=== PATIENT | female | born 1940 | race Caucasian/White ===

== ENCOUNTER → 2016-03-09 | Outpatient (CLI) | payer MEDICARE ==
--- NOTE | 2016-03-09 14:13 | US ---
EXAMINATION TYPE: US thyroid st tissue head/neck DATE OF EXAM: 03/09/2016 1:48 PM COMPARISON: 08/19/2015 CLINICAL HISTORY: E04.1 THYROID NODULE. GLAND SIZE: Right Lobe: 3.6 x 1.3 x 1.6 cm Overall Parenchyma: heterogenous Left Lobe: 3.4 x 1.4 x 2.8 cm Overall Parenchyma: heterogeneous Isthmus Thickness: 0.3 cm NODULES RIGHT: # of nodules measured on right: 3 1. 1.1 X 0.7 x 0.7 cm isoechoic mixed nodule at the lower pole with well-defined margins; present w ith microcalcifications. This nodule is wider than tall and shows intranodular vascularity. Prior size: 1.2 x 1.0 x 0.9 cm 2. 0.9 X 0.6 x 0.6 cm mixed nodule at the medial lower pole with well-defined margins; . This nodule is wider than tall and shows intranodular vascularity. Prior size: 0.8 x 0.7 x 0.6 cm 3. 0.7 X 0.4 x 0.4 cm mixed nodule at the upper pole with well-defined margins; . This nodule is w ider than tall and shows no intranodular vascularity. Prior size: 0.5 x 0.5 x 0.5 cm LEFT: # of nodules measured on left: 2 1. 0.4 X 0.2 x 0.3 cm cystic nodule at the mid lateral pole with well-defined margins; . This nodu le is wider than tall and shows no intranodular vascularity. Prior size: 0.4 x 0.2 x 0.3 cm 2. 0.4 X 0.3 x 0.3 cm mixed nodule at the lower/medial pole with well-defined margins; . This nodul e is wider than tall and shows no intranodular vascularity. Prior size: 0.3 x 0.3 x 0.3 cm ISTHMUS: # of nodules measured in the isthmus: 1 1. 0.6 X 0.4 x 0.6 cm mixed nodule at the lower pole with well-defined margins; . This nodule is w ider than tall and shows no intranodular vascularity. Prior size: 0.6 x 0.5 x 0.4 cm IMPRESSION: Multinodular thyroid changes. Given differences in technique from the previous exam findings appear t o be stable.
== END | disposition home or self-care (01) ==
LOC: RADUSWWP 12:58
PROVIDERS: ATTEND Otolaryngology
DX: E04.2 Nontoxic multinodular goiter (principal)
CPT/HCPCS: 76536

== ENCOUNTER → 2016-09-28 | Outpatient (CLI) | payer MEDICARE ==
--- NOTE | 2016-09-28 23:27 | US ---
EXAMINATION TYPE: US thyroid st tissue head/neck DATE OF EXAM: 09/28/2016 COMPARISON: 03/09/2016 CLINICAL HISTORY: 76-year-old female Thyroid nodule E04.1. F/U nodules TECHNIQUE: Multiple sonographic images of the thyroid gland are obtained. FINDINGS: GLAND SIZE: Right Lobe: 3.8 x 1.8 x 1.7 cm Overall Parenchyma: heterogenous Left Lobe: 4.0 x 1.4 x 1.6 cm Overall Parenchyma: heterogeneous Isthmus Thickness: 0.4 cm NODULES RIGHT: # of nodules measured on right: 3 1. 0.9 X 0.7 x 0.9 cm isoechoic solid nodule at the mid pole with poorly defined margins; Present w ith microcalcifications; This nodule is wider than tall and shows intranodular vascularity. Prior size: 1.1 x 0.7 x 0.7 cm 2. 0.8 X 0.6 x 0.8 cm hypoechoic solid nodule at the mid pole with well-defined margins; This nodule is wider than tall and shows intranodular vascularity. Prior size: 0.9 x 0.6 x 0.6 cm 3. 0.6 X 0.4 x 0.5 cm hypoechoic solid nodule at the upper pole with well-defined margins; This nodu le is wider than tall and shows intranodular vascularity. Prior size: 0.7 x 0.4 x 0.4 cm LEFT: # of nodules measured on left: 0 ISTHMUS: # of nodules measured in the left isthmus: 1 1. 0.6 X 0.3 x 0.6 cm hypoechoic solid with well-defined margins; This nodule is wider than tall an d shows intranodular vascularity. Prior size: 0.6 x 0.4 x 0.6 cm Bilateral neck scanned, no evidence of lymphadenopathy. IMPRESSION: Stable solid thyroid nodules, 3 in the right lobe (measuring up to 9 mm) and one within the left Isth mus (measuring up to 6 mm).
== END | disposition home or self-care (01) ==
LOC: RADUSWWP 16:09
PROVIDERS: ATTEND Otolaryngology
DX: E04.2 Nontoxic multinodular goiter (principal)
CPT/HCPCS: 76536

== ENCOUNTER → 2016-10-25 | Outpatient (CLI) | payer MEDICARE ==
--- NOTE | 2016-10-26 07:44 | BD ---
EXAMINATION TYPE: MG DEXA axial skeleton. DATE OF EXAM: 10/25/2016 COMPARISON: NONE CLINICAL HISTORY: Age-related osteoporosis per order. Height: 62.2 IN Weight: 168 LBS FRAX RISK QUESTIONS: Alcohol (3 or more units per day): NO Family History (Parent hip fracture): NO Glucocorticoids (More than 3mos): NO (Ex: prednisone, prednisolone, methylprednisolone, dexamethasone, and hydrocortisone). History of Fracture in Adulthood: NO Secondary Osteoporosis: 1. Type 1 Diabetes: NO 2. Hyperthyroidism: NO 3. Menopause before 45: NO 4. Malnutrition: NO 5. Chronic liver disease: NO Rheumatoid Arthritis: NO Current Tobacco Use: NO RISK FACTORS HISTORY OF: Active: YES Diet low in dairy products/other sources of calcium: YES Postmenopausal woman: AGE 48 MEDICATIONS: Additional Medications: CALCIUM, VIT D, HIGH BLOOD PRESSURE MED, ALLERGY MEDS, ZYRTEC, ASPIRIN, MAGNE SIUM, MOTRIN, Additional History: BREAST CA WITH CHEMO EXAM MEASUREMENTS: Bone mineral densitometry was performed using the [employer]. Bone mineral density as measured about the Lumbar spine is: ----- L1-L4(G/cm2): 0.990 T Score Values are as follows: ----- L2: -2.7 ----- L3: -1.3 ----- L4: -0.2 ----- L1-L4: -1.6 Bone mineral density BASELINE Bone mineral density about the R hip (g/cm2): 0.697 Bone mineral density about the L hip (g/cm2): 0.678 T Score values are as follows: -----R Neck: -2.5 -----L Neck: -2.6 -----R Total: -2.4 -----L Total: -1.8 Bone mineral density BASELINE IMPRESSION: Osteoporosis (T Score less than -2.5) as noted by T Score values at the femoral neck levels in both h ips and at 2 consecutive levels in the low back. There is increased fracture risk and therapy is usua lly indicated based on age. Re-Screen 1-2 years. NOTE: T-SCORE=SD OF THE YOUNG ADULT MEAN.
== END | disposition home or self-care (01) ==
LOC: RADBDWWP 15:50
PROVIDERS: ATTEND Internal Medicine Rheumatology
DX: M81.0 Age-related osteoporosis without current pathological fracture (principal)
CPT/HCPCS: 77080

== ENCOUNTER → 2017-09-12 | Outpatient (CLI) | payer MEDICARE ==
--- NOTE | 2017-09-12 15:06 | US ---
EXAMINATION TYPE: US thyroid st tissue head/neck DATE OF EXAM: 09/12/2017 COMPARISON: US 2017 CLINICAL HISTORY: E04.1 Thyroid Nodule. Follow up thyroid nodules GLAND SIZE: Right Lobe: 3.3 x 1.8 x 1.6 cm Overall Parenchyma: heterogenous Left Lobe: 3.9 x 1.4 x 1.4 cm Overall Parenchyma: heterogeneous Isthmus Thickness: 0.3 cm NODULES RIGHT: # of nodules measured on right: 3 1. 1.3 X 0.9 x 0.9 cm isoechoic solid nodule at the mid pole with poorly defined margins; present w ith microcalcifications. This nodule is wider than tall and shows intranodular vascularity. Prior size: 0.9 x 0.7 x 0.9 cm 2. 1.0 X 0.7 x 0.9 cm hypoechoic solid nodule at the mid pole with well-defined margins; present wit h microcalcifications. This nodule is wider than tall and shows intranodular vascularity. Prior size: 0.8 x 0.6 x 0.8 cm 3. 0.7 X 0.5 x 0.7 cm hypoechoic solid nodule at the upper pole with well-defined margins. This nodu le is wider than tall and shows intranodular vascularity. Prior size: 0.6 x 0.4 x 0.5 cm LEFT: # of nodules measured on left: 0 ISTHMUS: # of nodules measured in the isthmus: 1 1. 0.7 X 0.3 x 0.7 cm hypoechoic solid nodule with well-defined margins. This nodule is wider than tall and shows intranodular vascularity. Prior size: 0.6 x 0.3 x 0.6 cm Bilateral neck scanned, no evidence of lymphadenopathy. Heterogeneous somewhat small thyroid gland with stable nodules described above. No new nodules are ev ident. IMPRESSION: As above, overall stable findings.
== END | disposition home or self-care (01) ==
LOC: RADUSWWP 13:54
PROVIDERS: ATTEND Otolaryngology
DX: E04.1 Nontoxic single thyroid nodule (principal); Z88.8 Allergy status to other drugs, medicaments and biological substances
CPT/HCPCS: 76536

== ENCOUNTER 2018-01-18 10:57 | Emergency (ER) | payer MEDICARE ==
[2018-01-18 11:06] VITALS: TEMP 98.5
[2018-01-18] MEDS ORDERED: SODIUM CHLORIDE 0.9% 1,000 ML IV STA (11:30)
--- NOTE | 2018-01-18 11:39 | ED ---
General Adult HPI - General Chief complaint: Weakness Stated complaint: weakness Time Seen by Provider: 01/18/18 11:11 Source: patient, RN notes reviewed Mode of arrival: wheelchair Limitations: no limitations - History of Present Illness Initial comments: Patient is a pleasant 78-year-old female presenting to the emergency Department with complaints of fatigue and generalized weakness. Onset of symptoms was around 3 days ago. Symptoms have been persistent since that time. No isolated area of weakness. No confusion. No speech problem is. No headaches. No significant pain. Patient complains of feeling fatigued and just somewhat weak all over. - Related Data Home Medications Medication Instructions Recorded Confirmed Cetirizine HCl [Zyrtec] 10 mg PO DAILY 09/09/14 01/18/18 Montelukast [Singulair] 10 mg PO DAILY 09/09/14 01/18/18 Omeprazole [PriLOSEC] 20 mg PO AC-BRKFST 09/09/14 01/18/18 Aspirin 325 mg PO DAILY 09/11/14 01/18/18 Bisoprolol-Hctz 10-6.25 mg [Ziac 1 tab PO DAILY 09/03/15 01/18/18 10-6.25] Lovastatin [Mevacor] 10 mg PO HS 09/03/15 01/18/18 Ubidecarenone [Co Q-10] 200 mg PO DAILY 09/03/15 01/18/18 Alendronate Sodium [Fosamax] 5 mg PO DAILY 01/18/18 01/18/18 Aloe Lax 225 1 tab PO DAILY 01/18/18 01/18/18 Ascorbic Acid [Vitamin C] 500 mg PO DAILY 01/18/18 01/18/18 Biotin 5,000 mcg PO DAILY 01/18/18 01/18/18 Calcium Carb/Magnesium Ox,Carb 1 tab PO DAILY 01/18/18 01/18/18 [Seven-Mag 500-250 MG Chewable] Curamin 1 tab PO TID 01/18/18 01/18/18 Stella 500 mg PO DAILY 01/18/18 01/18/18 Lutein 20 mg PO DAILY 01/18/18 01/18/18 Potassium Iodide [SSKI Oral Liquid] 30 gm PO DAILY 01/18/18 01/18/18 Prevagen Es 1 tab PO DAILY 01/18/18 01/18/18 Pyridoxine HCl (Vitamin B6) 100 mg PO DAILY 01/18/18 01/18/18 [Vitamin B-6] Selenium 200 mcg PO DAILY 01/18/18 01/18/18 Sweet Wheat 1 tab PO DAILY 01/18/18 01/18/18 Vitamin E (Dl,Tocopheryl Acet) 400 unit PO DAILY 01/18/18 01/18/18 [Vitamin E] Zinc 50 mg PO DAILY 01/18/18 01/18/18 Allergies Allergy/AdvReac Type Severity Reaction Status Date / Time diazepam [From Valium] Allergy Rapid Verified 01/18/18 12:01 Heart Rate grass pollen-perennial rye, Allergy Itching Verified 01/18/18 12:01 standar Review of Systems ROS Statement: Those systems with pertinent positive or pertinent negative responses have been documented in the HPI. ROS Other: All systems not noted in ROS Statement are negative. Constitutional: Denies: fever, chills Eyes: Denies: eye pain ENT: Denies: ear pain Respiratory: Denies: cough, dyspnea Cardiovascular: Denies: chest pain Endocrine: Reports: fatigue Gastrointestinal: Denies: abdominal pain Genitourinary: Reports: urgency (There is slight increase in patient's chronic incontinence). 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, "bad joints", anemia History of Any Multi-Drug Resistant Organisms: None Reported Past Surgical History: Breast Surgery Additional Past Surgical History / Comment(s): RT MASTECTOMY, Eye surgery - bilateral corneal transplant, AND cataract removal Past Anesthesia/Blood Transfusion Reactions: No Reported Reaction Past Psychological History: No Psychological Hx Reported Smoking Status: Never smoker Past Alcohol Use History: None Reported Past Drug Use History: None Reported - Past Family History Father Family Medical History: Cancer Additional Family Medical History / Comment(s): corneal dystrophy, colon cancer Mother Family Medical History: Cancer Additional Family Medical History / Comment(s): multiple myeloma Brother(s) Family Medical History: Cancer Additional Family Medical History / Comment(s): colon cancer General Exam Limitations: no limitations General appearance: alert, in no apparent distress Head exam: Present: atraumatic Eye exam: Present: normal appearance, PERRL, EOMI. Absent: nystagmus ENT exam: Present: normal oropharynx Neck exam: Present: normal inspection Respiratory exam: Present: normal lung sounds bilaterally Cardiovascular Exam: Present: regular rate, normal rhythm, systolic murmur ( Patient states is chronic) GI/Abdominal exam: Present: soft. Absent: tenderness Extremities exam: Present: normal inspection. Absent: pedal edema, calf tenderness Neurological exam: Present: alert, oriented X3, CN II-XII intact. Absent: motor sensory deficit Expanded Neurological exam: Present: protecting the airway Patient oriented to: Present: person, place, time Speech: Present: fluid speech Cranial nerves: EOM's Intact: Normal, Facial Sensation: Normal Sensory exam: Upper Extremity Light Touch: Normal, Lower Extremity Light Touch: Normal Motor strength exam: RUE: 5, LUE: 5, RLE: 5, LLE: 5 Eye Response: (4) open spontaneously Motor Response: (6) obeys commands Verbal Response: (5) oriented Psychiatric exam: Present: normal affect, normal mood Skin exam: Present: normal color Course Vital Signs 01/18/18 01/18/18 01/18/18 11:03 11:23 11:30 Temperature 98.5 F Pulse Rate 78 73 Respiratory 20 Rate Blood Pressure 143/62 151/70 O2 Sat by Pulse 96 95 94 L Oximetry 01/18/18 01/18/18 01/18/18 12:00 12:30 13:00 Temperature Pulse Rate 68 70 75 Respiratory Rate Blood Pressure 141/74 141/62 O2 Sat by Pulse 100 96 Oximetry 01/18/18 13:30 Temperature Pulse Rate 75 Respiratory Rate Blood Pressure 139/68 O2 Sat by Pulse Oximetry EKG Findings - EKG Comments: EKG Findings:: No sinus rhythm 70. LA 154. QRS 88. QT 446. QTc 41. Normal axis. Normal QRS. No acute ST change. Previous EKGs reviewed dated 09/09/2014 including QTc interval. Medical Decision Making - Medical Decision Making Patient reevaluated and resting comfortably in bed. Patient without additional complaints. Patient was able to ambulate without difficulty in the emergency department. Patient and family updated on results and need for follow-up. This evidently updated on CT results and need for further evaluation. - Lab Data Result diagrams: 01/18/18 13:39 01/18/18 11:50 Lab Results 01/18/18 01/18/18 01/18/18 Range/Units 11:50 11:50 11:50 WBC (3.8-10.6) k/uL RBC (3.80-5.40) m/uL Hgb (11.4-16.0) gm/dL Hct (34.0-46.0) % MCV (80.0-100.0) fL MCH (25.0-35.0) pg MCHC (31.0-37.0) g/dL RDW (11.5-15.5) % Plt Count (150-450) k/uL Neutrophils % % Lymphocytes % % Monocytes % % Eosinophils % % Basophils % % Neutrophils # (1.3-7.7) k/uL Lymphocytes # (1.0-4.8) k/uL Monocytes # (0-1.0) k/uL Eosinophils # (0-0.7) k/uL Basophils # (0-0.2) k/uL PT 10.0 (9.0-12.0) sec INR 1.0 (<1.2) APTT 23.8 (22.0-30.0) sec Sodium 140 (137-145) mmol/L Potassium 5.0 (3.5-5.1) mmol/L Chloride 104 (98-107) mmol/L Carbon Dioxide 24 (22-30) mmol/L Anion Gap 12 mmol/L BUN 18 H (7-17) mg/dL Creatinine 1.00 (0.52-1.04) mg/dL Est GFR (CKD-EPI)AfAm 62 (>60 ml/min/1.73 sqM) Est GFR (CKD-EPI)NonAf 54 (>60 ml/min/1.73 sqM) Glucose 90 (74-99) mg/dL Calcium 9.9 (8.4-10.2) mg/dL Phosphorus 4.1 (2.5-4.5) mg/dL Magnesium 2.2 (1.6-2.3) mg/dL Total Bilirubin 0.8 (0.2-1.3) mg/dL AST 60 H (14-36) U/L ALT 24 (9-52) U/L Alkaline Phosphatase 68 (38-126) U/L Total Creatine Kinase 108 (30-135) U/L CK-MB (CK-2) 1.7 (0.0-2.4) ng/mL CK-MB (CK-2) Rel Index 1.6 Troponin I <0.012 (0.000-0.034) ng/mL Total Protein 8.3 H (6.3-8.2) g/dL Albumin 4.7 (3.5-5.0) g/dL TSH 1.150 (0.465-4.680) mIU/L Free T4 1.07 (0.78-2.19) ng/dL Free T3 pg/mL 3.8 (2.8-5.3) pg/ml Urine Color Urine Appearance (Clear) Urine pH (5.0-8.0) Ur Specific [place] (1.001-1.035) Urine Protein (Negative) Urine Glucose (UA) (Negative) Urine Ketones (Negative) Urine Blood (Negative) Urine Nitrite (Negative) Urine Bilirubin (Negative) Urine Urobilinogen (<2.0) mg/dL Ur Leukocyte Esterase (Negative) 01/18/18 01/18/18 Range/Units 11:50 13:39 WBC 9.4 (3.8-10.6) k/uL RBC 4.73 (3.80-5.40) m/uL Hgb 14.9 (11.4-16.0) gm/dL Hct 45.4 (34.0-46.0) % MCV 96.1 (80.0-100.0) fL MCH 31.6 (25.0-35.0) pg MCHC 32.9 (31.0-37.0) g/dL RDW 13.1 (11.5-15.5) % Plt Count 160 (150-450) k/uL Neutrophils % 64 % Lymphocytes % 23 % Monocytes % 8 % Eosinophils % 2 % Basophils % 0 % Neutrophils # 6.0 (1.3-7.7) k/uL Lymphocytes # 2.1 (1.0-4.8) k/uL Monocytes # 0.8 (0-1.0) k/uL Eosinophils # 0.2 (0-0.7) k/uL Basophils # 0.0 (0-0.2) k/uL PT (9.0-12.0) sec INR (<1.2) APTT (22.0-30.0) sec Sodium (137-145) mmol/L Potassium (3.5-5.1) mmol/L Chloride (98-107) mmol/L Carbon Dioxide (22-30) mmol/L Anion Gap mmol/L BUN (7-17) mg/dL Creatinine (0.52-1.04) mg/dL Est GFR (CKD-EPI)AfAm (>60 ml/min/1.73 sqM) Est GFR (CKD-EPI)NonAf (>60 ml/min/1.73 sqM) Glucose (74-99) mg/dL Calcium (8.4-10.2) mg/dL Phosphorus (2.5-4.5) mg/dL Magnesium (1.6-2.3) mg/dL Total Bilirubin (0.2-1.3) mg/dL AST (14-36) U/L ALT (9-52) U/L Alkaline Phosphatase (38-126) U/L Total Creatine Kinase (30-135) U/L CK-MB (CK-2) (0.0-2.4) ng/mL CK-MB (CK-2) Rel Index Troponin I (0.000-0.034) ng/mL Total Protein (6.3-8.2) g/dL Albumin (3.5-5.0) g/dL TSH (0.465-4.680) mIU/L Free T4 (0.78-2.19) ng/dL Free T3 pg/mL (2.8-5.3) pg/ml Urine Color Yellow Urine Appearance Clear (Clear) Urine pH 6.0 (5.0-8.0) Ur Specific [place] 1.007 (1.001-1.035) Urine Protein Negative (Negative) Urine Glucose (UA) Negative (Negative) Urine Ketones Negative (Negative) Urine Blood Negative (Negative) Urine Nitrite Negative (Negative) Urine Bilirubin Negative (Negative) Urine Urobilinogen <2.0 (<2.0) mg/dL Ur Leukocyte Esterase Negative (Negative) - Radiology Data Radiology results: report reviewed (Computed tomography scan of the brain shows diffuse white matter changes, may reflect chronic small vessel disease however demyelinating disease has not been ruled out), image reviewed (Chest x-ray shows no acute process) Disposition Clinical Impression: Fatigue Disposition: HOME SELF-CARE Condition: Stable Instructions: Fatigue (ED) Additional Instructions: Please follow-up with primary care physician in the next couple of days for recheck. Have primary care physician review CT results. Return for increased weakness, confusion, fevers, worsening or changing symptoms or other concerns. Is patient prescribed a controlled substance at d/c from ED?: No Referrals: Cinthia Wynn MD [Primary Care Provider] - 1-2 days Time of Disposition: 14:40
[2018-01-18 12:19] LABS: Appearance,Urine Clear (Clear); Bilirubin,Urine Negative (Negative); Blood,Urine Negative (Negative); Color,Urine Yellow; Glucose,Urine (UA) Negative (Negative); Ketones,Urine Negative (Negative); Leukocyte Esterase,Urine Negative (Negative); Nitrite,Urine Negative (Negative); Protein,Urine Negative (Negative); Specific Gravity,Urine 1.007 (1.001-1.035); Urobilinogen,Urine <2.0 mg/dL (<2.0)
[2018-01-18 12:20] LABS: Partial Thromboplastin Time 23.8 sec (22.0-30.0)
--- NOTE | 2018-01-18 12:20 | XR ---
EXAMINATION TYPE: XR chest 2V DATE OF EXAM: 01/18/2018 COMPARISON: NONE HISTORY: Shortness of breath TECHNIQUE: Frontal and lateral views of the chest are obtained. FINDINGS: Scattered senescent parenchymal changes noted. Hyperinflation compatible with COPD. No evidence for infiltrate. No evidence for atelectasis. Heart size is stable. Mediastinal structures are stable and grossly unremarkable. No evidence for hilar prominence. Degenerative changes dorsal spine. IMPRESSION: 1. No evidence for acute pulmonary disease.
[2018-01-18 12:25] LABS: Albumin 4.7 g/dL (3.5-5.0); Calcium 9.9 mg/dL (8.4-10.2); Magnesium 2.2 mg/dL (1.6-2.3); Phosphorus 4.1 mg/dL (2.5-4.5); Total Bilirubin 0.8 mg/dL (0.2-1.3); Total Protein 8.3 g/dL (6.3-8.2)
--- NOTE | 2018-01-18 12:32 | CT ---
EXAMINATION TYPE: CT brain wo con DATE OF EXAM: 01/18/2018 COMPARISON: None HISTORY: 78-year-old female Ringing/buzzing in head TECHNIQUE: Examination was done in axial plane without intravenous contrast. Coronal and sagittal r econstructions performed. CT DLP: 1048.4 mGycm Automated exposure control for dose reduction was used. FINDINGS: There is no evidence of acute intracranial hemorrhage, acute ischemic changes, mass, mass-effect, or extra-axial fluid collection. There is no effacement of cerebral sulci or basal subarachnoid cister ns. There is no hydrocephalus. There is no midline shift. Frey-white matter distinction is preserv ed. Paranasal sinuses and mastoid air cells well pneumatized. Middle ear cavities are clear. Rightward na hugo septal deviation. Moderate to severe patchy white matter hypodensities deep white matter and periventricular regions. IMPRESSION: 1. No acute intracranial abnormality seen. 2. Moderate to severe patchy white matter hypodensities may reflect changes of chronic small vessel i schemic disease. Demyelinating disease could also be considered in the differential. MRI if clinicall y indicated.
[2018-01-18 12:34] LABS: Creatine Kinase 108 U/L (30-135)
[2018-01-18 12:41] LABS: T4, Free (Free Thyroxine) 1.07 ng/dL (0.78-2.19)
[2018-01-18 12:47] LABS: Creatine Kinase MB 1.7 ng/mL (0.0-2.4); Troponin I <0.012 ng/mL (0.000-0.034)
[2018-01-18 14:19] LABS: Basophils % (A) 0 %; Eosinophils # (A) 0.2 k/uL (0-0.7); Eosinophils % (A) 2 %; HCT 45.4 % (34.0-46.0); HGB 14.9 gm/dL (11.4-16.0); Lymphocytes # (A) 2.1 k/uL (1.0-4.8); Lymphocytes % (A) 23 %; MCH 31.6 pg (25.0-35.0); MCHC 32.9 g/dL (31.0-37.0); MCV 96.1 fL (80.0-100.0); Mean Platelet Volume 8.5; Monocytes # (A) 0.8 k/uL (0-1.0); Monocytes % (A) 8 %; Neutrophils % (A) 64 %; Platelet Count 160 k/uL (150-450); RBC 4.73 m/uL (3.80-5.40); RDW 13.1 % (11.5-15.5); WBC 9.4 k/uL (3.8-10.6)
[2018-01-18 14:56] VITALS: BP 141/64; PULSE 76; RESP 18
== END 2018-01-18 14:57 | disposition home or self-care (01) ==
LOC: EC 10:57
DX: R53.83 Other fatigue (principal); E78.5 Hyperlipidemia, unspecified; I10 Essential (primary) hypertension; E07.9 Disorder of thyroid, unspecified; G62.9 Polyneuropathy, unspecified; Z85.828 Personal history of other malignant neoplasm of skin; Z85.3 Personal history of malignant neoplasm of breast; Z79.82 Long term (current) use of aspirin; Z79.899 Other long term (current) drug therapy; Z88.8 Allergy status to other drugs, medicaments and biological substances; Z91.048 Other nonmedicinal substance allergy status; Z90.11 Acquired absence of right breast and nipple
CPT/HCPCS: 36415; 70450; 71046; 80053; 81003; 82550; 82553; 83735; 84100; 84439; 84443; 84481; 84484; 85025; 85610; 85730; 93005; 96360; 99285

== ENCOUNTER → 2018-06-22 | Outpatient (CLI) | payer MEDICARE ==
--- NOTE | 2018-06-23 07:01 | US ---
EXAMINATION TYPE: US thyroid st tissue head/neck DATE OF EXAM: 06/22/2018 COMPARISON: 2018 CLINICAL HISTORY: E04.1 Thyroid nodule. GLAND SIZE: Right Lobe: 3.1 x 1.8 x 1.7 cm Overall Parenchyma: heterogenous Left Lobe: 3.5 x1.2 x1.3 cm Overall Parenchyma: heterogenous Isthmus Thickness: 0.3 cm NODULES RIGHT: # of nodules measured on right: 3 1. 1.0 X 0.7 x 0.7 cm solid nodule at the mid pole with poorly defined margins; present with microc alcifications. This nodule is wider than tall and shows intranodular vascularity. Prior size: 1.3 x 0.9 x 0.9 cm 2. 0.8 X 0.9 x 0.7 cm solid nodule at the mid pole with well-defined margins; . This nodule is wide r than tall and shows intranodular vascularity. Prior size: 1.0 x 0.7 x 0.9 cm 3. 0.6 X 0.5 x 0.6 cm mixed nodule at the upper pole with well-defined margins; . This nodule is ro und and shows intranodular vascularity. Prior size: 0.7 x 0.5 x 0.7 cm LEFT: # of nodules measured on left: 0 ISTHMUS: # of nodules measured in the isthmus: 1 1. 0.8 X 0.7 x 0.4 cm solid nodule at the pole with well-defined margins; . This nodule is wider t franco tall and shows intranodular vascularity. Prior size: 0.7 x 0.3 x 0.7 cm Bilateral neck scanned, no evidence of lymphadenopathy. IMPRESSION: Thyroid heterogeneity and nonspecific thyroid nodularity essentially stable since prior examination.
== END | disposition home or self-care (01) ==
LOC: RADUSWWP 15:21
PROVIDERS: ATTEND Otolaryngology
DX: E04.2 Nontoxic multinodular goiter (principal); Z88.8 Allergy status to other drugs, medicaments and biological substances
CPT/HCPCS: 76536

== ENCOUNTER 2018-09-05 09:24 | Day surgery (SDC) | payer MEDICARE ==
[2018-08-30 11:50] VITALS: BMI 26.5
[~2018-09-05 09:24] MED LIST: ASPIRIN 325 MG TAB PO STA; ATORVASTATIN 80 MG TAB PO STA; NITROGLYCERIN SL TABS 0.4 MG TAB SUBLINGUAL PRN; SODIUM CHLORIDE 0.9% 1,000 ML in EMPTY BAG 1 BAG IV ONE
[2018-09-05] MEDS ORDERED: fentaNYL (PF) 50 MCG/ML 2 ML AMP ONE (09:52)
[2018-09-05 10:00] VITALS: RESP 18; TEMP 97.6
[2018-09-05] MEDS ORDERED: SODIUM CHLORIDE 0.9% 1,000 ML IV ONE (10:07)
[2018-09-05] MEDS ORDERED: BENZOCAINE SPRAY 1 CAN MUCOUS MEM ONE (10:12)
[2018-09-05] MEDS ORDERED: fentaNYL (PF) 50 MCG/ML 2 ML AMP IV ONE (10:12)
[2018-09-05] MEDS ORDERED: MIDAZOLAM (PF) 2 MG/2 ML VIAL IV ONE (10:13)
[2018-09-05 10:26] VITALS: PULSE 78
[2018-09-05] MEDS ORDERED: LIDOCAINE 1% INJ 10MG/ML (20 ML MDV) SQ ONE (10:40)
[2018-09-05] MEDS ORDERED: VERAPAMIL SYRINGE (5 MG/10 ML) INTRAARTER ONE ×2 (10:42→10:48)
[2018-09-05] MEDS ORDERED: HEPARIN SODIUM 1,000 UN/ML (10ML VL) IV ONE (10:45)
[2018-09-05] MEDS ORDERED: IOPAMIDOL-370 125ML BTL INJ ONE (10:49)
--- NOTE | 2018-09-05 10:50 | ECHOT ---
TRANSESOPHAGEAL ECHOCARDIOGRAM DATE OF SERVICE: 09/05/2018 PERFORMING PHYSICIAN: Errol James MD, urban planner. PROCEDURE PERFORMED: Transesophageal echocardiogram. INDICATION: This is an in 78-year-old female patient who was experiencing recently symptoms of shortness of breath with exertion and underwent an echocardiogram which revealed high gradient across the aortic valve consistent with severe aortic stenosis. Because of that, she was scheduled today to undergo transesophageal echocardiogram for better clarification. COMPLICATION: None. LEVEL OF SEDATION: Moderate with sedation length of 10 minutes. PROCEDURE DESCRIPTION: After obtaining an informed consent, explaining the procedure, benefits, risks, complications and alternatives, the patient was brought to the transesophageal echocardiogram suite. A pulse oximetry and heart rate monitors were attached to the patient prior to the procedure. The patient's throat was sprayed using lidocaine locally. Following that, the patient was turned into left lateral position. A bite guard was placed and the patient was then sedated with the above doses of Versed and fentanyl in divided doses. Following that, the transesophageal echocardiogram probe was advanced through the bite guard into the mid esophagus where 2-D echocardiogram images as well as color Doppler images of various cardiac structures were obtained. We evaluated the interatrial septum using 2-D echocardiogram, color Doppler, and contrast study. The procedure was completed. There were no complications. FINDINGS: The left ventricular dimension and systolic function appeared to be within normal limits with EF around 60% to 65%. The right ventricle appeared to be of normal size and function. The left atrium and right atrium are dilated. The left atrial appendage did not show any evidence of thrombus. The interatrial septum appeared to be intact by color-flow Doppler. The aortic valve is possibly bicuspid valve with evidence of aortic sclerosis and severe aortic stenosis by gradient. We get a mean gradient of at least 40 mmHg and velocity of 4 m/sec. The mitral valve seems to be thickened and calcified with moderate mitral regurgitation. There was moderate tricuspid regurgitation and pulmonary artery systolic pressure was calculated to be about 17 mmHg. CONCLUSION: 1. Normal left ventricular dimension and systolic function. 2. Normal right ventricular dimension and systolic function. 3. Severe biatrial enlargement. 4. Aortic sclerosis with severe aortic stenosis and mild aortic insufficiency. 5. Thickened mitral valve leaflets with moderate mitral regurgitation. 6. Moderate tricuspid regurgitation. 7. Severe pulmonary hypertension. MMODL / IJN: [id number] /
[2018-09-05] MEDS ORDERED: RX INFO: IV CONTRAST WAS GIVEN 1 EACH MISC MISCELLANE PRN (10:57)
[2018-09-05] MEDS ORDERED: SODIUM CHLORIDE 0.9% 1,000 ML IV SCH (11:00)
--- NOTE | 2018-09-05 11:20 | CC ---
CARDIAC CATHETERIZATION REPORT DATE OF SERVICE: 09/05/2018 PERFORMING PHYSICIAN: Errol James MD, Staff Developer. PROCEDURE PERFORMED: Selective right and left coronary angiogram. INDICATION: This is an 78-year-old female patient with history of aortic stenosis, underwent earlier today transesophageal echocardiogram and that revealed severe and she is here today for coronary angiogram. APPROACH: Right radial artery. COMPLICATION: None. LEVEL OF SEDATION: Moderate with sedation length of 12 minutes. PROCEDURE DESCRIPTION: After obtaining an informed consent, the patient was brought to the cardiac skilled labor. The right radial artery was cannulated using micropuncture technique, the micropuncture wire passed easily, then I placed a 5-T[place] sheath. I did give the patient 2 mg of verapamil IA and 6000 units of heparin IV. Selective right and left coronary angiogram performed using JR4 and JL3.5 catheters. Left heart catheterization was not performed. SELECTIVE CORONARY ANGIOGRAM: 1. The right coronary artery is a large caliber vessel. It is a dominant vessel. The RCA in the proximal to midportion has disease, appeared to be in the range of 70%. Distally appeared to be angiographically normal and bifurcates into PDA and PLV branches, both appeared to be angiographically normal. 2. The left main distally just before the bifurcation has a lesion appeared to be in the range of 30%. It bifurcates into left circumflex and left anterior descending artery. 3. The left circumflex is a large caliber vessel, it is a nondominant vessel. The proximal circumflex has a lesion eccentric, appeared to be in the range of 60% to 70%. The mid circumflex has another lesion, tubular looks about 70%. The circumflex distally appeared to be normal. 4. The LAD, the proximal LAD appeared to have mild disease only. It gives rise into a medium-sized diagonal branch which seems to be normal. The mid LAD appeared to have mild disease only as well and the LAD in the mid to distal portion has a focal lesion in the range of 70%. CONCLUSION: 1. Severe triple-vessel coronary artery disease. 2. Arua-kj-mqtrowic disease involving the left main coronary artery distally as well. POSTPROCEDURE MANAGEMENT: 1. I will discuss with the patient the next step regarding treatment of the aortic valve. 2. If she is going to undergo aortic valve replacement, she will go with TAVR and bypass surgery with it. 3. If she is going to do TAVR, then at this point with schedule the patient to have a PCI of her coronaries before she goes for TAVR. KIERAN / CAROL: [id number] /
[2018-09-05 16:28] VITALS: BP 110/54
== END 2018-09-05 16:05 | disposition home or self-care (01) ==
LOC: CATHCVL 09:24
PROVIDERS: ATTEND Internal Medicine Interventional Cardiology
DX: I08.3 Combined rheumatic disorders of mitral, aortic and tricuspid valves (principal); I27.20 Pulmonary hypertension, unspecified; I25.10 Atherosclerotic heart disease of native coronary artery without angina pectoris; I10 Essential (primary) hypertension; E78.00 Pure hypercholesterolemia, unspecified; I65.23 Occlusion and stenosis of bilateral carotid arteries; E78.5 Hyperlipidemia, unspecified; Z85.3 Personal history of malignant neoplasm of breast; Z88.8 Allergy status to other drugs, medicaments and biological substances; Z79.82 Long term (current) use of aspirin; Z79.899 Other long term (current) drug therapy
CPT/HCPCS: 93312; 93320; 93325; 93454; C1769; C1894; J2001; J3010; J1644; Q9967; J2250

== ENCOUNTER 2018-10-11 19:09 | Inpatient (IN) | payer MEDICARE ==
[2018-10-11] MEDS ORDERED: LORazepam 1 MG TAB PO STA (21:02)
--- NOTE | 2018-10-11 21:17 | ED ---
General Adult HPI - General Source: patient, RN notes reviewed, old records reviewed Mode of arrival: wheelchair Limitations: no limitations <Debbie Gao - Last Filed: 10/11/18 22:49> <Lupe Connelly - Last Filed: 10/12/18 00:26> - General Chief complaint: Shortness of Breath Stated complaint: SOB Time Seen by Provider: 10/11/18 20:40 - History of Present Illness Initial comments: This Patient is an 78-year-old female presents emergency department today with chief complaint of difficulty breathing. She states that she seems like it's intermittent been going on for 4 days. She states that she is seeking a second opinion on whether or not she needs a heart valve replacement, and is scheduled for appt next week with Elaine. Patient states that she does seem to be anxious about this and wonders if that be related to her occult being with breathing. She denies any associated chest pain. She reports that she has no dizziness. Patient reports that she did have a cardiac cath 2 weeks ago. Upon reviewing the cardiac cath she did have coronary artery disease noted in 3 dominant vessels. And recommended that she may need a PCI prior to valve replacement. Denies any cough or fevers. Patient reports that she had no nausea or abdominal pain. (Debbie Gao) - Related Data Home Medications Medication Instructions Recorded Confirmed Cetirizine HCl [Zyrtec] 10 mg PO HS 09/09/14 10/11/18 Montelukast [Singulair] 10 mg PO HS 09/09/14 10/11/18 Omeprazole [PriLOSEC] 20 mg PO HS 09/09/14 10/11/18 Aspirin 325 mg PO HS 09/11/14 10/11/18 Bisoprolol-Hctz 10-6.25 mg [Ziac 1 tab PO HS 09/03/15 10/11/18 10-6.25 MG] Lovastatin [Mevacor] 10 mg PO HS 09/03/15 10/11/18 Ubidecarenone [Co Q-10] 100 mg PO DAILY 09/03/15 10/11/18 Alendronate Sodium [Fosamax] 5 mg PO HS 01/18/18 10/11/18 Aloe Lax 225 1 tab PO HS 01/18/18 10/11/18 Ascorbic Acid [Vitamin C] 500 mg PO QAM 01/18/18 10/11/18 Biotin 5,000 mcg PO QAM 01/18/18 10/11/18 Calcium Carb/Magnesium Ox,Carb 2 tab PO BID 01/18/18 10/11/18 [Seven-Mag 500-250 MG Chewable] Lutein 20 mg PO QAM 01/18/18 10/11/18 Potassium Iodide [SSKI Oral Liquid] 30 gm PO QAM 01/18/18 10/11/18 Prevagen Es 1 tab PO QAM 01/18/18 10/11/18 Pyridoxine HCl (Vitamin B6) 100 mg PO HS 01/18/18 10/11/18 [Vitamin B-6] Selenium 200 mcg PO HS 01/18/18 10/11/18 Vitamin E (Dl,Tocopheryl Acet) 400 unit PO DAILY 01/18/18 10/11/18 [Vitamin E] Zinc 50 mg PO QAM 01/18/18 10/11/18 Cbd Oil 3 drops SL DAILY PRN 08/30/18 10/11/18 Cholecalciferol (Vitamin D3) 2,000 unit PO QAM 08/30/18 10/11/18 [Vitamin D3] Cyanocobalamin (Vitamin B-12) 1,000 mcg PO DAILY 08/30/18 10/11/18 [Vitamin B-12] Ferrous Sulfate [Iron (65 MG 325 mg PO QAM 08/30/18 10/11/18 Elemental)] Ginkgo Biloba [place] Extract [Ginkgo 60 mg PO QAM 08/30/18 10/11/18 Biloba] Lecithin, Soy [Lecithin] 400 mg PO BID 08/30/18 10/11/18 Magnesium Oxide [Mag-Ox] 250 mg PO DAILY 08/30/18 10/11/18 Nutroferon 1 tab PO BID 08/30/18 10/11/18 Potassium Gluconate 99 mg PO QAM 08/30/18 10/11/18 Allergies Allergy/AdvReac Type Severity Reaction Status Date / Time diazepam [From Valium] Allergy Rapid Verified 10/11/18 21:30 Heart Rate grass pollen-perennial rye, Allergy Itching Verified 10/11/18 21:30 standar Review of Systems ROS Other: All systems not noted in ROS Statement are negative. <Debbie Gao - Last Filed: 10/11/18 22:49> ROS Other: All systems not noted in ROS Statement are negative. <Lupe Connelly Remberto - Last Filed: 10/12/18 00:26> ROS Statement: Those systems with pertinent positive or pertinent negative responses have been documented in the HPI. 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, "bad joints", anemia History of Any Multi-Drug Resistant Organisms: None Reported Past Surgical History: Breast Surgery Additional Past Surgical History / Comment(s): RT MASTECTOMY, Eye surgery - bilateral corneal transplant, AND cataract removal Past Anesthesia/Blood Transfusion Reactions: No Reported Reaction Past Psychological History: No Psychological Hx Reported Smoking Status: Never smoker Past Alcohol Use History: Occasional Past Drug Use History: None Reported - Past Family History Father Family Medical History: Cancer Additional Family Medical History / Comment(s): corneal dystrophy, colon cancer Mother Family Medical History: Cancer Additional Family Medical History / Comment(s): multiple myeloma Brother(s) Family Medical History: Cancer Additional Family Medical History / Comment(s): colon cancer <Debbie Gao - Last Filed: 10/11/18 22:49> General Exam Limitations: no limitations General appearance: alert, in no apparent distress Head exam: Present: atraumatic, normocephalic, normal inspection Eye exam: Present: normal appearance, PERRL, EOMI. Absent: scleral icterus, conjunctival injection, periorbital swelling ENT exam: Present: normal exam, mucous membranes moist Neck exam: Present: normal inspection. Absent: tenderness, meningismus, lymphadenopathy Respiratory exam: Present: normal lung sounds bilaterally. Absent: respiratory distress, wheezes, rales, rhonchi, stridor Cardiovascular Exam: Present: regular rate, normal rhythm, systolic murmur. Absent: normal heart sounds, diastolic murmur, rubs, gallop, clicks GI/Abdominal exam: Present: soft, normal bowel sounds. Absent: distended, tenderness, guarding, rebound, rigid Extremities exam: Present: normal inspection, full ROM, normal capillary refill. Absent: tenderness, pedal edema, joint swelling, calf tenderness Back exam: Present: normal inspection Neurological exam: Present: alert, oriented X3, CN II-XII intact Psychiatric exam: Present: normal affect, normal mood Skin exam: Present: warm, dry, intact, normal color. Absent: rash <Debbie Gao - Last Filed: 10/11/18 22:49> - General Exam Comments Initial Comments: Pleasant 78-year-old female. No distress. (SimaDebbie) Course Vital Signs 10/11/18 10/11/18 10/12/18 19:26 23:19 00:16 Temperature 99.1 F Pulse Rate 76 69 82 Respiratory 18 16 16 Rate Blood Pressure 126/79 153/77 151/69 O2 Sat by Pulse 96 100 97 Oximetry Medical Decision Making - Lab Data Result diagrams: 10/11/18 21:10 10/11/18 21:10 - Radiology Data Radiology results: report reviewed <Debbie Gao - Last Filed: 10/11/18 22:49> - Lab Data Result diagrams: 10/11/18 21:10 10/11/18 21:10 <Lupe Connelly - Last Filed: 10/12/18 00:26> - Medical Decision Making Asians an 78-year-old female who presents today with Solu complaint of intermittent shortness of breath. Denies any chest pain. Denies any pleuritic pain. Vital signs are stable. Upon arrival Patient was given fluids and lab work obtained. She was found to have a significant elevated troponin of 6.3. EKG was reviewed and also discusses Dr. Metzger. Patient was started on heparin. Her cardiac cath 2 weeks ago did show prominent three-vessel coronary artery disease. 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 James with her consumer lender. She is also reported to have aortic valve replacement due to aortic stenosis. (Debbie Gao) I Personally saw and evaluated the patient. Patient EKG was obtained at 2216, rate is 71 rhythm is sinus, there is a leftward axis, intervals MA 168, QRS 94, QTC is prolonged at 489, there are no acute ST elevations, mild ST depressions in lateral leads. No evidence of acute infarction. I discussed patient care with cardiology on-call Dr May, who agrees with plan for admission, heparinization and evaluation by cardiology. (Lupe Connelly) - Lab Data Lab Results 10/11/18 10/11/18 10/11/18 Range/Units 21:10 21:10 21:10 WBC 10.0 (3.8-10.6) k/uL RBC 4.58 (3.80-5.40) m/uL Hgb 14.5 (11.4-16.0) gm/dL Hct 43.7 (34.0-46.0) % MCV 95.4 (80.0-100.0) fL MCH 31.6 (25.0-35.0) pg MCHC 33.2 (31.0-37.0) g/dL RDW 13.4 (11.5-15.5) % Plt Count 175 (150-450) k/uL Neutrophils % 55 % Lymphocytes % 26 % Monocytes % 13 % Eosinophils % 2 % Basophils % 1 % Neutrophils # 5.5 (1.3-7.7) k/uL Lymphocytes # 2.6 (1.0-4.8) k/uL Monocytes # 1.3 H (0-1.0) k/uL Eosinophils # 0.2 (0-0.7) k/uL Basophils # 0.1 (0-0.2) k/uL PT (9.0-12.0) sec INR (<1.2) APTT (22.0-30.0) sec Sodium 139 (137-145) mmol/L Potassium 4.2 (3.5-5.1) mmol/L Chloride 105 (98-107) mmol/L Carbon Dioxide 26 (22-30) mmol/L Anion Gap 8 mmol/L BUN 24 H (7-17) mg/dL Creatinine 1.05 H (0.52-1.04) mg/dL Est GFR (CKD-EPI)AfAm 58 (>60 ml/min/1.73 sqM) Est GFR (CKD-EPI)NonAf 50 (>60 ml/min/1.73 sqM) Glucose 88 (74-99) mg/dL Calcium 9.3 (8.4-10.2) mg/dL Magnesium 2.1 (1.6-2.3) mg/dL Total Bilirubin 0.5 (0.2-1.3) mg/dL AST 88 H (14-36) U/L ALT 25 (9-52) U/L Alkaline Phosphatase 65 (38-126) U/L Troponin I (0.000-0.034) ng/mL NT-Pro-B Natriuret Pep 3390 pg/mL Total Protein 7.2 (6.3-8.2) g/dL Albumin 4.1 (3.5-5.0) g/dL 10/11/18 10/11/18 Range/Units 21:10 21:10 WBC (3.8-10.6) k/uL RBC (3.80-5.40) m/uL Hgb (11.4-16.0) gm/dL Hct (34.0-46.0) % MCV (80.0-100.0) fL MCH (25.0-35.0) pg MCHC (31.0-37.0) g/dL RDW (11.5-15.5) % Plt Count (150-450) k/uL Neutrophils % % Lymphocytes % % Monocytes % % Eosinophils % % Basophils % % Neutrophils # (1.3-7.7) k/uL Lymphocytes # (1.0-4.8) k/uL Monocytes # (0-1.0) k/uL Eosinophils # (0-0.7) k/uL Basophils # (0-0.2) k/uL PT 9.7 (9.0-12.0) sec INR 0.9 (<1.2) APTT 20.7 L (22.0-30.0) sec Sodium (137-145) mmol/L Potassium (3.5-5.1) mmol/L Chloride (98-107) mmol/L Carbon Dioxide (22-30) mmol/L Anion Gap mmol/L BUN (7-17) mg/dL Creatinine (0.52-1.04) mg/dL Est GFR (CKD-EPI)AfAm (>60 ml/min/1.73 sqM) Est GFR (CKD-EPI)NonAf (>60 ml/min/1.73 sqM) Glucose (74-99) mg/dL Calcium (8.4-10.2) mg/dL Magnesium (1.6-2.3) mg/dL Total Bilirubin (0.2-1.3) mg/dL AST (14-36) U/L ALT (9-52) U/L Alkaline Phosphatase (38-126) U/L Troponin I 6.310 H* (0.000-0.034) ng/mL NT-Pro-B Natriuret Pep pg/mL Total Protein (6.3-8.2) g/dL Albumin (3.5-5.0) g/dL - Radiology Data Chest x-ray shows mild atelectasis and scarring. Air-containing rectocardiac structure likely a hiatal hernia. (Debbie Gao) Disposition Is patient prescribed a controlled substance at d/c from ED?: No Time of Disposition: 22:52 <Debbie Gao - Last Filed: 10/11/18 22:49> <Lupe Connelly - Last Filed: 10/12/18 00:26> Clinical Impression: ST segment changes on electrocardiogram, NSTEMI (non-ST elevated myocardial infarction) Disposition: ADMITTED IP TO THIS HOSP Condition: Stable
[2018-10-11 21:22] LABS: Basophils # (A) 0.1 k/uL (0-0.2); Basophils % (A) 1 %; Eosinophils # (A) 0.2 k/uL (0-0.7); Eosinophils % (A) 2 %; HCT 43.7 % (34.0-46.0); HGB 14.5 gm/dL (11.4-16.0); Lymphocytes # (A) 2.6 k/uL (1.0-4.8); Lymphocytes % (A) 26 %; MCH 31.6 pg (25.0-35.0); MCHC 33.2 g/dL (31.0-37.0); MCV 95.4 fL (80.0-100.0); Monocytes # (A) 1.3 k/uL (0-1.0); Monocytes % (A) 13 %; Neutrophils # (A) 5.5 k/uL (1.3-7.7); Neutrophils % (A) 55 %; Platelet Count 175 k/uL (150-450); RBC 4.58 m/uL (3.80-5.40); RDW 13.4 % (11.5-15.5)
[2018-10-11 21:33] LABS: Albumin 4.1 g/dL (3.5-5.0); Calcium 9.3 mg/dL (8.4-10.2); Magnesium 2.1 mg/dL (1.6-2.3); Potassium 4.2 mmol/L (3.5-5.1); Total Bilirubin 0.5 mg/dL (0.2-1.3); Total Protein 7.2 g/dL (6.3-8.2)
[2018-10-11 21:39] LABS: INR 0.9 (<1.2); Prothrombin Time 9.7 sec (9.0-12.0)
[2018-10-11 21:50] LABS: Partial Thromboplastin Time 20.7 sec (22.0-30.0)
[2018-10-11] MEDS ORDERED: HEPARIN SODIUM,PORCINE 5,000 UNIT/ML 1 ML VIAL IV ONE (22:24)
[2018-10-11] MEDS ORDERED: HEPARIN SODIUM,PORCINE 5,000 UNIT/ML 1 ML VIAL IV PRN (22:24)
--- NOTE | 2018-10-11 22:33 | XR ---
EXAM: XR Chest, 2 Views CLINICAL HISTORY: ITS.REASON XR Reason: Chest Pain TECHNIQUE: Frontal and lateral views of the chest. COMPARISON: 01/18/18. FINDINGS: Lungs: Mild atelectasis/scarring. Pleural space: No significant pleural effusion or pneumothorax. Heart: Stable cardiomediastinal silhouette. Mediastinum: Air-containing retrocardiac structure, likely hiatal hernia. Bones/joints: Degenerative changes and scoliosis. IMPRESSION: 1. Mild atelectasis/scarring. 2. Air-containing retrocardiac structure, likely hiatal hernia.
[2018-10-11] MEDS ORDERED: ASPIRIN 81 MG PO STA (22:52)
[2018-10-11] MEDS ORDERED: NITROGLYCERIN SL TABS 0.4 MG TAB SUBLINGUAL PRN (22:52)
[2018-10-11] MEDS: HEPARIN SOD,PORK IN 0.45% NACL 25,000 UNIT in 0.45% NACL 1 250ML.BAG IV SCH (23:06)
[2018-10-12] MEDS: ALENDRONATE SODIUM 5 MG PO SCH (00:09)
[2018-10-12 02:06] VITALS: BMI 27.9
[2018-10-12 05:46] LABS: Basophils % (A) 1 %; Eosinophils # (A) 0.2 k/uL (0-0.7); Eosinophils % (A) 3 %; HCT 40.7 % (34.0-46.0); HGB 13.4 gm/dL (11.4-16.0); Lymphocytes # (A) 2.5 k/uL (1.0-4.8); Lymphocytes % (A) 37 %; MCH 31.4 pg (25.0-35.0); MCV 95.2 fL (80.0-100.0); Mean Platelet Volume 8.1; Monocytes # (A) 0.7 k/uL (0-1.0); Monocytes % (A) 10 %; Neutrophils # (A) 3.2 k/uL (1.3-7.7); Neutrophils % (A) 46 %; Platelet Count 140 k/uL (150-450); RBC 4.28 m/uL (3.80-5.40); RDW 13.3 % (11.5-15.5); WBC 6.9 k/uL (3.8-10.6)
[2018-10-12 06:41] LABS: Cholesterol 216 mg/dL (<200); HDL Cholesterol 46 mg/dL (40-60); LDL Cholesterol,Calculated 132 mg/dL (0-99); Triglycerides 188 mg/dL (<150)
[2018-10-12] MEDS ORDERED: NON-FORMULARY DRUG (Potassium Gluconate [Potassium Gluconate] 99 MG) PO SCH (09:00)
[2018-10-12] MEDS ORDERED: ASPIRIN 325 MG TAB PO SCH ×2 (09:00→21:00)
[2018-10-12] MEDS: PANTOPRAZOLE 40 MG TABLET PO SCH (09:00)
[2018-10-12] MEDS ORDERED: NON-FORMULARY DRUG (Ubidecarenone [Co Q-10] 100 MG) PO SCH (09:00)
[2018-10-12] MEDS ORDERED: ALPRAZolam 0.5 MG TAB PO PRN (09:27)
[2018-10-12] MEDS ORDERED: ALPRAZolam 0.25 MG TAB PO PRN (09:27)
[2018-10-12] MEDS ORDERED: NITROGLYCERIN SL TABS 0.4 MG TAB SUBLINGUAL PRN (09:27)
[2018-10-12] MEDS ORDERED: ASPIRIN 325 MG TAB PO STA (09:27)
[2018-10-12] MEDS ORDERED: ATORVASTATIN 80 MG TAB PO STA (09:27)
--- NOTE | 2018-10-12 09:36 | P.CRDCN ---
History of Present Illness Consult date: 10/12/18 Requesting physician: Hailey Martínez Reason for Consult (text): NSTEMI Chief complaint: shortness of breath History of present illness: This is a pleasant 78-year-old female patient who follows with Dr. James in the office. She has a known history of carotid disease, hypertension, hyperlipidemia, severe , and triple-vessel CAD. She recently underwent BREANA which showed normal EF with severe aortic stenosis, moderate MR, moderate TR and severe pulmonary hypertension. She also underwent cardiac catheterization which showed severe triple-vessel coronary artery disease with mild to moderate d isease involving the left main coronary artery distally. She was seen and evaluated by Dr. Mckeon but is seeking a second opinion by Dr. Mcmahan out of [place] she is scheduled to see on October 19. She previously been experiencing some dyspnea on exertion however yesterday developed some shortness of breath at rest that seems to be different than her usual pattern. EKG on admission shows sinus rhythm with diffuse ST-T wave changes. Chest x-ray on admission showed mild atelectasis/scarring, air containing retrocardiac structure, likely hiatal hernia. Laboratory values showed a potassium 4.2, BUN of 24 and creatinine is 1.05. Troponins were elevated at 6.31 and 4.15. NT proBNP is elevated at 3390. Vital signs have been stable. Home medications include lovastatin 10 mg by mouth daily at bedtime, Ziac 106 0.25 g by mouth daily at bedtime, aspirin 325 mg daily and multiple supplements and vitamins. Upon examination, patient is sitting up at the site of the bed. She is somewhat anxious. She denies complaints of chest discomfort, palpitations, dizziness, lightheadedness, edema, nausea, vomiting or diaphoresis. She complains of a short of breath feeling that causes her to yawn that she feels is related to anxiety. 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, "bad joints", anemia History of Any Multi-Drug Resistant Organisms: None Reported Past Surgical History: Breast Surgery Additional Past Surgical History / Comment(s): RT MASTECTOMY, Eye surgery - bilateral corneal transplant, AND cataract removal Past Anesthesia/Blood Transfusion Reactions: No Reported Reaction Past Psychological History: No Psychological Hx Reported Smoking Status: Never smoker Past Alcohol Use History: Occasional Past Drug Use History: None Reported - Past Family History Father Family Medical History: Cancer Additional Family Medical History / Comment(s): corneal dystrophy, colon cancer Mother Family Medical History: Cancer Additional Family Medical History / Comment(s): multiple myeloma Brother(s) Family Medical History: Cancer Additional Family Medical History / Comment(s): colon cancer Medications and Allergies Home Medications Medication Instructions Recorded Confirmed Type Cetirizine HCl [Zyrtec] 10 mg PO HS 09/09/14 10/11/18 History Montelukast [Singulair] 10 mg PO HS 09/09/14 10/11/18 History Omeprazole [PriLOSEC] 20 mg PO HS 09/09/14 10/11/18 History Aspirin 325 mg PO HS 09/11/14 10/11/18 History Bisoprolol-Hctz 10-6.25 mg [Ziac 1 tab PO HS 09/03/15 10/11/18 History 10-6.25 MG] Lovastatin [Mevacor] 10 mg PO HS 09/03/15 10/11/18 History Ubidecarenone [Co Q-10] 100 mg PO DAILY 09/03/15 10/11/18 History Alendronate Sodium [Fosamax] 5 mg PO HS 01/18/18 10/11/18 History Aloe Lax 225 1 tab PO HS 01/18/18 10/11/18 History Ascorbic Acid [Vitamin C] 500 mg PO QAM 01/18/18 10/11/18 History Biotin 5,000 mcg PO QAM 01/18/18 10/11/18 History Calcium Carb/Magnesium Ox,Carb 2 tab PO BID 01/18/18 10/11/18 History [Seven-Mag 500-250 MG Chewable] Lutein 20 mg PO QAM 01/18/18 10/11/18 History Potassium Iodide [SSKI Oral Liquid] 30 gm PO QAM 01/18/18 10/11/18 History Prevagen Es 1 tab PO QAM 01/18/18 10/11/18 History Pyridoxine HCl (Vitamin B6) 100 mg PO HS 01/18/18 10/11/18 History [Vitamin B-6] Selenium 200 mcg PO HS 01/18/18 10/11/18 History Vitamin E (Dl,Tocopheryl Acet) 400 unit PO DAILY 01/18/18 10/11/18 History [Vitamin E] Zinc 50 mg PO QAM 01/18/18 10/11/18 History Cbd Oil 3 drops SL DAILY PRN 08/30/18 10/11/18 History Cholecalciferol (Vitamin D3) 2,000 unit PO QAM 08/30/18 10/11/18 History [Vitamin D3] Cyanocobalamin (Vitamin B-12) 1,000 mcg PO DAILY 08/30/18 10/11/18 History [Vitamin B-12] Ferrous Sulfate [Iron (65 MG 325 mg PO QAM 08/30/18 10/11/18 History Elemental)] Ginkgo Biloba [place] Extract [Ginkgo 60 mg PO QAM 08/30/18 10/11/18 History Biloba] Lecithin, Soy [Lecithin] 400 mg PO BID 08/30/18 10/11/18 History Magnesium Oxide [Mag-Ox] 250 mg PO DAILY 08/30/18 10/11/18 History Nutroferon 1 tab PO BID 08/30/18 10/11/18 History Potassium Gluconate 99 mg PO QAM 08/30/18 10/11/18 History Allergies Allergy/AdvReac Type Severity Reaction Status Date / Time diazepam [From Valium] Allergy Rapid Verified 10/11/18 21:30 Heart Rate grass pollen-perennial rye, Allergy Itching Verified 10/11/18 21:30 standar Physical Exam Vitals: Vital Signs Temp Pulse Pulse Resp BP BP BP 10/12/18 07:43 97.2 F L 64 15 134/66 10/12/18 04:00 97.5 F L 76 16 132/62 10/12/18 02:00 97.8 F 79 15 136/67 10/12/18 01:35 85 16 163/83 10/12/18 00:22 97.8 F 79 17 136/67 10/12/18 00:16 82 16 151/69 10/11/18 23:19 69 16 153/77 10/11/18 19:26 99.1 F 76 18 126/79 Pulse Ox 10/12/18 07:43 95 10/12/18 04:00 95 10/12/18 02:00 97 10/12/18 01:35 97 10/12/18 00:22 97 10/12/18 00:16 97 10/11/18 23:19 100 10/11/18 19:26 96 Intake and Output 10/11/18 10/12/18 10/12/18 22:59 06:59 14:59 Intake Total 70.013 Balance 70.013 Intake: IV 10 Invasive Line 1 10 Intake, IV Titration 60.013 Amount Heparin Sod,Pork in 0.45% 60.013 NaCl 25,000 unit In 0.45 % NaCl 1 250ml.bag @ 12 UNITS/KG/HR 8.165 mls/hr IV .Q24H [facility] Rx#: [id number] Other: Voiding Method Toilet # Voids 1 Weight 68.039 kg 71.6 kg PHYSICAL EXAMINATION: HEENT: Head is atraumatic, normocephalic. Pupils equal, round. Neck is supple. There is no elevated jugular venous pressure. HEART EXAMINATION: Heart sounds regular, S1 and S2 with a grade 3/6 systolic ejection murmur at the base with radiation to the neck. CHEST EXAMINATION: Lungs are clear to auscultation and precussion. No chest wall tenderness is noted on palpation or with deep breathing. ABDOMEN: Soft, nontender. Bowel sounds are heard. No organomegaly noted. EXTREMITIES: 2+ peripheral pulses with no evidence of peripheral edema and no calf tenderness noted. NEUROLOGIC patient is awake, alert and oriented x3. . Results 10/12/18 05:32 10/11/18 21:10 Cardiac Enzymes 10/11/18 10/11/18 10/12/18 Range/Units 21:10 21:10 03:41 AST 88 H (14-36) U/L Troponin I 6.310 H* 4.150 H* (0.000-0.034) ng/mL Coagulation 10/11/18 10/12/18 Range/Units 21:10 05:32 PT 9.7 (9.0-12.0) sec APTT 20.7 L 54.5 H (22.0-30.0) sec Lipids 10/12/18 Range/Units 05:32 Triglycerides 188 H (<150) mg/dL Cholesterol 216 H (<200) mg/dL HDL Cholesterol 46 (40-60) mg/dL CBC 10/11/18 10/12/18 Range/Units 21:10 05:32 WBC 10.0 6.9 (3.8-10.6) k/uL RBC 4.58 4.28 (3.80-5.40) m/uL Hgb 14.5 13.4 (11.4-16.0) gm/dL Hct 43.7 40.7 (34.0-46.0) % Plt Count 175 140 L (150-450) k/uL Comprehensive Metabolic Panel 10/11/18 Range/Units 21:10 Sodium 139 (137-145) mmol/L Potassium 4.2 (3.5-5.1) mmol/L Chloride 105 (98-107) mmol/L Carbon Dioxide 26 (22-30) mmol/L BUN 24 H (7-17) mg/dL Creatinine 1.05 H (0.52-1.04) mg/dL Glucose 88 (74-99) mg/dL Calcium 9.3 (8.4-10.2) mg/dL AST 88 H (14-36) U/L ALT 25 (9-52) U/L Alkaline Phosphatase 65 (38-126) U/L Total Protein 7.2 (6.3-8.2) g/dL Albumin 4.1 (3.5-5.0) g/dL Current Medications Generic Name Dose Route Start Last Admin Trade Name Freq PRN Reason Stop Dose Admin Ascorbic Acid 500 mg 10/12/18 09:00 Vitamin C PO QAM [facility] Aspirin 325 mg 10/12/18 21:00 Aspirin PO HS [facility] Atorvastatin Calcium 40 mg 10/12/18 21:00 Lipitor PO HS [facility] Bisoprolol Fumarate 1 each 10/12/18 21:00 Ziac 10-6.25 PO HS [facility] Cholecalciferol 2,000 unit 10/12/18 09:00 Vitamin D3 (25 Mcg = 1000 Iu) PO QAM [facility] Cyanocobalamin 1,000 mcg 10/12/18 09:00 Vitamin B-12 PO DAILY [facility] Ferrous Sulfate 325 mg 10/12/18 09:00 Feosol PO QAM [facility] Heparin Sodium (Porcine) 0 unit 10/11/18 22:24 Heparin IV PER PROTOCOL PRN Low PTT Protocol Heparin Sodium/Sodium Chloride 250 mls @ 8.165 mls/hr 10/11/18 22:30 10/12/18 06:27 25,000 unit/ Sodium Chloride IV 12 units/kg/hr .Q24H [facility] 8.165 mls/hr Titration Protocol 12 UNITS/KG/HR Loratadine 10 mg 10/12/18 21:00 Claritin PO HS [facility] Montelukast Sodium 10 mg 10/12/18 21:00 Singulair PO HS [facility] Nitroglycerin 0.4 mg 10/11/18 22:52 Nitrostat SUBLINGUAL Q5M PRN Chest Pain Alendronate Sodium [ 5 mg 10/12/18 21:00 10/12/18 00:09 Fosamax] 5 Mg PO Not Given HS [facility] Pantoprazole Sodium 40 mg 10/12/18 21:00 Protonix PO HS [facility] Intake and Output 10/11/18 10/12/18 10/12/18 22:59 06:59 14:59 Intake Total 70.013 Balance 70.013 Intake: IV 10 Invasive Line 1 10 Intake, IV Titration 60.013 Amount Heparin Sod,Pork in 0.45% 60.013 NaCl 25,000 unit In 0.45 % NaCl 1 250ml.bag @ 12 UNITS/KG/HR 8.165 mls/hr IV .Q24H [facility] Rx#: [id number] Other: Voiding Method Toilet # Voids 1 Weight 68.039 kg 71.6 kg 10/12/18 05:32 10/11/18 21:10 EKG Interpretations (text) Sinus rhythm with diffuse ST-T wave changes Assessment and Plan Assessment: #1 non-ST elevation [place] #2 known severe triple vessel disease #3 severe aortic stenosis #4 hypertension #5 moderate mitral regurgitation #6 severe pulmonary hypertension #7 hyperlipidemia Plan: From Cardiology's perspective, we will obtain repeat echo to assess LV systolic function and wall motion. We will increase lipitor to 40 mg. After detailed discussion with the patient and discussion with Dr. James, we will schedule the patient for PCI today. She will then follow at [place] for probable TAVR. We will continue to follow the patient and provide further recommendations lalo brown. [employer]S AD[employer]ER CROP note has been reviewed, I agree with a documented findings and plan of care. Patient was seen and examined.
[2018-10-12] MEDS: SODIUM CHLORIDE 0.9% 1,000 ML in EMPTY BAG 1 BAG IV ONE ×2 (10:07→13:15)
[2018-10-12 10:27] LABS: Glucose,Whole Blood 93 mg/dL (75-99)
[2018-10-12 10:36] LABS: Albumin 3.7 g/dL (3.5-5.0); Total Bilirubin 0.6 mg/dL (0.2-1.3); Total Protein 6.5 g/dL (6.3-8.2)
--- NOTE | 2018-10-12 11:00 | ECHOF ---
Referral Reason:NSTEMI MEASUREMENTS -------- HEIGHT: 160.0 cm WEIGHT: 71.2 kg BP: 134/66 IVSd: 1.4 cm (0.6 - 1.1) LVIDd: 3.8 cm (3.9 - 5.3) LVPWd: 1.4 cm (0.6 - 1.1) IVSs: 1.6 cm LVIDs: 2.7 cm LVPWs: 1.7 cm LAESV Index (A-L): 34.35 ml/m Ao Diam: 2.2 cm (2.0 - 3.7) AV Cusp: 0.9 cm (1.5 - 2.6) LA Diam: 3.8 cm (2.7 - 3.8) MV EXCURSION: 17.007 mm (> 18.000) MV EF SLOPE: 50 mm/s (70 - 150) EPSS: 1.0 cm MV E Malik: 0.97 m/s MV DecT: 311 ms MV A Malik: 0.76 m/s MV E/A Ratio: 1.29 AV maxP.80 mmHg AV meanP.77 mmHg AR PHT: 323 ms RAP: 5.00 mmHg RVSP: 45.06 mmHg FINDINGS -------- Sinus rhythm. This was a technically good study. The left ventricular size is normal. There is moderate concentric left ventricular hypertrophy. O verall left ventricular systolic function is normal with, an EF between 55 - 60 %. The right ventricle is normal in size. LA is moderately dilated 34-39 ml/m2 The right atrial size is normal. Interatrial and interventricular septum intact. Aortic valve is trileaflet and is moderately thickened. Trace to mild aortic regurgitation. There is moderate aortic stenosis present. Peak/mean gradient across the Aortic Valve is 40.80mmHg / 27. 77mmHg. The mitral valve is normal. The mitral valve leaflets are mildly thickened. Moderate mitral regur gitation is present. The tricuspid valve appears structurally normal. Mild tricuspid regurgitation present. There is m ild pulmonary hypertension. The right ventricular systolic pressure, as measured by Doppler, is 45. 06mmHg. There is no pulmonic regurgitation present. The aortic root size is normal. Normal inferior vena cava with normal inspiratory collapse consistent with estimated right atrial pre ssure of 5 mmHg. There is no pericardial effusion. CONCLUSIONS -------- 1. Sinus rhythm. 2. This was a technically good study. 3. The left ventricular size is normal. 4. There is moderate concentric left ventricular hypertrophy. 5. Overall left ventricular systolic function is normal with, an EF between 55 - 60 %. 6. The right ventricle is normal in size. 7. LA is moderately dilated 34-39 ml/m2 8. The right atrial size is normal. 9. Interatrial and interventricular septum intact. 10. Aortic valve is trileaflet and is moderately thickened. 11. Trace to mild aortic regurgitation. 12. There is moderate aortic stenosis present. 13. Peak/mean gradient across the Aortic Valve is 40.80mmHg / 27.77mmHg. 14. The mitral valve is normal. 15. The mitral valve leaflets are mildly thickened. 16. Moderate mitral regurgitation is present. 17. The tricuspid valve appears structurally normal. 18. Mild tricuspid regurgitation present. 19. There is mild pulmonary hypertension. 20. The right ventricular systolic pressure, as measured by Doppler, is 45.06mmHg. 21. There is no pulmonic regurgitation present. 22. The aortic root size is normal. 23. Normal inferior vena cava with normal inspiratory collapse consistent with estimated right atrial pressure of 5 mmHg. 24. There is no pericardial effusion. PRINCIPAL BIOSTATISTICIAN: Flor Lucas RDCS
--- NOTE | 2018-10-12 11:02 | P.HPIM ---
History of Present Illness H&P Date: 10/12/18 This is an 78-year-old female patient of Dr. Wynn. Patient presented with complaints of shortness of breath intermittently occurring for the past 4 days. Patient follows with Dr. Thurston in office and recently underwent cardiac cath proximately 2 weeks ago is following a cardiac cath that patient had severe triple-vessel coronary artery disease with mild to moderate disease involving the left main coronary artery distally along with a BREANA that showed severe aortic stenosis, moderate MR and moderate TR and severe pulmonary hypertension. At that time patient was evaluated by our cardiothoracic team. Patient did seek second opinion in which she has an appointment on October 19 from [place]. Patient reports that the shortness of breath increased over the past 3 days warranting her to come to the ER for further evaluation. Additional medical history includes breast cancer, hyperlipidemia, hypertension, hypothyroidism and neuropathy. Patient denies ever having nicotine dependence. Troponins elevated at 6.310, 4.150 and 3.360. Patient started on heparin drip cardiology service is consulted. Chest x-ray completed showing mild atelectasis and scarring air- containing retrocardiac structure likely hiatal hernia. EKG completed showing sinus rhythm with marked sinus arrhythmia nonspecific ST and T-wave abnormality prolonged QT. At this time patient is resting comfortably in bed. Patient denies chest pain or shortness of breath. Patient denies nausea, patient denies any urinary burning or frequency. 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, "bad joints", anemia History of Any Multi-Drug Resistant Organisms: None Reported Past Surgical History: Breast Surgery Additional Past Surgical History / Comment(s): RT MASTECTOMY, Eye surgery - bilateral corneal transplant, AND cataract removal Past Anesthesia/Blood Transfusion Reactions: No Reported Reaction Past Psychological History: No Psychological Hx Reported Smoking Status: Never smoker Past Alcohol Use History: Occasional Past Drug Use History: None Reported - Past Family History Father Family Medical History: Cancer Additional Family Medical History / Comment(s): corneal dystrophy, colon cancer Mother Family Medical History: Cancer Additional Family Medical History / Comment(s): multiple myeloma Brother(s) Family Medical History: Cancer Additional Family Medical History / Comment(s): colon cancer Medications and Allergies Home Medications Medication Instructions Recorded Confirmed Type Cetirizine HCl [Zyrtec] 10 mg PO HS 09/09/14 10/11/18 History Montelukast [Singulair] 10 mg PO HS 09/09/14 10/11/18 History Omeprazole [PriLOSEC] 20 mg PO HS 09/09/14 10/11/18 History Aspirin 325 mg PO HS 09/11/14 10/11/18 History Bisoprolol-Hctz 10-6.25 mg [Ziac 1 tab PO HS 09/03/15 10/11/18 History 10-6.25 MG] Lovastatin [Mevacor] 10 mg PO HS 09/03/15 10/11/18 History Ubidecarenone [Co Q-10] 100 mg PO DAILY 09/03/15 10/11/18 History Alendronate Sodium [Fosamax] 5 mg PO HS 01/18/18 10/11/18 History Aloe Lax 225 1 tab PO HS 01/18/18 10/11/18 History Ascorbic Acid [Vitamin C] 500 mg PO QAM 01/18/18 10/11/18 History Biotin 5,000 mcg PO QAM 01/18/18 10/11/18 History Calcium Carb/Magnesium Ox,Carb 2 tab PO BID 01/18/18 10/11/18 History [Seven-Mag 500-250 MG Chewable] Lutein 20 mg PO QAM 01/18/18 10/11/18 History Potassium Iodide [SSKI Oral Liquid] 30 gm PO QAM 01/18/18 10/11/18 History Prevagen Es 1 tab PO QAM 01/18/18 10/11/18 History Pyridoxine HCl (Vitamin B6) 100 mg PO HS 01/18/18 10/11/18 History [Vitamin B-6] Selenium 200 mcg PO HS 01/18/18 10/11/18 History Vitamin E (Dl,Tocopheryl Acet) 400 unit PO DAILY 01/18/18 10/11/18 History [Vitamin E] Zinc 50 mg PO QAM 01/18/18 10/11/18 History Cbd Oil 3 drops SL DAILY PRN 08/30/18 10/11/18 History Cholecalciferol (Vitamin D3) 2,000 unit PO QAM 08/30/18 10/11/18 History [Vitamin D3] Cyanocobalamin (Vitamin B-12) 1,000 mcg PO DAILY 08/30/18 10/11/18 History [Vitamin B-12] Ferrous Sulfate [Iron (65 MG 325 mg PO QAM 08/30/18 10/11/18 History Elemental)] Ginkgo Biloba [place] Extract [Ginkgo 60 mg PO QAM 08/30/18 10/11/18 History Biloba] Lecithin, Soy [Lecithin] 400 mg PO BID 08/30/18 10/11/18 History Magnesium Oxide [Mag-Ox] 250 mg PO DAILY 08/30/18 10/11/18 History Nutroferon 1 tab PO BID 08/30/18 10/11/18 History Potassium Gluconate 99 mg PO QAM 08/30/18 10/11/18 History Allergies Allergy/AdvReac Type Severity Reaction Status Date / Time diazepam [From Valium] Allergy Rapid Verified 10/11/18 21:30 Heart Rate grass pollen-perennial rye, Allergy Itching Verified 10/11/18 21:30 standar Physical Exam Vitals: Vital Signs Temp Pulse Pulse Resp BP BP BP 10/12/18 09:00 64 15 10/12/18 07:43 97.2 F L 64 15 134/66 10/12/18 04:00 97.5 F L 76 16 132/62 10/12/18 02:00 97.8 F 79 15 136/67 10/12/18 01:35 85 16 163/83 10/12/18 00:22 97.8 F 79 17 136/67 10/12/18 00:16 82 16 151/69 10/11/18 23:19 69 16 153/77 10/11/18 19:26 99.1 F 76 18 126/79 Pulse Ox 10/12/18 09:00 10/12/18 07:43 95 10/12/18 04:00 95 10/12/18 02:00 97 10/12/18 01:35 97 10/12/18 00:22 97 10/12/18 00:16 97 10/11/18 23:19 100 10/11/18 19:26 96 Intake and Output 10/11/18 10/12/18 10/12/18 22:59 06:59 14:59 Intake Total 70.013 Balance 70.013 Intake: IV 10 Invasive Line 1 10 Intake, IV Titration 60.013 Amount Heparin Sod,Pork in 0.45% 60.013 NaCl 25,000 unit In 0.45 % NaCl 1 250ml.bag @ 12 UNITS/KG/HR 8.165 mls/hr IV .Q24H [facility] Rx#: [id number] Other: Voiding Method Toilet Toilet # Voids 1 1 Weight 68.039 kg 71.6 kg Head normocephalic Neck supple Lungs clear to auscultation bilaterally no wheezing or crackles Heart regular rate and rhythm S1-S2, no rub or gallop Abdomen is soft nontender nondistended positive bowel sounds no hepatosplenomegaly Extremities no edema Neuro alert and orientated to 3 Results CBC & Chem 7: 10/12/18 05:32 10/12/18 09:43 Labs: Abnormal Lab Results - Last 24 Hours (Table) 10/11/18 10/11/18 10/11/18 Range/Units 21:10 21:10 21:10 Plt Count (150-450) k/uL Monocytes # 1.3 H (0-1.0) k/uL APTT 20.7 L (22.0-30.0) sec Chloride (98-107) mmol/L BUN 24 H (7-17) mg/dL Creatinine 1.05 H (0.52-1.04) mg/dL AST 88 H (14-36) U/L Troponin I (0.000-0.034) ng/mL Triglycerides (<150) mg/dL Cholesterol (<200) mg/dL LDL Cholesterol, Calc (0-99) mg/dL 10/11/18 10/12/18 10/12/18 Range/Units 21:10 03:41 05:32 Plt Count (150-450) k/uL Monocytes # (0-1.0) k/uL APTT 54.5 H (22.0-30.0) sec Chloride (98-107) mmol/L BUN (7-17) mg/dL Creatinine (0.52-1.04) mg/dL AST (14-36) U/L Troponin I 6.310 H* 4.150 H* (0.000-0.034) ng/mL Triglycerides (<150) mg/dL Cholesterol (<200) mg/dL LDL Cholesterol, Calc (0-99) mg/dL 10/12/18 10/12/18 10/12/18 Range/Units 05:32 05:32 09:43 Plt Count 140 L (150-450) k/uL Monocytes # (0-1.0) k/uL APTT (22.0-30.0) sec Chloride (98-107) mmol/L BUN (7-17) mg/dL Creatinine (0.52-1.04) mg/dL AST (14-36) U/L Troponin I 3.630 H* (0.000-0.034) ng/mL Triglycerides 188 H (<150) mg/dL Cholesterol 216 H (<200) mg/dL LDL Cholesterol, Calc 132 H (0-99) mg/dL 10/12/18 Range/Units 09:43 Plt Count (150-450) k/uL Monocytes # (0-1.0) k/uL APTT (22.0-30.0) sec Chloride 108 H (98-107) mmol/L BUN 22 H (7-17) mg/dL Creatinine (0.52-1.04) mg/dL AST 67 H (14-36) U/L Troponin I (0.000-0.034) ng/mL Triglycerides (<150) mg/dL Cholesterol (<200) mg/dL LDL Cholesterol, Calc (0-99) mg/dL Thrombosis Risk Factor Assmnt - Choose All That Apply Any of the Below Risk Factors Present?: Yes Each Factor Represents 1 point: Obesity (BMI >25) Other Risk Factors: Yes Each Risk Factor Represents 3 Points: Age 75 years or older Thrombosis Risk Factor Assessment Total Risk Factor Score: 4 Thrombosis Risk Factor Assessment Level: Moderate Risk Assessment and Plan Assessment: 1. Shortness of breath related to non-ST elevated NC. Troponins elevated at 6.310, 4.150 and 3.630. Patient obtained on heparin drip plan for PCI with Dr. Thurston today 2. Known severe triple-vessel disease. Patient underwent cardiac cath 2 weeks ago cardiac thoracic surgery consulted patient was obtaining second opinion at [place] 3. Severe aortic stenosis and moderate mitral regurg and severe pulmonary hypertension. per cardiology plan is for patient to undergo PCI today in follow at [place] for probable TAVR 4. History of essential hypertension 5. Hyperlipidemia. Continue Lipitor 6. History of breast cancer 7. History of anxiety. Maintained on Xanax Time with Patient: Greater than 30 (Greater than 60% of the total time spent in counseling and coordination of care. I performed an examination of the patient and discussed their management with the Nurse Practitioner. I have reviewed the Nurse Practitioner's notes and agree with the documented findings and plan of care)
[2018-10-12] MEDS ORDERED: MIDAZOLAM (PF) 2 MG/2 ML VIAL IVP ONE (11:44)
[2018-10-12] MEDS ORDERED: LIDOCAINE 1% INJ 10MG/ML (20 ML MDV) SQ ONE (11:44)
[2018-10-12] MEDS ORDERED: BIVALIRUDIN 250 MG in SODIUM CHLORIDE 0.9% 50 ML IV ONE (11:45)
[2018-10-12] MEDS ORDERED: BIVALIRUDIN BOLUS 250 MG/50 ML IV ONE (11:47)
[2018-10-12] MEDS ORDERED: IV FLUID CONTINUATION 1,000 ML IV ONE (11:52)
[2018-10-12] MEDS ORDERED: IOPAMIDOL-370 100ML BTL INJ ONE ×2 (12:27→12:55)
[2018-10-12] MEDS ORDERED: NITROGLYCERIN 1000MCG/10ML SYRINGE INTRACORON ONE (12:51)
[2018-10-12] MEDS ORDERED: CBD OIL SL PRN (13:02)
[2018-10-12] MEDS ORDERED: MAG HYDROX/AL HYDROX/SIMETH 30 ML CUP PO PRN (13:04)
[2018-10-12] MEDS ORDERED: RX INFO: IV CONTRAST WAS GIVEN 1 EACH MISC MISCELLANE PRN (13:04)
[2018-10-12] MEDS ORDERED: ATROPINE SULFATE 0.1 MG/ML 10ML SYRINGE IV PRN (13:04)
[2018-10-12] MEDS ORDERED: CLOPIDOGREL 75 MG TAB PO ONE (13:07)
[2018-10-12] MEDS: CHOLECALCIFEROL 1,000 UNIT TAB PO SCH (16:47)
[2018-10-12] MEDS: CYANOCOBALAMIN 500 MCG TAB PO SCH (16:48)
[2018-10-12] MEDS: ASCORBIC ACID 500 MG TAB PO SCH (16:48)
[2018-10-12] MEDS: FERROUS SULFATE 325 MG TAB PO SCH (16:48)
[2018-10-12] MEDS: SODIUM CHLORIDE 0.9% 1,000 ML IV SCH (18:07)
[2018-10-12] MEDS: BISOPROLOL-HCTZ 10-6.25 MG 1 EACH TAB PO SCH (20:10)
[2018-10-12] MEDS: MONTELUKAST 10 MG TAB PO SCH (20:11)
[2018-10-12] MEDS: ATORVASTATIN 40 MG TAB PO SCH (20:11)
[2018-10-12] MEDS: LORATADINE 10 MG TAB PO SCH (20:11)
--- NOTE | 2018-10-12 20:44 | CC ---
CARDIAC CATHETERIZATION REPORT DATE OF SERVICE: 10/12/2018 PERFORMING PHYSICIAN: Errol James MD, finish opener. PROCEDURES PERFORMED: 1. Selective right and left coronary angiogram. 2. Successful stenting of the mid left circumflex coronary artery using a 2.0 x 15 mm Flash drug-eluting stent which was inflated under 20 atmospheres for 20 seconds with an excellent angiographic result and reduction of stenosis from 90% to 0%. 3. Successful balloon angioplasty of the proximal left circumflex coronary artery with a good angiographic result and reduction of stenosis from 80% to 30%. INDICATION: This is a very pleasant 78-year-old female patient with history of coronary artery disease as well as known severe aortic stenosis who was in the process of having transcutaneous aortic valve replacement and presented to the hospital with shortness of breath and was ruled in for acute [id number] myocardial infarction. Her troponin went up to 6. The EKG showed ST changes in the lateral leads. Because of that, heart catheterization was advised. APPROACH: Right common femoral artery. COMPLICATIONS: None. LEVEL OF SEDATION: Moderate, with sedation length of 74 minutes. PROCEDURE DESCRIPTION: After obtaining informed consent, the patient was brought to the cardiac labor relations worker. The right common femoral artery was cannulated using micropuncture technique. The micropuncture wire passed easily. Then I placed a 6-Upper Sorbian sheath 11 cm in the right groin. Subsequently I did selective right and left coronary angiogram. Selective right coronary angiogram was performed using JR4 catheter. Selective left coronary angiogram was performed JL3.5 catheters. After that I did intervene on the left circumflex; please see separate paragraph for that. SELECTIVE CORONARY ANGIOGRAM: 1. The right coronary artery is a large-caliber vessel and it is a dominant vessel. The proximal right coronary artery has mild disease only. The mid RCA has a long tubular lesion up to about 70%. The RCA distally appeared to be angiographically normal and bifurcates into PDA and PLV branches. Both appeared to be angiographically normal. 2. The left main is calcified with distal lesion that appeared to be in the range of 40% to 50%. It bifurcates into left circumflex and left anterior descending artery. 3. The left circumflex is a large-caliber vessel and is a nondominant vessel. The takeoff of the left circumflex is very tortuous. It does have an eccentric lesion that appeared to be in the range of 70%. The mid circumflex has a tubular lesion that appeared to be in the range of 80% to 90% and definitely looks worse compared to previous heart catheterization 6 weeks ago. The circumflex in the mid portion gives rise to an OM branch which seems to be normal, and then after that it becomes a medium-caliber vessel and seems to be angiographically normal. 4. The proximal LAD appeared to have mild disease only. The mid LAD appeared to be angiographically normal and gives rise to a diagonal branch which seems to be normal. The LAD in the mid to distal portion has a tight lesion that appeared to be in the range of 70% to 80%. The LAD does reach the apex. PERCUTANEOUS CORONARY INTERVENTION OF THE LEFT CIRCUMFLEX: Anticoagulation was initiated using Angiomax. Initially I attempted engaging the left main using an XB3, but that was too big to engage the left main, and because of that I decided to go with a Andrade 3.5 guiding catheter. The left main was engaged and the guide was coaxial to the left main. After that, I did wire the left circumflex using a Whisper wire and the wire was positioned in the distal part of the left circumflex. I attempted wiring the left circumflex using a run-through wire, but I was unable, and the wire was positioned in the distal LAD for anchoring purposes. I was able to get a adria wire to the left circumflex using another Whisper wire. Using a 2.5 x 12 mm balloon, I did balloon angioplasty of the mid left circumflex where the balloon was positioned under fluoroscopic guidance and inflated under 12 atmospheres for 20 seconds. The balloon was pulled back to the proximal left circumflex where I did balloon angioplasty again of the proximal lesion using the same balloon, which was inflated under 14 atmospheres for 20 seconds. After that, the balloon was pulled out. I decided to go with the Buckley drug-eluting stent because I knew delivering the stent to the lesion would be very hard with the takeoff and tortuous proximal left circumflex from the left main and also with the calcified arteries. I attempted advancing a 2.0 x 15 mm Flash over the short Whisper wire to the left circumflex, but the stent would not make the turn from the left main to the left circumflex. I attempted that. I attempted the same step using the longer Whisper wire and I was unable to advance the stent to the left circumflex from the left main for the same reasons. At that point, I decided to go ahead and exchange the long Whisper wire for an . I did advance a 1.5 x 8 mm balloon to the distal left circumflex over the long Whisper wire. I pulled the Whisper wire out and I inserted an . After that I took the balloon out. I attempted advancing the 2.0 x 15 mm Buckley over the short Whisper wire, but the stent would not make the turn. At that point I decided to try advancing the stent over the and with that I was able to get the stent to the mid left circumflex, where the stent was positioned under fluoroscopic guidance and deployed under 20 atmospheres for 20 seconds with the following angiogram showing good angiographic results. After that, the lesion in the proximal left circumflex seemed to be stable and seemed to be angiographically better. Because of that, I decided to leave it alone, with the amount of contrast used also being close to the patient's maximum threshold of contrast. I pulled both wires out and I took final pictures, which showed good angiographic results. At that point the procedure was completed without any complication. CONCLUSION: 1. Acute eju-HV-jombuybgi myocardial infarction. 2. Critical disease involving the mid left circumflex. 3. Severe disease involving the mid to distal LAD. 4. Severe disease involving the mid RCA. 5. Successful stenting of the mid left circumflex as described above with successful balloon angioplasty of the proximal left circumflex as well. POST-PROCEDURE MANAGEMENT: 1. Dual anti-platelet therapy. 2. Risk factor modifications. 3. Follow up with the patient. MMODL / IJN: [id number] /
--- NOTE | 2018-10-12 20:59 | LTR ---
October 12, 2018 To: Dr. Cheyanne Wynn Re: Ernestina Sheffield (36) Dear Dr. Wynn, Ms. Ernestina Sheffield was admitted to [facility] with shortness of breath and she was ruled in for acute coronary syndrome. She underwent a heart catheterization which revealed critical disease involving the left circumflex, which was stented with good angiographic results. Thank you for allowing us to participate in her care and please do not hesitate to call if you have any question or concerns. Sincerely, Errol James MD MMFRANK / REMAN: [id number] /
[2018-10-12] MEDS ORDERED: [UNRECOGNIZED DRUG - OTHER] PO SCH (21:00)
[2018-10-12] MEDS ORDERED: ATORVASTATIN 10 MG TAB PO SCH (21:00)
[2018-10-12] MEDS ORDERED: PANTOPRAZOLE 40 MG TABLET PO SCH (21:00)
[2018-10-12] MEDS ORDERED: CALCIUM CARB PO SCH (21:00)
[2018-10-12] MEDS ORDERED: [UNRECOGNIZED DRUG - OTHER] PO SCH (21:00)
[2018-10-12] MEDS ORDERED: NON-FORMULARY DRUG (Selenium [Selenium] 200 MCG) PO SCH (21:00)
[2018-10-12] MEDS: HEPARIN SOD,PORK IN 0.45% NACL 25,000 UNIT in 0.45% NACL 1 250ML.BAG IV SCH (21:43)
[2018-10-13] MEDS: SODIUM CHLORIDE 0.9% 1,000 ML IV SCH (04:59)
[2018-10-13] MEDS: PANTOPRAZOLE 40 MG TABLET PO SCH (06:23)
[2018-10-13 07:33] LABS: Basophils # (A) 0.1 k/uL (0-0.2); Basophils % (A) 1 %; Eosinophils # (A) 0.1 k/uL (0-0.7); Eosinophils % (A) 1 %; HCT 40.2 % (34.0-46.0); HGB 13.2 gm/dL (11.4-16.0); Lymphocytes # (A) 1.9 k/uL (1.0-4.8); Lymphocytes % (A) 20 %; MCH 31.3 pg (25.0-35.0); MCHC 32.8 g/dL (31.0-37.0); MCV 95.5 fL (80.0-100.0); Mean Platelet Volume 8.2; Monocytes # (A) 1.3 k/uL (0-1.0); Monocytes % (A) 13 %; Neutrophils # (A) 6.1 k/uL (1.3-7.7); Neutrophils % (A) 63 %; Platelet Count 164 k/uL (150-450); RBC 4.21 m/uL (3.80-5.40); RDW 14.1 % (11.5-15.5); WBC 9.6 k/uL (3.8-10.6)
[2018-10-13] MEDS: ASCORBIC ACID 500 MG TAB PO SCH (07:39)
[2018-10-13] MEDS: CHOLECALCIFEROL 1,000 UNIT TAB PO SCH (07:40)
[2018-10-13] MEDS: CYANOCOBALAMIN 500 MCG TAB PO SCH (07:42)
[2018-10-13] MEDS: FERROUS SULFATE 325 MG TAB PO SCH (07:43)
[2018-10-13] MEDS: MAGNESIUM OXIDE 400 MG TAB PO SCH (07:43)
[2018-10-13] MEDS: FAMOTIDINE 20 MG TAB PO SCH (07:43)
[2018-10-13 07:49] LABS: Albumin 3.5 g/dL (3.5-5.0); Potassium 4.1 mmol/L (3.5-5.1); Total Bilirubin 0.7 mg/dL (0.2-1.3); Total Protein 6.2 g/dL (6.3-8.2)
[2018-10-13] MEDS ORDERED: GINKGO BILOBA LEAF EXTRACT 60 MG PO SCH (09:00)
[2018-10-13] MEDS ORDERED: NON-FORMULARY DRUG (Biotin [Biotin] 5,000 MCG) PO SCH (09:00)
--- NOTE | 2018-10-13 12:38 | P.PN ---
Subjective Progress Note Date: 10/13/18 This is an 78-year-old female patient of Dr. Wynn. Patient presented with complaints of shortness of breath intermittently occurring for the past 4 days. Patient follows with Dr. Thurston in office and recently underwent cardiac cath proximately 2 weeks ago is following a cardiac cath that patient had severe triple-vessel coronary artery disease with mild to moderate disease involving the left main coronary artery distally along with a BREANA that showed severe aortic stenosis, moderate MR and moderate TR and severe pulmonary hypertension. At that time patient was evaluated by our cardiothoracic team. Patient did seek second opinion in which she has an appointment on October 19 from [place]. Morgan miller reports that the shortness of breath increased over the past 3 days warranting her to come to the ER for further evaluation. Additional medical history includes breast cancer, hyperlipidemia, hypertension, hypothyroidism and neuropathy. Patient denies ever having nicotine dependence. Troponins elevated at 6.310, 4.150 and 3.360. Patient started on heparin drip cardiology service is consulted. Chest x-ray completed showing mild atelectasis and scarring air- containing retrocardiac structure likely hiatal hernia. EKG completed showing sinus rhythm with marked sinus arrhythmia nonspecific ST and T-wave abnormality prolonged QT. At this time patient is resting comfortably in bed. Patient denies chest pain or shortness of breath. Patient denies nausea, patient denies any urinary burning or frequency. On 10/13/2018 patient is alert and oriented 3. Patient wants the laboratory phlebotomist y and received a stent to the left circumflex along with angioplasty. Per nursing staff cardiology to keep patient one more day for monitoring. Patient denies chest pain or shortness of breath. Patient denies nausea vomiting or diarrhea. Patient denies any urinary burning or frequency. Objective - Vital Signs Vital signs: Vital Signs Temp 97.8 F 10/13/18 12:00 Pulse 78 10/13/18 12:00 Resp 14 10/13/18 12:00 BP 113/66 10/13/18 12:00 Pulse Ox 95 10/13/18 09:00 Intake & Output 10/12/18 10/13/18 10/13/18 18:59 06:59 18:59 Intake Total 435 360 240 Balance 435 360 240 Weight 71.6 kg Intake: IV 185 Intake, IV Titration 250 Amount Sodium Chloride 0.9% 1, 250 000 ml @ 75 mls/hr IV . [id number] [facility] Rx#:[id number] Oral 360 240 Other: Voiding Method Toilet Toilet Toilet # Voids 1 # Bowel Movements 1 - Exam Head normocephalic Neck supple Lungs clear to auscultation bilaterally no wheezing or crackles Heart regular rate and rhythm S1-S2, no rub or gallop Abdomen is soft nontender nondistended positive bowel sounds no hepatosplenomegaly Extremities no edema Neuro alert and orientated to 3 - Labs CBC & Chem 7: 10/13/18 06:35 10/13/18 06:35 Labs: Abnormal Lab Results - Last 24 Hours (Table) 10/13/18 10/13/18 Range/Units 06:35 06:35 Monocytes # 1.3 H (0-1.0) k/uL AST 60 H (14-36) U/L Total Protein 6.2 L (6.3-8.2) g/dL Assessment and Plan Assessment: 1. Shortness of breath related to non-ST elevated SD. Troponins elevated at 6.310, 4.150 and 3.630. Status post cardiac stent to the left circumflex per Dr. Thurston. Continue to monitor for another 24 hours per cardiology. Patient maintained on Plavix and aspirin 2. Known severe triple-vessel disease. Patient underwent cardiac cath 2 weeks ago cardiac thoracic surgery consulted patient was obtaining second opinion at [facility] 3. Severe aortic stenosis and moderate mitral regurg and severe pulmonary hypertension. per cardiology plan is for patient to undergo PCI today in follow at [facility] for probable TAVR 4. History of essential hypertension 5. Hyperlipidemia. Continue Lipitor 6. History of breast cancer 7. History of anxiety. Maintained on Xanax anticipate Discharge in the next 24-48 hours I performed an examination of the patient and discussed their management with the Nurse Practitioner. I have reviewed the Nurse Practitioner's notes and agre e with the documented findings and plan of care
--- NOTE | 2018-10-13 12:53 | P.PN ---
Subjective Progress Note Date: 10/13/18 Principal diagnosis: NSTEMI This is a pleasant 78-year-old female patient who follows with Dr. James in the office. She has a known history of carotid disease, hypertension, hyperl ipidemia, severe , and triple-vessel CAD. She recently underwent BREANA which showed normal EF with severe aortic stenosis, moderate MR, moderate TR and severe pulmonary hypertension. She also underwent cardiac catheterization which showed severe triple-vessel coronary artery disease with mild to moderate disease involving the left main coronary artery distally. She was seen and evaluated by Dr. Mckeon but is seeking a second opinion by Dr. Mcmahan out of [place] she is scheduled to see on October 19. She previously been experiencing some dyspnea on exertion however yesterday developed some shortness of breath at rest that seems to be different than her usual pattern. EKG on admission shows sinus rhythm with lateral ST-T wave changes. Chest x-ray on admission showed mild atelectasis/scarring, air containing retrocardiac structure, likely hiatal hernia. Laboratory values showed a potassium 4.2, BUN of 24 and creatinine is 1.05. Troponins were elevated at 6.31 and 4.15. NT proBNP is elevated at 3390. Vital signs have been stable. Home medications include lovastatin 10 mg by mouth daily at bedtime, Ziac 106 0.25 g by mouth daily at bedtime, aspirin 325 mg daily and multiple supplements and vitamins. 10/13/2018 Patient underwent angioplasty and stent placement to left circumflex which was the most critical lesion. Upon examination today, patient is resting comfortably in bed. She's been up ambulating and showered today without any issues. She feels her breathing is better and denies any chest discomfort. Labs and Vital Signs Are Stable. Objective - Vital Signs Vital signs: Vital Signs Temp 97.8 F 10/13/18 12:00 Pulse 78 10/13/18 12:00 Resp 14 10/13/18 12:00 BP 113/66 10/13/18 12:00 Pulse Ox 95 10/13/18 09:00 Intake & Output 10/12/18 10/13/18 10/13/18 18:59 06:59 18:59 Intake Total 435 360 240 Balance 435 360 240 Weight 71.6 kg Intake: IV 185 Intake, IV Titration 250 Amount Sodium Chloride 0.9% 1, 250 000 ml @ 75 mls/hr IV . [id number] CORI Rx#:[id number] Oral 360 240 Other: Voiding Method Toilet Toilet Toilet # Voids 1 # Bowel Movements 1 - Exam PHYSICAL EXAMINATION: HEENT: Head is atraumatic, normocephalic. Pupils equal, round. Neck is supple. There is no elevated jugular venous pressure. HEART EXAMINATION: Heart sounds regular, S1 and S2 with a grade 3/6 systolic ejection murmur at the base with radiation to the neck. CHEST EXAMINATION: Lungs are clear to auscultation and precussion. No chest wall tenderness is noted on palpation or with deep breathing. ABDOMEN: Soft, nontender. Bowel sounds are heard. No organomegaly noted. EXTREMITIES: 2+ peripheral pulses with no evidence of peripheral edema and no calf tenderness noted. Right femoral puncture site soft with ecchymosis, no hematoma. NEUROLOGIC patient is awake, alert and oriented x3. - Labs CBC & Chem 7: 10/13/18 06:35 10/13/18 06:35 Labs: Abnormal Lab Results - Last 24 Hours (Table) 10/13/18 10/13/18 Range/Units 06:35 06:35 Monocytes # 1.3 H (0-1.0) k/uL AST 60 H (14-36) U/L Total Protein 6.2 L (6.3-8.2) g/dL Assessment and Plan Assessment: #1 non-ST elevation VT, status post PCI left circumflex #2 known severe triple vessel disease #3 severe aortic stenosis #4 hypertension #5 moderate mitral regurgitation #6 severe pulmonary hypertension #7 hyperlipidemia Plan: From Cardiology's perspective, we will continue current medications. Patient will likely be stable for discharge tomorrow. Plan for follow-up with Dr. James. The patient will also keep her appointment that is scheduled for 10/19/[address] Mcmahan. Continue dual antiplatelet therapy with aspirin 81 mg by mouth daily and Plavix 75 mg by mouth daily. Continue beta stefan and Lipitor 40 mg by mouth daily at bedtime. We will continue to follow the patient right further recommendations accordingly. CERTIFIED CREDIT COUNSELOR note has been reviewed, I agree with a documented findings and plan of care. Patient was seen and examined.
[2018-10-13 16:40] VITALS: RESP 16
[2018-10-13] MEDS: CLOPIDOGREL 75 MG TAB PO SCH (16:59)
[2018-10-13] MEDS: BISOPROLOL-HCTZ 10-6.25 MG 1 EACH TAB PO SCH (20:10)
[2018-10-13] MEDS: MONTELUKAST 10 MG TAB PO SCH (20:10)
[2018-10-13] MEDS: ATORVASTATIN 40 MG TAB PO SCH (20:10)
[2018-10-13] MEDS: LORATADINE 10 MG TAB PO SCH (20:10)
[2018-10-13] MEDS ORDERED: ASPIRIN 81 MG PO SCH (21:00)
[2018-10-13] MEDS: ALENDRONATE SODIUM 5 MG PO SCH (21:28)
[2018-10-14 05:34] LABS: Basophils # (A) 0.1 k/uL (0-0.2); Basophils % (A) 1 %; Eosinophils # (A) 0.1 k/uL (0-0.7); Eosinophils % (A) 1 %; HCT 40.2 % (34.0-46.0); HGB 13.4 gm/dL (11.4-16.0); Lymphocytes # (A) 2.4 k/uL (1.0-4.8); Lymphocytes % (A) 24 %; MCH 31.6 pg (25.0-35.0); MCHC 33.4 g/dL (31.0-37.0); MCV 94.7 fL (80.0-100.0); Mean Platelet Volume 8.2; Monocytes # (A) 1.4 k/uL (0-1.0); Monocytes % (A) 14 %; Neutrophils # (A) 5.5 k/uL (1.3-7.7); Neutrophils % (A) 56 %; Platelet Count 170 k/uL (150-450); RBC 4.25 m/uL (3.80-5.40); RDW 14.4 % (11.5-15.5); WBC 9.8 k/uL (3.8-10.6)
[2018-10-14 05:43] LABS: Albumin 3.6 g/dL (3.5-5.0); Calcium 8.9 mg/dL (8.4-10.2); Potassium 4.1 mmol/L (3.5-5.1); Total Bilirubin 0.6 mg/dL (0.2-1.3); Total Protein 6.4 g/dL (6.3-8.2)
[2018-10-14] MEDS: FAMOTIDINE 20 MG TAB PO SCH (07:49)
[2018-10-14] MEDS: FERROUS SULFATE 325 MG TAB PO SCH (07:49)
[2018-10-14] MEDS: CYANOCOBALAMIN 500 MCG TAB PO SCH (07:49)
[2018-10-14] MEDS: ASCORBIC ACID 500 MG TAB PO SCH (07:49)
[2018-10-14] MEDS: CLOPIDOGREL 75 MG TAB PO SCH (07:49)
[2018-10-14] MEDS: CHOLECALCIFEROL 1,000 UNIT TAB PO SCH (07:49)
[2018-10-14] MEDS: MAGNESIUM OXIDE 400 MG TAB PO SCH (07:49)
--- NOTE | 2018-10-14 12:15 | PN ---
PROGRESS NOTE Ernestina is an 78-year-old lady who is admitted to hospital with non ST-segment elevation TX and underwent cardiac catheterization and angioplasty of left circumflex coronary artery. She has severe aortic stenosis and also has multivessel coronary artery disease. She is to undergo aortic valve replacement either as a TAVR or surgical aortic valve replacement at [facility] and this is going to be done as an outpatient. I am seeing her for the first time. This morning she is doing well and is free of symptoms. She is eager and anxious to go home. She denies chest pain, difficulty in breathing, leg edema or focal neurological deficits. PHYSICAL EXAM: She is comfortable at rest. Vital signs are stable. Chest exam reveals good air entry bilaterally. Heart exam reveals first and second heart sounds, a grade 4 x 6 ejection systolic murmur. Abdomen is soft, nontender. Exam of THE extremities did not reveal any edema. Peripheral pulses are felt. LABS: Showed that hemoglobin is 13.4. Potassium is 4.1, creatinine is 0.9. A recent echocardiogram on her shows moderate aortic stenosis. ASSESSMENT: 1. Non ST-segment elevation myocardial infarction, status post catheterization and angioplasty of circumflex coronary artery. 2. Moderate aortic stenosis. 3. Multivessel coronary artery disease. PLAN: Patient is doing well. She will continue the aspirin, Lipitor, Plavix that she is currently on. She is stable for discharge. Follow up with Dr. James in the outpatient setting and she will keep her followup appointment at [facility]. MMJCL / REMAN: [id number] /
[2018-10-14 12:58] VITALS: BP 117/56; PULSE 73; TEMP 98.2
--- NOTE | 2018-10-14 13:42 | P.DS ---
Providers Date of admission: 10/11/18 23:35 Expected date of discharge: 10/14/18 Attending physician: Hailey Martínez Consults: 10/11/18 22:55 Consult Physician Urgent Consulting Provider: Errol James Consult Reason/Comments: NSTEMI Do you want consulting provider notified?: Yes 10/12/18 13:04 Consult Physician Routine Consulting Provider: [facility] Consult Reason/Comments: Post Interventional patient Do you want consulting provider notified?: Already Contacted Primary care physician: Cinthia Wynn Hospital Course: Diagnosis on discharge: #1 non-ST elevation ME, status post PCI left circumflex #2 known severe triple vessel disease #3 severe aortic stenosis #4 hypertension #5 moderate mitral regurgitation #6 severe pulmonary hypertension #7 hyperlipidemia Hospital course: This is a pleasant 78-year-old female patient who follows with Dr. James in the office. She has a known history of carotid disease, hypertension, hyperlipidemia, severe , and triple-vessel CAD. She recently underwent BREANA which showed normal EF with severe aortic stenosis, moderate MR, moderate TR and severe pulmonary hypertension. She also underwent cardiac catheterization which showed severe triple-vessel coronary artery disease with mild to moderate disease involving the left main coronary artery distally. She was seen and evaluated by Dr. Mckeon but is seeking a second opinion by Dr. Mcmahan out of [place] she is scheduled to see on October 19. She previously been experiencing some dyspnea on exertion however yesterday developed some shortness of breath at rest that seems to be different than her usual pattern. EKG on admission shows sinus rhythm with lateral ST-T wave changes. Chest x-ray on admission showed mild atelectasis/scarring, air containing retrocardiac structure, likely hiatal hernia. Laboratory values showed a potassium 4.2, BUN of 24 and creatinine is 1.05. Troponins were elevated at 6.31 and 4.15. NT proBNP is elevated at 3390. Vital signs have been stable. Home medications include lovastatin 10 mg by mouth daily at bedtime, Ziac 106 0.25 g by mouth daily at bedtime, aspirin 325 mg daily and multiple supplements and vitamins. 10/13/2018 Patient underwent angioplasty and stent placement to left circumflex which was the most critical lesion. Upon examination today, patient is resting comfortably in bed. She's been up ambulating and showered today without any issues. She feels her breathing is better and denies any chest discomfort. Labs and Vital Signs Are Stable. On 10/14/2018 Patient was seen and examined on the telemetry floor she is alert and oriented 3 he no apparent distress she denies any new episodes of chest pain since admission she has been ambulating without any difficulty she was cleared by cardiology for discharge she will be discharged home today she would follow up with her primary care physician Dr. Minda diaz within one week she will also follow-up with Dr. MCMAHAN at [facility] for evaluation and management of her valve disease. Please send a copy of her medical record to Dr. Mcmahan and to Dr. Wynn Patient Condition at Discharge: Stable Plan - Discharge Summary Discharge Rx Participant: No New Discharge Prescriptions: New Aspirin 81 mg PO HS chew Atorvastatin [Lipitor] 40 mg PO HS #90 tab Clopidogrel [Plavix] 75 mg PO DAILY #90 tab Nitroglycerin Sl Tabs [Nitrostat] 0.4 mg SUBLINGUAL Q5M PRN tab PRN Reason: Chest Pain Continue Cetirizine HCl [Zyrtec] 10 mg PO HS Omeprazole [PriLOSEC] 20 mg PO HS Montelukast [Singulair] 10 mg PO HS Bisoprolol-Hctz 10-6.25 mg [Ziac 10-6.25 MG] 1 tab PO HS Ubidecarenone [Co Q-10] 100 mg PO DAILY Aloe Lax 225 1 tab PO HS Selenium 200 mcg PO HS Pyridoxine HCl (Vitamin B6) [Vitamin B-6] 100 mg PO HS Potassium Iodide [SSKI Oral Liquid] 30 gm PO QAM Calcium Carb/Magnesium Ox,Carb [Seven-Mag 500-250 MG Chewable] 2 tab PO BID Biotin 5,000 mcg PO QAM Prevagen Es 1 tab PO QAM Zinc 50 mg PO QAM Vitamin E (Dl,Tocopheryl Acet) [Vitamin E] 400 unit PO DAILY Lutein 20 mg PO QAM Ascorbic Acid [Vitamin C] 500 mg PO QAM Alendronate Sodium [Fosamax] 5 mg PO HS Ginkgo Biloba [place] Extract [Ginkgo Biloba] 60 mg PO QAM Cholecalciferol (Vitamin D3) [Vitamin D3] 2,000 unit PO QAM Potassium Gluconate 99 mg PO QAM Lecithin, Soy [Lecithin] 400 mg PO BID Ferrous Sulfate [Iron (65 MG Elemental)] 325 mg PO QAM Nutroferon 1 tab PO BID Magnesium Oxide [Mag-Ox] 250 mg PO DAILY Cyanocobalamin (Vitamin B-12) [Vitamin B-12] 1,000 mcg PO DAILY Cbd Oil 3 drops SL DAILY PRN PRN Reason: Pain Discontinued Aspirin 325 mg PO HS Lovastatin [Mevacor] 10 mg PO HS Discharge Medication List Cetirizine HCl [Zyrtec] 10 mg PO HS 09/09/14 [History] Montelukast [Singulair] 10 mg PO HS 09/09/14 [History] Omeprazole [PriLOSEC] 20 mg PO HS 09/09/14 [History] Bisoprolol-Hctz 10-6.25 mg [Ziac 10-6.25 MG] 1 tab PO HS 09/03/15 [History] Ubidecarenone [Co Q-10] 100 mg PO DAILY 09/03/15 [History] Alendronate Sodium [Fosamax] 5 mg PO HS 01/18/18 [History] Aloe Lax 225 1 tab PO HS 01/18/18 [History] Ascorbic Acid [Vitamin C] 500 mg PO QAM 01/18/18 [History] Biotin 5,000 mcg PO QAM 01/18/18 [History] Calcium Carb/Magnesium Ox,Carb [Seven-Mag 500-250 MG Chewable] 2 tab PO BID 01/18/18 [History] Lutein 20 mg PO QAM 01/18/18 [History] Potassium Iodide [SSKI Oral Liquid] 30 gm PO QAM 01/18/18 [History] Prevagen Es 1 tab PO QAM 01/18/18 [History] Pyridoxine HCl (Vitamin B6) [Vitamin B-6] 100 mg PO HS 01/18/18 [History] Selenium 200 mcg PO HS 01/18/18 [History] Vitamin E (Dl,Tocopheryl Acet) [Vitamin E] 400 unit PO DAILY 01/18/18 [History] Zinc 50 mg PO QAM 01/18/18 [History] Cbd Oil 3 drops SL DAILY PRN 08/30/18 [History] Cholecalciferol (Vitamin D3) [Vitamin D3] 2,000 unit PO QAM 08/30/18 [History] Cyanocobalamin (Vitamin B-12) [Vitamin B-12] 1,000 mcg PO DAILY 08/30/18 [History] Ferrous Sulfate [Iron (65 MG Elemental)] 325 mg PO QAM 08/30/18 [History] Ginkgo Biloba [place] Extract [Ginkgo Biloba] 60 mg PO QAM 08/30/18 [History] Lecithin, Soy [Lecithin] 400 mg PO BID 08/30/18 [History] Magnesium Oxide [Mag-Ox] 250 mg PO DAILY 08/30/18 [History] Nutroferon 1 tab PO BID 08/30/18 [History] Potassium Gluconate 99 mg PO QAM 08/30/18 [History] Aspirin 81 mg PO HS chew 10/13/18 [Rx] Atorvastatin [Lipitor] 40 mg PO HS #90 tab 10/13/18 [Rx] Clopidogrel [Plavix] 75 mg PO DAILY #90 tab 10/13/18 [Rx] Nitroglycerin Sl Tabs [Nitrostat] 0.4 mg SUBLINGUAL Q5M PRN tab 10/14/18 [Rx] Follow up Appointment(s)/Referral(s): Cinthia Wynn MD [Primary Care Provider] - 10/19/18 1:00 pm Errol James MD [STAFF PHYSICIAN] - 10/20/18 1:30 pm Patient Instructions/Handouts: *Surgery [facility] - After Heart Catheterization - Director Epidemiology Instructions, Heart Healthy Diet (DC)
== END 2018-10-14 16:17 | disposition home or self-care (01) | DRG 247 ==
LOC: EC 19:09 → 3SCARD 23:35
PROVIDERS: ADMIT Internal Medicine; ATTEND Internal Medicine
PROC: 4A023N7 Measurement of Cardiac Sampling and Pressure, Left Heart, Percutaneous Approach (ICD-10-PCS; principal; 2018-10-12 11:09)
PROC: 027034Z Dilation of Coronary Artery, One Artery with Drug-eluting Intraluminal Device, Percutaneous Approach (ICD-10-PCS; principal; 2018-10-12 11:09)
PROC: B2111ZZ Fluoroscopy of Multiple Coronary Arteries using Low Osmolar Contrast (ICD-10-PCS; principal; 2018-10-12 11:09)
DX: I21.4 Non-ST elevation (NSTEMI) myocardial infarction (principal); J98.11 Atelectasis; E03.9 Hypothyroidism, unspecified; E78.5 Hyperlipidemia, unspecified; F41.9 Anxiety disorder, unspecified; I08.0 Rheumatic disorders of both mitral and aortic valves; I10 Essential (primary) hypertension; I25.10 Atherosclerotic heart disease of native coronary artery without angina pectoris; I27.20 Pulmonary hypertension, unspecified; K44.9 Diaphragmatic hernia without obstruction or gangrene; Z79.82 Long term (current) use of aspirin; Z79.83 Long term (current) use of bisphosphonates; Z79.899 Other long term (current) drug therapy; Z80.0 Family history of malignant neoplasm of digestive organs; Z80.7 Family history of other malignant neoplasms of lymphoid, hematopoietic and related tissues; Z85.3 Personal history of malignant neoplasm of breast; Z90.11 Acquired absence of right breast and nipple; Z95.2 Presence of prosthetic heart valve; Z95.5 Presence of coronary angioplasty implant and graft; Z88.8 Allergy status to other drugs, medicaments and biological substances; Z91.048 Other nonmedicinal substance allergy status
CPT/HCPCS: 36415; 71046; 80053; 80061; 83735; 83880; 84484; 85025; 85610; 85730; 93005; 93306; 93454; 94760; 96365; 96366; 96376; 99285

== ENCOUNTER 2018-11-11 06:11 | Emergency (ER) | payer MEDICARE ==
[2018-11-11 06:22] VITALS: BP 146/75; PULSE 79; RESP 20; TEMP 98.9
[2018-11-11 07:13] LABS: Basophils # (A) 0.1 k/uL (0-0.2); Basophils % (A) 1 %; Eosinophils # (A) 0.2 k/uL (0-0.7); Eosinophils % (A) 1 %; HCT 39.2 % (34.0-46.0); HGB 13.3 gm/dL (11.4-16.0); Lymphocytes # (A) 1.7 k/uL (1.0-4.8); Lymphocytes % (A) 13 %; MCH 31.4 pg (25.0-35.0); MCHC 33.9 g/dL (31.0-37.0); MCV 92.8 fL (80.0-100.0); Mean Platelet Volume 8.1; Monocytes # (A) 1.2 k/uL (0-1.0); Monocytes % (A) 9 %; Neutrophils # (A) 9.5 k/uL (1.3-7.7); Neutrophils % (A) 74 %; Platelet Count 175 k/uL (150-450); RBC 4.22 m/uL (3.80-5.40); RDW 13.4 % (11.5-15.5); WBC 12.9 k/uL (3.8-10.6)
[2018-11-11 07:26] LABS: Albumin 3.9 g/dL (3.5-5.0); Calcium 9.2 mg/dL (8.4-10.2); Potassium 3.7 mmol/L (3.5-5.1); Total Bilirubin 0.7 mg/dL (0.2-1.3); Total Protein 6.7 g/dL (6.3-8.2)
[2018-11-11 07:29] LABS: INR 0.9 (<1.2)
[2018-11-11 07:30] LABS: Partial Thromboplastin Time 25.2 sec (22.0-30.0); Prothrombin Time 10.1 sec (9.0-12.0)
--- NOTE | 2018-11-11 08:22 | US ---
EXAMINATION TYPE: US pelvic complete DATE OF EXAM: 11/11/2018 COMPARISON: NONE CLINICAL HISTORY: vaginal bleeding post menopausal, prep H in vag. Vaginal bleeding and discomfort x 1 day, patient states she accidently placed a rectal suppository in her vagina 0, history of breast CA TECHNIQUE: . Transabdominal sonographic images of the pelvis were acquired. No transvaginal exam per ordering PA, patient not sexually active. Date of LMP: 30 years ago EXAM MEASUREMENTS: Uterus: 7.1 x 3.8 x 4.2 cm Endometrial Stripe: 0.3 cm Right Ovary: not seen Left Ovary: not seen 1. Uterus: limited visualization, appears mildly heterogeneous, 1.0 x 0.7 x 0.9cm hyperechoic lesion seen left fundus 2. Endometrium: limited visualization, appears wnl 3. Right Ovary: not seen 4. Left Ovary: not seen 5. Bilateral Adnexa: wnl 6. Posterior cul-de-sac: wnl IMPRESSION: 1. LIMITED EXAMINATION WITH FAILURE TO VISUALIZE EITHER OVARY. 2. PROBABLE FIBROID UTERUS.
[2018-11-11 08:42] LABS: Appearance,Urine Cloudy (Clear); Bacteria,Urine Rare /hpf; Bilirubin,Urine Negative (Negative); Blood,Urine Large (Negative); Color,Urine Dark Red; Glucose,Urine (UA) Negative (Negative); Ketones,Urine Negative (Negative); Leukocyte Esterase,Urine Large (Negative); Mucus,Urine Rare /hpf; Nitrite,Urine Negative (Negative); PH, Urine 5.5 (5.0-8.0); Protein,Urine 2+ (Negative); RBC,Urine >182 /hpf (0-5); Specific Gravity,Urine 1.015 (1.001-1.035); Urobilinogen,Urine <2.0 mg/dL (<2.0); WBC,Urine >182 /hpf (0-5)
--- NOTE | 2018-11-11 08:59 | ED ---
Female Urogenital HPI - General Chief complaint: Urogenital Stated complaint: vaginal bleeding Time Seen by Provider: 11/11/18 06:32 Source: patient Mode of arrival: ambulatory Limitations: no limitations - History of Present Illness Initial comments: 78-year-old female presents emergency department for evaluation of vaginal irritation. Patient states that she attempted to put Preparation H into her rectum due to hemorrhoids on 927 at 0230. Patient states she accidentally put it in the vagina. Patient states that since she has had vaginal irritation and noted bleeding approximately 6-8 hours later. Patient states that she is 100% positive the blood in not coming from rectum. She states she touched her vaginal opening and noted blood, she states when urine gets onto the external vagina it gr, denies dysuria, urgency frequency or noted hematuria. Patient states she was unsure if she needed to flush her vagina out. Patient states the bleeding stopped being bright red and is now light pink, but still experiencing irritation. Patient denies sexual activity, denies previous vaginal births or history of cancer. She denies lightheadedness dizziness pallor cold intolerance. Remaining review systems negative. Upon arrival patient appears w ell signs of acute distress. - Related Data Home Medications Medication Instructions Recorded Confirmed Cetirizine HCl [Zyrtec] 10 mg PO HS 09/09/14 11/11/18 Montelukast [Singulair] 10 mg PO HS 09/09/14 11/11/18 Omeprazole [PriLOSEC] 20 mg PO QAM 09/09/14 11/11/18 Bisoprolol-Hctz 10-6.25 mg [Ziac 1 tab PO HS 09/03/15 11/11/18 10-6.25 MG] Ubidecarenone [Co Q-10] 100 mg PO DAILY 09/03/15 11/11/18 Alendronate Sodium [Fosamax] 5 mg PO QAM 01/18/18 11/11/18 Aloe Lax 225 1 tab PO HS 01/18/18 11/11/18 Ascorbic Acid [Vitamin C] 500 mg PO QAM 01/18/18 11/11/18 Biotin 5,000 mcg PO QAM 01/18/18 11/11/18 Calcium Carb/Magnesium Ox,Carb 2 tab PO BID 01/18/18 11/11/18 [Seven-Mag 500-250 MG Chewable] Lutein 20 mg PO QAM 01/18/18 11/11/18 Potassium Iodide [SSKI Oral Liquid] 30 gm PO QAM 01/18/18 11/11/18 Prevagen Es 1 tab PO HS 01/18/18 11/11/18 Pyridoxine HCl (Vitamin B6) 100 mg PO HS 01/18/18 11/11/18 [Vitamin B-6] Selenium 200 mcg PO HS 01/18/18 11/11/18 Vitamin E (Dl,Tocopheryl Acet) 400 unit PO DAILY 01/18/18 11/11/18 [Vitamin E] Zinc 50 mg PO QAM 01/18/18 11/11/18 Cbd Oil 3 drops SL DAILY PRN 08/30/18 11/11/18 Cholecalciferol (Vitamin D3) 2,000 unit PO QAM 08/30/18 11/11/18 [Vitamin D3] Cyanocobalamin (Vitamin B-12) 1,000 mcg PO DAILY 08/30/18 11/11/18 [Vitamin B-12] Ferrous Sulfate [Iron (65 MG 325 mg PO QAM 08/30/18 11/11/18 Elemental)] Ginkgo Biloba [place] Extract [Ginkgo 60 mg PO QAM 08/30/18 11/11/18 Biloba] Lecithin, Soy [Lecithin] 400 mg PO BID 08/30/18 11/11/18 Magnesium Oxide [Mag-Ox] 250 mg PO DAILY 08/30/18 11/11/18 Nutroferon 1 tab PO BID 08/30/18 11/11/18 Potassium Gluconate 99 mg PO QAM 08/30/18 11/11/18 Previous Rx's Medication Instructions Recorded Aspirin 81 mg PO HS chew 10/13/18 Atorvastatin [Lipitor] 40 mg PO HS #90 tab 10/13/18 Clopidogrel [Plavix] 75 mg PO DAILY #90 tab 10/13/18 Cephalexin [Keflex] 500 mg PO Q8HR 7 Days #21 cap 11/11/18 Allergies Allergy/AdvReac Type Severity Reaction Status Date / Time diazepam [From Valium] Allergy Rapid Verified 11/11/18 08:18 Heart Rate grass pollen-perennial rye, Allergy Itching Verified 11/11/18 08:18 standar Review of Systems ROS Statement: Those systems with pertinent positive or pertinent negative responses have been documented in the HPI. ROS Other: All systems not noted in ROS Statement are negative. 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, "bad joints", anemia History of Any Multi-Drug Resistant Organisms: None Reported Past Surgical History: Breast Surgery Additional Past Surgical History / Comment(s): RT MASTECTOMY, Eye surgery - bilateral corneal transplant, AND cataract removal Past Anesthesia/Blood Transfusion Reactions: No Reported Reaction Past Psychological History: No Psychological Hx Reported Smoking Status: Never smoker Past Alcohol Use History: Occasional Past Drug Use History: None Reported - Past Family History Father Family Medical History: Cancer Additional Family Medical History / Comment(s): corneal dystrophy, colon cancer Mother Family Medical History: Cancer Additional Family Medical History / Comment(s): multiple myeloma Brother(s) Family Medical History: Cancer Additional Family Medical History / Comment(s): colon cancer General Exam - General Exam Comments Initial Comments: General: The patient is awake and alert, in no distress, and does not appear acutely ill. Eye: +3 mm pupils are equal, round and reactive to light, extra-ocular movements are intact. No nystagmus. There is normal conjunctiva bilaterally. No signs of icterus. Cardiovascular: There is a regular rate and rhythm. No murmur, rub or gallop is appreciated. Respiratory: Lungs are clear to auscultation, respirations are non-labored, breath sounds are equal. No wheezes, stridor, rales, or rhonchi. Gastrointestinal: Soft, non-distended, non-tender abdomen without masses or organomegaly noted. There is no rebound or guarding present. Bimanual performed no bright red blood, external vaginal irritation at the introitus noted. No rectal bleeding/ Musculoskeletal: Normal ROM, no tenderness. Strength 5/5. Sensation intact. Pulses equal bilaterally 2+. Neurological: A&O x 3. CN II-XII intact grossly, There are no obvious motor or sensory deficits. Coordination appears grossly intact. Speech is normal. Skin: Skin is warm and dry and no rashes or lesions are noted. Psychiatric: Cooperative, appropriate mood & affect, normal judgment. Limitations: no limitations Course Vital Signs 11/11/18 06:18 Temperature 98.9 F Pulse Rate 79 Respiratory 20 Rate Blood Pressure 146/75 O2 Sat by Pulse 97 Oximetry Medical Decision Making - Medical Decision Making Medial feel presenting for foreign substance in vagina. Vaginal bleeding. Ultrasound revealed fibroid uterus. Patient is no active vaginal bleeding states this subsided. Patient states she is coughing is not rectal bleeding and continues to insist it was not from her hemorrhoid. Normal bimanual. Patient abdominal exam benign. Labs and BP stable. Patient appears well. Discussed the case mentally provider Dr. Thorne at this time feel patient is stable for Discharge with outpatient [employer] follow-up and return parameters for any persistent or increasing bleeding. - Lab Data Result diagrams: 11/11/18 06:53 11/11/18 06:53 Lab Results 11/11/18 11/11/18 11/11/18 Range/Units 06:53 06:53 06:53 WBC 12.9 H (3.8-10.6) k/uL RBC 4.22 (3.80-5.40) m/uL Hgb 13.3 (11.4-16.0) gm/dL Hct 39.2 (34.0-46.0) % MCV 92.8 (80.0-100.0) fL MCH 31.4 (25.0-35.0) pg MCHC 33.9 (31.0-37.0) g/dL RDW 13.4 (11.5-15.5) % Plt Count 175 (150-450) k/uL Neutrophils % 74 % Lymphocytes % 13 % Monocytes % 9 % Eosinophils % 1 % Basophils % 1 % Neutrophils # 9.5 H (1.3-7.7) k/uL Lymphocytes # 1.7 (1.0-4.8) k/uL Monocytes # 1.2 H (0-1.0) k/uL Eosinophils # 0.2 (0-0.7) k/uL Basophils # 0.1 (0-0.2) k/uL PT 10.1 (9.0-12.0) sec INR 0.9 (<1.2) APTT 25.2 (22.0-30.0) sec Sodium 142 (137-145) mmol/L Potassium 3.7 (3.5-5.1) mmol/L Chloride 108 H (98-107) mmol/L Carbon Dioxide 22 (22-30) mmol/L Anion Gap 12 mmol/L BUN 20 H (7-17) mg/dL Creatinine 0.96 (0.52-1.04) mg/dL Est GFR (CKD-EPI)AfAm 65 (>60 ml/min/1.73 sqM) Est GFR (CKD-EPI)NonAf 56 (>60 ml/min/1.73 sqM) Glucose 104 H (74-99) mg/dL Calcium 9.2 (8.4-10.2) mg/dL Total Bilirubin 0.7 (0.2-1.3) mg/dL AST 31 (14-36) U/L ALT 30 (9-52) U/L Alkaline Phosphatase 65 (38-126) U/L Total Protein 6.7 (6.3-8.2) g/dL Albumin 3.9 (3.5-5.0) g/dL Urine Color Urine Appearance (Clear) Urine pH (5.0-8.0) Ur Specific [place] (1.001-1.035) Urine Protein (Negative) Urine Glucose (UA) (Negative) Urine Ketones (Negative) Urine Blood (Negative) Urine Nitrite (Negative) Urine Bilirubin (Negative) Urine Urobilinogen (<2.0) mg/dL Ur Leukocyte Esterase (Negative) Urine RBC (0-5) /hpf Urine WBC (0-5) /hpf Urine Bacteria (None) /hpf Urine Mucus (None) /hpf 11/11/18 Range/Units 08:20 WBC (3.8-10.6) k/uL RBC (3.80-5.40) m/uL Hgb (11.4-16.0) gm/dL Hct (34.0-46.0) % MCV (80.0-100.0) fL MCH (25.0-35.0) pg MCHC (31.0-37.0) g/dL RDW (11.5-15.5) % Plt Count (150-450) k/uL Neutrophils % % Lymphocytes % % Monocytes % % Eosinophils % % Basophils % % Neutrophils # (1.3-7.7) k/uL Lymphocytes # (1.0-4.8) k/uL Monocytes # (0-1.0) k/uL Eosinophils # (0-0.7) k/uL Basophils # (0-0.2) k/uL PT (9.0-12.0) sec INR (<1.2) APTT (22.0-30.0) sec Sodium (137-145) mmol/L Potassium (3.5-5.1) mmol/L Chloride (98-107) mmol/L Carbon Dioxide (22-30) mmol/L Anion Gap mmol/L BUN (7-17) mg/dL Creatinine (0.52-1.04) mg/dL Est GFR (CKD-EPI)AfAm (>60 ml/min/1.73 sqM) Est GFR (CKD-EPI)NonAf (>60 ml/min/1.73 sqM) Glucose (74-99) mg/dL Calcium (8.4-10.2) mg/dL Total Bilirubin (0.2-1.3) mg/dL AST (14-36) U/L ALT (9-52) U/L Alkaline Phosphatase (38-126) U/L Total Protein (6.3-8.2) g/dL Albumin (3.5-5.0) g/dL Urine Color Dark Red Urine Appearance Cloudy H (Clear) Urine pH 5.5 (5.0-8.0) Ur Specific [place] 1.015 (1.001-1.035) Urine Protein 2+ H (Negative) Urine Glucose (UA) Negative (Negative) Urine Ketones Negative (Negative) Urine Blood Large H (Negative) Urine Nitrite Negative (Negative) Urine Bilirubin Negative (Negative) Urine Urobilinogen <2.0 (<2.0) mg/dL Ur Leukocyte Esterase Large H (Negative) Urine RBC >182 H (0-5) /hpf Urine WBC >182 H (0-5) /hpf Urine Bacteria Rare H (None) /hpf Urine Mucus Rare H (None) /hpf Disposition Clinical Impression: Vaginal irritation, Vaginal bleeding, Fibroid uterus, Hx of hemorrhoids Disposition: HOME SELF-CARE Condition: Good Instructions (If sedation given, give patient instructions): Urinary Tract Infection in Women (ED) Additional Instructions: Please use medication as discussed. Please follow-up with family doctor in the next 2 days, please have outpatient OBGYN follow-up and evaluatino. If bleeding persists, worsening must return to the emergency room. Please return to emergency room if the symptoms increase or worsen or for any other concerns. Prescriptions: Cephalexin [Keflex] 500 mg PO Q8HR 7 Days #21 cap Is patient prescribed a controlled substance at d/c from ED?: No Referrals: Cinthia Wynn MD [Primary Care Provider] - 1-2 days Time of Disposition: 09:06
== END 2018-11-11 09:24 | disposition home or self-care (01) ==
LOC: EC 06:11
DX: D25.9 Leiomyoma of uterus, unspecified (principal); N93.9 Abnormal uterine and vaginal bleeding, unspecified; N89.8 Other specified noninflammatory disorders of vagina; R05 Cough; I10 Essential (primary) hypertension; E07.9 Disorder of thyroid, unspecified; D64.9 Anemia, unspecified; Z87.19 Personal history of other diseases of the digestive system; Z92.21 Personal history of antineoplastic chemotherapy; Z85.828 Personal history of other malignant neoplasm of skin; Z85.3 Personal history of malignant neoplasm of breast; Z79.899 Other long term (current) drug therapy; Z88.8 Allergy status to other drugs, medicaments and biological substances; Z91.048 Other nonmedicinal substance allergy status
CPT/HCPCS: 36415; 76856; 80053; 81001; 85025; 85610; 85730; 99284

== ENCOUNTER 2018-11-11 15:52 | Inpatient (IN) | payer MEDICARE ==
[2018-11-11] MEDS ORDERED: ACETAMINOPHEN TAB 325 MG TAB PO STA (16:10)
[2018-11-11] MEDS ORDERED: SODIUM CHLORIDE 0.9% 500 ML 500 ML IV SCH (16:15)
[2018-11-11] MEDS ORDERED: METOCLOPRAMIDE 5 MG/ML 2 ML VIAL IVP STA (16:16)
[2018-11-11 16:32] LABS: HCT 40.6 % (34.0-46.0); HGB 13.6 gm/dL (11.4-16.0); MCH 31.5 pg (25.0-35.0); MCHC 33.6 g/dL (31.0-37.0); MCV 93.8 fL (80.0-100.0); Platelet Count 146 k/uL (150-450); RBC 4.33 m/uL (3.80-5.40); RDW 13.6 % (11.5-15.5); WBC 10.2 k/uL (3.8-10.6)
[2018-11-11 16:47] LABS: Band Neutrophils % 3 %; Lymphocytes # (M) 0.82 k/uL (1.0-4.8); Neutrophils % (M) 88 %; Nucleated Red Blood Cells 0 /100 WBC (0-0); Potassium 3.9 mmol/L (3.5-5.1); Total Cells Counted 100; Total Protein 6.9 g/dL (6.3-8.2)
[2018-11-11 16:49] LABS: INR 0.9 (<1.2); Partial Thromboplastin Time 21.3 sec (22.0-30.0); Prothrombin Time 10.1 sec (9.0-12.0)
--- NOTE | 2018-11-11 17:30 | XR ---
EXAMINATION TYPE: XR chest 2V DATE OF EXAM: 11/11/2018 COMPARISON: 10/11/2018 INDICATION: Fever and vaginal bleeding TECHNIQUE: Frontal and lateral views of the chest are obtained. FINDINGS: The heart size is normal. The pulmonary vasculature is normal. The lungs are clear. Large hiatal hernia is posterior to the heart. IMPRESSION: 1. No acute pulmonary process. 2. Large hiatal hernia
[2018-11-11] MEDS ORDERED: IBUPROFEN 600 MG TAB PO STA (17:55)
--- NOTE | 2018-11-11 18:02 | CT ---
EXAMINATION TYPE: CT abdomen pelvis wo con DATE OF EXAM: 11/11/2018 COMPARISON: None INDICATION: Pt c/o vaginal bleeding w/fever DLP: 571.3 mGycm, Automated exposure control for dose reduction was used. CONTRAST: 0 mL of Isovue 300. Study performed without Oral Contrast TECHNIQUE: Axial images were obtained from above the diaphragm to the pubic rami in the axial plane a t 5 mm thick sections. Reconstructed images are reviewed on the computer in the coronal plane. FINDINGS: Limited CT sections are obtained the lung bases. The lung bases are clear. Hiatal hernia is present . Coronary artery calcification is present. CT ABDOMEN: Liver: Normal Spleen: Normal Pancreas: Normal Adrenal glands: The adrenal glands are normal. Gallbladder: Normal Kidneys: Faint ill-defined hyperdensity is posterior mid cortex right kidney measuring 0.7 cm. Small angiomyolipoma may be present. Couple of punctate calcifications may be within the cortex of the ante rior left mid kidney. Series 201 image 30. No hydronephrosis is present. No cysts are present. Aorta: Vascular calcification is within the aorta. Inferior vena cava: Normal. CT PELVIS: Loops of bowel within the abdomen and pelvis are normal. There are loops of bowel which are incom pletely distended or lack oral contrast limiting their evaluation. Appendix: Normal as visualized. Urinary bladder: Normal. No urinary bladder calcifications are identified. Calcifications appear to b e within the adjacent uterus. Genitourinary structures: There is a 3.4 cm right ovarian cyst present. Uterus appears normal.. Left adnexa appears unremarkable. Osseous structures: No suspicious lytic or sclerotic lesions. IMPRESSIONS: 1. 3.4 cm right ovarian cyst. Follow-up is recommended. 2. Nonobstructing renal stones may be within the left mid kidney. 3. Small hyperdensity within the right kidney may be an angiomyolipoma. Follow-up monitoring is recom mended. 4. Large hiatal hernia.
--- NOTE | 2018-11-11 18:26 | ED ---
General Adult HPI - General Chief complaint: Vaginal Bleeding Stated complaint: Vaginal bleeding Time Seen by Provider: 11/11/18 16:10 Source: EMS, RN notes reviewed Mode of arrival: EMS Limitations: no limitations - History of Present Illness Initial comments: 78-year-old female with a past medical history of breast cancer, hyperlipidemia, hypertension, anemia presents to the emergency department for a chief complaint of nausea and vaginal bleeding. Patient states she urinated yesterday and today and when she urinates she has burning and blood in the toilet. States she thought this was vaginal in nature but is only when she is urinating. Denies any rectal bleeding. Patient states that she was seen in the emergency department earlier and sent home with Keflex but symptoms worsened and she started to feel more nauseous and continued to have the bleeding when urinating so return to the emergency department. Patient denies any back or abdominal pain.Patient has no other complaints at this time including shortness of breath, chest pain, abdominal pain, nausea or vomiting, headache, or visual changes. - Related Data Home Medications Medication Instructions Recorded Confirmed Montelukast [Singulair] 10 mg PO HS 09/09/14 11/11/18 Omeprazole [PriLOSEC] 20 mg PO QAM 09/09/14 11/11/18 Ubidecarenone [Co Q-10] 100 mg PO DAILY 09/03/15 11/11/18 Alendronate Sodium [Fosamax] 5 mg PO QAM 01/18/18 11/11/18 Aloe Lax 225 1 tab PO HS 01/18/18 11/11/18 Ascorbic Acid [Vitamin C] 500 mg PO QAM 01/18/18 11/11/18 Biotin 5,000 mcg PO QAM 01/18/18 11/11/18 Calcium Carb/Magnesium Ox,Carb 2 tab PO BID 01/18/18 11/11/18 [Seven-Mag 500-250 MG Chewable] Lutein 20 mg PO QAM 01/18/18 11/11/18 Potassium Iodide [SSKI Oral Liquid] 30 gm PO QAM 01/18/18 11/11/18 Prevagen Es 1 tab PO HS 01/18/18 11/11/18 Pyridoxine HCl (Vitamin B6) 100 mg PO HS 01/18/18 11/11/18 [Vitamin B-6] Selenium 200 mcg PO HS 01/18/18 11/11/18 Vitamin E (Dl,Tocopheryl Acet) 400 unit PO DAILY 01/18/18 11/11/18 [Vitamin E] Zinc 50 mg PO QAM 01/18/18 11/11/18 Cbd Oil 3 drops SL DAILY PRN 08/30/18 11/11/18 Cholecalciferol (Vitamin D3) 2,000 unit PO QAM 08/30/18 11/11/18 [Vitamin D3] Cyanocobalamin (Vitamin B-12) 1,000 mcg PO DAILY 08/30/18 11/11/18 [Vitamin B-12] Ferrous Sulfate [Iron (65 MG 325 mg PO QAM 08/30/18 11/11/18 Elemental)] Ginkgo Biloba [place] Extract [Ginkgo 60 mg PO QAM 08/30/18 11/11/18 Biloba] Lecithin, Soy [Lecithin] 400 mg PO BID 08/30/18 11/11/18 Magnesium Oxide [Mag-Ox] 250 mg PO DAILY 08/30/18 11/11/18 Nutroferon 1 tab PO BID 08/30/18 11/11/18 Potassium Gluconate 99 mg PO QAM 08/30/18 11/11/18 Bisoprolol-Hctz 5-6.25 mg [Ziac 1 tab PO DAILY 11/11/18 11/11/18 5-6.25 MG] prednisoLONE ACETATE 1% OPHTH 1 drops LEFT EYE QID 11/11/18 11/11/18 [Pred Forte 1%] Previous Rx's Medication Instructions Recorded Aspirin 81 mg PO HS chew 10/13/18 Atorvastatin [Lipitor] 40 mg PO HS #90 tab 10/13/18 Clopidogrel [Plavix] 75 mg PO DAILY #90 tab 10/13/18 Cephalexin [Keflex] 500 mg PO Q8HR 7 Days #21 cap 11/11/18 Allergies Allergy/AdvReac Type Severity Reaction Status Date / Time diazepam [From Valium] Allergy Rapid Verified 11/11/18 19:00 Heart Rate grass pollen-perennial rye, Allergy Itching Verified 11/11/18 19:00 standar Review of Systems ROS Statement: Those systems with pertinent positive or pertinent negative responses have been documented in the HPI. ROS Other: All systems not noted in ROS Statement are negative. 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, "bad joints", anemia History of Any Multi-Drug Resistant Organisms: None Reported Past Surgical History: Breast Surgery Additional Past Surgical History / Comment(s): RT MASTECTOMY, Eye surgery - bilateral corneal transplant, AND cataract removal Past Anesthesia/Blood Transfusion Reactions: No Reported Reaction Past Psychological History: No Psychological Hx Reported Smoking Status: Never smoker Past Alcohol Use History: Occasional Past Drug Use History: None Reported - Past Family History Father Family Medical History: Cancer Additional Family Medical History / Comment(s): corneal dystrophy, colon cancer Mother Family Medical History: Cancer Additional Family Medical History / Comment(s): multiple myeloma Brother(s) Family Medical History: Cancer Additional Family Medical History / Comment(s): colon cancer General Exam Limitations: no limitations General appearance: alert, in no apparent distress Head exam: Present: atraumatic, normocephalic, normal inspection Eye exam: Present: normal appearance, PERRL, EOMI. Absent: scleral icterus, conjunctival injection, periorbital swelling ENT exam: Present: normal exam, mucous membranes moist Neck exam: Present: normal inspection, full ROM. Absent: tenderness, meni ngismus, lymphadenopathy Respiratory exam: Present: normal lung sounds bilaterally. Absent: respiratory distress, wheezes, rales, rhonchi, stridor Cardiovascular Exam: Present: regular rate, normal rhythm, normal heart sounds. Absent: systolic murmur, diastolic murmur, rubs, gallop, clicks GI/Abdominal exam: Present: soft, normal bowel sounds. Absent: distended, tenderness, guarding, rebound, rigid External exam: Present: normal external exam. Absent: erythema, swelling, lesions, lacerations, ecchymosis, other Neurological exam: Present: alert Psychiatric exam: Present: normal affect, normal mood Course Vital Signs 11/11/18 11/11/18 11/11/18 15:54 17:53 19:03 Temperature 103.2 F H 102.4 F H 101.1 F H Pulse Rate 68 110 H Respiratory 18 18 Rate Blood Pressure 127/84 135/63 O2 Sat by Pulse 92 L 94 L Oximetry Medical Decision Making - Medical Decision Making 78-year-old female on Plavix presents to the emergency department for chief complaint of dysuria and mature area. Patient initially thought this was v aginal bleeding but states it is only when she is urinating she notices it in the toilet. He was seen here in the emergency department earlier and noted to have a urinary tract infection, sent home on Keflex. Vitals were stable at that time. However upon return to the emergency department patient has a fever of 103.2. She was given Tylenol. CBC CMP were obtained which were unremarkable. Urine from a few hours ago shows greater than 182 white blood cells and red blood cells. Culture was added and is pending. Did obtain CT to rule out septic stone which did have some incidental findings however no obstructive uropathy. Patient was started on Rocephin. Jeff spoke with Tanya who will admit. - Lab Data Result diagrams: 11/11/18 16:11 11/11/18 16:11 Lab Results 11/11/18 11/11/18 11/11/18 Range/Units 16:11 16:11 16:11 WBC 10.2 (3.8-10.6) k/uL RBC 4.33 (3.80-5.40) m/uL Hgb 13.6 (11.4-16.0) gm/dL Hct 40.6 (34.0-46.0) % MCV 93.8 (80.0-100.0) fL MCH 31.5 (25.0-35.0) pg MCHC 33.6 (31.0-37.0) g/dL RDW 13.6 (11.5-15.5) % Plt Count 146 L (150-450) k/uL Neutrophils % (Manual) 88 % Band Neutrophils % 3 % Lymphocytes % (Manual) 8 % Monocytes % (Manual) 1 % Neutrophils # (Manual) 9.20 H (1.3-7.7) k/uL Lymphocytes # (Manual) 0.82 L (1.0-4.8) k/uL Monocytes # (Manual) 0.10 (0-1.0) k/uL Nucleated RBCs 0 (0-0) /100 WBC Manual Slide Review Performed RBC Morphology Normal PT (9.0-12.0) sec INR (<1.2) APTT (22.0-30.0) sec Sodium 139 (137-145) mmol/L Potassium 3.9 (3.5-5.1) mmol/L Chloride 105 (98-107) mmol/L Carbon Dioxide 23 (22-30) mmol/L Anion Gap 11 mmol/L BUN 19 H (7-17) mg/dL Creatinine 1.05 H (0.52-1.04) mg/dL Est GFR (CKD-EPI)AfAm 58 (>60 ml/min/1.73 sqM) Est GFR (CKD-EPI)NonAf 50 (>60 ml/min/1.73 sqM) Glucose 109 H (74-99) mg/dL Plasma Lactic Acid William 1.9 (0.7-2.0) mmol/L Calcium 9.0 (8.4-10.2) mg/dL Total Bilirubin 1.0 (0.2-1.3) mg/dL AST 30 (14-36) U/L ALT 31 (9-52) U/L Alkaline Phosphatase 80 (38-126) U/L Total Protein 6.9 (6.3-8.2) g/dL Albumin 4.0 (3.5-5.0) g/dL 11/11/18 Range/Units 16:11 WBC (3.8-10.6) k/uL RBC (3.80-5.40) m/uL Hgb (11.4-16.0) gm/dL Hct (34.0-46.0) % MCV (80.0-100.0) fL MCH (25.0-35.0) pg MCHC (31.0-37.0) g/dL RDW (11.5-15.5) % Plt Count (150-450) k/uL Neutrophils % (Manual) % Band Neutrophils % % Lymphocytes % (Manual) % Monocytes % (Manual) % Neutrophils # (Manual) (1.3-7.7) k/uL Lymphocytes # (Manual) (1.0-4.8) k/uL Monocytes # (Manual) (0-1.0) k/uL Nucleated RBCs (0-0) /100 WBC Manual Slide Review RBC Morphology PT 10.1 (9.0-12.0) sec INR 0.9 (<1.2) APTT 21.3 L (22.0-30.0) sec Sodium (137-145) mmol/L Potassium (3.5-5.1) mmol/L Chloride (98-107) mmol/L Carbon Dioxide (22-30) mmol/L Anion Gap mmol/L BUN (7-17) mg/dL Creatinine (0.52-1.04) mg/dL Est GFR (CKD-EPI)AfAm (>60 ml/min/1.73 sqM) Est GFR (CKD-EPI)NonAf (>60 ml/min/1.73 sqM) Glucose (74-99) mg/dL Plasma Lactic Acid William (0.7-2.0) mmol/L Calcium (8.4-10.2) mg/dL Total Bilirubin (0.2-1.3) mg/dL AST (14-36) U/L ALT (9-52) U/L Alkaline Phosphatase (38-126) U/L Total Protein (6.3-8.2) g/dL Albumin (3.5-5.0) g/dL Disposition Clinical Impression: Urinary tract infection, Hematuria, Fever Disposition[facility] Condition: Good Is patient prescribed a controlled substance at d/c from ED?: No Referrals: Cinthia Wynn MD [Primary Care Provider] - 1-2 days Time of Disposition: 19:07
[2018-11-11] MEDS ORDERED: MORPHINE SULFATE 4 MG/ML SYRINGE IVP STA (19:06)
[2018-11-11] MEDS ORDERED: MORPHINE SULFATE 2 MG/ML SYRINGE IV PRN (19:48)
[2018-11-11] MEDS ORDERED: NALOXONE 0.4 MG/ML 1 ML VIAL IV PRN (19:48)
[2018-11-11] MEDS: SODIUM CHLORIDE 0.9% 1,000 ML IV SCH (22:32)
[2018-11-12] MEDS: ACETAMINOPHEN TAB 325 MG TAB PO PRN ×2 (06:00→15:15)
[2018-11-12] MEDS: prednisoLONE ACETATE 1% OPHTH DROPS 5 ML BTL LEFT EYE SCH ×4 (08:03→20:19)
[2018-11-12] MEDS: CLOPIDOGREL 75 MG TAB PO SCH (08:03)
[2018-11-12] MEDS: PANTOPRAZOLE 40 MG TABLET PO SCH (08:03)
[2018-11-12] MEDS: BISOPROLOL-HCTZ 5-6.25 MG 1 EACH TAB PO SCH ×3 (08:04→16:11)
[2018-11-12 08:06] LABS: Albumin 3.2 g/dL (3.5-5.0); Calcium 8.3 mg/dL (8.4-10.2); Potassium 3.3 mmol/L (3.5-5.1); Total Bilirubin 0.7 mg/dL (0.2-1.3); Total Protein 5.8 g/dL (6.3-8.2)
[2018-11-12 08:08] LABS: Basophils % (A) 0 %; Eosinophils # (A) 0.1 k/uL (0-0.7); Eosinophils % (A) 1 %; HCT 35.8 % (34.0-46.0); HGB 12.1 gm/dL (11.4-16.0); Lymphocytes # (A) 1.3 k/uL (1.0-4.8); Lymphocytes % (A) 11 %; MCH 31.6 pg (25.0-35.0); MCHC 33.8 g/dL (31.0-37.0); MCV 93.4 fL (80.0-100.0); Monocytes # (A) 0.8 k/uL (0-1.0); Monocytes % (A) 7 %; Neutrophils # (A) 10.3 k/uL (1.3-7.7); Neutrophils % (A) 81 %; Platelet Count 142 k/uL (150-450); RBC 3.84 m/uL (3.80-5.40); RDW 13.5 % (11.5-15.5); WBC 12.7 k/uL (3.8-10.6)
[2018-11-12] MEDS: SODIUM CHLORIDE 0.9% 1,000 ML IV SCH ×2 (08:12→20:20)
[2018-11-12] MEDS ORDERED: ALENDRONATE SODIUM 5 MG PO SCH (09:00)
--- NOTE | 2018-11-12 16:46 | P.HPIM ---
History of Present Illness H&P Date: 11/12/18 Ernestina Sheffield, is an 78-year-old female patient of Dr. asif, who presented to [facility] emergency room with a chief complaint of hematuria and fever, she had evidence of urinary tract infection, she was given a course of oral Keflex and was discharged home, however patient was not feeling well she returned to emergency room she was reevaluated and was admitted to medical floor, she was started on IV fluid for mild dehydration and on IV antibiotic for urinary tract infection. Patient has a known history of coronary artery disease, she recently had angioplasty and stent placement by Dr. Thurston, she also has a known history of valvular heart disease she was recently referred to [facility] to assess for possible valve surgery. Patient was seen and examined on the medical floor she is alert and oriented 3 in no apparent distress she is complaining of anxiety otherwise no significant complaint at this time there is no fever or chills no headache or dizziness no c hest pain no shortness of breath no cough no nausea or vomiting no abdominal pain no diarrhea no burning was urination no frequency or urgency hematuria appears to have improved. 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 Patient has small house doesn't need anything to ambulate. Handrails on bathtub. Smoking Status: Never smoker Past Alcohol Use History: Occasional Additional Past Alcohol Use History / Comment(s): Wine or rum and coke. Past Drug Use History: None Reported Additional Drug Use History / Comment(s): CBD oil occasionally. - Past Family History Father Family Medical History: Cancer Additional Family Medical History / Comment(s): corneal dystrophy, colon cancer Mother Family Medical History: Cancer Additional Family Medical History / Comment(s): multiple myeloma Brother(s) Family Medical History: Cancer Additional Family Medical History / Comment(s): colon cancer, since past. Aneruysm. Medications and Allergies Home Medications Medication Instructions Recorded Confirmed Type Montelukast [Singulair] 10 mg PO HS 09/09/14 11/11/18 History Omeprazole [PriLOSEC] 20 mg PO QAM 09/09/14 11/11/18 History Ubidecarenone [Co Q-10] 100 mg PO DAILY 09/03/15 11/11/18 History Alendronate Sodium [Fosamax] 5 mg PO QAM 01/18/18 11/11/18 History Aloe Lax 225 1 tab PO HS 01/18/18 11/11/18 History Ascorbic Acid [Vitamin C] 500 mg PO QAM 01/18/18 11/11/18 History Biotin 5,000 mcg PO QAM 01/18/18 11/11/18 History Calcium Carb/Magnesium Ox,Carb 2 tab PO BID 01/18/18 11/11/18 History [Seven-Mag 500-250 MG Chewable] Lutein 20 mg PO QAM 01/18/18 11/11/18 History Potassium Iodide [SSKI Oral Liquid] 30 gm PO QAM 01/18/18 11/11/18 History Prevagen Es 1 tab PO HS 01/18/18 11/11/18 History Pyridoxine HCl (Vitamin B6) 100 mg PO HS 01/18/18 11/11/18 History [Vitamin B-6] Selenium 200 mcg PO 01/18/18 11/11/18 History Vitamin E (Dl,Tocopheryl Acet) 400 unit PO DAILY 01/18/18 11/11/18 History [Vitamin E] Zinc 50 mg PO QAM 01/18/18 11/11/18 History Cbd Oil 3 drops SL DAILY PRN 08/30/18 11/11/18 History Cholecalciferol (Vitamin D3) 2,000 unit PO QAM 08/30/18 11/11/18 History [Vitamin D3] Cyanocobalamin (Vitamin B-12) 1,000 mcg PO DAILY 08/30/18 11/11/18 History [Vitamin B-12] Ferrous Sulfate [Iron (65 MG 325 mg PO QAM 08/30/18 11/11/18 History Elemental)] Ginkgo Biloba [place] Extract [Ginkgo 60 mg PO QAM 08/30/18 11/11/18 History Biloba] Lecithin, Soy [Lecithin] 400 mg PO BID 08/30/18 11/11/18 History Magnesium Oxide [Mag-Ox] 250 mg PO DAILY 08/30/18 11/11/18 History Nutroferon 1 tab PO BID 08/30/18 11/11/18 History Potassium Gluconate 99 mg PO QAM 08/30/18 11/11/18 History Aspirin 81 mg PO HS chew 10/13/18 11/11/18 Rx Atorvastatin [Lipitor] 40 mg PO HS #90 tab 10/13/18 11/11/18 Rx Clopidogrel [Plavix] 75 mg PO DAILY #90 tab 10/13/18 11/11/18 Rx Bisoprolol-Hctz 5-6.25 mg [Ziac 1 tab PO DAILY 11/11/18 11/11/18 History 5-6.25 MG] Cephalexin [Keflex] 500 mg PO Q8HR 7 Days #21 cap 11/11/18 11/11/18 Rx prednisoLONE ACETATE 1% OPHTH 1 drops LEFT EYE QID 11/11/18 11/11/18 History [Pred Forte 1%] Allergies Allergy/AdvReac Type Severity Reaction Status Date / Time diazepam [From Valium] Allergy Rapid Verified 11/11/18 19:00 Heart Rate grass pollen-perennial rye, Allergy Itching Verified 11/11/18 19:00 standar Physical Exam Vitals: Vital Signs Temp Pulse Pulse Resp BP BP BP 11/12/18 11:48 97.7 F 78 18 128/71 11/12/18 08:00 71 11/12/18 05:10 102/58 85/50 11/12/18 05:00 97.8 F 71 16 11/11/18 23:00 98.4 F 98 16 11/11/18 19:03 101.1 F H 110 H 18 135/63 11/11/18 17:53 102.4 F H BP Pulse Ox 11/12/18 11:48 99 11/12/18 08:00 101/48 11/12/18 05:10 11/12/18 05:00 86/50 95 11/11/18 23:00 105/57 95 11/11/18 19:03 94 L 11/11/18 17:53 Intake and Output 11/12/18 11/12/18 11/12/18 06:59 14:59 22:59 Intake Total 1200 Balance 1200 Intake: Intake, IV Titration 600 Amount Sodium Chloride 0.9% 1, 600 000 ml @ 75 mls/hr IV . [id number] CORI Rx#:[id number] Oral 600 Other: Voiding Method Toilet Toilet # Voids 4 In general patient is alert and oriented 3 in no apparent distress seems anxious HEENT head normocephalic and atraumatic Neck is supple no JVD no goiter no lymphadenopathy Chest exam reveals a few scattered crackles no wheezing Cardiac exam reveals regular heart sounds S1 and S2 no gallops no murmurs Abdomen is soft nontender no organomegaly with normal bowel sounds Extremity exam reveals no edema no cyanosis or clubbing Neurological examination reveals no gross focal deficit Results CBC & Chem 7: 11/12/18 07:16 11/12/18 07:16 Labs: Abnormal Lab Results - Last 24 Hours (Table) 11/11/18 11/11/18 11/11/18 Range/Units 16:11 16:11 16:11 WBC (3.8-10.6) k/uL Plt Count (150-450) k/uL Neutrophils # (1.3-7.7) k/uL Neutrophils # (Manual) 9.20 H (1.3-7.7) k/uL Lymphocytes # (Manual) 0.82 L (1.0-4.8) k/uL APTT 21.3 L (22.0-30.0) sec Potassium (3.5-5.1) mmol/L Chloride (98-107) mmol/L BUN 19 H (7-17) mg/dL Creatinine 1.05 H (0.52-1.04) mg/dL Glucose 109 H (74-99) mg/dL Calcium (8.4-10.2) mg/dL Total Protein (6.3-8.2) g/dL Albumin (3.5-5.0) g/dL 11/12/18 11/12/18 Range/Units 07:16 07:16 WBC 12.7 H (3.8-10.6) k/uL Plt Count 142 L (150-450) k/uL Neutrophils # 10.3 H (1.3-7.7) k/uL Neutrophils # (Manual) (1.3-7.7) k/uL Lymphocytes # (Manual) (1.0-4.8) k/uL APTT (22.0-30.0) sec Potassium 3.3 L (3.5-5.1) mmol/L Chloride 108 H (98-107) mmol/L BUN 25 H (7-17) mg/dL Creatinine 1.36 H (0.52-1.04) mg/dL Glucose 102 H (74-99) mg/dL Calcium 8.3 L (8.4-10.2) mg/dL Total Protein 5.8 L (6.3-8.2) g/dL Albumin 3.2 L (3.5-5.0) g/dL Microbiology - Last 24 Hours (Table) 11/11/18 08:20 Urine Culture - Preliminary Urine,Voided Thrombosis Risk Factor Assmnt - Choose All That Apply Each Factor Represents 1 point: Obesity (BMI >25) Each Risk Factor Represents 3 Points: Age 75 years or older Thrombosis Risk Factor Assessment Total Risk Factor Score: 4 Thrombosis Risk Factor Assessment Level: Moderate Risk Assessment and Plan Plan: #1 urinary tract infection #2 sepsis as evidenced by leukocytosis and tachycardia #3 dehydration with elevated BUN and creatinine #4 underlying history of coronary artery disease with recent stent placement #5 hematuria likely related to urinary tract infection #6 evidence of left renal calculus nonobstructing #7 anxiety disorder patient has an ALLERGY to diazepam however she is stating that she took Xanax in the past without any reaction #8 valvular heart disease awaiting surgery. Echo from last month reveals evidence of moderate aortic stenosis, mild aortic regurgitation, moderate mitral regurgitation with a preserved left ventricular systolic function and a normal ejection fraction of 55-60% At this time patient is stable Continue with IV fluid continue with IV Rocephin 2 g every 24 hours awaiting culture results Add Xanax for anxiety Patient is requesting cardiology consult due to recent stent placement Continue Plavix and aspirin Add protonix for GI prophylaxis
[2018-11-12] MEDS: ALPRAZolam 0.25 MG TAB PO PRN ×2 (16:50→23:58)
[2018-11-12] MEDS: MONTELUKAST 10 MG TAB PO SCH (20:00)
[2018-11-12] MEDS: ASPIRIN 81 MG PO SCH (20:00)
[2018-11-12] MEDS: ATORVASTATIN 40 MG TAB PO SCH (20:00)
[2018-11-12] MEDS ORDERED: Potassium Replacement Protocol 1 EACH MISC MISCELLANE PRN (23:51)
[2018-11-13] MEDS: POTASSIUM CHLORIDE ER 20 MEQ TAB.ER PO SCH ×2 (01:20→03:26)
[2018-11-13] MEDS: ALENDRONATE SODIUM 5 MG PO SCH (05:54)
[2018-11-13] MEDS: prednisoLONE ACETATE 1% OPHTH DROPS 5 ML BTL LEFT EYE SCH ×4 (07:18→21:10)
[2018-11-13] MEDS: PANTOPRAZOLE 40 MG TABLET PO SCH (07:18)
[2018-11-13] MEDS: CLOPIDOGREL 75 MG TAB PO SCH (07:18)
[2018-11-13] MEDS: BISOPROLOL-HCTZ 5-6.25 MG 1 EACH TAB PO SCH (07:20)
[2018-11-13 07:52] LABS: Albumin 3.1 g/dL (3.5-5.0); Basophils % (A) 0 %; Calcium 8.4 mg/dL (8.4-10.2); Eosinophils % (A) 0 %; HCT 34.6 % (34.0-46.0); HGB 11.6 gm/dL (11.4-16.0); Lymphocytes % (A) 9 %; MCH 31.3 pg (25.0-35.0); MCHC 33.5 g/dL (31.0-37.0); MCV 93.5 fL (80.0-100.0); Mean Platelet Volume 8.2; Monocytes # (A) 0.9 k/uL (0-1.0); Monocytes % (A) 7 %; Neutrophils # (A) 9.4 k/uL (1.3-7.7); Neutrophils % (A) 81 %; Platelet Count 139 k/uL (150-450); RBC 3.69 m/uL (3.80-5.40); RDW 13.6 % (11.5-15.5); Total Bilirubin 0.9 mg/dL (0.2-1.3); Total Protein 5.8 g/dL (6.3-8.2); WBC 11.6 k/uL (3.8-10.6)
[2018-11-13] MEDS ORDERED: ENOXAPARIN 30 MG/0.3 ML SYRINGE SQ SCH (09:00)
--- NOTE | 2018-11-13 10:17 | P.PN ---
Subjective Progress Note Date: 11/13/18 Ernestina Sheffield, is an 78-year-old female patient of Dr. asif, who presented to [facility] emergency room with a chief complaint of hematuria and fever, she had evidence of urinary tract infection, she was given a course of oral Keflex and was discharged home, however patient was not feeling well she returned to emergency room she was reevaluated and was admitted to medical floor, she was started on IV fluid for mild dehydration and on IV antibiotic for urinary tract infection. Patient has a known history of coronary artery disease, she recently had angioplasty and stent placement by Dr. Thurston, she also has a known history of valvular heart disease she was recently referred to [facility] to assess for possible valve surgery. Patient was seen and examined on the medical floor she is alert and oriented 3 in no apparent distress she is complaining of anxiety otherwise no significant complaint at this time there is no fever or chills no headache or dizziness no chest pain no shortness of breath no cough no nausea or vomiting no abdominal pain no diarrhea no burning was urination no frequency or urgency hematuria appears to have improved. On 11/13/2018 patient's alert and oriented 3. Patient reports some improvement but still having some increased weakness. PT OT has been consulted. Urine culture currently growing gram-negative bacilli. Patient maintained on Rocephin. Cardiology services have been consulted due to recent stent placement. At this time patient denies chest pain or shortness of breath. Patient denies nausea vomiting or diarrhea. Patient denies any urinary burning or frequency Objective - Vital Signs Vital signs: Vital Signs Temp 99.7 F H 11/13/18 07:29 Pulse 96 11/13/18 07:29 Resp 16 11/13/18 07:29 BP 126/67 11/13/18 07:29 Pulse Ox 90 L 11/13/18 07:29 Intake & Output 11/12/18 11/13/18 11/13/18 18:59 06:59 18:59 Intake Total 475 Output Total 400 Balance 75 Intake: Intake, IV Titration 225 Amount Sodium Chloride 0.9% 1, 225 000 ml @ 75 mls/hr IV . [id number] [facility] Rx#:[id number] Oral 250 Output: Urine 400 Other: Voiding Method Toilet Toilet Toilet Bedside Commode # Voids 4 2 # Bowel Movements 1 - Exam In general patient is alert and oriented 3 in no apparent distress seems anxious HEENT head normocephalic and atraumatic Neck is supple no JVD no goiter no lymphadenopathy Chest exam reveals a few scattered crackles no wheezing Cardiac exam reveals regular heart sounds S1 and S2 no gallops no murmurs Abdomen is soft nontender no organomegaly with normal bowel sounds Extremity exam reveals no edema no cyanosis or clubbing Neurological examination reveals no gross focal deficit - Labs CBC & Chem 7: 11/13/18 07:12 11/13/18 07:12 Labs: Abnormal Lab Results - Last 24 Hours (Table) 11/13/18 11/13/18 Range/Units 07:12 07:12 WBC 11.6 H (3.8-10.6) k/uL RBC 3.69 L (3.80-5.40) m/uL Plt Count 139 L (150-450) k/uL Neutrophils # 9.4 H (1.3-7.7) k/uL Total Protein 5.8 L (6.3-8.2) g/dL Albumin 3.1 L (3.5-5.0) g/dL Microbiology - Last 24 Hours (Table) 11/11/18 08:20 Urine Culture - Preliminary Urine,Voided Gram Neg Bacilli 11/11/18 16:41 Blood Culture - Preliminary Blood No Growth after 24 hours Assessment and Plan Assessment: #1 urinary tract infection #2 sepsis as evidenced by leukocytosis and tachycardia #3 dehydration with elevated BUN and creatinine. Resolved #4 underlying history of coronary artery disease with recent stent placement #5 hematuria likely related to urinary tract infection #6 evidence of left renal calculus nonobstructing #7 anxiety disorder patient has an ALLERGY to diazepam however she is stating that she took Xanax in the past without any reaction #8 valvular heart disease awaiting surgery. Echo from last month reveals evidence of moderate aortic stenosis, mild aortic regurgitation, moderate mitral regurgitation with a preserved left ventricular systolic function and a normal ejection fraction of 55-60% Urine culture growing gram-negative bacilli Patient seen on Rocephin Cardiology services consulted PT OT consult I performed an examination of the patient and discussed their management with the Nurse Practitioner. I have reviewed the Nurse Practitioner's notes and agree with the documented findings and plan of care
--- NOTE | 2018-11-13 10:17 | P.CRDCN ---
History of Present Illness History of present illness: This is a pleasant 78-year-old female past medical history significant for coronary artery disease, aortic stenosis, myocardial infarction, dyslipidemia, hypertension and history of breast cancer. She follows in the office with Dr. James. We have been asked to see her in consultation. She initially presented to the hospital on Tuesday with symptoms of burning with urination. She was diagnosed with urinary tract infection and sent home. However when she returned home she became extremely weak and shaky. She came back to the hospital and was admitted. She is seen and examined resting comfortably lying flat in bed in no acute distress. She denies symptoms of chest discomfort, shortness of breath, dizziness or palpitations. She states overall she feels quite fatigued and weak. She recently had a non-ST elevated myocardial infarction and subsequent stent placement to the circumflex artery. She has chronic disease of the RCA, 40-50% lesion in the left main and mid to distal lesion in the LAD of 70-80%. She is currently in the process of following with the cardiothoracic surgeon at [facility] for possible TAVR procedure. EKG reveals sinus tachycardia with nonspecific ST abnormalities heart rate of 118. Chest x-ray is negative for acute cardiopulmonary process with evidence of a large hiatal hernia. CT of the abdomen and pelvis reveals nonobstructing renal stones in the left mid kidney, large hiatal hernia and a right ovarian cyst. Laboratory data reviewed, WBC 11.6, hemoglobin 11.6, platelets 39, sodium 137, potassium 4.0, creatinine 0.93. Current cardiac medications include aspirin 81 mg daily, atorvastatin 40 mg daily, bisoprolol/HCTZ 5/6.25 milligrams daily, Plavix 75 mg daily. At the time of my exam: CONSTITUTIONAL: Denies fever. Denies chills. EYES: Denies blurred vision. Denies vision changes. Denies eye pain. EARS, NOSE, MOUTH & THROAT: Denies headache. Denies sore throat. Denies ear pain. CARDIOVASCULAR: Denies chest pain. Denies shortness of breath. Denies orthopnea. Denies PND. Denies palpitations. RESPIRATORY: Denies cough. GASTROINTESTINAL: Denies abdominal pain. Denies diarrhea. Denies constipation. Denies nausea. Denies vomiting. MUSCULOSKELETAL: Denies myalgias. INTEGUMENTARY: Denies pruitis. Denies rash. NEUROLOGIC: Denies numbness. Denies tingling. Denies weakness. PSYCHIATRIC: Denies anxiety. Denies depression. ENDOCRINE: Complains of weakness/fatigue. Denies weight change. Denies polydipsia. Denies polyurina. GENITOURINARY: Complains of burning and hematuria or no urgency with micturation. HEMATOLOGIC: Denies history of anemia. Denies bleeding. Blood pressure 126/67 heart rate 96 afebrile maintaining oxygen saturation on room air GENERAL: This is a 78-year-old female in no apparent distress at the time of my examination. HEENT: Head is atraumatic, normocephalic. Pupils are equal, round. Sclerae anicteric. Conjunctivae are clear. Mucous membranes of the mouth are moist. Neck is supple. There is no jugular venous distention. No carotid bruit is heard. LUNGS: Clear to auscultation no wheezes, rales or rhonchi. No chest wall tenderness is noted on palpation or with deep breathing. HEART: Regular rate and rhythm with systolic ejection murmur, no rubs or gallops. S1 and S2 heard. ABDOMEN: Soft, nontender. Bowel sounds are heard. No organomegaly noted. EXTREMITIES: No evidence of peripheral edema and no calf tenderness noted. VASCULAR: Radial and dorsalis pedis pulses palpated, no evidence of clubbing. NEUROLOGIC: Patient is awake, alert and oriented x3. ASSESSMENT Urinary tract infection Leukocytosis Febrile illness Sinus tachycardia, related to underlying infection and fever Acute kidney injury, resolved Thrombocytopenia History of coronary artery disease status post recent stent placement September 2018 in the setting of a non-ST elevated myocardial infarction Aortic stenosis, moderate currently being worked up for TAVR at [facility] Hypertension Dyslipidemia PLAN Stable from a cardiac perspective. Continue aspirin, Plavix, atorvastatin and Ziac as previously ordered. Ongoing medical management per primary care team. We will continue to follow as needed, please feel free to call with further questions or concerns. Thank you kindly for this consultation. Nurse Practitioner note has been reviewed, I agree with a documented findings and plan of care. Patient was seen and examined. 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 Patient has small house doesn't need anything to ambulate. Handrails on bathtub. Smoking Status: Never smoker Past Alcohol Use History: Occasional Additional Past Alcohol Use History / Comment(s): Wine or rum and coke. Past Drug Use History: None Reported Additional Drug Use History / Comment(s): CBD oil occasionally. - Past Family History Father Family Medical History: Cancer Additional Family Medical History / Comment(s): corneal dystrophy, colon cancer Mother Family Medical History: Cancer Additional Family Medical History / Comment(s): multiple myeloma Brother(s) Family Medical History: Cancer Additional Family Medical History / Comment(s): colon cancer, since past. Aneruysm. Medications and Allergies Home Medications Medication Instructions Recorded Confirmed Type Montelukast [Singulair] 10 mg PO HS 09/09/14 11/11/18 History Omeprazole [PriLOSEC] 20 mg PO QAM 09/09/14 11/11/18 History Ubidecarenone [Co Q-10] 100 mg PO DAILY 09/03/15 11/11/18 History Alendronate Sodium [Fosamax] 5 mg PO QAM 01/18/18 11/11/18 History Aloe Lax 225 1 tab PO HS 01/18/18 11/11/18 History Ascorbic Acid [Vitamin C] 500 mg PO QAM 01/18/18 11/11/18 History Biotin 5,000 mcg PO QAM 01/18/18 11/11/18 History Calcium Carb/Magnesium Ox,Carb 2 tab PO BID 01/18/18 11/11/18 History [Seven-Mag 500-250 MG Chewable] Lutein 20 mg PO QAM 01/18/18 11/11/18 History Potassium Iodide [SSKI Oral Liquid] 30 gm PO QAM 01/18/18 11/11/18 History Prevagen Es 1 tab PO HS 01/18/18 11/11/18 History Pyridoxine HCl (Vitamin B6) 100 mg PO HS 01/18/18 11/11/18 History [Vitamin B-6] Selenium 200 mcg PO HS 01/18/18 11/11/18 History Vitamin E (Dl,Tocopheryl Acet) 400 unit PO DAILY 01/18/18 11/11/18 History [Vitamin E] Zinc 50 mg PO QAM 01/18/18 11/11/18 History Cbd Oil 3 drops SL DAILY PRN 08/30/18 11/11/18 History Cholecalciferol (Vitamin D3) 2,000 unit PO QAM 08/30/18 11/11/18 History [Vitamin D3] Cyanocobalamin (Vitamin B-12) 1,000 mcg PO DAILY 08/30/18 11/11/18 History [Vitamin B-12] Ferrous Sulfate [Iron (65 MG 325 mg PO QAM 08/30/18 11/11/18 History Elemental)] Ginkgo Biloba Niarada Extract [Ginkgo 60 mg PO QAM 08/30/18 11/11/18 History Biloba] Lecithin, Soy [Lecithin] 400 mg PO BID 08/30/18 11/11/18 History Magnesium Oxide [Mag-Ox] 250 mg PO DAILY 08/30/18 11/11/18 History Nutroferon 1 tab PO BID 08/30/18 11/11/18 History Potassium Gluconate 99 mg PO QAM 08/30/18 11/11/18 History Aspirin 81 mg PO HS chew 10/13/18 11/11/18 Rx Atorvastatin [Lipitor] 40 mg PO HS #90 tab 10/13/18 11/11/18 Rx Clopidogrel [Plavix] 75 mg PO DAILY #90 tab 10/13/18 11/11/18 Rx Bisoprolol-Hctz 5-6.25 mg [Ziac 1 tab PO DAILY 11/11/18 11/11/18 History 5-6.25 MG] Cephalexin [Keflex] 500 mg PO Q8HR 7 Days #21 cap 11/11/18 11/11/18 Rx prednisoLONE ACETATE 1% OPHTH 1 drops LEFT EYE QID 11/11/18 11/11/18 History [Pred Forte 1%] Allergies Allergy/AdvReac Type Severity Reaction Status Date / Time diazepam [From Valium] Allergy Rapid Verified 11/11/18 19:00 Heart Rate grass pollen-perennial rye, Allergy Itching Verified 11/11/18 19:00 standar Physical Exam Vitals: Vital Signs Temp Pulse Pulse Resp BP BP BP 11/13/18 07:29 99.7 F H 96 16 126/67 11/13/18 00:00 16 11/12/18 21:00 100 F H 91 16 108/66 11/12/18 14:45 118 H 157/87 11/12/18 11:48 97.7 F 78 18 128/71 Pulse Ox 11/13/18 07:29 90 L 11/13/18 00:00 11/12/18 21:00 92 L 11/12/18 14:45 91 L 11/12/18 11:48 99 Intake and Output 11/12/18 11/13/18 11/13/18 22:59 06:59 14:59 Intake Total 225 250 Output Total 400 Balance -175 250 Intake: Intake, IV Titration 225 Amount Sodium Chloride 0.9% 1, 225 000 ml @ 75 mls/hr IV . [id number] [facility] Rx#:[id number] Oral 250 Output: Urine 400 Other: Voiding Method Toilet Toilet Toilet Bedside Commode # Voids 2 2 # Bowel Movements 1 1 Results 11/13/18 07:12 11/13/18 07:12 Cardiac Enzymes 11/13/18 Range/Units 07:12 AST 32 (14-36) U/L CBC 11/13/18 Range/Units 07:12 WBC 11.6 H (3.8-10.6) k/uL RBC 3.69 L (3.80-5.40) m/uL Hgb 11.6 (11.4-16.0) gm/dL Hct 34.6 (34.0-46.0) % Plt Count 139 L (150-450) k/uL Comprehensive Metabolic Panel 11/13/18 Range/Units 07:12 Sodium 137 (137-145) mmol/L Potassium 4.0 (3.5-5.1) mmol/L Chloride 107 (98-107) mmol/L Carbon Dioxide 22 (22-30) mmol/L BUN 17 (7-17) mg/dL Creatinine 0.93 (0.52-1.04) mg/dL Glucose 92 (74-99) mg/dL Calcium 8.4 (8.4-10.2) mg/dL AST 32 (14-36) U/L ALT 27 (9-52) U/L Alkaline Phosphatase 49 (38-126) U/L Total Protein 5.8 L (6.3-8.2) g/dL Albumin 3.1 L (3.5-5.0) g/dL Current Medications Generic Name Dose Route Start Last Admin Trade Name Freq PRN Reason Stop Dose Admin Acetaminophen 650 mg 11/11/18 19:48 11/12/18 15:15 Tylenol Tab PO 650 mg Q6HR PRN Administration Mild Pain or Fever > 100.5 Alprazolam 0.25 mg 11/12/18 16:29 11/12/18 23:58 Xanax PO 0.25 mg QID PRN Administration Anxiety Aspirin 81 mg 11/12/18 21:00 11/12/18 20:00 Aspirin PO 81 mg HS CORI Administration Atorvastatin Calcium 40 mg 11/12/18 21:00 11/12/18 20:00 Lipitor PO 40 mg HS CORI Administration Bisoprolol Fumarate 1 each 11/12/18 16:00 11/13/18 07:20 Ziac 5-6.25 PO 1 each DAILY CORI Administration Clopidogrel Bisulfate 75 mg 11/12/18 09:00 11/13/18 07:18 Plavix PO 75 mg DAILY CORI Administration Enoxaparin Sodium 30 mg 11/13/18 09:00 11/13/18 07:18 Lovenox SQ 30 mg DAILY CORI Administration Sodium Chloride 1,000 mls @ 75 mls/hr 11/11/18 20:00 11/12/18 20:20 Saline 0.9% IV 75 mls/hr .[id number] CORI Administration Ceftriaxone Sodium 2 gm/ 50 mls @ 100 mls/hr 11/12/18 09:00 11/13/18 07:18 Sodium Chloride IVPB 100 mls/hr DAILY CORI Administration Miscellaneous Information 1 each 11/12/18 23:51 Potassium Per Protocol MISCELLANE DAILY PRN Per Protocol Protocol Montelukast Sodium 10 mg 11/12/18 21:00 11/12/18 20:00 Singulair PO 10 mg HS CORI Administration Morphine Sulfate 2 mg 11/11/18 19:48 Morphine Sulfate (Inj) IV Q4HR PRN Severe Pain Naloxone HCl 0.2 mg 11/11/18 19:48 Narcan IV Q2M PRN Opioid Reversal Alendronate Sodium [ 5 mg 11/13/18 06:30 11/13/18 05:54 Fosamax] 5 Mg PO 5 mg QAM@0630 CORI Administration Ondansetron HCl 4 mg 11/11/18 19:50 Zofran IVP Q8H PRN Nausea Pantoprazole Sodium 40 mg 11/12/18 07:30 11/13/18 07:18 Protonix PO 40 mg QAM@0730 CORI Administration Prednisolone Acetate 1 drops 11/12/18 09:00 11/13/18 07:18 Pred Forte 1% LEFT EYE 1 drops QID CORI Administration Intake and Output 11/12/18 11/13/18 11/13/18 22:59 06:59 14:59 Intake Total 225 250 Output Total 400 Balance -175 250 Intake: Intake, IV Titration 225 Amount Sodium Chloride 0.9% 1, 225 000 ml @ 75 mls/hr IV . [id number] [facility] Rx#:[id number] Oral 250 Output: Urine 400 Other: Voiding Method Toilet Toilet Toilet Bedside Commode # Voids 2 2 # Bowel Movements 1 1 11/13/18 07:12 11/13/18 07:12
[2018-11-13 11:29] VITALS: BMI 28.3
[2018-11-13] MEDS: SODIUM CHLORIDE 0.9% 1,000 ML IV SCH (11:38)
[2018-11-13] MEDS: ONDANSETRON 4 MG/2 ML VIAL IVP PRN ×2 (13:06→21:00)
[2018-11-13] MEDS: ACETAMINOPHEN TAB 325 MG TAB PO PRN ×2 (14:24→21:03)
[2018-11-13] MEDS: ATORVASTATIN 40 MG TAB PO SCH (21:07)
[2018-11-13] MEDS: MONTELUKAST 10 MG TAB PO SCH (21:07)
[2018-11-13] MEDS: ASPIRIN 81 MG PO SCH (21:07)
[2018-11-14] MEDS: SODIUM CHLORIDE 0.9% 1,000 ML IV SCH ×2 (02:05→16:08)
[2018-11-14 07:33] LABS: Albumin 2.9 g/dL (3.5-5.0); Calcium 8.3 mg/dL (8.4-10.2); Potassium 3.9 mmol/L (3.5-5.1); Total Protein 5.7 g/dL (6.3-8.2)
[2018-11-14] MEDS: PANTOPRAZOLE 40 MG TABLET PO SCH (07:39)
[2018-11-14] MEDS: CLOPIDOGREL 75 MG TAB PO SCH (07:39)
[2018-11-14] MEDS: ALENDRONATE SODIUM 5 MG PO SCH (07:39)
[2018-11-14] MEDS: prednisoLONE ACETATE 1% OPHTH DROPS 5 ML BTL LEFT EYE SCH ×4 (07:40→20:26)
[2018-11-14] MEDS: BISOPROLOL-HCTZ 5-6.25 MG 1 EACH TAB PO SCH (07:40)
[2018-11-14] MEDS: ENOXAPARIN 40 MG/0.4 ML SYRINGE SQ SCH (07:40)
[2018-11-14 07:46] LABS: Basophils # (A) 0.1 k/uL (0-0.2); Basophils % (A) 1 %; Eosinophils # (A) 0.1 k/uL (0-0.7); Eosinophils % (A) 1 %; HCT 34.9 % (34.0-46.0); HGB 11.5 gm/dL (11.4-16.0); Lymphocytes # (A) 1.4 k/uL (1.0-4.8); Lymphocytes % (A) 14 %; MCH 30.9 pg (25.0-35.0); MCV 93.7 fL (80.0-100.0); Mean Platelet Volume 8.3; Monocytes # (A) 0.9 k/uL (0-1.0); Monocytes % (A) 9 %; Neutrophils # (A) 7.7 k/uL (1.3-7.7); Neutrophils % (A) 74 %; Platelet Count 128 k/uL (150-450); RBC 3.73 m/uL (3.80-5.40); RDW 13.3 % (11.5-15.5); WBC 10.4 k/uL (3.8-10.6)
--- NOTE | 2018-11-14 10:24 | P.PN ---
Subjective Progress Note Date: 11/14/18 Ernestina Sheffield, is an 78-year-old female patient of Dr. asif, who presented to [facility] emergency room with a chief complaint of hematuria and fever, she had evidence of urinary tract infection, she was given a course of oral Keflex and was discharged home, however patient was not feeling well she returned to emergency room she was reevaluated and was admitted to medical floor, she was started on IV fluid for mild dehydration and on IV antibiotic for urinary tract infection. Patient has a known history of coronary artery disease, she recently had angioplasty and stent placement by Dr. Thurston, she also has a known history of valvular heart disease she was recently referred to [facility] to assess for possible valve surgery. Patient was seen and examined on the medical floor she is alert and oriented 3 in no apparent distress she is complaining of anxiety otherwise no significant complaint at this time there is no fever or chills no headache or dizziness no chest pain no shortness of breath no cough no nausea or vomiting no abdominal pain no diarrhea no burning was urination no frequency or urgency hematuria appears to have improved. On 11/13/2018 patient's alert and oriented 3. Patient reports some improvement but still having some increased weakness. PT OT has been consulted. Urine culture currently growing gram-negative bacilli. Patient maintained on Rocephin. Cardiology services have been consulted due to recent stent placement. At this time patient denies chest pain or shortness of breath. Patient denies nausea vomiting or diarrhea. Patient denies any urinary burning or frequency On 11/14/2017 patient alert and oriented 3. Patient reports feeling much better than previously. Patient spiked fever in the evening on 11/13, patient remains afebrile today. WBC within normal limits, vital signs remained stable. PT OT consulted. Urine culture positive for E. coli patient maintained on Rocephin. Patient denies nausea vomiting or diarrhea, patient denies any urinary burning or frequency. Patient denies shortness of breath or chest pain. Objective - Vital Signs Vital signs: Vital Signs Temp 97.6 F 11/14/18 05:00 Pulse 79 11/14/18 05:00 Resp 20 11/14/18 05:00 BP 107/69 11/14/18 05:00 Pulse Ox 98 11/14/18 05:00 Intake & Output 09/11/14/18 11/14/18 18:59 06:59 18:59 Intake Total 300 Balance 300 Weight 72.575 kg Intake: Oral 300 Other: Voiding Method Toilet Toilet Toilet Bedside Commode Bedside Commode Bedside Commode # Voids 4 2 # Bowel Movements 0 - Exam In general patient is alert and oriented 3 in no apparent distress seems anxious HEENT head normocephalic and atraumatic Neck is supple no JVD no goiter no lymphadenopathy Lungs clear in all wells, no wheezing Cardiac exam reveals regular heart sounds S1 and S2 no gallops no murmurs Abdomen is soft nontender no organomegaly with normal bowel sounds Extremity exam reveals no edema no cyanosis or clubbing Neurological examination reveals no gross focal deficit - Labs CBC & Chem 7: 11/14/18 06:33 11/14/18 06:33 Labs: Abnormal Lab Results - Last 24 Hours (Table) 11/14/18 11/14/18 Range/Units 06:33 06:33 RBC 3.73 L (3.80-5.40) m/uL Plt Count 128 L (150-450) k/uL Glucose 113 H (74-99) mg/dL Calcium 8.3 L (8.4-10.2) mg/dL Total Protein 5.7 L (6.3-8.2) g/dL Albumin 2.9 L (3.5-5.0) g/dL Microbiology - Last 24 Hours (Table) 11/11/18 16:41 Blood Culture - Preliminary Blood No Growth after 48 hours 11/11/18 08:20 Urine Culture - Final Urine,Voided Escherichia coli Assessment and Plan Assessment: #1 urinary tract infection. Will continue to monitor monitor for fevers, and tr end WBC. #2 sepsis as evidenced by leukocytosis and tachycardia #3 dehydration with elevated BUN and creatinine. Resolved #4 underlying history of coronary artery disease with recent stent placement #5 hematuria likely related to urinary tract infection #6 evidence of left renal calculus nonobstructing #7 anxiety disorder patient has an ALLERGY to diazepam however she is stating that she took Xanax in the past without any reaction #8 valvular heart disease awaiting surgery. Echo from last month reveals evidence of moderate aortic stenosis, mild aortic regurgitation, moderate mitral regurgitation with a preserved left ventricular systolic function and a normal ejection fraction of 55-60% Urine culture growing E. coli Patient on Rocephin Cardiology services consulted, patient stable per cardiology. Recommendation to continue aspirin, Lipitor, and Plavix as previously ordered. PT OT consult Lovenox for DVT prophylaxis. Protonix for GI prophylaxis. I performed an examination of the patient and discussed their management with the Nurse Practitioner. I have reviewed the Nurse Practitioner's notes and agree with the documented findings and plan of care
[2018-11-14] MEDS: ONDANSETRON 4 MG/2 ML VIAL IVP PRN (11:10)
[2018-11-14] MEDS: ATORVASTATIN 40 MG TAB PO SCH (20:26)
[2018-11-14] MEDS: MONTELUKAST 10 MG TAB PO SCH (20:26)
[2018-11-14] MEDS: ASPIRIN 81 MG PO SCH (20:26)
[2018-11-15] MEDS: ACETAMINOPHEN TAB 325 MG TAB PO PRN (03:39)
[2018-11-15] MEDS: ALENDRONATE SODIUM 5 MG PO SCH (05:37)
[2018-11-15] MEDS: SODIUM CHLORIDE 0.9% 1,000 ML IV SCH (05:37)
[2018-11-15] MEDS: PANTOPRAZOLE 40 MG TABLET PO SCH (05:45)
[2018-11-15] MEDS: ENOXAPARIN 40 MG/0.4 ML SYRINGE SQ SCH (07:15)
[2018-11-15] MEDS: BISOPROLOL-HCTZ 5-6.25 MG 1 EACH TAB PO SCH (07:15)
[2018-11-15] MEDS: CLOPIDOGREL 75 MG TAB PO SCH (07:15)
[2018-11-15] MEDS: prednisoLONE ACETATE 1% OPHTH DROPS 5 ML BTL LEFT EYE SCH ×2 (07:18→13:55)
[2018-11-15 07:36] VITALS: BP 123/64; PULSE 76; RESP 16; TEMP 98
[2018-11-15 08:33] LABS: Basophils % (A) 0 %; Eosinophils # (A) 0.3 k/uL (0-0.7); Eosinophils % (A) 3 %; HCT 33.3 % (34.0-46.0); HGB 11.4 gm/dL (11.4-16.0); Lymphocytes # (A) 1.5 k/uL (1.0-4.8); Lymphocytes % (A) 20 %; MCH 31.4 pg (25.0-35.0); MCHC 34.1 g/dL (31.0-37.0); MCV 92.3 fL (80.0-100.0); Mean Platelet Volume 7.3; Monocytes # (A) 0.8 k/uL (0-1.0); Monocytes % (A) 11 %; Neutrophils # (A) 4.6 k/uL (1.3-7.7); Neutrophils % (A) 62 %; Platelet Count 170 k/uL (150-450); RBC 3.61 m/uL (3.80-5.40); RDW 13.1 % (11.5-15.5); WBC 7.4 k/uL (3.8-10.6)
[2018-11-15 08:40] LABS: Calcium 8.5 mg/dL (8.4-10.2); Potassium 3.7 mmol/L (3.5-5.1); Total Bilirubin 0.7 mg/dL (0.2-1.3); Total Protein 5.9 g/dL (6.3-8.2)
--- NOTE | 2018-11-15 11:41 | P.DS ---
Providers Date of admission: 11/13/18 08:58 Expected date of discharge: 11/15/18 Attending physician: Hailey Martínez Consults: 11/12/18 16:47 Consult Physician Routine Consulting Provider: Errol James Consult Reason/Comments: CAD Do you want consulting provider notified?: Yes Primary care physician: Cinthia Wynn [facility] Course: Discharge diagnosis #1 urinary tract infection. Will continue to monitor monitor for fevers, and trend WBC. Patient has been afebrile for 48 hours. White blood cell has normalized #2 sepsis as evidenced by leukocytosis and tachycardia. resolved #3 dehydration with elevated BUN and creatinine. Resolved #4 underlying history of coronary artery disease with recent stent placement #5 hematuria likely related to urinary tract infection #6 evidence of left renal calculus nonobstructing #7 anxiety disorder patient has an ALLERGY to diazepam however she is stating that she took Xanax in the past without any reaction #8 valvular heart disease awaiting surgery. Echo from last month reveals evidence of moderate aortic stenosis, mild aortic regurgitation, moderate mitral regurgitation with a preserved left ventricular systolic function and a normal ejection fraction of 55-60%. She to follow-up with [facility] in [place] urine culture growing E. coli. Patient will be DC'd on Ceftin for 1 more week white blood cell has normalized patient be DC'd to [facility] course Ernestina Sheffield, is an 78-year-old female patient of Dr. wynn, who presented to [facility] emergency room with a chief complaint of hematuria and fever, she had evidence of urinary tract infection, she was given a course of oral Keflex and was discharged home, however patient was not feeling well she returned to emergency room she was reevaluated and was admitted to medical floor, she was started on IV fluid for mild dehydration and on IV antibiotic for urinary tract infection. Patient has a known history of coronary artery disease, she recently had angioplasty and stent placement by Dr. Thurston, she also has a known history of valvular heart disease she was recently referred to [facility] to assess for possible valve surgery. Patient was seen and examined on the medical floor she is alert and oriented 3 in no apparent distress she is complaining of anxiety otherwise no significant complaint at this time there is no fever or chills no headache or dizziness no chest pain no shortness of breath no cough no nausea or vomiting no abdominal pain no diarrhea no burning was urination no frequency or urgency hematuria appears to have improved. On 11/13/2018 patient's alert and oriented 3. Patient reports some improvement but still having some increased weakness. PT OT has been consulted. Urine culture currently growing gram-negative bacilli. Patient maintained on Rocephin. Cardiology services have been consulted due to recent stent placement. At this time patient denies chest pain or shortness of breath. Patient denies nausea vomiting or diarrhea. Patient denies any urinary burning or frequency On 11/14/2017 patient alert and oriented 3. Patient reports feeling much better than previously. Patient spiked fever in the evening on 11/13, patient remains afebrile today. WBC within normal limits, vital signs remained stable. PT OT consulted. Urine culture positive for E. coli patient maintained on Rocephin. Patient denies nausea vomiting or diarrhea, patient denies any urinary burning or frequency. Patient denies shortness of breath or chest pain On 11/15/2018 patient's alert and oriented 3 patient is feeling much improved. Patient is planned to be DC'd to rehab today due to increased weakness. Patient will be DC'd on Ceftin for one week urine culture positive for E. coli. Patient also follow-up with [facility] in [place]. At this time patient denies chest pain or shortness of breath. Patient denies nausea vomiting diarrhea. Patient denies any urinary burning or frequency I performed an examination of the patient and discussed their management with the Nurse Practitioner. I have reviewed the Nurse Practitioner's notes and agree with the documented findings and plan of care Patient Condition at Discharge: Stable Plan - Discharge Summary Discharge Rx Participant: No New Discharge Prescriptions: New Cefuroxime Axetil [Ceftin] 500 mg PO BID 7 Days #14 tab Continue Omeprazole [PriLOSEC] 20 mg PO QAM Montelukast [Singulair] 10 mg PO HS Ubidecarenone [Co Q-10] 100 mg PO DAILY Aloe Lax 225 1 tab PO HS Selenium 200 mcg PO HS Pyridoxine HCl (Vitamin B6) [Vitamin B-6] 100 mg PO HS Potassium Iodide [SSKI Oral Liquid] 30 gm PO QAM Calcium Carb/Magnesium Ox,Carb [Seven-Mag 500-250 MG Chewable] 2 tab PO BID Biotin 5,000 mcg PO QAM Prevagen Es 1 tab PO HS Zinc 50 mg PO QAM Vitamin E (Dl,Tocopheryl Acet) [Vitamin E] 400 unit PO DAILY Lutein 20 mg PO QAM Ascorbic Acid [Vitamin C] 500 mg PO QAM Alendronate Sodium [Fosamax] 5 mg PO QAM Ginkgo Biloba [place] Extract [Ginkgo Biloba] 60 mg PO QAM Cholecalciferol (Vitamin D3) [Vitamin D3] 2,000 unit PO QAM Potassium Gluconate 99 mg PO QAM Lecithin, Soy [Lecithin] 400 mg PO BID Ferrous Sulfate [Iron (65 MG Elemental)] 325 mg PO QAM Nutroferon 1 tab PO BID Magnesium Oxide [Mag-Ox] 250 mg PO DAILY Cyanocobalamin (Vitamin B-12) [Vitamin B-12] 1,000 mcg PO DAILY Cbd Oil 3 drops SL DAILY PRN PRN Reason: Pain Aspirin 81 mg PO HS chew Atorvastatin [Lipitor] 40 mg PO HS #90 tab Clopidogrel [Plavix] 75 mg PO DAILY #90 tab Bisoprolol-Hctz 5-6.25 mg [Ziac 5-6.25 MG] 1 tab PO DAILY prednisoLONE ACETATE 1% OPHTH [Pred Forte 1%] 1 drops LEFT EYE QID Discontinued Cephalexin [Keflex] 500 mg PO Q8HR 7 Days #21 cap Discharge Medication List Montelukast [Singulair] 10 mg PO HS 09/09/14 [History] Omeprazole [PriLOSEC] 20 mg PO QAM 09/09/14 [History] Ubidecarenone [Co Q-10] 100 mg PO DAILY 09/03/15 [History] Alendronate Sodium [Fosamax] 5 mg PO QAM 01/18/18 [History] Aloe Lax 225 1 tab PO HS 01/18/18 [History] Ascorbic Acid [Vitamin C] 500 mg PO QAM 01/18/18 [History] Biotin 5,000 mcg PO QAM 01/18/18 [History] Calcium Carb/Magnesium Ox,Carb [Seven-Mag 500-250 MG Chewable] 2 tab PO BID 01/18/18 [History] Lutein 20 mg PO QAM 01/18/18 [History] Potassium Iodide [SSKI Oral Liquid] 30 gm PO QAM 01/18/18 [History] Prevagen Es 1 tab PO HS 01/18/18 [History] Pyridoxine HCl (Vitamin B6) [Vitamin B-6] 100 mg PO HS 01/18/18 [History] Selenium 200 mcg PO HS 01/18/18 [History] Vitamin E (Dl,Tocopheryl Acet) [Vitamin E] 400 unit PO DAILY 01/18/18 [History] Zinc 50 mg PO QAM 01/18/18 [History] Cbd Oil 3 drops SL DAILY PRN 08/30/18 [History] Cholecalciferol (Vitamin D3) [Vitamin D3] 2,000 unit PO QAM 08/30/18 [History] Cyanocobalamin (Vitamin B-12) [Vitamin B-12] 1,000 mcg PO DAILY 08/30/18 [History] Ferrous Sulfate [Iron (65 MG Elemental)] 325 mg PO QAM 08/30/18 [History] Ginkgo Biloba [place] Extract [Ginkgo Biloba] 60 mg PO QAM 08/30/18 [History] Lecithin, Soy [Lecithin] 400 mg PO BID 08/30/18 [History] Magnesium Oxide [Mag-Ox] 250 mg PO DAILY 08/30/18 [History] Nutroferon 1 tab PO BID 08/30/18 [History] Potassium Gluconate 99 mg PO QAM 08/30/18 [History] Aspirin 81 mg PO HS chew 10/13/18 [Rx] Atorvastatin [Lipitor] 40 mg PO HS #90 tab 10/13/18 [Rx] Clopidogrel [Plavix] 75 mg PO DAILY #90 tab 10/13/18 [Rx] Bisoprolol-Hctz 5-6.25 mg [Ziac 5-6.25 MG] 1 tab PO DAILY 11/11/18 [History] prednisoLONE ACETATE 1% OPHTH [Pred Forte 1%] 1 drops LEFT EYE QID 11/11/18 [History] Cefuroxime Axetil [Ceftin] 500 mg PO BID 7 Days #14 tab 11/15/18 [Rx] Follow up Appointment(s)/Referral(s): Cinthia Wynn MD [Primary Care Provider] - 1-2 days Errol James MD [STAFF PHYSICIAN] - 2 Weeks Activity/Diet/Wound Care/Special Instructions: Activity as tolerated Diet heart healthy CBC and CMP within 7 days of arrival to rehab Discharge Disposition: TRANSFER TO SNF/ECF
== END 2018-11-15 13:53 | DRG 872 ==
LOC: EC 15:52 → 3NMEDONC 18:35 → 4MS4W 11-12 15:07 → OBSVTOIN 11-13 08:58
PROVIDERS: ADMIT Internal Medicine; ATTEND Internal Medicine
DX: A41.51 Sepsis due to Escherichia coli [E. coli] (principal); N39.0 Urinary tract infection, site not specified; N17.9 Acute kidney failure, unspecified; D69.6 Thrombocytopenia, unspecified; E78.5 Hyperlipidemia, unspecified; E86.0 Dehydration; F41.9 Anxiety disorder, unspecified; I08.0 Rheumatic disorders of both mitral and aortic valves; I10 Essential (primary) hypertension; I25.10 Atherosclerotic heart disease of native coronary artery without angina pectoris; I25.2 Old myocardial infarction; K44.9 Diaphragmatic hernia without obstruction or gangrene; M06.9 Rheumatoid arthritis, unspecified; N20.0 Calculus of kidney; N83.201 Unspecified ovarian cyst, right side; N93.9 Abnormal uterine and vaginal bleeding, unspecified; Z79.02 Long term (current) use of antithrombotics/antiplatelets; Z79.82 Long term (current) use of aspirin; Z79.83 Long term (current) use of bisphosphonates; Z79.899 Other long term (current) drug therapy; Z80.0 Family history of malignant neoplasm of digestive organs; Z80.7 Family history of other malignant neoplasms of lymphoid, hematopoietic and related tissues; Z85.3 Personal history of malignant neoplasm of breast; Z90.11 Acquired absence of right breast and nipple; Z95.5 Presence of coronary angioplasty implant and graft; Z94.7 Corneal transplant status; Z98.42 Cataract extraction status, left eye; Z98.41 Cataract extraction status, right eye; Z96.652 Presence of left artificial knee joint; G62.9 Polyneuropathy, unspecified; T45.1X5S Adverse effect of antineoplastic and immunosuppressive drugs, sequela; Z88.8 Allergy status to other drugs, medicaments and biological substances; R31.9 Hematuria, unspecified
CPT/HCPCS: 36415; 71046; 74176; 80053; 83605; 85025; 85610; 85730; 87040; 87077; 87086; 87186; 93005; 96361; 96365; 96375; 99285

== ENCOUNTER 2018-12-16 10:18 | Observation (INO) | payer MEDICARE ==
[2018-12-16] MEDS ORDERED: HEPARIN SODIUM,PORCINE 5,000 UNIT/ML 1 ML VIAL IV ONE (11:11)
[2018-12-16] MEDS ORDERED: HEPARIN SOD,PORK IN 0.45% NACL 25,000 UNIT in 0.45% NACL 1 250ML.BAG IV SCH (11:15)
--- NOTE | 2018-12-16 11:16 | ED ---
General Adult HPI - General Chief complaint: Recheck/Abnormal Lab/Rx Stated complaint: Hypertensive Time Seen by Provider: 12/16/18 10:30 Source: patient, RN notes reviewed Mode of arrival: ambulatory Limitations: no limitations - History of Present Illness Initial comments: This is an 78-year-old female presents emergency department stating that she ca me in today because she took her blood pressures this morning and was elevated. Patient also states she feels very anxious. Patient states she has history of anxiety and she gets this way if something is not going right. Patient states because of the blood pressure she thinks she is a little more anxious and normal. Patient denies any history of atrial fibrillation. Patient states she is post be getting a new valve in the near future. Patient denies any chest pain or difficulty breathing today patient denies any fever chills or cough. Patient denies any lightheadedness dizziness or near syncopal episode. Patient denies any abdominal pain patient denies nausea vomiting diarrhea. Patient denies any leg swelling or calf tenderness. - Related Data Home Medications Medication Instructions Recorded Confirmed Montelukast [Singulair] 10 mg PO HS 09/09/14 12/16/18 Omeprazole [PriLOSEC] 20 mg PO QAM 09/09/14 12/16/18 Ubidecarenone [Co Q-10] 100 mg PO QAM 09/03/15 12/16/18 Alendronate Sodium [Fosamax] 5 mg PO QAM 01/18/18 12/16/18 Aloe Lax 225 1 tab PO HS 01/18/18 12/16/18 Biotin 5,000 mcg PO QAM 01/18/18 12/16/18 Lutein 20 mg PO QAM 01/18/18 12/16/18 Potassium Iodide [SSKI Oral Liquid] 30 gm PO QAM 01/18/18 12/16/18 Prevagen Es 1 tab PO QAM 01/18/18 12/16/18 Pyridoxine HCl (Vitamin B6) 100 mg PO HS 01/18/18 12/16/18 [Vitamin B-6] Selenium 200 mcg PO HS 01/18/18 12/16/18 Vitamin E (Dl,Tocopheryl Acet) 400 unit PO DAILY 01/18/18 12/16/18 [Vitamin E] Zinc 50 mg PO BID 01/18/18 12/16/18 Cholecalciferol (Vitamin D3) 2,000 unit PO QAM 08/30/18 12/16/18 [Vitamin D3] Cyanocobalamin (Vitamin B-12) 1,000 mcg PO BID 08/30/18 12/16/18 [Vitamin B-12] Ginkgo Biloba [place] Extract [Ginkgo 60 mg PO QAM 08/30/18 12/16/18 Biloba] Lecithin, Soy [Lecithin] 400 mg PO BID 08/30/18 12/16/18 Nutroferon 1 tab PO BID 08/30/18 12/16/18 Cetirizine HCl [Zyrtec] 10 mg PO HS 12/16/18 12/16/18 Clopidogrel [Plavix] 75 mg PO HS 12/16/18 12/16/18 Multivitamins, Thera [Multivitamin 1 tab PO QAM 12/16/18 12/16/18 (formulary)] Vitamin B Complex 1 cap PO BID 12/16/18 12/16/18 Vitamin C 300mg 300 mg PO QAM 12/16/18 12/16/18 Previous Rx's Medication Instructions Recorded Aspirin 81 mg PO HS chew 10/13/18 Atorvastatin [Lipitor] 40 mg PO HS #90 tab 10/13/18 Allergies Allergy/AdvReac Type Severity Reaction Status Date / Time grass pollen-perennial rye, Allergy Itching Verified 12/16/18 11:09 standar diazepam [From Valium] AdvReac Rapid Verified 12/16/18 11:09 Heart Rate Review of Systems ROS Statement: Those systems with pertinent positive or pertinent negative responses have been documented in the HPI. ROS Other: All systems not noted in ROS Statement are negative. 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, "bad joints", anemia, History of Any Multi-Drug Resistant Organisms: None Reported Past Surgical History: Breast Surgery, Heart Catheterization With Stent, Orthopedic Surgery Additional Past Surgical History / Comment(s): RT MASTECTOMY, Eye surgery - bilateral corneal transplant x5, AND cataract removal, left knee replaced, heart cath with stent- 4 weeks, Past Anesthesia/Blood Transfusion Reactions: No Reported Reaction Date of Last Stent Placement:: 10/12/18 Past Psychological History: Anxiety Smoking Status: Never smoker Past Alcohol Use History: Occasional Past Drug Use History: None Reported - Past Family History Father Family Medical History: Cancer Additional Family Medical History / Comment(s): corneal dystrophy, colon cancer Mother Family Medical History: Cancer Additional Family Medical History / Comment(s): multiple myeloma Brother(s) Family Medical History: Cancer Additional Family Medical History / Comment(s): colon cancer, since past. Aneruysm. General Exam - General Exam Comments Initial Comments: GENERAL: Patient is well-developed and well-nourished. Patient is nontoxic and well- hydrated and is in mild distress. ENT: Neck is soft and supple. No significant lymphadenopathy is noted. Oropharynx is clear. Moist mucous membranes. Neck has full range of motion without eliciting any pain. EYES: The sclera were anicteric and conjunctiva were pink and moist. Extraocular movements were intact and pupils were equal round and reactive to light. Eyelids were unremarkable. PULMONARY: Unlabored respirations. Good breath sounds bilaterally. No audible rales rhonchi or wheezing was noted. CARDIOVASCULAR: Patient is tachycardic at about 150 beats a minute and has a very irregular beat. ABDOMEN: Soft and nontender with normal bowel sounds. No palpable organomegaly was noted. There is no palpable pulsatile mass. SKIN: Skin is clear with no lesions or rashes and otherwise unremarkable. NEUROLOGIC: Patient is alert and oriented x3. Cranial nerves II through XII are grossly intact. Motor and sensory are also intact. Normal speech, volume and content. Symmetrical smile. MUSCULOSKELETAL: Normal extremities with adequate strength and full range of motion. LYMPHATICS: No significant lymphadenopathy is noted PSYCHIATRIC: Normal psychiatric evaluation. Limitations: no limitations Course Vital Signs 12/16/18 12/16/18 12/16/18 10:27 10:55 10:57 Temperature 98.0 F Pulse Rate 117 H 129 H Pulse Rate [ 136 H Right Pulse Oximetery] Respiratory 18 16 Rate Blood Pressure 150/77 144/96 O2 Sat by Pulse 98 95 Oximetry 12/16/18 11:37 Temperature Pulse Rate 99 Pulse Rate [ Right Pulse Oximetery] Respiratory 16 Rate Blood Pressure 125/87 O2 Sat by Pulse 99 Oximetry Medical Decision Making - Medical Decision Making EKG shows atrial for ablation with rapid ventricular response at 132 bpm QRS is 78 QT interval 332 QTC is 491. Patient's EKG shows no ST segment elevation there is some slight ST segment depression in leads V4 V5 and V6 as well as inferior leads. Chest x-ray shows no acute abnormality. I started the patient on metoprolol by mouth as well as gave the patient 2.5 IV. I started the patient on heparin because she needed to be anticoagulated. Spoke with Dr. Martínez he agreed to admit the patient admitted the patient wrote admitting orders. I consult to cardiology. I started Cardizem at 2.5 mg per hour - Lab Data Result diagrams: 12/16/18 10:50 12/16/18 10:50 Lab Results 12/16/18 12/16/18 12/16/18 Range/Units 10:50 10:50 10:50 WBC 8.9 (3.8-10.6) k/uL RBC 4.81 (3.80-5.40) m/uL Hgb 15.4 D (11.4-16.0) gm/dL Hct 46.1 H (34.0-46.0) % MCV 95.9 (80.0-100.0) fL MCH 32.1 (25.0-35.0) pg MCHC 33.4 (31.0-37.0) g/dL RDW 13.7 (11.5-15.5) % Plt Count 197 (150-450) k/uL Neutrophils % 65 % Lymphocytes % 20 % Monocytes % 10 % Eosinophils % 2 % Basophils % 1 % Neutrophils # 5.8 (1.3-7.7) k/uL Lymphocytes # 1.8 (1.0-4.8) k/uL Monocytes # 0.9 (0-1.0) k/uL Eosinophils # 0.1 (0-0.7) k/uL Basophils # 0.1 (0-0.2) k/uL PT (9.0-12.0) sec INR (<1.2) APTT (22.0-30.0) sec Sodium 141 (137-145) mmol/L Potassium 4.7 (3.5-5.1) mmol/L Chloride 107 (98-107) mmol/L Carbon Dioxide 22 (22-30) mmol/L Anion Gap 12 mmol/L BUN 17 (7-17) mg/dL Creatinine 0.85 (0.52-1.04) mg/dL Est GFR (CKD-EPI)AfAm 75 (>60 ml/min/1.73 sqM) Est GFR (CKD-EPI)NonAf 65 (>60 ml/min/1.73 sqM) Glucose 92 (74-99) mg/dL Calcium 9.5 (8.4-10.2) mg/dL Magnesium 2.0 (1.6-2.3) mg/dL Total Bilirubin 0.9 (0.2-1.3) mg/dL AST 59 H (14-36) U/L ALT 34 (9-52) U/L Alkaline Phosphatase 72 (38-126) U/L Troponin I <0.012 (0.000-0.034) ng/mL Total Protein 8.3 H (6.3-8.2) g/dL Albumin 4.6 (3.5-5.0) g/dL TSH 2.000 (0.465-4.680) mIU/L Free T4 0.94 (0.78-2.19) ng/dL 12/16/18 Range/Units 11:50 WBC (3.8-10.6) k/uL RBC (3.80-5.40) m/uL Hgb (11.4-16.0) gm/dL Hct (34.0-46.0) % MCV (80.0-100.0) fL MCH (25.0-35.0) pg MCHC (31.0-37.0) g/dL RDW (11.5-15.5) % Plt Count (150-450) k/uL Neutrophils % % Lymphocytes % % Monocytes % % Eosinophils % % Basophils % % Neutrophils # (1.3-7.7) k/uL Lymphocytes # (1.0-4.8) k/uL Monocytes # (0-1.0) k/uL Eosinophils # (0-0.7) k/uL Basophils # (0-0.2) k/uL PT 31.0 H (9.0-12.0) sec INR 3.2 H (<1.2) APTT >200.0 H* (22.0-30.0) sec Sodium (137-145) mmol/L Potassium (3.5-5.1) mmol/L Chloride (98-107) mmol/L Carbon Dioxide (22-30) mmol/L Anion Gap mmol/L BUN (7-17) mg/dL Creatinine (0.52-1.04) mg/dL Est GFR (CKD-EPI)AfAm (>60 ml/min/1.73 sqM) Est GFR (CKD-EPI)NonAf (>60 ml/min/1.73 sqM) Glucose (74-99) mg/dL Calcium (8.4-10.2) mg/dL Magnesium (1.6-2.3) mg/dL Total Bilirubin (0.2-1.3) mg/dL AST (14-36) U/L ALT (9-52) U/L Alkaline Phosphatase (38-126) U/L Troponin I (0.000-0.034) ng/mL Total Protein (6.3-8.2) g/dL Albumin (3.5-5.0) g/dL TSH (0.465-4.680) mIU/L Free T4 (0.78-2.19) ng/dL Critical Care Time Critical Care Time: Yes Total Critical Care Time: 35 Disposition Clinical Impression: Atrial fibrillation with rapid ventricular response Disposition: ADMITTED IP TO THIS HOSP Referrals: Cinthia Wynn MD [Primary Care Provider] - 1-2 days Time of Disposition: 12:57
[2018-12-16 11:19] LABS: Basophils # (A) 0.1 k/uL (0-0.2); Basophils % (A) 1 %; Eosinophils # (A) 0.1 k/uL (0-0.7); Eosinophils % (A) 2 %; HCT 46.1 % (34.0-46.0); Lymphocytes # (A) 1.8 k/uL (1.0-4.8); Lymphocytes % (A) 20 %; MCH 32.1 pg (25.0-35.0); MCHC 33.4 g/dL (31.0-37.0); MCV 95.9 fL (80.0-100.0); Mean Platelet Volume 6.8; Monocytes # (A) 0.9 k/uL (0-1.0); Monocytes % (A) 10 %; Neutrophils # (A) 5.8 k/uL (1.3-7.7); Neutrophils % (A) 65 %; Platelet Count 197 k/uL (150-450); RBC 4.81 m/uL (3.80-5.40); RDW 13.7 % (11.5-15.5); WBC 8.9 k/uL (3.8-10.6)
[2018-12-16 11:24] LABS: HGB 15.4 gm/dL (11.4-16.0)
[2018-12-16 11:29] LABS: Albumin 4.6 g/dL (3.5-5.0); Calcium 9.5 mg/dL (8.4-10.2); Total Bilirubin 0.9 mg/dL (0.2-1.3); Total Protein 8.3 g/dL (6.3-8.2)
[2018-12-16 11:30] LABS: Potassium 4.7 mmol/L (3.5-5.1)
[2018-12-16] MEDS: METOPROLOL TARTRATE 5 MG/5 ML VIAL IVP SCH ×2 (11:32→11:37)
[2018-12-16] MEDS ORDERED: METOPROLOL SUCCINATE (ER) 25 MG TAB.ER.24H PO STA (11:40)
[2018-12-16 11:46] LABS: T4, Free (Free Thyroxine) 0.94 ng/dL (0.78-2.19)
[2018-12-16 12:13] LABS: INR 3.2 (<1.2)
[2018-12-16 12:30] LABS: Partial Thromboplastin Time >200.0 sec (22.0-30.0)
--- NOTE | 2018-12-16 12:31 | XR ---
EXAMINATION TYPE: XR chest 2V DATE OF EXAM: 12/16/2018 HISTORY: dysrhythmia. REFERENCE: Previous study dated 11/11/2018. FINDINGS: Lung volumes are prominent. The heart is mildly enlarged. There is a hiatal hernia present behind the heart. Lungs and cells are clear. Pleural spaces are clear. IMPRESSION: 1. COPD. 2. MILD CARDIOMEGALY. 3. HIATAL HERNIA.
[2018-12-16] MEDS ORDERED: NITROGLYCERIN SL TABS 0.4 MG TAB SUBLINGUAL PRN (12:58)
[2018-12-16] MEDS ORDERED: DILTIAZEM 125 MG in SODIUM CHLORIDE 0.9% 100 ML IV SCH (13:15)
[2018-12-16 14:25] VITALS: BMI 27.6
--- NOTE | 2018-12-16 14:52 | P.HPIM ---
History of Present Illness H&P Date: 12/16/18 Ernestina Sheffield is an 78-year-old female who presents to [facility] emergency room with a chief complaint of palpitation and feeling her heart racing, symptoms started early this morning, otherwise patient denies any other complaints, there was no chest pain and no shortness of breath, she was evaluated in emergency room and had evidence of atrial fibrillation was rapid ventricular response, she was started on IV heparin and IV Cardizem and was admitted to telemetry floor cardiology consultation was requested. 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 Patient has small house doesn't need anything to ambulate. Handrails on bathtub. Smoking Status: Never smoker Past Alcohol Use History: Occasional Additional Past Alcohol Use History / Comment(s): Wine or rum and coke. Past Drug Use History: None Reported Additional Drug Use History / Comment(s): CBD oil occasionally. - Past Family History Father Family Medical History: Cancer Additional Family Medical History / Comment(s): corneal dystrophy, colon cancer Mother Family Medical History: Cancer Additional Family Medical History / Comment(s): multiple myeloma Brother(s) Family Medical History: Cancer Additional Family Medical History / Comment(s): colon cancer, since past. Aneruysm. Medications and Allergies Home Medications Medication Instructions Recorded Confirmed Type Montelukast [Singulair] 10 mg PO HS 09/09/14 12/16/18 History Omeprazole [PriLOSEC] 20 mg PO QAM 09/09/14 12/16/18 History Ubidecarenone [Co Q-10] 100 mg PO QAM 09/03/15 12/16/18 History Alendronate Sodium [Fosamax] 5 mg PO QAM 01/18/18 12/16/18 History Aloe Lax 225 1 tab PO HS 01/18/18 12/16/18 History Biotin 5,000 mcg PO QAM 01/18/18 12/16/18 History Lutein 20 mg PO QAM 01/18/18 12/16/18 History Potassium Iodide [SSKI Oral Liquid] 30 gm PO QAM 01/18/18 12/16/18 History Prevagen Es 1 tab PO QAM 01/18/18 12/16/18 History Pyridoxine HCl (Vitamin B6) 100 mg PO HS 01/18/18 12/16/18 History [Vitamin B-6] Selenium 200 mcg PO HS 01/18/18 12/16/18 History Vitamin E (Dl,Tocopheryl Acet) 400 unit PO DAILY 01/18/18 12/16/18 History [Vitamin E] Zinc 50 mg PO BID 01/18/18 12/16/18 History Cholecalciferol (Vitamin D3) 2,000 unit PO QAM 08/30/18 12/16/18 History [Vitamin D3] Cyanocobalamin (Vitamin B-12) 1,000 mcg PO BID 08/30/18 12/16/18 History [Vitamin B-12] Ginkgo Biloba [place] Extract [Ginkgo 60 mg PO QAM 08/30/18 12/16/18 History Biloba] Lecithin, Soy [Lecithin] 400 mg PO BID 08/30/18 12/16/18 History Nutroferon 1 tab PO BID 08/30/18 12/16/18 History Aspirin 81 mg PO HS chew 10/13/18 12/16/18 Rx Atorvastatin [Lipitor] 40 mg PO HS #90 tab 10/13/18 12/16/18 Rx Cetirizine HCl [Zyrtec] 10 mg PO HS 12/16/18 12/16/18 History Clopidogrel [Plavix] 75 mg PO HS 12/16/18 12/16/18 History Multivitamins, Thera [Multivitamin 1 tab PO QAM 12/16/18 12/16/18 History (formulary)] Vitamin B Complex 1 cap PO BID 12/16/18 12/16/18 History Vitamin C 300mg 300 mg PO QAM 12/16/18 12/16/18 History Allergies Allergy/AdvReac Type Severity Reaction Status Date / Time grass pollen-perennial rye, Allergy Itching Verified 12/16/18 11:09 standar diazepam [From Valium] AdvReac Rapid Verified 12/16/18 11:09 Heart Rate Physical Exam Vitals: Vital Signs Temp Pulse Pulse Resp BP Pulse Ox 12/16/18 13:31 101 H 16 140/76 99 12/16/18 11:37 99 16 125/87 99 12/16/18 10:57 136 H 12/16/18 10:55 129 H 16 144/96 95 12/16/18 10:27 98.0 F 117 H 18 150/77 98 Intake and Output 12/15/18 12/16/18 12/16/18 22:59 06:59 14:59 Intake Total 10.124 Balance 10.124 Intake: Intake, IV Titration 10.124 Amount Heparin Sod,Pork in 0.45% 10.124 NaCl 25,000 unit In 0.45 % NaCl 1 250ml.bag @ 12 UNITS/KG/HR 8.437 mls/hr IV .Q24H CORI Rx#: [id number] Other: Weight 70.307 kg In general patient is alert and oriented 3 in no apparent distress HEENT head normocephalic and atraumatic Neck is supple no JVD no goiter no lymphadenopathy Chest exam reveals a few scattered crackles no wheezing Cardiac exam reveals irregular heart sounds no gallops no murmurs Abdomen is soft nontender no organomegaly was normal bowel sounds Extremity exam reveals no edema no cyanosis or clubbing Results CBC & Chem 7: 12/16/18 10:50 12/16/18 10:50 Labs: Abnormal Lab Results - Last 24 Hours (Table) 12/16/18 12/16/18 12/16/18 Range/Units 10:50 10:50 11:50 Hct 46.1 H (34.0-46.0) % PT 31.0 H (9.0-12.0) sec INR 3.2 H (<1.2) APTT >200.0 H* (22.0-30.0) sec AST 59 H (14-36) U/L Total Protein 8.3 H (6.3-8.2) g/dL Thrombosis Risk Factor Assmnt - Choose All That Apply Any of the Below Risk Factors Present?: Yes Assessment and Plan Plan: #1 atrial fibrillation with rapid ventricular response this time heart rate is better controlled continue with IV Cardizem drip, awaiting cardiology input #2 underlying history of hypertension well-controlled on current medications #3 underlying history of rheumatoid arthritis stable at this time #4 known history of coronary artery disease with previous history of angioplasty and stent placement to the mid left circumflex coronary artery on 10/11/2018 #5 previous history of breast cancer patient had a right mastectomy #6 osteoarthritis status post left total knee arthroplasty. At this time medication reviewed and reordered Continue with current management awaiting further input from cardiology
[2018-12-16] MEDS ORDERED: POTASSIUM IODIDE PO SCH (15:00)
[2018-12-16] MEDS: METOPROLOL TARTRATE 50 MG TAB PO SCH ×2 (16:41→21:15)
[2018-12-16] MEDS ORDERED: ATORVASTATIN 40 MG TAB PO SCH (21:00)
[2018-12-16] MEDS ORDERED: LORATADINE 10 MG TAB PO SCH (21:00)
[2018-12-16] MEDS ORDERED: [UNRECOGNIZED DRUG - OTHER] PO SCH (21:00)
[2018-12-16] MEDS ORDERED: CLOPIDOGREL 75 MG TAB PO SCH (21:00)
[2018-12-16] MEDS ORDERED: MONTELUKAST 10 MG TAB PO SCH (21:00)
[2018-12-16] MEDS ORDERED: SELENIUM 200 MCG PO SCH (21:00)
[2018-12-16] MEDS ORDERED: LECITHIN SOY 400 MG PO SCH (21:00)
[2018-12-16] MEDS ORDERED: NON FORMULARY DRUG (Vitamin B Complex [Vitamin B Complex] 1 CAP) PO SCH (21:00)
[2018-12-16] MEDS ORDERED: PYRIDOXINE 50 MG TAB PO SCH (21:00)
[2018-12-16] MEDS: prednisoLONE ACETATE 1% OPHTH DROPS 5 ML BTL BOTH EYES SCH (21:10)
[2018-12-16] MEDS: APIXABAN 5 MG TAB PO SCH (21:12)
[2018-12-16] MEDS: CYANOCOBALAMIN 500 MCG TAB PO SCH (21:14)
[2018-12-16] MEDS: ZINC SULFATE 220 MG CAP PO SCH (21:16)
[2018-12-17 07:05] LABS: Cholesterol 130 mg/dL (<200); HDL Cholesterol 49 mg/dL (40-60); LDL Cholesterol,Calculated 64 mg/dL (0-99); Triglycerides 86 mg/dL (<150)
[2018-12-17] MEDS ORDERED: PANTOPRAZOLE 40 MG TABLET PO SCH (07:30)
[2018-12-17 08:36] VITALS: TEMP 97.4
[2018-12-17] MEDS: APIXABAN 5 MG TAB PO SCH (08:37)
[2018-12-17] MEDS: CYANOCOBALAMIN 500 MCG TAB PO SCH (08:38)
[2018-12-17] MEDS: prednisoLONE ACETATE 1% OPHTH DROPS 5 ML BTL BOTH EYES SCH (08:38)
[2018-12-17] MEDS: ZINC SULFATE 220 MG CAP PO SCH (08:38)
[2018-12-17] MEDS: METOPROLOL TARTRATE 50 MG TAB PO SCH (08:38)
[2018-12-17 08:58] LABS: Prothrombin Time 10.5 sec (9.0-12.0)
[2018-12-17] MEDS ORDERED: ASPIRIN 325 MG TAB PO SCH (09:00)
[2018-12-17] MEDS ORDERED: GINKGO BILOBA LEAF EXTRACT 60 MG PO SCH (09:00)
[2018-12-17] MEDS ORDERED: CHOLECALCIFEROL 1,000 UNIT TAB PO SCH (09:00)
[2018-12-17] MEDS ORDERED: ALENDRONATE SODIUM 5 MG PO SCH (09:00)
[2018-12-17] MEDS ORDERED: NON FORMULARY DRUG (Lutein [Lutein] 20 MG) PO SCH (09:00)
[2018-12-17] MEDS ORDERED: NON FORMULARY DRUG (Biotin [Biotin] 5,000 MCG) PO SCH (09:00)
[2018-12-17] MEDS ORDERED: MULTIVITAMINS, THERA 1 EACH TAB PO SCH (09:00)
[2018-12-17] MEDS ORDERED: NON FORMULARY DRUG (Ubidecarenone [Co Q-10] 100 MG) PO SCH (09:00)
[2018-12-17] MEDS ORDERED: PREVAGEN ES PO SCH (09:00)
[2018-12-17] MEDS ORDERED: ASCORBIC ACID 500 MG TAB PO SCH (09:00)
[2018-12-17] MEDS ORDERED: VITAMIN E (DL,TOCOPHERYL ACET) 400 UNIT CAP PO SCH (09:00)
--- NOTE | 2018-12-17 11:46 | P.DS ---
Providers Date of admission: 12/16/18 13:07 Expected date of discharge: 12/17/18 Attending physician: Hailey Martínez Consults: 12/16/18 12:59 Consult Physician Urgent Consulting Provider: [facility] Consult Reason/Comments: A. fib with rapid ventricular response Do you want consulting provider notified?: Yes Primary care physician: Cinthia Wynn [facility] Course: Discharge diagnosis #1 atrial fibrillation with rapid ventricular response this time heart rate is better controlled continue with IV Cardizem drip. Heart rate has converted. Per nursing staff patient has been cleared for discharge. Patient started on eliquis for anticoagulation and Lopressor for rate control #2 underlying history of hypertension well-controlled on current medications #3 underlying history of rheumatoid arthritis stable at this time #4 known history of coronary artery disease with previous history of angioplasty and stent placement to the mid left circumflex coronary artery on 10/11/2018. Patient also be maintained on aspirin and Plavix due to recent stent placement #5 previous history of breast cancer patient had a right mastectomy #6 osteoarthritis status post left total knee arthroplasty. Hospital course Ernestina Sheffield is an 78-year-old female who presents to [facility] emergency room with a chief complaint of palpitation and feeling her heart racing, symptoms started early this morning, otherwise patient denies any other complaints, there was no chest pain and no shortness of breath, she was evaluated in emergency room and had evidence of atrial fibrillation was rapid ventricular response, she was started on IV heparin and IV Cardizem and was admitted to telemetry floor cardiology consultation was requested. On 12/17/2018 patient's alert and oriented 3. Patient is eager to go home. Heart rate has converted to sinus rhythm. Patient started on eliquis and Lopressor per cardiology. Patient's Re: Currently normal sinus rhythm in the 80s. Patient denies chest pain or shortness of breath. Patient denies nausea vomiting or diarrhea. Patient denies any urinary burning or frequency. Eliquis and Lopressor prescribed per cardiology. Patient also to be maintained on Plavix and aspirin due to recent stent placement. I performed an examination of the patient and discussed their management with the Nurse Practitioner. I have reviewed the Nurse Practitioner's notes and agree with the documented findings and plan of care Patient Condition at Discharge: Stable Plan - Discharge Summary Discharge Rx Participant: No New Discharge Prescriptions: New Apixaban [Eliquis] 5 mg PO BID #60 tab Metoprolol Tartrate [Lopressor] 50 mg PO BID #60 tab Continue Omeprazole [PriLOSEC] 20 mg PO QAM Montelukast [Singulair] 10 mg PO HS Ubidecarenone [Co Q-10] 100 mg PO QAM Aloe Lax 225 1 tab PO HS Selenium 200 mcg PO HS Pyridoxine HCl (Vitamin B6) [Vitamin B-6] 100 mg PO HS Potassium Iodide [SSKI Oral Liquid] 30 gm PO QAM Biotin 5,000 mcg PO QAM Prevagen Es 1 tab PO QAM Zinc 50 mg PO BID Vitamin E (Dl,Tocopheryl Acet) [Vitamin E] 400 unit PO DAILY Lutein 20 mg PO QAM Alendronate Sodium [Fosamax] 5 mg PO QAM Ginkgo Biloba [place] Extract [Ginkgo Biloba] 60 mg PO QAM Cholecalciferol (Vitamin D3) [Vitamin D3] 2,000 unit PO QAM Lecithin, Soy [Lecithin] 400 mg PO BID Nutroferon 1 tab PO BID Cyanocobalamin (Vitamin B-12) [Vitamin B-12] 1,000 mcg PO BID Atorvastatin [Lipitor] 40 mg PO HS #90 tab Clopidogrel [Plavix] 75 mg PO HS Cetirizine HCl [Zyrtec] 10 mg PO HS Multivitamins, Thera [Multivitamin (formulary)] 1 tab PO QAM Vitamin C 300mg 300 mg PO QAM Vitamin B Complex 1 cap PO BID prednisoLONE ACETATE 1% OPHTH [Pred Forte 1%] 1 drop BOTH EYES QID Discontinued Aspirin 81 mg PO HS chew Discharge Medication List Montelukast [Singulair] 10 mg PO HS 09/09/14 [History] Omeprazole [PriLOSEC] 20 mg PO QAM 09/09/14 [History] Ubidecarenone [Co Q-10] 100 mg PO QAM 09/03/15 [History] Alendronate Sodium [Fosamax] 5 mg PO QAM 01/18/18 [History] Aloe Lax 225 1 tab PO HS 01/18/18 [History] Biotin 5,000 mcg PO QAM 01/18/18 [History] Lutein 20 mg PO QAM 01/18/18 [History] Potassium Iodide [SSKI Oral Liquid] 30 gm PO QAM 01/18/18 [History] Prevagen Es 1 tab PO QAM 01/18/18 [History] Pyridoxine HCl (Vitamin B6) [Vitamin B-6] 100 mg PO HS 01/18/18 [History] Selenium 200 mcg PO HS 01/18/18 [History] Vitamin E (Dl,Tocopheryl Acet) [Vitamin E] 400 unit PO DAILY 01/18/18 [History] Zinc 50 mg PO BID 01/18/18 [History] Cholecalciferol (Vitamin D3) [Vitamin D3] 2,000 unit PO QAM 08/30/18 [History] Cyanocobalamin (Vitamin B-12) [Vitamin B-12] 1,000 mcg PO BID 08/30/18 [History] Ginkgo Biloba [place] Extract [Ginkgo Biloba] 60 mg PO QAM 08/30/18 [History] Lecithin, Soy [Lecithin] 400 mg PO BID 08/30/18 [History] Nutroferon 1 tab PO BID 08/30/18 [History] Atorvastatin [Lipitor] 40 mg PO HS #90 tab 10/13/18 [Rx] Cetirizine HCl [Zyrtec] 10 mg PO HS 12/16/18 [History] Clopidogrel [Plavix] 75 mg PO HS 12/16/18 [History] Multivitamins, Thera [Multivitamin (formulary)] 1 tab PO QAM 12/16/18 [History] Vitamin B Complex 1 cap PO BID 12/16/18 [History] Vitamin C 300mg 300 mg PO QAM 12/16/18 [History] prednisoLONE ACETATE 1% OPHTH [Pred Forte 1%] 1 drop BOTH EYES QID 12/16/18 [History] Apixaban [Eliquis] 5 mg PO BID #60 tab 12/17/18 [Rx] Metoprolol Tartrate [Lopressor] 50 mg PO BID #60 tab 12/17/18 [Rx] Follow up Appointment(s)/Referral(s): Cinthia Wynn MD [Primary Care Provider] - 1-2 days (Office currently closed, please call during normal business hours to make follow up appointment) Errol James MD [STAFF PHYSICIAN] - 2 Weeks (Office currently closed, please call during normal business hours to make follow up appointment) Clay May MD [STAFF PHYSICIAN] - 1 Week Patient Instructions/Handouts: A-fib (Atrial Fibrillation) (DC), Safe Use of Anticoagulants (DC) Activity/Diet/Wound Care/Special Instructions: Activity as tolerated Diet heart healthy Discharge Disposition: HOME SELF-CARE
[2018-12-17 11:51] VITALS: BP 136/65; PULSE 69; RESP 18
--- NOTE | 2018-12-17 11:53 | P.CRDCN ---
History of Present Illness Consult date: 12/17/18 Consult reason: atrial fibrillation History of present illness: This is an 78-year-old female with Dr. James with past medical history significant for coronary artery disease, aortic stenosis, myocardial infarction, dyslipidemia, hypertension and history of breast cancer. Patient had recent hospitalization in September 2018 which time she was diagnosed with a non-ST elevated myocardial infarction and underwent stenting of the left circumflex and angioplasty to the proximal left circumflex by Dr. James. Patient has been evaluated at [facility] for severe aortic stenosis with plan for surgical intervention in the very near future and she is waiting for a call regarding update. Patient states that her blood pressure normally runs 123/63 and heart rate in the 80s. Yesterday her blood pressure was elevated up to 167/92 with a heart rate of 139. She could feel a fluttering in her chest. She denies any lightheadedness or dizziness, chest pain or shortness of breath. She is complaining of problems with sinus ALLERGY drainage. Patient came into [facility] emergency center was found to be in A. fib with RVR initial EKG was rate of 132. Patient was given oral and IV metoprolol and started on heparin drip and Cardizem drip. She has converted to normal sinus rhythm. EKG reveals atrial fibrillation at a heart rate of 132. Chest x-ray is negative for acute cardiopulmonary process with evidence of mild cardiomegaly and a large hiatal hernia. Laboratory data reviewed: CBC, CMP within normal limits, INR 3.2. Patient denies use of Coumadin. TSH 2.00. Triglycerides 86, cholesterol 130, LDL 64, HDL 49. Home cardiac medications include aspirin 81 mg daily, atorvastatin 40 mg daily, Plavix 75 mg daily. At the time of my exam: CONSTITUTIONAL: Denies fever. Denies chills. EYES: Denies blurred vision. Denies vision changes. Denies eye pain. EARS, NOSE, MOUTH & THROAT: Denies headache. Denies sore throat. Denies ear pain. CARDIOVASCULAR: Denies chest pain. Denies shortness of breath. Denies orthopnea. Denies PND. Denies palpitations. RESPIRATORY: Denies cough. GASTROINTESTINAL: Denies abdominal pain. Denies diarrhea. Denies constipation. Denies nausea. Denies vomiting. MUSCULOSKELETAL: Denies myalgias. INTEGUMENTARY: Denies pruitis. Denies rash. NEUROLOGIC: Denies numbness. Denies tingling. Denies weakness. PSYCHIATRIC: Denies anxiety. Denies depression. ENDOCRINE: Complains of weakness/fatigue. Denies weight change. Denies polydipsia. Denies polyurina. GENITOURINARY: Complains of burning and hematuria or no urgency with micturation. HEMATOLOGIC: Denies history of anemia. Denies bleeding. Blood pressure 123/63, heart rate 89, afebrile maintaining oxygen saturation on room air GENERAL: This is a 78-year-old female in no apparent distress at the time of my examination. HEENT: Head is atraumatic, normocephalic. Pupils are equal, round. Sclerae anicteric. Conjunctivae are clear. Mucous membranes of the mouth are moist. Neck is supple. There is no jugular venous distention. No carotid bruit is heard. LUNGS: Clear to auscultation no wheezes, rales or rhonchi. No chest wall tenderness is noted on palpation or with deep breathing. HEART: Regular rate and rhythm with systolic ejection murmur, no rubs or gallops. S1 and S2 heard. ABDOMEN: Soft, nontender. Bowel sounds are heard. No organomegaly noted. EXTREMITIES: No evidence of peripheral edema and no calf tenderness noted. VASCULAR: Radial and dorsalis pedis pulses palpated, no evidence of clubbing. NEUROLOGIC: Patient is awake, alert and oriented x3. ASSESSMENT New onset atrial fibrillation with RVR, paroxysmal atrial fibrillation currently in normal sinus rhythm History of coronary artery disease status post recent stent placement September 2018 in the setting of a non-ST elevated myocardial infarction Aortic stenosis, worked up for TAVR at [facility] Hypertension Dyslipidemia PLAN Recheck PT/INR: 1.0 Patient is been started on eliquis 5 mg twice daily and metoprolol 50 kg twice daily, may be continued at discharge Stop Aspirin Continue Plavix Discussed with patient in detail that she is currently not symptomatic with aortic stenosis and would recommend follow-up with Dr. James prior to undergoing valve surgery. The patient has no symptoms of exertional chest pain, shortness of breath, syncope or near syncope. Patient is cleared from cardiology for discharge home. Thank you kindly for this consultation. Nurse Practitioner note has been reviewed, I agree with a documented findings and plan of care. Patient was seen and examined. 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 Patient has small house doesn't need anything to ambulate. Handrails on bathtub. Smoking Status: Never smoker Past Alcohol Use History: Occasional Additional Past Alcohol Use History / Comment(s): Wine or rum and coke. Past Drug Use History: None Reported Additional Drug Use History / Comment(s): CBD oil occasionally. - Past Family History Father Family Medical History: Cancer Additional Family Medical History / Comment(s): corneal dystrophy, colon cancer Mother Family Medical History: Cancer Additional Family Medical History / Comment(s): multiple myeloma Brother(s) Family Medical History: Cancer Additional Family Medical History / Comment(s): colon cancer, since past. Aneruysm. Medications and Allergies Home Medications Medication Instructions Recorded Confirmed Type Montelukast [Singulair] 10 mg PO 09/09/14 12/16/18 History Omeprazole [PriLOSEC] 20 mg PO QAM 09/09/14 12/16/18 History Ubidecarenone [Co Q-10] 100 mg PO QAM 09/03/15 12/16/18 History Alendronate Sodium [Fosamax] 5 mg PO QAM 01/18/18 12/16/18 History Aloe Lax 225 1 tab PO 01/18/18 12/16/18 History Biotin 5,000 mcg PO QAM 01/18/18 12/16/18 History Lutein 20 mg PO QAM 01/18/18 12/16/18 History Potassium Iodide [SSKI Oral Liquid] 30 gm PO QAM 01/18/18 12/16/18 History Prevagen Es 1 tab PO QAM 01/18/18 12/16/18 History Pyridoxine HCl (Vitamin B6) 100 mg PO HS 01/18/18 12/16/18 History [Vitamin B-6] Selenium 200 mcg PO HS 01/18/18 12/16/18 History Vitamin E (Dl,Tocopheryl Acet) 400 unit PO DAILY 01/18/18 12/16/18 History [Vitamin E] Zinc 50 mg PO BID 01/18/18 12/16/18 History Cholecalciferol (Vitamin D3) 2,000 unit PO QAM 08/30/18 12/16/18 History [Vitamin D3] Cyanocobalamin (Vitamin B-12) 1,000 mcg PO BID 08/30/18 12/16/18 History [Vitamin B-12] Ginkgo Biloba [place] Extract [Ginkgo 60 mg PO QAM 08/30/18 12/16/18 History Biloba] Lecithin, Soy [Lecithin] 400 mg PO BID 08/30/18 12/16/18 History Nutroferon 1 tab PO BID 08/30/18 12/16/18 History Atorvastatin [Lipitor] 40 mg PO HS #90 tab 10/13/18 12/16/18 Rx Cetirizine HCl [Zyrtec] 10 mg PO HS 12/16/18 12/16/18 History Clopidogrel [Plavix] 75 mg PO HS 12/16/18 12/16/18 History Multivitamins, Thera [Multivitamin 1 tab PO QAM 12/16/18 12/16/18 History (formulary)] Vitamin B Complex 1 cap PO BID 12/16/18 12/16/18 History Vitamin C 300mg 300 mg PO QAM 12/16/18 12/16/18 History prednisoLONE ACETATE 1% OPHTH 1 drop BOTH EYES QID 12/16/18 12/16/18 History [Pred Forte 1%] Apixaban [Eliquis] 5 mg PO BID #60 tab 12/17/18 Rx Metoprolol Tartrate [Lopressor] 50 mg PO BID #60 tab 12/17/18 Rx Allergies Allergy/AdvReac Type Severity Reaction Status Date / Time grass pollen-perennial rye, Allergy Itching Verified 12/16/18 11:09 standar diazepam [From Valium] AdvReac Rapid Verified 12/16/18 11:09 Heart Rate Physical Exam Vitals: Vital Signs Temp Pulse Pulse Resp BP BP Pulse Ox 12/17/18 04:00 97.8 F 82 16 148/74 97 12/17/18 00:00 98.5 F 100 17 138/68 95 12/16/18 20:10 97.8 F 77 18 122/69 95 12/16/18 17:03 96 12/16/18 16:00 98.2 F 116 H 18 129/68 96 12/16/18 13:31 101 H 16 140/76 99 12/16/18 11:37 99 16 125/87 99 12/16/18 10:57 136 H 12/16/18 10:55 129 H 16 144/96 95 12/16/18 10:27 98.0 F 117 H 18 150/77 98 Intake and Output 12/16/18 12/17/18 12/17/18 23:59 06:59 14:59 Intake Total Balance Intake: IV 0.9 Oral Other: Voiding Method # Voids Weight Results 12/16/18 10:50 12/16/18 10:50 Cardiac Enzymes 12/16/18 12/16/18 12/16/18 Range/Units 10:50 10:50 17:37 AST 59 H (14-36) U/L Troponin I <0.012 0.019 (0.000-0.034) ng/mL 12/16/18 Range/Units 22:18 AST (14-36) U/L Troponin I 0.017 (0.000-0.034) ng/mL Coagulation 12/16/18 12/16/18 Range/Units 11:50 20:06 PT 31.0 H (9.0-12.0) sec APTT >200.0 H* 33.7 H (22.0-30.0) sec Lipids 12/17/18 Range/Units 05:26 Triglycerides 86 (<150) mg/dL Cholesterol 130 (<200) mg/dL HDL Cholesterol 49 (40-60) mg/dL CBC 12/16/18 Range/Units 10:50 WBC 8.9 (3.8-10.6) k/uL RBC 4.81 (3.80-5.40) m/uL Hgb 15.4 D (11.4-16.0) gm/dL Hct 46.1 H (34.0-46.0) % Plt Count 197 (150-450) k/uL Comprehensive Metabolic Panel 12/16/18 Range/Units 10:50 Sodium 141 (137-145) mmol/L Potassium 4.7 (3.5-5.1) mmol/L Chloride 107 (98-107) mmol/L Carbon Dioxide 22 (22-30) mmol/L BUN 17 (7-17) mg/dL Creatinine 0.85 (0.52-1.04) mg/dL Glucose 92 (74-99) mg/dL Calcium 9.5 (8.4-10.2) mg/dL AST 59 H (14-36) U/L ALT 34 (9-52) U/L Alkaline Phosphatase 72 (38-126) U/L Total Protein 8.3 H (6.3-8.2) g/dL Albumin 4.6 (3.5-5.0) g/dL Current Medications Generic Name Dose Route Start Last Admin Trade Name Suleimanq PRN Reason Stop Dose Admin Apixaban 5 mg 12/16/18 21:00 12/16/18 21:12 Eliquis PO 5 mg BID CORI Administration Ascorbic Acid 500 mg 12/17/18 09:00 Vitamin C PO QAM [facility] Atorvastatin Calcium 40 mg 12/16/18 21:00 12/16/18 21:12 Lipitor PO 40 mg HS CORI Administration Cholecalciferol 2,000 unit 12/17/18 09:00 Vitamin D3 (25 Mcg = 1000 Iu) PO QAM [facility] Clopidogrel Bisulfate 75 mg 12/16/18 21:00 12/16/18 21:14 Plavix PO 75 mg HS CORI Administration Cyanocobalamin 1,000 mcg 12/16/18 21:00 12/16/18 21:14 Vitamin B-12 PO 1,000 mcg BID CORI Administration Loratadine 10 mg 12/16/18 21:00 12/16/18 21:15 Claritin PO 10 mg HS CORI Administration Metoprolol Tartrate 50 mg 12/16/18 15:45 12/16/18 21:15 Lopressor PO 50 mg BID CORI Administration Montelukast Sodium 10 mg 12/16/18 21:00 12/16/18 21:14 Singulair PO 10 mg HS CORI Administration Multivitamins 1 each 12/17/18 09:00 Theragran PO QAM [facility] Nitroglycerin 0.4 mg 12/16/18 12:58 Nitrostat SUBLINGUAL Q5M PRN Chest Pain Non-Formulary Medication 5 mg 12/17/18 09:00 Alendronate Sodium [Fosamax] PO QAM [facility] Pantoprazole Sodium 40 mg 12/17/18 07:30 12/17/18 07:14 Protonix PO 40 mg [id number] [facility] Administration Prednisolone Acetate 1 drops 12/16/18 22:00 12/16/18 21:10 Pred Forte 1% BOTH EYES 1 drops QID [facility] Administration Pyridoxine HCl 100 mg 12/16/18 21:00 12/16/18 21:16 Vitamin B-6 PO 100 mg HS [facility] Administration Vitamin E 400 unit 12/17/18 09:00 Vitamin E PO DAILY [facility] Zinc Sulfate 220 mg 12/16/18 21:00 12/16/18 21:16 Orazinc PO Not Given BID [facility] Intake and Output 12/16/18 12/17/18 12/17/18 23:59 06:59 14:59 Intake Total Balance Intake: IV 0.9 Oral Other: Voiding Method # Voids Weight 12/16/18 10:50 12/16/18 10:50
== END 2018-12-17 16:11 | disposition home or self-care (01) ==
LOC: EC 10:18 → 3SCARD 13:07
PROVIDERS: ADMIT Internal Medicine; ATTEND Internal Medicine
DX: I48.0 Paroxysmal atrial fibrillation (principal); I11.9 Hypertensive heart disease without heart failure; I35.0 Nonrheumatic aortic (valve) stenosis; I25.10 Atherosclerotic heart disease of native coronary artery without angina pectoris; F41.9 Anxiety disorder, unspecified; M06.9 Rheumatoid arthritis, unspecified; E78.5 Hyperlipidemia, unspecified; G62.0 Drug-induced polyneuropathy; T45.1X5A Adverse effect of antineoplastic and immunosuppressive drugs, initial encounter; D64.9 Anemia, unspecified; J44.9 Chronic obstructive pulmonary disease, unspecified; K44.9 Diaphragmatic hernia without obstruction or gangrene; M19.90 Unspecified osteoarthritis, unspecified site; K21.9 Gastro-esophageal reflux disease without esophagitis; Z79.83 Long term (current) use of bisphosphonates; Z79.02 Long term (current) use of antithrombotics/antiplatelets; Z79.899 Other long term (current) drug therapy; Z88.8 Allergy status to other drugs, medicaments and biological substances; Z91.048 Other nonmedicinal substance allergy status; Z85.828 Personal history of other malignant neoplasm of skin; Z85.3 Personal history of malignant neoplasm of breast; I25.2 Old myocardial infarction; Z95.5 Presence of coronary angioplasty implant and graft; Z90.11 Acquired absence of right breast and nipple; Z94.7 Corneal transplant status; Z98.42 Cataract extraction status, left eye; Z98.41 Cataract extraction status, right eye; Z96.652 Presence of left artificial knee joint; Z80.7 Family history of other malignant neoplasms of lymphoid, hematopoietic and related tissues; Z80.0 Family history of malignant neoplasm of digestive organs; Z83.518 Family history of other specified eye disorder
CPT/HCPCS: 93005 ×2; 96376; 96365; 96366; 96375; 99284; 36415; 94760; 84439; 80061; 80053; 83735; 84443; 84484; 85025; 85610 ×2; 85730; 71046; G0378 ×2; J1644 ×2

== ENCOUNTER 2019-07-28 07:18 | Emergency (ER) | payer MEDICARE ==
[2019-07-28 07:33] VITALS: TEMP 98.4
[2019-07-28 07:52] VITALS: BP 120/90; PULSE 77; RESP 18
--- NOTE | 2019-07-28 08:00 | ED ---
General Adult HPI - General Chief complaint: Recheck/Abnormal Lab/Rx Stated complaint: hypertension Time Seen by Provider: 07/28/19 07:26 Source: patient, EMS, RN notes reviewed, old records reviewed Mode of arrival: EMS Limitations: no limitations - History of Present Illness Initial comments: 79-year-old female presenting for evaluation of rectal pain. Patient has had pain for the past 2 weeks. She has tried topical ointments without significant relief. She has contacted her primary care physician and has a colonoscopy scheduled. She is quite anxious because she has a family history of colon cancer. She states she had a colonoscopy 10 years ago and this was normal. She denies weight loss. She denies constitutional symptoms. She denies abdominal pain. She denies rectal bleeding. No vomiting. No fever. Patient states she has a bowel movement daily and it is loose because she takes a stool softener. No constipation. Additionally this pain is caused anxiety which she believes is increasing her blood pressure. She did not take her blood pressure medication yet this morning. - Related Data Home Medications Medication Instructions Recorded Confirmed Montelukast [Singulair] 10 mg PO HS 09/09/14 12/16/18 Omeprazole [PriLOSEC] 20 mg PO QAM 09/09/14 12/16/18 Ubidecarenone [Co Q-10] 100 mg PO QAM 09/03/15 12/16/18 Alendronate Sodium [Fosamax] 5 mg PO QAM 01/18/18 12/16/18 Aloe Lax 225 1 tab PO HS 01/18/18 12/16/18 Biotin 5,000 mcg PO QAM 01/18/18 12/16/18 Lutein 20 mg PO QAM 01/18/18 12/16/18 Potassium Iodide [SSKI Oral Liquid] 30 gm PO QAM 01/18/18 12/16/18 Prevagen Es 1 tab PO QAM 01/18/18 12/16/18 Pyridoxine HCl (Vitamin B6) 100 mg PO HS 01/18/18 12/16/18 [Vitamin B-6] Selenium 200 mcg PO HS 01/18/18 12/16/18 Vitamin E (Dl,Tocopheryl Acet) 400 unit PO DAILY 01/18/18 12/16/18 [Vitamin E] Zinc 50 mg PO BID 01/18/18 12/16/18 Cholecalciferol (Vitamin D3) 2,000 unit PO QAM 08/30/18 12/16/18 [Vitamin D3] Cyanocobalamin (Vitamin B-12) 1,000 mcg PO BID 08/30/18 12/16/18 [Vitamin B-12] Ginkgo Biloba [place] Extract [Ginkgo 60 mg PO QAM 08/30/18 12/16/18 Biloba] Lecithin, Soy [Lecithin] 400 mg PO BID 08/30/18 12/16/18 Nutroferon 1 tab PO BID 08/30/18 12/16/18 Cetirizine HCl [Zyrtec] 10 mg PO HS 12/16/18 12/16/18 Clopidogrel [Plavix] 75 mg PO HS 12/16/18 12/16/18 Multivitamins, Thera [Multivitamin 1 tab PO QAM 12/16/18 12/16/18 (formulary)] Vitamin B Complex 1 cap PO BID 12/16/18 12/16/18 Vitamin C 300mg 300 mg PO QAM 12/16/18 12/16/18 prednisoLONE ACETATE 1% OPHTH 1 drop BOTH EYES QID 12/16/18 12/16/18 [Pred Forte 1%] Previous Rx's Medication Instructions Recorded Atorvastatin [Lipitor] 40 mg PO HS #90 tab 10/13/18 Apixaban [Eliquis] 5 mg PO BID #60 tab 12/17/18 Metoprolol Tartrate [Lopressor] 50 mg PO BID #60 tab 12/17/18 Lidocaine [Lidocaine 5% Rectal 1 applic RECTAL TID PRN #15 gm 07/28/19 Cream] Allergies Allergy/AdvReac Type Severity Reaction Status Date / Time grass pollen-perennial rye, Allergy Itching Verified 12/16/18 11:09 standar diazepam [From Valium] AdvReac Rapid Verified 12/16/18 11:09 Heart Rate Review of Systems ROS Statement: Those systems with pertinent positive or pertinent negative responses have been documented in the HPI. ROS Other: All systems not noted in ROS Statement are negative. 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, "bad joints", anemia, History of Any Multi-Drug Resistant Organisms: None Reported Past Surgical History: Breast Surgery, Heart Catheterization With Stent, Orthopedic Surgery Additional Past Surgical History / Comment(s): RT MASTECTOMY, Eye surgery - bilateral corneal transplant x5, AND cataract removal, left knee replaced, heart cath with stent- 4 weeks, Past Anesthesia/Blood Transfusion Reactions: No Reported Reaction Date of Last Stent Placement:: 10/13/18 Past Psychological History: Anxiety Smoking Status: Never smoker Past Alcohol Use History: Occasional Past Drug Use History: None Reported - Past Family History Father Family Medical History: Cancer Additional Family Medical History / Comment(s): corneal dystrophy, colon cancer Mother Family Medical History: Cancer Additional Family Medical History / Comment(s): multiple myeloma Brother(s) Family Medical History: Cancer Additional Family Medical History / Comment(s): colon cancer, since past. Aneruysm. General Exam Limitations: no limitations General appearance: alert, in no apparent distress Head exam: Present: atraumatic, normocephalic Eye exam: Present: normal appearance, PERRL ENT exam: Present: normal exam Neck exam: Present: normal inspection. Absent: tenderness Respiratory exam: Present: normal lung sounds bilaterally. Absent: respiratory distress Cardiovascular Exam: Present: regular rate, normal rhythm GI/Abdominal exam: Present: soft. Absent: distended, tenderness, guarding Rectal exam: Present: normal inspection, normal rectal tone. Absent: black stool, bloody stool, fecal impaction, hemorrhoids, mass Extremities exam: Present: normal inspection, normal capillary refill. Absent: pedal edema Neurological exam: Present: alert, oriented X3, CN II-XII intact. Absent: motor sensory deficit Psychiatric exam: Present: normal affect, normal mood Skin exam: Present: warm, dry, intact. Absent: cyanosis, diaphoretic Course Vital Signs 07/28/19 07/28/19 07:19 07:51 Temperature 98.4 F Pulse Rate 71 77 Respiratory 16 18 Rate Blood Pressure 167/88 120/90 O2 Sat by Pulse 98 98 Oximetry Medical Decision Making - Medical Decision Making Rectal exam is negative for bleeding, I do not see any large seizure, normal rectal tone, no fecal impaction, no internal or external hemorrhoids, no thrombosed hemorrhoids. Patient has a scheduled colonoscopy and she has a primary care physician that she can follow-up with. Her blood pressure is initially high, however this normalized without treatment. She will be prescribed lidocaine rectal cream and is encouraged to maintain her appointment for colonoscopy and follow-up with her primary care physician. Disposition Clinical Impression: Anal pain Disposition: HOME SELF-CARE Condition: Fair Instructions (If sedation given, give patient instructions): Anal Fissure (ED) Prescriptions: Lidocaine [Lidocaine 5% Rectal Cream] 1 applic RECTAL TID PRN #15 gm PRN Reason: Pain Is patient prescribed a controlled substance at d/c from ED?: No Referrals: Cinthia Wynn MD [Primary Care Provider] - 1-2 days Time of Disposition: 07:55
== END 2019-07-28 08:05 | disposition home or self-care (01) ==
LOC: EC 07:18
DX: K62.89 Other specified diseases of anus and rectum (principal); I10 Essential (primary) hypertension; E78.5 Hyperlipidemia, unspecified; F41.9 Anxiety disorder, unspecified; I48.91 Unspecified atrial fibrillation; K21.9 Gastro-esophageal reflux disease without esophagitis; M19.90 Unspecified osteoarthritis, unspecified site; G62.9 Polyneuropathy, unspecified; D64.9 Anemia, unspecified; Z79.02 Long term (current) use of antithrombotics/antiplatelets; Z79.899 Other long term (current) drug therapy; Z88.8 Allergy status to other drugs, medicaments and biological substances; Z91.048 Other nonmedicinal substance allergy status; Z85.3 Personal history of malignant neoplasm of breast; Z85.828 Personal history of other malignant neoplasm of skin; Z90.11 Acquired absence of right breast and nipple; Z96.652 Presence of left artificial knee joint; Z95.5 Presence of coronary angioplasty implant and graft; Z80.0 Family history of malignant neoplasm of digestive organs
CPT/HCPCS: 99283

== ENCOUNTER 2019-08-05 01:46 | Emergency (ER) | payer MEDICARE ==
[2019-08-05 02:08] VITALS: RESP 18; TEMP 97.8
--- NOTE | 2019-08-05 03:29 | XR ---
EXAMINATION TYPE: XR chest 1V portable DATE OF EXAM: 08/05/2019 COMPARISON: 12/16/2018 HISTORY: Dysrhythmia TECHNIQUE: Single view. Heart is enlarged. There is no heart failure. Costophrenic angles are clear. There are chest leads. IMPRESSION: Mild cardiomegaly. Hiatal hernia noted. No acute lung disease. No significant change comp ared to old exam. No heart failure.
[2019-08-05 04:12] LABS: Basophils # (A) 0.1 k/uL (0-0.2); Basophils % (A) 1 %; Eosinophils # (A) 0.1 k/uL (0-0.7); Eosinophils % (A) 1 %; HCT 46.8 % (34.0-46.0); HGB 15.2 gm/dL (11.4-16.0); Lymphocytes % (A) 20 %; MCH 30.5 pg (25.0-35.0); MCHC 32.4 g/dL (31.0-37.0); MCV 94.2 fL (80.0-100.0); Mean Platelet Volume 8.2; Monocytes # (A) 0.9 k/uL (0-1.0); Monocytes % (A) 9 %; Neutrophils # (A) 6.7 k/uL (1.3-7.7); Neutrophils % (A) 67 %; Platelet Count 165 k/uL (150-450); RBC 4.97 m/uL (3.80-5.40); RDW 13.9 % (11.5-15.5); WBC 10.1 k/uL (3.8-10.6)
[2019-08-05 04:21] LABS: Albumin 4.6 g/dL (3.5-5.0); Calcium 9.5 mg/dL (8.4-10.2); Potassium 4.1 mmol/L (3.5-5.1); Total Bilirubin 0.5 mg/dL (0.2-1.3); Total Protein 8.1 g/dL (6.3-8.2)
[2019-08-05] MEDS ORDERED: METOPROLOL TARTRATE 50 MG TAB PO STA (05:05)
[2019-08-05 06:52] LABS: Color,Urine Light Yellow
[2019-08-05 06:53] LABS: Appearance,Urine Clear (Clear); Bilirubin,Urine Negative (Negative); Blood,Urine Negative (Negative); Glucose,Urine (UA) Negative (Negative); Ketones,Urine Negative (Negative); Leukocyte Esterase,Urine Negative (Negative); Nitrite,Urine Negative (Negative); Protein,Urine Negative (Negative); Specific Gravity,Urine 1.005 (1.001-1.035); Urobilinogen,Urine <2.0 mg/dL (<2.0)
[2019-08-05 07:02] VITALS: BP 194/78; PULSE 68
--- NOTE | 2019-08-05 07:03 | ED ---
Dizziness HPI - General Chief Complaint: Dizziness Stated Complaint: dizziness Time Seen by Provider: 08/05/19 02:59 Source: patient Mode of arrival: ambulatory Limitations: no limitations - History of Present Illness Initial Comments: This patient is an 79-year-old woman who presents to be evaluated for an episode of dizziness that she had. Patient states she had been at a graduation [employer] and participated in a catered meal. She states that when she got home she went to lie down and when she did she felt dizzy and off balance. She states that th is lasted perhaps a couple of minutes. She states that she also felt warm flushed feeling. The symptoms did resolve. She did not experience chest pain, palpitations, nausea or vomiting. She states she has had a about 3 episodes of this over the past 1-2 months. MD Complaint: dizziness -: minutes(s) Timing: sudden onset, now resolved Description: off-balance History of Same: Yes History of Trauma: No Severity: moderate Improves With: remaining still Worsens With: position Associated Symptoms: denies other symptoms - Related Data Home Medications Medication Instructions Recorded Confirmed Montelukast [Singulair] 10 mg PO HS 09/09/14 12/16/18 Omeprazole [PriLOSEC] 20 mg PO QAM 09/09/14 12/16/18 Ubidecarenone [Co Q-10] 100 mg PO QAM 09/03/15 12/16/18 Alendronate Sodium [Fosamax] 5 mg PO QAM 01/18/18 12/16/18 Aloe Lax 225 1 tab PO HS 01/18/18 12/16/18 Biotin 5,000 mcg PO QAM 01/18/18 12/16/18 Lutein 20 mg PO QAM 01/18/18 12/16/18 Potassium Iodide [SSKI Oral Liquid] 30 gm PO QAM 01/18/18 12/16/18 Prevagen Es 1 tab PO QAM 01/18/18 12/16/18 Pyridoxine HCl (Vitamin B6) 100 mg PO HS 01/18/18 12/16/18 [Vitamin B-6] Selenium 200 mcg PO HS 01/18/18 12/16/18 Vitamin E (Dl,Tocopheryl Acet) 400 unit PO DAILY 01/18/18 12/16/18 [Vitamin E] Zinc 50 mg PO BID 01/18/18 12/16/18 Cholecalciferol (Vitamin D3) 2,000 unit PO QAM 08/30/18 12/16/18 [Vitamin D3] Cyanocobalamin (Vitamin B-12) 1,000 mcg PO BID 08/30/18 12/16/18 [Vitamin B-12] Ginkgo Biloba [place] Extract [Ginkgo 60 mg PO QAM 08/30/18 12/16/18 Biloba] Lecithin, Soy [Lecithin] 400 mg PO BID 08/30/18 12/16/18 Nutroferon 1 tab PO BID 08/30/18 12/16/18 Cetirizine HCl [Zyrtec] 10 mg PO HS 12/16/18 12/16/18 Clopidogrel [Plavix] 75 mg PO HS 12/16/18 12/16/18 Multivitamins, Thera [Multivitamin 1 tab PO QAM 12/16/18 12/16/18 (formulary)] Vitamin B Complex 1 cap PO BID 12/16/18 12/16/18 Vitamin C 300mg 300 mg PO QAM 12/16/18 12/16/18 prednisoLONE ACETATE 1% OPHTH 1 drop BOTH EYES QID 12/16/18 12/16/18 [Pred Forte 1%] Previous Rx's Medication Instructions Recorded Atorvastatin [Lipitor] 40 mg PO HS #90 tab 10/13/18 Apixaban [Eliquis] 5 mg PO BID #60 tab 12/17/18 Metoprolol Tartrate [Lopressor] 50 mg PO BID #60 tab 12/17/18 Lidocaine [Lidocaine 5% Rectal 1 applic RECTAL TID PRN #15 gm 07/28/19 Cream] Allergies Allergy/AdvReac Type Severity Reaction Status Date / Time grass pollen-perennial rye, Allergy Itching Verified 08/05/19 02:08 standar diazepam [From Valium] AdvReac Rapid Verified 08/05/19 02:08 Heart Rate Review of Systems ROS Statement: Those systems with pertinent positive or pertinent negative responses have been documented in the HPI. ROS Other: All systems not noted in ROS Statement are negative. 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, "bad joints", anemia, History of Any Multi-Drug Resistant Organisms: None Reported Past Surgical History: Breast Surgery, Heart Catheterization With Stent, Orthopedic Surgery Additional Past Surgical History / Comment(s): RT MASTECTOMY, Eye surgery - bilateral corneal transplant x5, AND cataract removal, left knee replaced, heart cath with stent- 4 weeks, Past Anesthesia/Blood Transfusion Reactions: No Reported Reaction Date of Last Stent Placement:: 10/13/18 Past Psychological History: Anxiety Smoking Status: Never smoker Past Alcohol Use History: Occasional Past Drug Use History: None Reported - Past Family History Father Family Medical History: Cancer Additional Family Medical History / Comment(s): corneal dystrophy, colon cancer Mother Family Medical History: Cancer Additional Family Medical History / Comment(s): multiple myeloma Brother(s) Family Medical History: Cancer Additional Family Medical History / Comment(s): colon cancer, since past. Aneruysm. General Exam Limitations: no limitations General appearance: alert, in no apparent distress Head exam: Present: atraumatic, normocephalic Eye exam: Present: normal appearance. Absent: scleral icterus, conjunctival injection ENT exam: Present: normal oropharynx Respiratory exam: Present: normal lung sounds bilaterally. Absent: respiratory distress, wheezes, rales, rhonchi, stridor Cardiovascular Exam: Present: regular rate, normal rhythm, normal heart sounds. Absent: systolic murmur, diastolic murmur, rubs, gallop GI/Abdominal exam: Present: soft. Absent: distended, tenderness, guarding, re bound, rigid, mass Extremities exam: Present: normal inspection, normal capillary refill. Absent: pedal edema, calf tenderness Back exam: Present: normal inspection. Absent: CVA tenderness (R), CVA tenderness (L) Neurological exam: Present: alert, oriented X3, CN II-XII intact. Absent: motor sensory deficit Skin exam: Present: warm, dry, intact, normal color. Absent: rash Course Vital Signs 08/05/19 08/05/19 08/05/19 02:06 02:30 03:00 Temperature 97.8 F Pulse Rate 81 80 80 Respiratory 18 23 16 Rate Blood Pressure 185/95 193/90 199/110 O2 Sat by Pulse 96 95 96 Oximetry 08/05/19 08/05/19 08/05/19 03:30 04:00 05:00 Temperature Pulse Rate 71 71 72 Respiratory 18 18 18 Rate Blood Pressure 193/83 182/81 181/82 O2 Sat by Pulse 95 96 97 Oximetry 08/05/19 08/05/19 06:00 06:30 Temperature Pulse Rate 68 Respiratory 18 Rate Blood Pressure 193/84 194/78 O2 Sat by Pulse 99 Oximetry EKG Findings - EKG Results: EKG: interpreted by NOAH, sinus rhythm (Rate 69 bpm) - Blocks, [place], Hypertrophy, ST Abn: AV and intraventricular conduction: left bundle branch block (fixed/intermittent, complete/incomplete) Medical Decision Making - Medical Decision Making I discussed the findings with the patient and did offer to admit her to have monitoring analyst, serial troponins and cardiology consultation. The patient does state however that she is feeling much better and that she would like to go home. She is adamant that her symptoms were brought on by eating a catered meal which she states she suspects had much more salt than she is used to at home. The patient will return should her symptoms recur or any new symptoms develop. She is otherwise going to follow with her physician this week. - Lab Data Result diagrams: 08/05/19 03:54 08/05/19 03:54 Lab Results 08/05/19 08/05/19 08/05/19 Range/Units 03:37 03:54 03:54 WBC 10.1 (3.8-10.6) k/uL RBC 4.97 (3.80-5.40) m/uL Hgb 15.2 (11.4-16.0) gm/dL Hct 46.8 H (34.0-46.0) % MCV 94.2 (80.0-100.0) fL MCH 30.5 (25.0-35.0) pg MCHC 32.4 (31.0-37.0) g/dL RDW 13.9 (11.5-15.5) % Plt Count 165 (150-450) k/uL Neutrophils % 67 % Lymphocytes % 20 % Monocytes % 9 % Eosinophils % 1 % Basophils % 1 % Neutrophils # 6.7 (1.3-7.7) k/uL Lymphocytes # 2.0 (1.0-4.8) k/uL Monocytes # 0.9 (0-1.0) k/uL Eosinophils # 0.1 (0-0.7) k/uL Basophils # 0.1 (0-0.2) k/uL Sodium 141 (137-145) mmol/L Potassium 4.1 (3.5-5.1) mmol/L Chloride 107 (98-107) mmol/L Carbon Dioxide 24 (22-30) mmol/L Anion Gap 10 mmol/L BUN 28 H (7-17) mg/dL Creatinine 1.08 H (0.52-1.04) mg/dL Est GFR (CKD-EPI)AfAm 56 (>60 ml/min/1.73 sqM) Est GFR (CKD-EPI)NonAf 48 (>60 ml/min/1.73 sqM) Glucose 101 H (74-99) mg/dL Plasma Lactic Acid [place] (0.7-2.0) mmol/L Calcium 9.5 (8.4-10.2) mg/dL Total Bilirubin 0.5 (0.2-1.3) mg/dL AST 96 H (14-36) U/L ALT 88 H (4-34) U/L Alkaline Phosphatase 98 (38-126) U/L Troponin I (0.000-0.034) ng/mL Total Protein 8.1 (6.3-8.2) g/dL Albumin 4.6 (3.5-5.0) g/dL Urine Color Light Yellow Urine Appearance Clear (Clear) Urine pH 5.0 (5.0-8.0) Ur Specific [place] 1.005 (1.001-1.035) Urine Protein Negative (Negative) Urine Glucose (UA) Negative (Negative) Urine Ketones Negative (Negative) Urine Blood Negative (Negative) Urine Nitrite Negative (Negative) Urine Bilirubin Negative (Negative) Urine Urobilinogen <2.0 (<2.0) mg/dL Ur Leukocyte Esterase Negative (Negative) 08/05/19 08/05/19 Range/Units 03:54 03:54 WBC (3.8-10.6) k/uL RBC (3.80-5.40) m/uL Hgb (11.4-16.0) gm/dL Hct (34.0-46.0) % MCV (80.0-100.0) fL MCH (25.0-35.0) pg MCHC (31.0-37.0) g/dL RDW (11.5-15.5) % Plt Count (150-450) k/uL Neutrophils % % Lymphocytes % % Monocytes % % Eosinophils % % Basophils % % Neutrophils # (1.3-7.7) k/uL Lymphocytes # (1.0-4.8) k/uL Monocytes # (0-1.0) k/uL Eosinophils # (0-0.7) k/uL Basophils # (0-0.2) k/uL Sodium (137-145) mmol/L Potassium (3.5-5.1) mmol/L Chloride (98-107) mmol/L Carbon Dioxide (22-30) mmol/L Anion Gap mmol/L BUN (7-17) mg/dL Creatinine (0.52-1.04) mg/dL Est GFR (CKD-EPI)AfAm (>60 ml/min/1.73 sqM) Est GFR (CKD-EPI)NonAf (>60 ml/min/1.73 sqM) Glucose (74-99) mg/dL Plasma Lactic Acid [place] 1.2 (0.7-2.0) mmol/L Calcium (8.4-10.2) mg/dL Total Bilirubin (0.2-1.3) mg/dL AST (14-36) U/L ALT (4-34) U/L Alkaline Phosphatase (38-126) U/L Troponin I <0.012 (0.000-0.034) ng/mL Total Protein (6.3-8.2) g/dL Albumin (3.5-5.0) g/dL Urine Color Urine Appearance (Clear) Urine pH (5.0-8.0) Ur Specific [place] (1.001-1.035) Urine Protein (Negative) Urine Glucose (UA) (Negative) Urine Ketones (Negative) Urine Blood (Negative) Urine Nitrite (Negative) Urine Bilirubin (Negative) Urine Urobilinogen (<2.0) mg/dL Ur Leukocyte Esterase (Negative) Disposition Clinical Impression: Hypertension, Dizziness Disposition: HOME SELF-CARE Condition: Good Instructions (If sedation given, give patient instructions): Dizziness (ED) Is patient prescribed a controlled substance at d/c from ED?: No Referrals: Cinthia Wynn MD [Primary Care Provider] - 1-2 days
== END 2019-08-05 07:20 | disposition home or self-care (01) ==
LOC: EC 01:46
DX: I10 Essential (primary) hypertension (principal); R42 Dizziness and giddiness; F41.9 Anxiety disorder, unspecified; I48.91 Unspecified atrial fibrillation; K21.9 Gastro-esophageal reflux disease without esophagitis; E78.5 Hyperlipidemia, unspecified; G62.9 Polyneuropathy, unspecified; Z79.02 Long term (current) use of antithrombotics/antiplatelets; Z79.52 Long term (current) use of systemic steroids; Z79.899 Other long term (current) drug therapy; Z88.8 Allergy status to other drugs, medicaments and biological substances; Z95.5 Presence of coronary angioplasty implant and graft; Z85.3 Personal history of malignant neoplasm of breast; Z85.828 Personal history of other malignant neoplasm of skin; Z90.11 Acquired absence of right breast and nipple; Z96.652 Presence of left artificial knee joint; Z53.20 Procedure and treatment not carried out because of patient's decision for unspecified reasons; Z91.048 Other nonmedicinal substance allergy status; Z92.21 Personal history of antineoplastic chemotherapy
CPT/HCPCS: 36415; 71045; 80053; 81003; 83605; 84484; 85025; 93005; 99284

== ENCOUNTER 2019-08-05 12:24 | Emergency (ER) | payer MEDICARE ==
[2019-08-05 12:43] VITALS: TEMP 98
--- NOTE | 2019-08-05 13:45 | ED ---
Recheck HPI - General Chief Complaint: Recheck/Abnormal Lab/Rx Stated Complaint: High blood pressure Time Seen by Provider: 08/05/19 12:43 Source: patient, RN notes reviewed, old records reviewed Mode of arrival: ambulatory Limitations: no limitations - History of Present Illness Initial Comments: This 80-year-old female history of hypertension was seen here earlier this morning and released after she felt better and didn't want be admitted. Returns back here due to elevated blood pressure. She states she is very anxious states her blood pressure always 209/98. Blood pressure runs in the 120s over 70s she presented originally because she felt woozy and dizzy spells when she lies down. She does not have any complaints such as this at this time. No reports of any interval changes no fevers chills nausea vomiting sweats no focal weakness. No palpitations no other modifying factors - Related Data Home Medications Medication Instructions Recorded Confirmed Montelukast [Singulair] 10 mg PO HS 09/09/14 12/16/18 Omeprazole [PriLOSEC] 20 mg PO QAM 09/09/14 12/16/18 Ubidecarenone [Co Q-10] 100 mg PO QAM 09/03/15 12/16/18 Alendronate Sodium [Fosamax] 5 mg PO QAM 01/18/18 12/16/18 Aloe Lax 225 1 tab PO HS 01/18/18 12/16/18 Biotin 5,000 mcg PO QAM 01/18/18 12/16/18 Lutein 20 mg PO QAM 01/18/18 12/16/18 Potassium Iodide [SSKI Oral Liquid] 30 gm PO QAM 01/18/18 12/16/18 Prevagen Es 1 tab PO QAM 01/18/18 12/16/18 Pyridoxine HCl (Vitamin B6) 100 mg PO HS 01/18/18 12/16/18 [Vitamin B-6] Selenium 200 mcg PO HS 01/18/18 12/16/18 Vitamin E (Dl,Tocopheryl Acet) 400 unit PO DAILY 01/18/18 12/16/18 [Vitamin E] Zinc 50 mg PO BID 01/18/18 12/16/18 Cholecalciferol (Vitamin D3) 2,000 unit PO QAM 08/30/18 12/16/18 [Vitamin D3] Cyanocobalamin (Vitamin B-12) 1,000 mcg PO BID 08/30/18 12/16/18 [Vitamin B-12] Ginkgo Biloba [place] Extract [Ginkgo 60 mg PO QAM 08/30/18 12/16/18 Biloba] Lecithin, Soy [Lecithin] 400 mg PO BID 08/30/18 12/16/18 Nutroferon 1 tab PO BID 08/30/18 12/16/18 Cetirizine HCl [Zyrtec] 10 mg PO HS 12/16/18 12/16/18 Clopidogrel [Plavix] 75 mg PO HS 12/16/18 12/16/18 Multivitamins, Thera [Multivitamin 1 tab PO QAM 12/16/18 12/16/18 (formulary)] Vitamin B Complex 1 cap PO BID 12/16/18 12/16/18 Vitamin C 300mg 300 mg PO QAM 12/16/18 12/16/18 prednisoLONE ACETATE 1% OPHTH 1 drop BOTH EYES QID 12/16/18 12/16/18 [Pred Forte 1%] Previous Rx's Medication Instructions Recorded Atorvastatin [Lipitor] 40 mg PO HS #90 tab 10/13/18 Apixaban [Eliquis] 5 mg PO BID #60 tab 12/17/18 Metoprolol Tartrate [Lopressor] 50 mg PO BID #60 tab 12/17/18 Lidocaine [Lidocaine 5% Rectal 1 applic RECTAL TID PRN #15 gm 07/28/19 Cream] Allergies Allergy/AdvReac Type Severity Reaction Status Date / Time grass pollen-perennial rye, Allergy Itching Verified 08/05/19 12:43 standar diazepam [From Valium] AdvReac Rapid Verified 08/05/19 12:43 Heart Rate Review of Systems ROS Statement: Those systems with pertinent positive or pertinent negative responses have been documented in the HPI. ROS Other: All systems not noted in ROS Statement are negative. 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, "bad joints", anemia, History of Any Multi-Drug Resistant Organisms: None Reported Past Surgical History: Breast Surgery, Heart Catheterization With Stent, Orthopedic Surgery Additional Past Surgical History / Comment(s): RT MASTECTOMY, Eye surgery - bilateral corneal transplant x5, AND cataract removal, left knee replaced, heart cath with stent- 4 weeks, Past Anesthesia/Blood Transfusion Reactions: No Reported Reaction Date of Last Stent Placement:: 10/13/18 Past Psychological History: Anxiety Smoking Status: Never smoker Past Alcohol Use History: Occasional Past Drug Use History: None Reported - Past Family History Father Family Medical History: Cancer Additional Family Medical History / Comment(s): corneal dystrophy, colon cancer Mother Family Medical History: Cancer Additional Family Medical History / Comment(s): multiple myeloma Brother(s) Family Medical History: Cancer Additional Family Medical History / Comment(s): colon cancer, since past. Aneruysm. General Exam - General Exam Comments Initial Comments: This is a well-developed well-nourished awake alert oriented 3 female Limitations: no limitations General appearance: alert, anxious Head exam: Present: atraumatic, normocephalic, normal inspection Eye exam: Present: normal appearance, PERRL, EOMI. Absent: scleral icterus, conjunctival injection, periorbital swelling ENT exam: Present: normal exam, mucous membranes moist Neck exam: Present: normal inspection. Absent: tenderness, meningismus, lymph adenopathy Respiratory exam: Present: normal lung sounds bilaterally. Absent: respiratory distress, wheezes, rales, rhonchi, stridor Cardiovascular Exam: Present: regular rate, normal rhythm, normal heart sounds. Absent: systolic murmur, diastolic murmur, rubs, gallop, clicks GI/Abdominal exam: Present: soft, normal bowel sounds. Absent: distended, tenderness, guarding, rebound, rigid Extremities exam: Present: normal inspection, full ROM, normal capillary refill. Absent: tenderness, pedal edema, joint swelling, calf tenderness Back exam: Present: normal inspection Neurological exam: Present: alert, oriented X3, CN II-XII intact Psychiatric exam: Present: normal affect, normal mood Skin exam: Present: warm, dry, intact, normal color. Absent: rash Course Vital Signs 08/05/19 08/05/19 12:39 13:10 Temperature 98.0 F Pulse Rate 75 Respiratory 20 Rate Blood Pressure 186/83 183/81 O2 Sat by Pulse 97 Oximetry Medical Decision Making - Medical Decision Making Reevaluation patient finds that she is resting comfortably her blood pressure is improved we did a long discussion regarding the findings including the fact that she does appear clinically be somewhat dehydrated. She does admit that she ate a high salt diet yesterday additionally she did drink some wine mixed with other sparkling water. She will follow-up with her doctor tomorrow I did recommend in creasing her oral fluid intake. She is in agreement with this. - Lab Data Result diagrams: 08/05/19 13:40 Lab Results 08/05/19 08/05/19 Range/Units 13:40 13:40 Sodium 140 (137-145) mmol/L Potassium 3.9 (3.5-5.1) mmol/L Chloride 105 (98-107) mmol/L Carbon Dioxide 25 (22-30) mmol/L Anion Gap 10 mmol/L BUN 21 H (7-17) mg/dL Creatinine 0.95 (0.52-1.04) mg/dL Est GFR (CKD-EPI)AfAm 65 (>60 ml/min/1.73 sqM) Est GFR (CKD-EPI)NonAf 57 (>60 ml/min/1.73 sqM) Glucose 86 (74-99) mg/dL Calcium 9.6 (8.4-10.2) mg/dL Magnesium 2.1 (1.6-2.3) mg/dL Total Bilirubin 0.7 (0.2-1.3) mg/dL AST 58 H (14-36) U/L ALT 73 H (4-34) U/L Alkaline Phosphatase 97 (38-126) U/L Troponin I 0.012 (0.000-0.034) ng/mL Total Protein 7.7 (6.3-8.2) g/dL Albumin 4.5 (3.5-5.0) g/dL - EKG Data -: EKG Interpreted by Me (EKG shows sinus rhythm a 67) EKG Comments: EKG sinus rhythm a 67 left bundle-branch block pattern MO interval 170 QRS 146 QT since QTC 494/521 this is compared to the EKG done earlier this morning which shows no change Disposition Clinical Impression: Hypertension, Dehydration, Anxiety Disposition: HOME SELF-CARE Condition: Good Instructions (If sedation given, give patient instructions): Hypertension (ED), Dehydration (ED), Anxiety (ED) Is patient prescribed a controlled substance at d/c from ED?: No Referrals: Laming,Cinthia, MD [Primary Care Provider] - 1-2 days
[2019-08-05 14:58] LABS: Albumin 4.5 g/dL (3.5-5.0); Calcium 9.6 mg/dL (8.4-10.2); Magnesium 2.1 mg/dL (1.6-2.3); Potassium 3.9 mmol/L (3.5-5.1); Total Bilirubin 0.7 mg/dL (0.2-1.3); Total Protein 7.7 g/dL (6.3-8.2)
[2019-08-05 15:35] VITALS: RESP 16
[2019-08-05 15:38] VITALS: BP 140/88; PULSE 66
== END 2019-08-05 15:42 | disposition home or self-care (01) ==
LOC: EC 12:24
DX: I10 Essential (primary) hypertension (principal); E86.0 Dehydration; F41.9 Anxiety disorder, unspecified; I48.91 Unspecified atrial fibrillation; K21.9 Gastro-esophageal reflux disease without esophagitis; E78.5 Hyperlipidemia, unspecified; M19.90 Unspecified osteoarthritis, unspecified site; Z85.3 Personal history of malignant neoplasm of breast; Z85.828 Personal history of other malignant neoplasm of skin; Z79.899 Other long term (current) drug therapy; Z88.8 Allergy status to other drugs, medicaments and biological substances; Z91.048 Other nonmedicinal substance allergy status; Z80.0 Family history of malignant neoplasm of digestive organs; Z80.8 Family history of malignant neoplasm of other organs or systems; Z95.5 Presence of coronary angioplasty implant and graft; Z90.11 Acquired absence of right breast and nipple; Z98.42 Cataract extraction status, left eye; Z98.41 Cataract extraction status, right eye; Z96.652 Presence of left artificial knee joint
CPT/HCPCS: 36415; 80053; 83735; 84484; 93005; 99284

== ENCOUNTER 2019-08-11 03:35 | Emergency (ER) | payer MEDICARE ==
[2019-08-11 03:41] VITALS: TEMP 98.6
[2019-08-11] MEDS ORDERED: ONDANSETRON 4 MG/2 ML VIAL IVP STA (03:47)
[2019-08-11] MEDS ORDERED: SODIUM CHLORIDE 0.9% 1,000 ML IV STA ×2 (03:47)
--- NOTE | 2019-08-11 03:48 | ED ---
Weakness HPI - General Chief complaint: Nausea/Vomiting/Diarrhea Stated complaint: Nausea Time Seen by Provider: 08/11/19 03:38 Source: patient, EMS, RN notes reviewed, old records reviewed Mode of arrival: EMS Limitations: no limitations - History of Present Illness Initial comments: This is an 79-year-old female who presents today for nausea no vomiting some diarrhea lately and severe anxiety. Patient felt flushed not sweaty lightheaded. Patient did call primary care: [facility] established/fell. Patient states she has felt worsepatient has continued history of A. fib high blood pressure high cholesterol. He medications. Denies pain no chest pain shortness of breath or abdominal pain MD Complaint: generalized weakness (Anxiety with nausea) -: hour(s) Location: generalized Severity: mild Quality: constant (Although improving) Consistency: now resolved Improves with: none, evening Context: history of similar Associated Symptoms: denies other symptoms - Related Data Home Medications Medication Instructions Recorded Confirmed Montelukast [Singulair] 10 mg PO HS 09/09/14 12/16/18 Omeprazole [PriLOSEC] 20 mg PO QAM 09/09/14 12/16/18 Ubidecarenone [Co Q-10] 100 mg PO QAM 09/03/15 12/16/18 Alendronate Sodium [Fosamax] 5 mg PO QAM 01/18/18 12/16/18 Aloe Lax 225 1 tab PO HS 01/18/18 12/16/18 Biotin 5,000 mcg PO QAM 01/18/18 12/16/18 Lutein 20 mg PO QAM 01/18/18 12/16/18 Potassium Iodide [SSKI Oral Liquid] 30 gm PO QAM 01/18/18 12/16/18 Prevagen Es 1 tab PO QAM 01/18/18 12/16/18 Pyridoxine HCl (Vitamin B6) 100 mg PO HS 01/18/18 12/16/18 [Vitamin B-6] Selenium 200 mcg PO HS 01/18/18 12/16/18 Vitamin E (Dl,Tocopheryl Acet) 400 unit PO DAILY 01/18/18 12/16/18 [Vitamin E] Zinc 50 mg PO BID 01/18/18 12/16/18 Cholecalciferol (Vitamin D3) 2,000 unit PO QAM 08/30/18 12/16/18 [Vitamin D3] Cyanocobalamin (Vitamin B-12) 1,000 mcg PO BID 08/30/18 12/16/18 [Vitamin B-12] Ginkgo Biloba [place] Extract [Ginkgo 60 mg PO QAM 08/30/18 12/16/18 Biloba] Lecithin, Soy [Lecithin] 400 mg PO BID 08/30/18 12/16/18 Nutroferon 1 tab PO BID 08/30/18 12/16/18 Cetirizine HCl [Zyrtec] 10 mg PO HS 12/16/18 12/16/18 Clopidogrel [Plavix] 75 mg PO HS 12/16/18 12/16/18 Multivitamins, Thera [Multivitamin 1 tab PO QAM 12/16/18 12/16/18 (formulary)] Vitamin B Complex 1 cap PO BID 12/16/18 12/16/18 Vitamin C 300mg 300 mg PO QAM 12/16/18 12/16/18 prednisoLONE ACETATE 1% OPHTH 1 drop BOTH EYES QID 12/16/18 12/16/18 [Pred Forte 1%] Previous Rx's Medication Instructions Recorded Atorvastatin [Lipitor] 40 mg PO HS #90 tab 10/13/18 Apixaban [Eliquis] 5 mg PO BID #60 tab 12/17/18 Metoprolol Tartrate [Lopressor] 50 mg PO BID #60 tab 12/17/18 Lidocaine [Lidocaine 5% Rectal 1 applic RECTAL TID PRN #15 gm 07/28/19 Cream] Allergies Allergy/AdvReac Type Severity Reaction Status Date / Time grass pollen-perennial rye, Allergy Itching Verified 08/11/19 03:44 standar diazepam [From Valium] AdvReac Rapid Verified 08/11/19 03:44 Heart Rate Review of Systems ROS Statement: Those systems with pertinent positive or pertinent negative responses have been documented in the HPI. ROS Other: All systems not noted in ROS Statement are negative. 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, "bad joints", anemia, History of Any Multi-Drug Resistant Organisms: None Reported Past Surgical History: Breast Surgery, Heart Catheterization With Stent, Orthopedic Surgery Additional Past Surgical History / Comment(s): RT MASTECTOMY, Eye surgery - bilateral corneal transplant x5, AND cataract removal, left knee replaced, heart cath with stent- 4 weeks, Past Anesthesia/Blood Transfusion Reactions: No Reported Reaction Date of Last Stent Placement:: 10/13/18 Past Psychological History: Anxiety Smoking Status: Never smoker Past Alcohol Use History: None Reported Past Drug Use History: None Reported - Past Family History Father Family Medical History: Cancer Additional Family Medical History / Comment(s): corneal dystrophy, colon cancer Mother Family Medical History: Cancer Additional Family Medical History / Comment(s): multiple myeloma Brother(s) Family Medical History: Cancer Additional Family Medical History / Comment(s): colon cancer, since past. Aneruysm. General Exam General appearance: alert, in no apparent distress Head exam: Present: atraumatic, normocephalic, normal inspection Eye exam: Present: normal appearance, PERRL, EOMI. Absent: scleral icterus, conjunctival injection, periorbital swelling ENT exam: Present: normal exam, mucous membranes moist Neck exam: Present: normal inspection. Absent: tenderness, meningismus, lymphadenopathy Respiratory exam: Present: normal lung sounds bilaterally. Absent: respiratory distress, wheezes, rales, rhonchi, stridor Cardiovascular Exam: Present: regular rate, normal rhythm, normal heart sounds. Absent: systolic murmur, diastolic murmur, rubs, gallop, clicks GI/Abdominal exam: Present: soft, normal bowel sounds. Absent: distended, tenderness, guarding, rebound, rigid Extremities exam: Present: normal inspection, full ROM, normal capillary refill. Absent: tenderness, pedal edema, joint swelling, calf tenderness Back exam: Present: normal inspection Neurological exam: Present: alert, oriented X3, CN II-XII intact Psychiatric exam: Present: normal affect, normal mood Skin exam: Present: warm, dry, intact, normal color. Absent: rash Course Vital Signs 08/11/19 08/11/19 03:36 05:59 Temperature 98.6 F Pulse Rate 71 67 Respiratory 16 17 Rate Blood Pressure 116/95 131/63 O2 Sat by Pulse 97 97 Oximetry - Reevaluation(s) Reevaluation #1: Medical records reviewed Patient informed results and questions answered Medical Decision Making - Medical Decision Making 79 female DF for evaluation nausea vomiting some anxiety type symptoms. Patient symptoms are resolved here in the ER just feels good for discharge home - Lab Data Result diagrams: 08/11/19 04:26 08/11/19 04:26 Lab Results 08/11/19 08/11/19 08/11/19 Range/Units 04:26 04:26 04:26 WBC 9.9 (3.8-10.6) k/uL RBC 4.15 (3.80-5.40) m/uL Hgb 13.3 (11.4-16.0) gm/dL Hct 38.6 (34.0-46.0) % MCV 93.0 (80.0-100.0) fL MCH 32.2 (25.0-35.0) pg MCHC 34.6 (31.0-37.0) g/dL RDW 13.5 (11.5-15.5) % Plt Count 164 (150-450) k/uL Neutrophils % 70 % Lymphocytes % 17 % Monocytes % 9 % Eosinophils % 1 % Basophils % 0 % Neutrophils # 7.0 (1.3-7.7) k/uL Lymphocytes # 1.7 (1.0-4.8) k/uL Monocytes # 0.9 (0-1.0) k/uL Eosinophils # 0.1 (0-0.7) k/uL Basophils # 0.0 (0-0.2) k/uL PT 10.4 (9.0-12.0) sec INR 1.0 (<1.2) APTT 25.3 (22.0-30.0) sec Sodium 130 L (137-145) mmol/L Potassium 3.8 (3.5-5.1) mmol/L Chloride 100 (98-107) mmol/L Carbon Dioxide 22 (22-30) mmol/L Anion Gap 8 mmol/L BUN 28 H (7-17) mg/dL Creatinine 0.87 (0.52-1.04) mg/dL Est GFR (CKD-EPI)AfAm 72 (>60 ml/min/1.73 sqM) Est GFR (CKD-EPI)NonAf 63 (>60 ml/min/1.73 sqM) Glucose 107 H (74-99) mg/dL Plasma Lactic Acid William (0.7-2.0) mmol/L Calcium 8.8 (8.4-10.2) mg/dL Phosphorus 3.4 (2.5-4.5) mg/dL Magnesium 1.9 (1.6-2.3) mg/dL Total Bilirubin 0.6 (0.2-1.3) mg/dL AST 33 (14-36) U/L ALT 24 (4-34) U/L Alkaline Phosphatase 66 (38-126) U/L Creatine Kinase 201 H (30-135) U/L Troponin I (0.000-0.034) ng/mL NT-Pro-B Natriuret Pep pg/mL Total Protein 6.8 (6.3-8.2) g/dL Albumin 3.9 (3.5-5.0) g/dL Urine Color Urine Appearance (Clear) Urine pH (5.0-8.0) Ur Specific Devine (1.001-1.035) Urine Protein (Negative) Urine Glucose (UA) (Negative) Urine Ketones (Negative) Urine Blood (Negative) Urine Nitrite (Negative) Urine Bilirubin (Negative) Urine Urobilinogen (<2.0) mg/dL Ur Leukocyte Esterase (Negative) 08/11/19 08/11/19 08/11/19 Range/Units 04:26 04:26 04:26 WBC (3.8-10.6) k/uL RBC (3.80-5.40) m/uL Hgb (11.4-16.0) gm/dL Hct (34.0-46.0) % MCV (80.0-100.0) fL MCH (25.0-35.0) pg MCHC (31.0-37.0) g/dL RDW (11.5-15.5) % Plt Count (150-450) k/uL Neutrophils % % Lymphocytes % % Monocytes % % Eosinophils % % Basophils % % Neutrophils # (1.3-7.7) k/uL Lymphocytes # (1.0-4.8) k/uL Monocytes # (0-1.0) k/uL Eosinophils # (0-0.7) k/uL Basophils # (0-0.2) k/uL PT (9.0-12.0) sec INR (<1.2) APTT (22.0-30.0) sec Sodium (137-145) mmol/L Potassium (3.5-5.1) mmol/L Chloride (98-107) mmol/L Carbon Dioxide (22-30) mmol/L Anion Gap mmol/L BUN (7-17) mg/dL Creatinine (0.52-1.04) mg/dL Est GFR (CKD-EPI)AfAm (>60 ml/min/1.73 sqM) Est GFR (CKD-EPI)NonAf (>60 ml/min/1.73 sqM) Glucose (74-99) mg/dL Plasma Lactic Acid William 1.2 (0.7-2.0) mmol/L Calcium (8.4-10.2) mg/dL Phosphorus (2.5-4.5) mg/dL Magnesium (1.6-2.3) mg/dL Total Bilirubin (0.2-1.3) mg/dL AST (14-36) U/L ALT (4-34) U/L Alkaline Phosphatase (38-126) U/L Creatine Kinase (30-135) U/L Troponin I <0.012 (0.000-0.034) ng/mL NT-Pro-B Natriuret Pep 1060 pg/mL Total Protein (6.3-8.2) g/dL Albumin (3.5-5.0) g/dL Urine Color Urine Appearance (Clear) Urine pH (5.0-8.0) Ur Specific Devine (1.001-1.035) Urine Protein (Negative) Urine Glucose (UA) (Negative) Urine Ketones (Negative) Urine Blood (Negative) Urine Nitrite (Negative) Urine Bilirubin (Negative) Urine Urobilinogen (<2.0) mg/dL Ur Leukocyte Esterase (Negative) 08/11/19 Range/Units 04:33 WBC (3.8-10.6) k/uL RBC (3.80-5.40) m/uL Hgb (11.4-16.0) gm/dL Hct (34.0-46.0) % MCV (80.0-100.0) fL MCH (25.0-35.0) pg MCHC (31.0-37.0) g/dL RDW (11.5-15.5) % Plt Count (150-450) k/uL Neutrophils % % Lymphocytes % % Monocytes % % Eosinophils % % Basophils % % Neutrophils # (1.3-7.7) k/uL Lymphocytes # (1.0-4.8) k/uL Monocytes # (0-1.0) k/uL Eosinophils # (0-0.7) k/uL Basophils # (0-0.2) k/uL PT (9.0-12.0) sec INR (<1.2) APTT (22.0-30.0) sec Sodium (137-145) mmol/L Potassium (3.5-5.1) mmol/L Chloride (98-107) mmol/L Carbon Dioxide (22-30) mmol/L Anion Gap mmol/L BUN (7-17) mg/dL Creatinine (0.52-1.04) mg/dL Est GFR (CKD-EPI)AfAm (>60 ml/min/1.73 sqM) Est GFR (CKD-EPI)NonAf (>60 ml/min/1.73 sqM) Glucose (74-99) mg/dL Plasma Lactic Acid William (0.7-2.0) mmol/L Calcium (8.4-10.2) mg/dL Phosphorus (2.5-4.5) mg/dL Magnesium (1.6-2.3) mg/dL Total Bilirubin (0.2-1.3) mg/dL AST (14-36) U/L ALT (4-34) U/L Alkaline Phosphatase (38-126) U/L Creatine Kinase (30-135) U/L Troponin I (0.000-0.034) ng/mL NT-Pro-B Natriuret Pep pg/mL Total Protein (6.3-8.2) g/dL Albumin (3.5-5.0) g/dL Urine Color Light Yellow Urine Appearance Clear (Clear) Urine pH 5.0 (5.0-8.0) Ur Specific Devine 1.008 (1.001-1.035) Urine Protein Negative (Negative) Urine Glucose (UA) Negative (Negative) Urine Ketones Negative (Negative) Urine Blood Negative (Negative) Urine Nitrite Negative (Negative) Urine Bilirubin Negative (Negative) Urine Urobilinogen <2.0 (<2.0) mg/dL Ur Leukocyte Esterase Negative (Negative) - Radiology Data Radiology results: report reviewed (Chest x-rays negative for acute disease), image reviewed Disposition Clinical Impression: Anxiety, Dehydration, Nausea Disposition: HOME SELF-CARE Condition: Good Instructions (If sedation given, give patient instructions): Acute Nausea and Vomiting (ED), Anxiety (ED) Is patient prescribed a controlled substance at d/c from ED?: No Referrals: Cinthia Wynn MD [Primary Care Provider] - 1-2 days
[2019-08-11 04:35] LABS: Basophils % (A) 0 %; Eosinophils # (A) 0.1 k/uL (0-0.7); Eosinophils % (A) 1 %; HCT 38.6 % (34.0-46.0); HGB 13.3 gm/dL (11.4-16.0); Lymphocytes # (A) 1.7 k/uL (1.0-4.8); Lymphocytes % (A) 17 %; MCH 32.2 pg (25.0-35.0); MCHC 34.6 g/dL (31.0-37.0); Mean Platelet Volume 8.3; Monocytes # (A) 0.9 k/uL (0-1.0); Monocytes % (A) 9 %; Neutrophils % (A) 70 %; Platelet Count 164 k/uL (150-450); RBC 4.15 m/uL (3.80-5.40); RDW 13.5 % (11.5-15.5); WBC 9.9 k/uL (3.8-10.6)
[2019-08-11 04:42] LABS: Appearance,Urine Clear (Clear); Bilirubin,Urine Negative (Negative); Blood,Urine Negative (Negative); Color,Urine Light Yellow; Glucose,Urine (UA) Negative (Negative); Ketones,Urine Negative (Negative); Leukocyte Esterase,Urine Negative (Negative); Nitrite,Urine Negative (Negative); Protein,Urine Negative (Negative); Specific Gravity,Urine 1.008 (1.001-1.035); Urobilinogen,Urine <2.0 mg/dL (<2.0)
[2019-08-11 04:46] LABS: Albumin 3.9 g/dL (3.5-5.0); Calcium 8.8 mg/dL (8.4-10.2); Magnesium 1.9 mg/dL (1.6-2.3); Partial Thromboplastin Time 25.3 sec (22.0-30.0); Phosphorus 3.4 mg/dL (2.5-4.5); Potassium 3.8 mmol/L (3.5-5.1); Prothrombin Time 10.4 sec (9.0-12.0); Total Bilirubin 0.6 mg/dL (0.2-1.3); Total Protein 6.8 g/dL (6.3-8.2)
--- NOTE | 2019-08-11 04:48 | XR ---
EXAMINATION TYPE: XR chest 2V DATE OF EXAM: 08/11/2019 COMPARISON: 08/05/2019 HISTORY: Dizziness weakness TECHNIQUE: FINDINGS: There is no heart failure nor confluent pneumonic infiltrate. There is large hiatal hernia. There is stent at the aortic valve. Bony thorax is intact. IMPRESSION: No active cardiopulmonary disease. Hiatal hernia. No change.
[2019-08-11 07:06] VITALS: BP 131/63; PULSE 67; RESP 17
== END 2019-08-11 06:00 | disposition home or self-care (01) ==
LOC: EC 03:35
DX: E86.0 Dehydration (principal); F41.9 Anxiety disorder, unspecified; K21.9 Gastro-esophageal reflux disease without esophagitis; E78.5 Hyperlipidemia, unspecified; I10 Essential (primary) hypertension; M19.90 Unspecified osteoarthritis, unspecified site; Z79.02 Long term (current) use of antithrombotics/antiplatelets; Z79.899 Other long term (current) drug therapy; Z88.8 Allergy status to other drugs, medicaments and biological substances; Z91.048 Other nonmedicinal substance allergy status; Z80.0 Family history of malignant neoplasm of digestive organs; Z85.3 Personal history of malignant neoplasm of breast; Z85.820 Personal history of malignant melanoma of skin; Z98.41 Cataract extraction status, right eye; Z85.828 Personal history of other malignant neoplasm of skin; Z90.11 Acquired absence of right breast and nipple; Z96.652 Presence of left artificial knee joint; Z95.5 Presence of coronary angioplasty implant and graft; Z98.42 Cataract extraction status, left eye
CPT/HCPCS: 99284; 96374; 96361; 36415; 83880; 80053; 82550; 83605; 83735; 84100; 84484; 85025; 85610; 85730; 81003; 71046; J2405

== ENCOUNTER 2019-10-11 19:41 | Inpatient (IN) | payer MEDICARE ==
[2019-10-11] MEDS ORDERED: NITROGLYCERIN-D5W PMX 50 MG in DEXTROSE/WATER 1 250ML.BAG IV ONE (20:00)
[2019-10-11] MEDS ORDERED: FUROSEMIDE 10 MG/ML 4 ML VIAL IV STA (20:00)
--- NOTE | 2019-10-11 20:05 | ED ---
General Adult HPI - General Chief complaint: Altered Mental Status Stated complaint: Weakness Time Seen by Provider: 10/11/19 19:48 Source: patient Mode of arrival: EMS Limitations: no limitations - History of Present Illness Initial comments: Dictation was produced using [employer] dictation software. please excuse any grammatical, word or spelling errors. This patient was cared for during a federal and state declared state of emergency secondary to Covid 19 Chief Complaint: 79 Year old female multiple comorbidities presents with dyspnea and altered mental status. History of Present Illness: A 79-year-old female she has multiple comorbidities. She has past history A. fib cancer, dyslipidemia hypertension. Patient presents today with acute onset dyspnea and altered mental status. Patient is a poor historian at this time. According to EMS she was also have a colonoscopy tomorrow. Unclear who called EMS. Patient states she can't breathe. She states she does have a mild cough. She denies any pain complaints. EMS reports the patient isn't hypoxic. She was given supplemental oxygen. The ROS documented in this emergency department record has been reviewed and confirmed by me. Those systems with pertinent positive or negative responses have been documented in the HPI. All other systems are other negative and/or noncontributory. PHYSICAL EXAM: General Impression: Alert and oriented x3/4, tachypneic, noisy breathing, HEENT: Normocephalic atraumatic, extra-ocular movements intact, pupils equal and reactive to light bilaterally, mucous membranes moist. Cardiovascular: Heart regular rate and rhythm Chest: 2-3 word sentences, diffuse bilateral rhonchi Abdomen: abdomen soft, non-tender, non-distended, no organomegaly Musculoskeletal: Pulses present and equal in all extremities, 2+ pitting edema bilateral lower extremities Motor: no focal deficits noted Neurological: CN II-XII grossly intact, no focal motor or sensory deficits noted, confused Skin: Intact with no visualized rashes Psych: Not tested ED course: 79 yo Female presents with severe dyspnea. There is also history the patient is confused. As upon arrival shows respiratory rate of 28, 80% oxygen saturation on 2 L nasal cannula, blood pressure 200/111. Clinical presentation concerning for acute decompensated heart failure. Point of care bedside ultrasound shows diffuse B lines to bilateral lung wells. BiPAP was ordered. Patient ordered for nitroglycerin and Lasix.CBC shows leukocytosis of 19.7. Blood gas shows pH of 7.34, oxygen saturation 314 with 100% FiO2. PCO2 43. Bicarb of 23. Metabolic panel shows sodium 124, potassium 3.4. There is mild anion gap acidosis. Glucose 146. Magnesium 1.5. Troponin 0.054. Brain tim ruretic peptide 923. Chest x-ray shows severe pulmonary edema. Computed tomography scan of the brain shows no acute processes. Patient reevaluated after several minutes of BiPAP, Lasix and nitroglycerin. She does appear significantly improved. Patient is alert and oriented 4. Her mentation appe ars to be significantly improved. Blood pressures improved. Case was discussed with was willing to accept patients care. Patient will be admitted to telemetry with cardiology consultation. EKG interpretation: Ventricular rate 100, normal sinus rhythm, LA interval 186, QRS 156, QTC 506. No LA prolongation, no QTC prolongation, no ST or T-wave changes noted. EKG compared to 08/05/2019 showing no changes. Overall, this EKG is unremarkable - Related Data Home Medications Medication Instructions Recorded Confirmed Montelukast [Singulair] 10 mg PO HS 09/09/14 12/16/18 Omeprazole [PriLOSEC] 20 mg PO QAM 09/09/14 12/16/18 Ubidecarenone [Co Q-10] 100 mg PO QAM 09/03/15 12/16/18 Alendronate Sodium [Fosamax] 5 mg PO QAM 01/18/18 12/16/18 Aloe Lax 225 1 tab PO HS 01/18/18 12/16/18 Biotin 5,000 mcg PO QAM 01/18/18 12/16/18 Lutein 20 mg PO QAM 01/18/18 12/16/18 Potassium Iodide [SSKI Oral Liquid] 30 gm PO QAM 01/18/18 12/16/18 Prevagen Es 1 tab PO QAM 01/18/18 12/16/18 Pyridoxine HCl (Vitamin B6) 100 mg PO HS 01/18/18 12/16/18 [Vitamin B-6] Selenium 200 mcg PO HS 01/18/18 12/16/18 Vitamin E (Dl,Tocopheryl Acet) 400 unit PO DAILY 01/18/18 12/16/18 [Vitamin E] Zinc 50 mg PO BID 01/18/18 12/16/18 Cholecalciferol (Vitamin D3) 2,000 unit PO QAM 08/30/18 12/16/18 [Vitamin D3] Cyanocobalamin (Vitamin B-12) 1,000 mcg PO BID 08/30/18 12/16/18 [Vitamin B-12] Ginkgo Biloba [place] Extract [Ginkgo 60 mg PO QAM 08/30/18 12/16/18 Biloba] Lecithin, Soy [Lecithin] 400 mg PO BID 08/30/18 12/16/18 Nutroferon 1 tab PO BID 08/30/18 12/16/18 Cetirizine HCl [Zyrtec] 10 mg PO HS 12/16/18 12/16/18 Clopidogrel [Plavix] 75 mg PO HS 12/16/18 12/16/18 Multivitamins, Thera [Multivitamin 1 tab PO QAM 12/16/18 12/16/18 (formulary)] Vitamin B Complex 1 cap PO BID 12/16/18 12/16/18 Vitamin C 300mg 300 mg PO QAM 12/16/18 12/16/18 prednisoLONE ACETATE 1% OPHTH 1 drop BOTH EYES QID 12/16/18 12/16/18 [Pred Forte 1%] Previous Rx's Medication Instructions Recorded Atorvastatin [Lipitor] 40 mg PO HS #90 tab 10/13/18 Apixaban [Eliquis] 5 mg PO BID #60 tab 12/17/18 Metoprolol Tartrate [Lopressor] 50 mg PO BID #60 tab 12/17/18 Lidocaine [Lidocaine 5% Rectal 1 applic RECTAL TID PRN #15 gm 07/28/19 Cream] Allergies Allergy/AdvReac Type Severity Reaction Status Date / Time grass pollen-perennial rye, Allergy Itching Verified 08/30/19 08:38 standar diazepam [From Valium] AdvReac Rapid Verified 08/30/19 08:38 Heart Rate Review of Systems ROS Statement: Those systems with pertinent positive or pertinent negative responses have been documented in the HPI. ROS Other: All systems not noted in ROS Statement are negative. 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, "bad joints", anemia, History of Any Multi-Drug Resistant Organisms: None Reported Past Surgical History: Breast Surgery, Heart Catheterization With Stent, Orthopedic Surgery Additional Past Surgical History / Comment(s): RT MASTECTOMY, Eye surgery - bilateral corneal transplant x5, AND cataract removal, left knee replaced, heart cath with stent- 4 weeks, Past Anesthesia/Blood Transfusion Reactions: No Reported Reaction Date of Last Stent Placement:: 10/13/18 Past Psychological History: Anxiety Smoking Status: Never smoker Past Alcohol Use History: None Reported Past Drug Use History: None Reported - Past Family History Father Family Medical History: Cancer Additional Family Medical History / Comment(s): corneal dystrophy, colon cancer Mother Family Medical History: Cancer Additional Family Medical History / Comment(s): multiple myeloma Brother(s) Family Medical History: Cancer Additional Family Medical History / Comment(s): colon cancer, since past. Aneru ysm. General Exam Limitations: no limitations Course Vital Signs 10/11/19 10/11/19 10/11/19 19:50 20:05 20:22 Temperature 98.4 F Pulse Rate 100 96 92 Respiratory 28 H 30 H 24 Rate Blood Pressure 200/111 198/116 146/86 O2 Sat by Pulse 80 L 96 97 Oximetry 10/11/19 21:18 Temperature Pulse Rate 93 Respiratory 25 H Rate Blood Pressure 142/79 O2 Sat by Pulse 97 Oximetry Medical Decision Making - Lab Data Result diagrams: 10/11/19 19:58 10/11/19 20:38 Lab Results 10/11/19 10/11/19 10/11/19 Range/Units 19:58 19:58 19:58 WBC 19.7 H (3.8-10.6) k/uL RBC 4.79 (3.80-5.40) m/uL Hgb 15.1 (11.4-16.0) gm/dL Hct 45.2 (34.0-46.0) % MCV 94.4 (80.0-100.0) fL MCH 31.6 (25.0-35.0) pg MCHC 33.5 (31.0-37.0) g/dL RDW 13.2 (11.5-15.5) % Plt Count 208 (150-450) k/uL Neutrophils % 80 % Lymphocytes % 10 % Monocytes % 8 % Eosinophils % 1 % Basophils % 0 % Neutrophils # 15.8 H (1.3-7.7) k/uL Lymphocytes # 2.0 (1.0-4.8) k/uL Monocytes # 1.6 H (0-1.0) k/uL Eosinophils # 0.1 (0-0.7) k/uL Basophils # 0.0 (0-0.2) k/uL Sample Site ABG pH (7.35-7.45) ABG pCO2 (35-45) mmHg ABG pO2 (83-108) mmHg ABG HCO3 (21-25) mmol/L ABG Total CO2 (19-24) mmol/L ABG O2 Saturation (94-97) % ABG Base Excess mmol/L Paulo Test FiO2 % Sodium (137-145) mmol/L Potassium (3.5-5.1) mmol/L Chloride (98-107) mmol/L Carbon Dioxide (22-30) mmol/L Anion Gap mmol/L BUN (7-17) mg/dL Creatinine (0.52-1.04) mg/dL Est GFR (CKD-EPI)AfAm (>60 ml/min/1.73 sqM) Est GFR (CKD-EPI)NonAf (>60 ml/min/1.73 sqM) Glucose (74-99) mg/dL POC Glucose (mg/dL) (75-99) mg/dL POC Glu Limo Driver ID Plasma Lactic Acid William 2.0 (0.7-2.0) mmol/L Calcium (8.4-10.2) mg/dL Magnesium (1.6-2.3) mg/dL Total Bilirubin (0.2-1.3) mg/dL AST (14-36) U/L ALT (4-34) U/L Alkaline Phosphatase (38-126) U/L Troponin I 0.054 H* (0.000-0.034) ng/mL NT-Pro-B Natriuret Pep pg/mL Total Protein (6.3-8.2) g/dL Albumin (3.5-5.0) g/dL 10/11/19 10/11/19 10/11/19 Range/Units 19:58 20:14 20:38 WBC (3.8-10.6) k/uL RBC (3.80-5.40) m/uL Hgb (11.4-16.0) gm/dL Hct (34.0-46.0) % MCV (80.0-100.0) fL MCH (25.0-35.0) pg MCHC (31.0-37.0) g/dL RDW (11.5-15.5) % Plt Count (150-450) k/uL Neutrophils % % Lymphocytes % % Monocytes % % Eosinophils % % Basophils % % Neutrophils # (1.3-7.7) k/uL Lymphocytes # (1.0-4.8) k/uL Monocytes # (0-1.0) k/uL Eosinophils # (0-0.7) k/uL Basophils # (0-0.2) k/uL Sample Site ABG pH (7.35-7.45) ABG pCO2 (35-45) mmHg ABG pO2 (83-108) mmHg ABG HCO3 (21-25) mmol/L ABG Total CO2 (19-24) mmol/L ABG O2 Saturation (94-97) % ABG Base Excess mmol/L Paulo Test FiO2 % Sodium 124 L (137-145) mmol/L Potassium 3.4 L (3.5-5.1) mmol/L Chloride 91 L (98-107) mmol/L Carbon Dioxide 20 L (22-30) mmol/L Anion Gap 13 mmol/L BUN 16 (7-17) mg/dL Creatinine 0.94 (0.52-1.04) mg/dL Est GFR (CKD-EPI)AfAm 66 (>60 ml/min/1.73 sqM) Est GFR (CKD-EPI)NonAf 57 (>60 ml/min/1.73 sqM) Glucose 146 H (74-99) mg/dL POC Glucose (mg/dL) 142 H (75-99) mg/dL POC Glu Limo Driver ID Berta Burleson Plasma Lactic Acid William (0.7-2.0) mmol/L Calcium 8.1 L (8.4-10.2) mg/dL Magnesium 1.5 L (1.6-2.3) mg/dL Total Bilirubin 0.7 (0.2-1.3) mg/dL AST 33 (14-36) U/L ALT 20 (4-34) U/L Alkaline Phosphatase 74 (38-126) U/L Troponin I (0.000-0.034) ng/mL NT-Pro-B Natriuret Pep 923 pg/mL Total Protein 6.8 (6.3-8.2) g/dL Albumin 4.0 (3.5-5.0) g/dL 10/11/19 Range/Units 20:43 WBC (3.8-10.6) k/uL RBC (3.80-5.40) m/uL Hgb (11.4-16.0) gm/dL Hct (34.0-46.0) % MCV (80.0-100.0) fL MCH (25.0-35.0) pg MCHC (31.0-37.0) g/dL RDW (11.5-15.5) % Plt Count (150-450) k/uL Neutrophils % % Lymphocytes % % Monocytes % % Eosinophils % % Basophils % % Neutrophils # (1.3-7.7) k/uL Lymphocytes # (1.0-4.8) k/uL Monocytes # (0-1.0) k/uL Eosinophils # (0-0.7) k/uL Basophils # (0-0.2) k/uL Sample Site r brach ABG pH 7.34 L (7.35-7.45) ABG pCO2 43 (35-45) mmHg ABG pO2 314 H (83-108) mmHg ABG HCO3 23 (21-25) mmol/L ABG Total CO2 24 (19-24) mmol/L ABG O2 Saturation 99.4 H (94-97) % ABG Base Excess -3.1 mmol/L Paulo Test na FiO2 100 % Sodium (137-145) mmol/L Potassium (3.5-5.1) mmol/L Chloride (98-107) mmol/L Carbon Dioxide (22-30) mmol/L Anion Gap mmol/L BUN (7-17) mg/dL Creatinine (0.52-1.04) mg/dL Est GFR (CKD-EPI)AfAm (>60 ml/min/1.73 sqM) Est GFR (CKD-EPI)NonAf (>60 ml/min/1.73 sqM) Glucose (74-99) mg/dL POC Glucose (mg/dL) (75-99) mg/dL POC Glu Limo Driver ID Plasma Lactic Acid William (0.7-2.0) mmol/L Calcium (8.4-10.2) mg/dL Magnesium (1.6-2.3) mg/dL Total Bilirubin (0.2-1.3) mg/dL AST (14-36) U/L ALT (4-34) U/L Alkaline Phosphatase (38-126) U/L Troponin I (0.000-0.034) ng/mL NT-Pro-B Natriuret Pep pg/mL Total Protein (6.3-8.2) g/dL Albumin (3.5-5.0) g/dL Disposition Clinical Impression: Heart failure, Hypertensive emergency Disposition: ADMITTED IP TO THIS HOSP Condition: Fair Referrals: Cinthia Wynn MD [Primary Care Provider] - 1-2 days Decision Time: 21:28
[2019-10-11] MEDS: NITROGLYCERIN SL TABS 0.4 MG TAB SUBLINGUAL PRN ×2 (20:06→20:07)
[2019-10-11 20:16] LABS: Basophils % (A) 0 %; Eosinophils # (A) 0.1 k/uL (0-0.7); Eosinophils % (A) 1 %; HCT 45.2 % (34.0-46.0); HGB 15.1 gm/dL (11.4-16.0); Lymphocytes % (A) 10 %; MCH 31.6 pg (25.0-35.0); MCHC 33.5 g/dL (31.0-37.0); MCV 94.4 fL (80.0-100.0); Mean Platelet Volume 10.6; Monocytes # (A) 1.6 k/uL (0-1.0); Monocytes % (A) 8 %; Neutrophils # (A) 15.8 k/uL (1.3-7.7); Neutrophils % (A) 80 %; Platelet Count 208 k/uL (150-450); RBC 4.79 m/uL (3.80-5.40); RDW 13.2 % (11.5-15.5); WBC 19.7 k/uL (3.8-10.6)
[2019-10-11] MEDS ORDERED: METOCLOPRAMIDE 5 MG/ML 2 ML VIAL IVP STA (20:16)
[2019-10-11 20:17] LABS: Glucose,Whole Blood 142 mg/dL (75-99)
[2019-10-11 20:46] LABS: ABG Base Excess -3.1 mmol/L; ABG HCO3 23 mmol/L (21-25); ABG Oxygen Saturation 99.4 % (94-97); ABG PCO2 43 mmHg (35-45); ABG PH 7.34 (7.35-7.45); ABG PO2 314 mmHg (83-108); ABG TCO2 24 mmol/L (19-24)
[2019-10-11 20:59] LABS: Calcium 8.1 mg/dL (8.4-10.2); Magnesium 1.5 mg/dL (1.6-2.3); Potassium 3.4 mmol/L (3.5-5.1); Total Bilirubin 0.7 mg/dL (0.2-1.3); Total Protein 6.8 g/dL (6.3-8.2)
--- NOTE | 2019-10-11 21:03 | XR ---
EXAMINATION: XR chest 1V portable DATE AND TIME: 10/11/2019 8:19 PM CLINICAL INDICATION: PHH; dyspnea TECHNIQUE: AP upright portable COMPARISON: 08/11/2019 FINDINGS: There is a new and striking lung parenchymal pattern throughout the upper and mid and lower lungs symmetrically - a fine reticular pattern of increased relation with obliterates the pulmonary vasculature bilaterally throughout the lungs. There is no sherie lung consolidation or major atelectasis. No pneumothorax or other abnormal gas collection. The cardiac silhouette appears mildly enlarged. Aortic valve prosthesis noted. The remainder of the m ediastinal silhouette is unremarkable. The skeletal structures and soft tissues are negative for acute findings. IMPRESSION: SEVERE INTERSTITIAL PHASE PULMONARY EDEMA PATTERN, PRESUMABLY CARDIOGENIC ETIOLOGY.
[2019-10-11] MEDS ORDERED: NITROGLYCERIN OINT 1 INCH/GM PACKET TOPICAL STA (21:23)
[2019-10-11 21:24] LABS: Appearance,Urine Clear (Clear); Bilirubin,Urine Negative (Negative); Blood,Urine Negative (Negative); Color,Urine Light Yellow; Glucose,Urine (UA) Negative (Negative); Ketones,Urine Negative (Negative); Leukocyte Esterase,Urine Negative (Negative); Nitrite,Urine Negative (Negative); Protein,Urine Negative (Negative); Specific Gravity,Urine 1.007 (1.001-1.035); Urobilinogen,Urine <2.0 mg/dL (<2.0)
--- NOTE | 2019-10-11 21:26 | CT ---
EXAMINATION: CT brain wo con DATE AND TIME: 10/11/2019 9:04 PM CLINICAL INDICATION: PHH; altered mental status TECHNIQUE: Standard departmental protocol.; DLP: 1099.4 mGy-cm. COMPARISON: 01/18/2018 FINDINGS: The calvarium is intact. There is no intracranial hemorrhage. There is no intracranial mass or mass effect. No definite new intra-axial or extra-axial attenuation defect. The previously seen multifocal deep wh ite matter hypodensities on the 2017 study is redemonstrated and similar in appearance. The paranasal sinuses, middle ear cavities, and mastoid sinus air cells are clear. The orbits are unr emarkable. IMPRESSION: No definite acute process.
[2019-10-11] MEDS: FUROSEMIDE 10 MG/ML 4 ML VIAL IV SCH (21:30)
[2019-10-11 21:33] LABS: Partial Thromboplastin Time 24.1 sec (22.0-30.0); Prothrombin Time 10.5 sec (9.0-12.0)
[2019-10-12] MEDS ORDERED: HYDROcodone/APAP 5-325MG 1 EACH TAB PO PRN (00:01)
[2019-10-12] MEDS: hydrALAZINE HCL 25 MG TAB PO SCH ×3 (00:19→19:54)
--- NOTE | 2019-10-12 01:02 | US ---
EXAMINATION TYPE: US venous doppler duplex LE DATE OF EXAM: 10/12/2019 12:44 AM COMPARISON: NONE CLINICAL HISTORY: leg pain . SOB, leg pain SIDE PERFORMED: Bilateral TECHNIQUE: The lower extremity deep venous system is examined utilizing real time linear array sonog nacho with graded compression, doppler sonography and color-flow sonography. VESSELS IMAGED: External Iliac Vein (EIV) Common Femoral Vein Deep Femoral Vein Greater Saphenous Vein * Femoral Vein Popliteal Vein Small Saphenous Vein * Proximal Calf Veins (* superficial vessels) Right Leg: Appears Negative for DVT Left Leg: Appears Negative for DVT IMPRESSION: No evidence of deep vein thrombosis in both legs.
[2019-10-12] MEDS: ALPRAZolam 0.25 MG TAB PO PRN ×4 (01:04→22:55)
[2019-10-12] MEDS ORDERED: ONDANSETRON 4 MG/2 ML VIAL IVP PRN (02:43)
[2019-10-12] MEDS: FUROSEMIDE 10 MG/ML 4 ML VIAL IV SCH (08:12)
[2019-10-12 08:31] LABS: Calcium 8.4 mg/dL (8.4-10.2); Magnesium 1.5 mg/dL (1.6-2.3); Potassium 3.5 mmol/L (3.5-5.1)
[2019-10-12] MEDS ORDERED: NON FORMULARY DRUG (Vitamin B Complex [Vitamin B Complex] 1 CAP) PO SCH (09:00)
[2019-10-12] MEDS ORDERED: NON FORMULARY DRUG (Ubidecarenone [Co Q-10] 100 MG) PO SCH (09:00)
[2019-10-12] MEDS ORDERED: NON FORMULARY DRUG (Biotin [Biotin] 5,000 MCG) PO SCH (09:00)
--- NOTE | 2019-10-12 11:00 | ECHOF ---
Referral Reason:lv function, chf, elevated trop MEASUREMENTS -------- HEIGHT: 160.0 cm WEIGHT: 69.4 kg BP: IVSd: 1.5 cm (0.6 - 1.1) LVIDd: 3.1 cm (3.9 - 5.3) LVPWd: 1.5 cm (0.6 - 1.1) IVSs: 1.5 cm LVIDs: 2.6 cm LVPWs: 1.7 cm LAESV Index (A-L): 23.21 ml/m MV EXCURSION: 15.965 mm (> 18.000) MV EF SLOPE: 24 mm/s (70 - 150) EPSS: 1.2 cm MV E Malik: 0.72 m/s MV DecT: 357 ms MV A Malik: 1.14 m/s MV E/A Ratio: 0.62 AV maxP.98 mmHg AV meanP.18 mmHg RAP: 5.00 mmHg RVSP: 13.37 mmHg FINDINGS -------- Sinus rhythm. This was a technically difficult study with suboptimal views. The left ventricular size is normal. There is moderate concentric left ventricular hypertrophy. O verall left ventricular systolic function is low-normal with, an EF between 50 - 55 %. The diastoli c filling pattern is normal for the age of the patient 19.99. Normal LAP Grade 1 Diastolic Dysfunct ion. The right ventricle is normal in size. Normal LA size by volume 22+/-6 ml/m2. The right atrial size is normal. Lumason used The aortic valve was not well visualized. Peak/mean gradient across the Aortic Valve is 15.98mmHg / 11.18mmHg. Normally functioning bioprosthetic valve. TAVR procedure done Moderate mitral annular calcification present. Mild mitral regurgitation is present. The tricuspid valve appears structurally normal. Mild tricuspid regurgitation present. Right vent ricular systolic pressure is normal at < 35 mmHg. The pulmonic valve was not well visualized. Trace/mild (physiologic) pulmonic regurgitation. The aortic root size is normal. IVC Not well visulized. Echo free space may represent effusion or a pericardial fat pad. CONCLUSIONS -------- 1. The left ventricular size is normal. 2. There is moderate concentric left ventricular hypertrophy. 3. Overall left ventricular systolic function is low-normal with, an EF between 50 - 55 %. 4. Normal LAP Grade 1 Diastolic Dysfunction. 5. Normal LA size by volume 22+/-6 ml/m2. 6. Peak/mean gradient across the Aortic Valve is 15.98mmHg / 11.18mmHg. 7. Normally functioning bioprosthetic valve. 8. TAVR procedure done 9. Moderate mitral annular calcification present. 10. Mild mitral regurgitation is present. 11. Mild tricuspid regurgitation present. 12. Trace/mild (physiologic) pulmonic regurgitation. STORAGE RECEIPT POSTER: Flor Lucas RDCS
[2019-10-12] MEDS: ASCORBIC ACID 500 MG TAB PO SCH (11:15)
[2019-10-12] MEDS: MAGNESIUM SULFATE-D5W PMX 1 GM in DEXTROSE/WATER 1 100ML.BAG IVPB SCH ×3 (11:15→14:58)
[2019-10-12] MEDS: CYANOCOBALAMIN 500 MCG TAB PO SCH ×2 (11:16→19:55)
[2019-10-12] MEDS: MULTIVITAMINS, THERA 1 EACH TAB PO SCH (11:16)
[2019-10-12] MEDS: CHOLECALCIFEROL 1,000 UNIT TAB PO SCH (11:16)
[2019-10-12] MEDS: APIXABAN 5 MG TAB PO SCH ×2 (11:16→19:55)
[2019-10-12] MEDS: ESCITALOPRAM 10 MG TAB PO SCH (11:16)
[2019-10-12] MEDS: POTASSIUM CHLORIDE ER 20 MEQ TAB.ER PO SCH ×2 (11:16→13:23)
[2019-10-12] MEDS: VITAMIN E (DL,TOCOPHERYL ACET) 400 UNIT CAP PO SCH (11:17)
[2019-10-12] MEDS: BISOPROLOL-HCTZ 5-6.25 MG 1 EACH TAB PO SCH (11:17)
[2019-10-12] MEDS: ZINC SULFATE 220 MG CAP PO SCH (11:17)
[2019-10-12 11:53] LABS: Albumin 4.1 g/dL (3.5-5.0); Calcium 8.5 mg/dL (8.4-10.2); Total Bilirubin 1.1 mg/dL (0.2-1.3); Total Protein 6.8 g/dL (6.3-8.2)
[2019-10-12 12:50] LABS: Potassium 3.4 mmol/L (3.5-5.1)
--- NOTE | 2019-10-12 13:17 | P.CRDCN ---
History of Present Illness Consult date: 10/12/19 History of present illness: CHIEF COMPLAINT: CHF HISTORY OF PRESENT ILLNESS: 79-year-old female with a history of coronary art gil disease, atrial fibrillation, hypertension, and hyperlipidemia who presented to the emergency room via EMS secondary to altered mental status, nausea, vomiting, and abdominal pain. Patient follows in the office with Dr. James. Patient examined this morning at the bedside. She is a poor historian. Patients family member is at the bedside and providing the majority of the HPI. She states patient was scheduled for a colonoscopy today at an outpatient surgery center. She was doing her bowel prep when she began to have nausea, vomiting, and abdominal discomfort. The patient checked her blood pressure and found it to be elevated. The patient has a history of anxiety and her anxiety apparently i ncreased yesterday during this time. EMS was called who brought the patient to the ER. Patients family member states she received a fluid bolus in the emergency room secondary to her having vomiting at home. Per the family member, she began having shortness of breath after she received the IV fluid bolus. This morning, the patient denies shortness of breath. She denies chest pain. She is complaining of leg cramps. Patient underwent a cardiac catheterization 2019 with a stent placement to the left circumflex. Patient also went a TAVR secondary to aortic stenosis at [facility] in 2019. DIAGNOSTICS: EKG reveals sinus rhythm with left bundle-branch block. BBB evident in EKG from 2019, but EKG in 2019 do not reveal BBB Chest xray severe interstitial pulmonary edema Venous Doppler: Negative for DVT Laboratory data: WBC 19.7. Hemoglobin 15.1. Platelet count 208. D-dimer 1.17. Sodium 125. Potassium 3.5. BUN 15. Creatinine 0.95. Magnesium 1.5. BNP 923. Troponin 0.054. 0.186. 0.268. Current home cardiac medications include bisoprolol-HCTZ 5-6.25mg, Plavix 75 mg daily, Lipitor 40 mg daily, Eliquis 5 mg twice a day REVIEW OF SYSTEMS: CONSTITUTIONAL: Denies fever or chills. HEENT: Denies blurred vision, vision changes, or eye pain. Denies hemoptysis CARDIOVASCULAR: Denies chest pain, orthopnea, PND or palpitations RESPIRATORY: No shortness of breath. GASTROINTESTINAL: Denies abdominal pain. Reports nausea or vomiting yesterday. HEMATOLOGIC: Denies bleeding disorders. GENITOURINARY: Denies any blood in urine. SKIN: Denies pruitis. Denies rash. PHYSICAL EXAM: VITAL SIGNS: Reviewed. GENERAL: Well-developed in no acute distress. HEENT: Head is normocephalic. Pupils are equal, round. Sclerae anicteric. Mucous membranes of the mouth are moist. Neck supple. No JVD or thyromegaly LUNGS: Respirations even and unlabored. Lungs essentially clear to auscultation bilaterally. HEART: Regular rate and rhythm. S1 and S2 heard. ABDOMEN: Soft. Nondistended. Nontender. EXTREMITIES: Normal range of motion. No clubbing or cyanosis. Peripheral pulses intact. 1-2+ bilateral lower extremity edema NEUROLOGIC: Awake and alert. Oriented x 2. ASSESSMENT: 1. Acute exacerbation of diastolic congestive heart failure with pulmonary edema per CXR, most recent echo in 2019 reveals EF 60% 2. Paroxysmal atrial fibrillation, on long-term anticoagulation with Eliquis 3. Coronary artery disease with previous stent placement to the left circumflex 4. History of aortic stenosis, status post TAVR 5. Hypertension 6. Hyperlipidemia 7. Acute kidney injury 8. Abnormal troponins, no evidence of acute coronary syndrome PLAN: -Decrease IV Lasix to 40 mg once daily instead of BID -Monitor kidney function -Daily weights -Accurate intake and output -Replace potassium and magnesium -Repeat 2D echocardiogram to assess cardiac structure and function Nurse practitioner note has been reviewed by physician. Signing provider agrees with the documented findings, assessment, and plan of care. 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 Patient has small house doesn't need anything to ambulate. Handrails on bathtub. Smoking Status: Never smoker Past Alcohol Use History: None Reported Additional Past Alcohol Use History / Comment(s): Wine or rum and coke. Past Drug Use History: None Reported Additional Drug Use History / Comment(s): CBD oil occasionally. - Past Family History Father Family Medical History: Cancer Additional Family Medical History / Comment(s): corneal dystrophy, colon cancer Mother Family Medical History: Cancer Additional Family Medical History / Comment(s): multiple myeloma Brother(s) Family Medical History: Cancer Additional Family Medical History / Comment(s): colon cancer, since past. Aneruysm. Medications and Allergies Home Medications Medication Instructions Recorded Confirmed Type Montelukast [Singulair] 10 mg PO HS 09/09/14 10/11/19 History Omeprazole [PriLOSEC] 20 mg PO QAM 09/09/14 10/11/19 History Ubidecarenone [Co Q-10] 100 mg PO QAM 09/02/10/11/19 History Biotin 5,000 mcg PO QAM 01/18/18 10/11/19 History Pyridoxine HCl (Vitamin B6) 100 mg PO HS 01/18/18 10/11/19 History [Vitamin B-6] Vitamin E (Dl,Tocopheryl Acet) 400 unit PO DAILY 01/18/18 10/11/19 History [Vitamin E] Zinc 50 mg PO BID 01/18/18 10/11/19 History Cholecalciferol (Vitamin D3) 2,000 unit PO QAM 08/30/18 10/11/19 History [Vitamin D3] Cyanocobalamin (Vitamin B-12) 1,000 mcg PO BID 08/30/18 10/11/19 History [Vitamin B-12] Atorvastatin [Lipitor] 40 mg PO HS #90 tab 10/13/18 10/11/19 Rx Cetirizine HCl [Zyrtec] 10 mg PO HS 12/16/18 10/11/19 History Clopidogrel [Plavix] 75 mg PO HS 12/16/18 10/11/19 History Multivitamins, Thera [Multivitamin 1 tab PO QAM 12/16/18 10/11/19 History (formulary)] Vitamin B Complex 1 cap PO BID 12/16/18 10/11/19 History prednisoLONE ACETATE 1% OPHTH 1 drop BOTH EYES QID 12/16/18 10/11/19 History [Pred Forte 1%] Apixaban [Eliquis] 5 mg PO BID #60 tab 12/17/18 10/11/19 Rx ALPRAZolam [Xanax] 0.125 mg PO BID PRN 10/11/19 10/11/19 History Alendronate Sodium [Fosamax] 5 mg PO DAILY 10/11/19 10/11/19 History Ascorbic Acid [Vitamin C] 1,000 mg PO DAILY 10/11/19 10/11/19 History Bisoprolol-Hctz 5-6.25 mg [Ziac 1 tab PO DAILY 10/11/19 10/11/19 History 5-6.25 MG] Escitalopram [Lexapro] 10 mg PO DAILY 10/11/19 10/11/19 History Allergies Allergy/AdvReac Type Severity Reaction Status Date / Time grass pollen-perennial rye, Allergy Itching Verified 10/11/19 22:04 standar diazepam [From Valium] AdvReac Rapid Verified 10/11/19 22:04 Heart Rate Physical Exam Vitals: Vital Signs Temp Pulse Pulse Resp BP BP Pulse Ox 10/12/19 08:00 98.3 F 70 20 131/63 97 10/12/19 04:00 80 22 148/68 98 10/12/19 00:00 88 22 169/78 98 10/11/19 22:12 98.5 F 94 18 187/81 98 10/11/19 21:42 92 25 H 133/75 98 10/11/19 21:18 93 25 H 142/79 97 10/11/19 20:22 92 24 146/86 97 10/11/19 20:05 96 30 H 198/116 96 10/11/19 19:50 98.4 F 100 28 H 200/111 80 L Intake and Output 10/11/19 10/12/19 10/12/19 22:59 06:59 14:59 Other: Voiding Method Indwelling Catheter Weight 68.039 kg 69.4 kg Results 10/11/19 19:58 10/12/19 11:20 Cardiac Enzymes 10/11/19 10/11/19 10/11/19 Range/Units 19:58 20:38 22:51 AST 33 (14-36) U/L Troponin I 0.054 H* 0.186 H* (0.000-0.034) ng/mL 10/12/19 Range/Units 00:59 AST (14-36) U/L Troponin I 0.268 H* (0.000-0.034) ng/mL Coagulation 10/11/19 Range/Units 20:38 PT 10.5 (9.0-12.0) sec APTT 24.1 (22.0-30.0) sec CBC 10/11/19 Range/Units 19:58 WBC 19.7 H (3.8-10.6) k/uL RBC 4.79 (3.80-5.40) m/uL Hgb 15.1 (11.4-16.0) gm/dL Hct 45.2 (34.0-46.0) % Plt Count 208 (150-450) k/uL Comprehensive Metabolic Panel 10/11/19 08 Range/Units 20:38 00:59 Sodium 124 L 125 L (137-145) mmol/L Potassium 3.4 L 3.5 (3.5-5.1) mmol/L Chloride 91 L 90 L (98-107) mmol/L Carbon Dioxide 20 L 21 L (22-30) mmol/L BUN 16 15 (7-17) mg/dL Creatinine 0.94 0.95 (0.52-1.04) mg/dL Glucose 146 H 131 H (74-99) mg/dL Calcium 8.1 L 8.4 (8.4-10.2) mg/dL AST 33 (14-36) U/L ALT 20 (4-34) U/L Alkaline Phosphatase 74 (38-126) U/L Total Protein 6.8 (6.3-8.2) g/dL Albumin 4.0 (3.5-5.0) g/dL Current Medications Generic Name Dose Route Start Last Admin Trade Name Freq PRN Reason Stop Dose Admin Hydrocodone Bitart/Acetaminophen 1 each 10/12/19 00:01 10/12/19 00:18 [place] 5-325 PO 1 each Q6HR PRN Administration Pain Alprazolam 0.125 mg 10/12/19 00:53 10/12/19 01:04 Xanax PO 0.125 mg BID PRN Administration Anxiety Alprazolam 0.25 mg 10/12/19 02:43 10/12/19 04:00 Xanax PO 0.25 mg QID PRN Administration Anxiety Apixaban 5 mg 10/12/19 09:00 Eliquis PO BID [facility] Ascorbic Acid 1,000 mg 10/12/19 09:00 Vitamin C PO DAILY [facility] Atorvastatin Calcium 40 mg 10/12/19 21:00 Lipitor PO HS [facility] Bisoprolol Fumarate 1 each 10/12/19 09:00 Ziac 5-6.25 PO DAILY [facility] Cholecalciferol 2,000 unit 10/12/19 09:00 Vitamin D3 (25 Mcg = 1000 Iu) PO QAM [facility] Clopidogrel Bisulfate 75 mg 10/12/19 21:00 Plavix PO HS [facility] Cyanocobalamin 1,000 mcg 10/12/19 09:00 Vitamin B-12 PO BID [facility] Escitalopram Oxalate 10 mg 10/12/19 09:00 Lexapro PO DAILY [facility] Furosemide 40 mg 10/11/19 21:30 10/12/19 08:12 Lasix IV 40 mg Q12H [facility] Administration Hydralazine HCl 25 mg 10/12/19 00:15 10/12/19 08:12 Apresoline PO 25 mg BID [facility] Administration Loratadine 10 mg 10/12/19 21:00 Claritin PO HS [facility] Montelukast Sodium 10 mg 10/12/19 21:00 Singulair PO HS [facility] Multivitamins 1 each 10/12/19 09:00 Theragran PO QAM [facility] Nitroglycerin 0.4 mg 10/11/19 20:00 10/11/19 20:07 Nitrostat SUBLINGUAL 0.4 mg Q10M PRN Administration Chest Pain Ondansetron HCl 4 mg 10/12/19 02:43 10/12/19 03:09 Zofran IVP 4 mg Q6HR PRN Administration Nausea And Vomiting Pantoprazole Sodium 40 mg 10/13/19 07:30 Protonix PO AC-BRKFST [facility] Prednisolone Acetate 1 drops 10/12/19 09:00 Pred Forte 1% BOTH EYES QID [facility] Pyridoxine HCl 100 mg 10/12/19 21:00 Vitamin B-6 PO HS [facility] Vitamin E 400 unit 10/12/19 09:00 Vitamin E PO DAILY [facility] Zinc Sulfate 220 mg 10/12/19 09:00 Orazinc PO DAILY [facility] Intake and Output 10/11/19 10/12/19 10/12/19 22:59 06:59 14:59 Other: Voiding Method Indwelling Catheter Weight 68.039 kg 69.4 kg 10/11/19 19:58 10/12/19 00:59
--- NOTE | 2019-10-12 13:40 | P.CNPUL ---
History of Present Illness Consult date: 10/12/19 Requesting physician: Hailey Martínez Reason for consult: dyspnea, abnormal CXR/CT Chief complaint: Altered mental status, hypertensive emergency, shortness of breath History of present illness: 79-year-old white female patient of Dr. Marielos Wynn, with past medical history of paroxysmal A. fib on Eliquis, recent history of TAVR at the [facility], hypertension, hyperlipidemia, coronary artery disease with previous stenting, anxiety, never smoker, who was preparing for a colonoscopy, and started having severe diarrhea, vomiting, felt very dehydrated. EMS was called, as the patient developed dyspnea, altered mentation. She was given some IV fluids as it was felt that she was very dehydrated. Patient stated that she has some mild cough, denies any chest pain. She was hypoxic, with pulse ox of 80% on room air, she's been afebrile, hemodynamically she is stable. Chest x-ray showed severe interstitial face pulmonary edema. Labs have been reviewed, showing limited cell count 19.7, hemoglobin of 15.1, serum sodium was 124, potassium is 3.4, chloride is 91, CO2 is 20, BUN of 16, creatinine 0.94, troponins were positive at 0.054, 0.186, and 0.268, proBNP was 923, urinalysis w as negative. Patient was started on IV Lasix, she did require BiPAP support last week, she has diuresed overnight, currently on nasal cannula at 4 L, with a pulse ox of 98%. Echocardiogram was completed, showing EF of 50-55%, moderate concentric left ventricular hypertrophy, aortic valve was not well visualized, peak/mean gradient across the aortic valve was 15.9/11.1 mmHg. Is a normally functioning bioprosthetic valve, status post TAVR. A d-dimer was mildly elevated at 1.1, the patient is on chronic anticoagulation with Eliquis. Lower extremity Dopplers were negative. On presentation patient was extremely hypertensive the blood pressure of 200/111, patient was restarted on her medicat ions, and hydralazine and Lasix were started, patient has diuresed, and feeling better this morning. Review of Systems All systems: negative Constitutional: Denies chills, Denies fever Eyes: denies blurred vision, denies pain Ears, nose, mouth and throat: Denies headache, Denies sore throat Cardiovascular: Denies chest pain, Denies shortness of breath Respiratory: Reports dyspnea, Denies cough Gastrointestinal: Denies abdominal pain, Denies diarrhea, Denies nausea, Denies vomiting Genitourinary: Denies dysuria, Denies hematuria Musculoskeletal: Denies myalgias Integumentary: Denies pruritus, Denies rash Neurological: Denies numbness, Denies weakness Psychiatric: Denies anxiety, Denies depression Endocrine: Denies fatigue, Denies weight change 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 Patient has small house doesn't need anything to ambulate. Handrails on bathtub. Smoking Status: Never smoker Past Alcohol Use History: None Reported Additional Past Alcohol Use History / Comment(s): Wine or rum and coke. Past Drug Use History: None Reported Additional Drug Use History / Comment(s): CBD oil occasionally. - Past Family History Father Family Medical History: Cancer Additional Family Medical History / Comment(s): corneal dystrophy, colon cancer Mother Family Medical History: Cancer Additional Family Medical History / Comment(s): multiple myeloma Brother(s) Family Medical History: Cancer Additional Family Medical History / Comment(s): colon cancer, since past. Aneruysm. Medications and Allergies Home Medications Medication Instructions Recorded Confirmed Type Montelukast [Singulair] 10 mg PO HS 09/09/14 10/11/19 History Omeprazole [PriLOSEC] 20 mg PO QAM 09/09/14 10/11/19 History Ubidecarenone [Co Q-10] 100 mg PO QAM 09/03/15 10/11/19 History Biotin 5,000 mcg PO QAM 01/18/18 10/11/19 History Pyridoxine HCl (Vitamin B6) 100 mg PO HS 01/18/18 10/11/19 History [Vitamin B-6] Vitamin E (Dl,Tocopheryl Acet) 400 unit PO DAILY 01/18/18 10/11/19 History [Vitamin E] Zinc 50 mg PO BID 01/18/18 10/11/19 History Cholecalciferol (Vitamin D3) 2,000 unit PO QAM 08/30/18 10/11/19 History [Vitamin D3] Cyanocobalamin (Vitamin B-12) 1,000 mcg PO BID 08/30/18 10/11/19 History [Vitamin B-12] Atorvastatin [Lipitor] 40 mg PO HS #90 tab 10/13/18 10/11/19 Rx Cetirizine HCl [Zyrtec] 10 mg PO HS 12/16/18 10/11/19 History Clopidogrel [Plavix] 75 mg PO HS 12/16/18 10/11/19 History Multivitamins, Thera [Multivitamin 1 tab PO QAM 12/16/18 10/11/19 History (formulary)] Vitamin B Complex 1 cap PO BID 12/16/18 10/11/19 History prednisoLONE ACETATE 1% OPHTH 1 drop BOTH EYES QID 12/16/18 10/11/19 History [Pred Forte 1%] Apixaban [Eliquis] 5 mg PO BID #60 tab 12/17/18 10/11/19 Rx ALPRAZolam [Xanax] 0.125 mg PO BID PRN 10/11/19 10/11/19 History Alendronate Sodium [Fosamax] 5 mg PO DAILY 10/11/19 10/11/19 History Ascorbic Acid [Vitamin C] 1,000 mg PO DAILY 10/11/19 10/11/19 History Bisoprolol-Hctz 5-6.25 mg [Ziac 1 tab PO DAILY 10/11/19 10/11/19 History 5-6.25 MG] Escitalopram [Lexapro] 10 mg PO DAILY 10/11/19 10/11/19 History Allergies Allergy/AdvReac Type Severity Reaction Status Date / Time grass pollen-perennial rye, Allergy Itching Verified 10/11/19 22:04 standar diazepam [From Valium] AdvReac Rapid Verified 10/11/19 22:04 Heart Rate Physical Exam Vitals: Vital Signs Temp Pulse Pulse Resp BP BP Pulse Ox 10/12/19 11:29 98.4 F 70 18 130/60 98 10/12/19 08:00 98.3 F 70 20 131/63 97 10/12/19 04:00 80 22 148/68 98 10/12/19 00:00 88 22 169/78 98 10/11/19 22:12 98.5 F 94 18 187/81 98 10/11/19 21:42 92 25 H 133/75 98 10/11/19 21:18 93 25 H 142/79 97 10/11/19 20:22 92 24 146/86 97 10/11/19 20:05 96 30 H 198/116 96 10/11/19 19:50 98.4 F 100 28 H 200/111 80 L Intake and Output 10/11/19 10/12/19 10/12/19 22:59 06:59 14:59 Other: Voiding Method Indwelling Catheter Indwelling Catheter Weight 68.039 kg 69.4 kg GENERAL EXAM: Alert, very pleasant, female, 4 L of oxygen and a pulse ox of 98% comfortable in no apparent distress. HEAD: Normocephalic/atraumatic. EYES: Normal reaction of pupils, equal size. Conjunctiva pink, sclera white. NOSE: Clear with pink turbinates. THROAT: No erythema or exudates. NECK: No masses, no JVD, no thyroid enlargement, no adenopathy. CHEST: No chest wall deformity. Symmetrical expansion. LUNGS: Equal air entry with no crackles, wheeze, rhonchi or dullness. CVS: Regular rate and rhythm, normal S1 and S2, no gallops, no murmurs, no rubs ABDOMEN: Soft, nontender. No hepatosplenomegaly, normal bowel sounds, no guarding or rigidity. EXTREMITIES: No clubbing, no edema, no cyanosis, 2+ pulses and upper and lower extremities. MUSCULOSKELETAL: Muscle strength and tone normal. SPINE: No scoliosis or deformity SKIN: No rashes CENTRAL NERVOUS SYSTEM: Alert and oriented -3. No focal deficits, tone is normal in all 4 extremities. PSYCHIATRIC: Alert and oriented -3. Appropriate affect. Intact judgment and insight. Results - Laboratory Findings CBC and BMP: 10/11/19 19:58 10/12/19 11:20 ABG ABG pH 7.34 (7.35-7.45) L 10/11/19 20:43 ABG pCO2 43 mmHg (35-45) 10/11/19 20:43 ABG pO2 314 mmHg (83-108) H 10/11/19 20:43 ABG O2 Saturation 99.4 % (94-97) H 10/11/19 20:43 PT/INR, D-dimer PT 10.5 sec (9.0-12.0) 10/11/19 20:38 INR 1.0 (<1.2) 10/11/19 20:38 D-Dimer 1.17 mg/L FEU (<0.60) H 10/12/19 00:59 Abnormal lab findings: Abnormal Labs 10/11/19 10/11/19 10/11/19 19:58 19:58 20:14 WBC 19.7 H Neutrophils # 15.8 H Monocytes # 1.6 H D-Dimer ABG pH ABG pO2 ABG O2 Saturation Sodium Potassium Chloride Carbon Dioxide Glucose POC Glucose (mg/dL) 142 H Calcium Magnesium AST Troponin I 0.054 H* 10/11/19 10/11/19 10/11/19 20:38 20:43 22:51 WBC Neutrophils # Monocytes # D-Dimer ABG pH 7.34 L ABG pO2 314 H ABG O2 Saturation 99.4 H Sodium 124 L Potassium 3.4 L Chloride 91 L Carbon Dioxide 20 L Glucose 146 H POC Glucose (mg/dL) Calcium 8.1 L Magnesium 1.5 L AST Troponin I 0.186 H* 10/12/19 10/12/19 10/12/19 00:59 00:59 00:59 WBC Neutrophils # Monocytes # D-Dimer 1.17 H ABG pH ABG pO2 ABG O2 Saturation Sodium 125 L Potassium Chloride 90 L Carbon Dioxide 21 L Glucose 131 H POC Glucose (mg/dL) Calcium Magnesium 1.5 L AST Troponin I 0.268 H* 10/12/19 11:20 WBC Neutrophils # Monocytes # D-Dimer ABG pH ABG pO2 ABG O2 Saturation Sodium 123 L Potassium Chloride 87 L Carbon Dioxide Glucose 104 H POC Glucose (mg/dL) Calcium Magnesium AST 50 H Troponin I - Diagnostic Findings Chest x-ray: report reviewed, image reviewed Additional studies: EKG reviewed, echocardiogram reviewed, lower extremity Dopplers reviewed, brain CT Assessment and Plan Plan: Assessment: #1. Acute hypoxic rest or a failure related to acute exacerbation of CHF with diastolic dysfunction, pulmonary edema #2. Hypertensive emergency with symptoms of shortness of breath, pulmonary edema, altered mentation #3. Altered mental status, related to hypertensive emergency, brain CT showed no acute intracranial process, and patient is much improved on today's exam #4. Acute hyponatremia likely related to dehydration, patient was prepping for colonoscopy and having profuse diarrhea and vomiting #5. Elevated troponin, likely related to acute exacerbation of CHF #6. Recent history of TAVR at the [facility] #7. Paroxysmal atrial fibrillation, currently in sinus rhythm, on Eliquis #8. Mild elevation of d-dimer, patient is on chronic Eliquis, lower extremity Dopplers are negative #9. Hypertension #10. Anxiety Plan: Continue with IV Lasix, continue with oral anticoagulation, oxygenation and dyspnea have improved since yesterday, blood pressures better controlled, no altered mentation, mentation is back to baseline, accurate intake and output, daily weight, repeat chest x-ray in the morning. Reading easier, we'll discontinue BiPAP support. I performed a history & physical examination of the patient and discussed their management with my nurse practitioner, Margarita Be. I reviewed the nurse practitioner's note and agree with the documented findings and plan of care. Lung sounds are positive for diminished breath sounds at the bases, mostly clear lung sounds The findings and the impression was discussed with the patient. I attest to the documentation by the nurse practitioner. Time with Patient: Greater than 30
[2019-10-12 15:17] VITALS: BMI 27.1
--- NOTE | 2019-10-12 16:19 | P.HPIM ---
History of Present Illness H&P Date: 10/12/19 Ernestina Sheffield, is an 79-year-old female who presented to [facility] emergency room with a chief complaint of shortness of breath. Patient states that she was at home taking preparation for colonoscopy, she started having severe diarrhea and nausea, she was feeling weak and fatigued, she called EMS, patient was found to be dehydrated, she received IV fluid bolus by EMS on route to the hospital, patient has a known history of congestive heart failure, on arrival to emergency room patient was having significant shortness of breath, her chest x-ray was compatible with acute pulmonary edema, she was started on IV Lasix and was admitted to telemetry floor. D-dimer was elevated, bilateral lower extremity Doppler was ordered and was negative, CT angiogram was not done in the emergency room due to elevated BUN and creatinine, patient was admitted to telemetry floor echocardiogram was ordered pulmonary consultation and cardiology consultation were ordered. Patient was seen and examined on the telemetry floor in the presence of her God Daughter Kallie, who provided most of the history. At this time patient is feeling well and denies any complaints, there is no fever or chills no headache or dizziness no chest pain no shortness of breath no cough no nausea or vomiting no abdominal pain no diarrhea no burning with urination no frequency or urgency no hematuria. 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 Patient has small house doesn't need anything to ambulate. Handrails on bathtub. Smoking Status: Never smoker Past Alcohol Use History: None Reported Additional Past Alcohol Use History / Comment(s): Wine or rum and coke. Past Drug Use History: None Reported Additional Drug Use History / Comment(s): CBD oil occasionally. - Past Family History Father Family Medical History: Cancer Additional Family Medical History / Comment(s): corneal dystrophy, colon cancer Mother Family Medical History: Cancer Additional Family Medical History / Comment(s): multiple myeloma Brother(s) Family Medical History: Cancer Additional Family Medical History / Comment(s): colon cancer, since past. Aneruysm. Medications and Allergies Home Medications Medication Instructions Recorded Confirmed Type Montelukast [Singulair] 10 mg PO HS 09/09/14 10/11/19 History Omeprazole [PriLOSEC] 20 mg PO QAM 09/09/14 10/11/19 History Ubidecarenone [Co Q-10] 100 mg PO QAM 09/03/15 10/11/19 History Biotin 5,000 mcg PO QAM 01/18/18 10/11/19 History Pyridoxine HCl (Vitamin B6) 100 mg PO HS 01/18/18 10/11/19 History [Vitamin B-6] Vitamin E (Dl,Tocopheryl Acet) 400 unit PO DAILY 01/18/18 10/11/19 History [Vitamin E] Zinc 50 mg PO BID 01/18/18 10/11/19 History Cholecalciferol (Vitamin D3) 2,000 unit PO QAM 08/30/18 10/11/19 History [Vitamin D3] Cyanocobalamin (Vitamin B-12) 1,000 mcg PO BID 08/30/18 10/11/19 History [Vitamin B-12] Atorvastatin [Lipitor] 40 mg PO HS #90 tab 10/13/18 10/11/19 Rx Cetirizine HCl [Zyrtec] 10 mg PO HS 12/16/18 10/11/19 History Clopidogrel [Plavix] 75 mg PO HS 12/16/18 10/11/19 History Multivitamins, Thera [Multivitamin 1 tab PO QAM 12/16/18 10/11/19 History (formulary)] Vitamin B Complex 1 cap PO BID 12/16/18 10/11/19 History prednisoLONE ACETATE 1% OPHTH 1 drop BOTH EYES QID 12/16/18 10/11/19 History [Pred Forte 1%] Apixaban [Eliquis] 5 mg PO BID #60 tab 12/17/18 10/11/19 Rx ALPRAZolam [Xanax] 0.125 mg PO BID PRN 10/11/19 10/11/19 History Alendronate Sodium [Fosamax] 5 mg PO DAILY 10/11/19 10/11/19 History Ascorbic Acid [Vitamin C] 1,000 mg PO DAILY 10/11/19 10/11/19 History Bisoprolol-Hctz 5-6.25 mg [Ziac 1 tab PO DAILY 10/11/19 10/11/19 History 5-6.25 MG] Escitalopram [Lexapro] 10 mg PO DAILY 10/11/19 10/11/19 History Allergies Allergy/AdvReac Type Severity Reaction Status Date / Time grass pollen-perennial rye, Allergy Itching Verified 10/11/19 22:04 standar diazepam [From Valium] AdvReac Rapid Verified 10/11/19 22:04 Heart Rate Physical Exam Vitals: Vital Signs Temp Pulse Pulse Resp BP BP Pulse Ox 10/12/19 04:00 80 22 148/68 98 10/12/19 00:00 88 22 169/78 98 10/11/19 22:12 98.5 F 94 18 187/81 98 10/11/19 21:42 92 25 H 133/75 98 10/11/19 21:18 93 25 H 142/79 97 10/11/19 20:22 92 24 146/86 97 10/11/19 20:05 96 30 H 198/116 96 10/11/19 19:50 98.4 F 100 28 H 200/111 80 L Intake and Output 10/11/19 10/12/19 10/12/19 22:59 06:59 14:59 Other: Voiding Method Indwelling Catheter Weight 68.039 kg 69.4 kg In general patient is alert and oriented 3 in no apparent distress HEENT head normocephalic and atraumatic Neck is supple no JVD no goiter no lymphadenopathy Chest exam reveals scattered crackles in both lung bases no wheezing Cardiac exam reveals regular heart sounds S1 and S2 no gallops no murmurs Abdomen is soft nontender no organomegaly with normal bowel sounds Extremity exam reveals no edema no cyanosis or clubbing Neurological examination reveals no gross focal deficit Results CBC & Chem 7: 10/11/19 19:58 08/28/20 11:20 Labs: Abnormal Lab Results - Last 24 Hours (Table) 10/11/19 10/11/19 10/11/19 Range/Units 19:58 19:58 20:14 WBC 19.7 H (3.8-10.6) k/uL Neutrophils # 15.8 H (1.3-7.7) k/uL Monocytes # 1.6 H (0-1.0) k/uL D-Dimer (<0.60) mg/L FEU ABG pH (7.35-7.45) ABG pO2 (83-108) mmHg ABG O2 Saturation (94-97) % Sodium (137-145) mmol/L Potassium (3.5-5.1) mmol/L Chloride (98-107) mmol/L Carbon Dioxide (22-30) mmol/L Glucose (74-99) mg/dL POC Glucose (mg/dL) 142 H (75-99) mg/dL Calcium (8.4-10.2) mg/dL Magnesium (1.6-2.3) mg/dL Troponin I 0.054 H* (0.000-0.034) ng/mL 10/11/19 10/11/19 10/11/19 Range/Units 20:38 20:43 22:51 WBC (3.8-10.6) k/uL Neutrophils # (1.3-7.7) k/uL Monocytes # (0-1.0) k/uL D-Dimer (<0.60) mg/L FEU ABG pH 7.34 L (7.35-7.45) ABG pO2 314 H (83-108) mmHg ABG O2 Saturation 99.4 H (94-97) % Sodium 124 L (137-145) mmol/L Potassium 3.4 L (3.5-5.1) mmol/L Chloride 91 L (98-107) mmol/L Carbon Dioxide 20 L (22-30) mmol/L Glucose 146 H (74-99) mg/dL POC Glucose (mg/dL) (75-99) mg/dL Calcium 8.1 L (8.4-10.2) mg/dL Magnesium 1.5 L (1.6-2.3) mg/dL Troponin I 0.186 H* (0.000-0.034) ng/mL 10/12/19 10/12/19 Range/Units 00:59 00:59 WBC (3.8-10.6) k/uL Neutrophils # (1.3-7.7) k/uL Monocytes # (0-1.0) k/uL D-Dimer 1.17 H (<0.60) mg/L FEU ABG pH (7.35-7.45) ABG pO2 (83-108) mmHg ABG O2 Saturation (94-97) % Sodium (137-145) mmol/L Potassium (3.5-5.1) mmol/L Chloride (98-107) mmol/L Carbon Dioxide (22-30) mmol/L Glucose (74-99) mg/dL POC Glucose (mg/dL) (75-99) mg/dL Calcium (8.4-10.2) mg/dL Magnesium (1.6-2.3) mg/dL Troponin I 0.268 H* (0.000-0.034) ng/mL Thrombosis Risk Factor Assmnt - Choose All That Apply Each Risk Factor Represents 3 Points: Age 75 years or older Thrombosis Risk Factor Assessment Total Risk Factor Score: 3 Thrombosis Risk Factor Assessment Level: Moderate Risk Assessment and Plan Plan: 1. Acute exacerbation of congestive heart failure, most likely diastolic, likely secondary to fluid bolus patient received on her way to the hospital. 2. Dehydration with acute kidney injury, likely due to colonoscopy prep and severe diarrhea 3. Elevated d-dimer, no evidence of DVT 4. Elevated troponin level cardiology consult requested 5. Underlying history of paroxysmal atrial fibrillation maintained on long-term anticoagulation with Eliquis 6. Underlying history of coronary artery disease with history of stent placement 7. Underlying history of hypertension 8. Underlying history of aortic stenosis with history of TAVR At this time patient is admitted to telemetry floor, she is receiving IV Lasix 40 mg every 12 hours Pulmonary and cardiology consultation was requested awaiting
[2019-10-12] MEDS: prednisoLONE ACETATE 1% OPHTH DROPS 5 ML BTL BOTH EYES SCH ×3 (18:28→22:55)
[2019-10-12] MEDS: PYRIDOXINE 50 MG TAB PO SCH (19:55)
[2019-10-12] MEDS: ATORVASTATIN 40 MG TAB PO SCH (19:55)
[2019-10-12] MEDS: LORATADINE 10 MG TAB PO SCH (19:55)
[2019-10-12] MEDS: CLOPIDOGREL 75 MG TAB PO SCH (19:55)
[2019-10-12] MEDS: MONTELUKAST 10 MG TAB PO SCH (19:55)
[2019-10-13] MEDS: PANTOPRAZOLE 40 MG TABLET PO SCH (06:19)
[2019-10-13 07:00] LABS: Basophils % (A) 0 %; Eosinophils # (A) 0.1 k/uL (0-0.7); Eosinophils % (A) 1 %; HCT 42.8 % (34.0-46.0); HGB 14.5 gm/dL (11.4-16.0); Lymphocytes # (A) 2.4 k/uL (1.0-4.8); Lymphocytes % (A) 26 %; MCH 31.4 pg (25.0-35.0); MCHC 33.9 g/dL (31.0-37.0); MCV 92.5 fL (80.0-100.0); Mean Platelet Volume 7.9; Monocytes # (A) 1.3 k/uL (0-1.0); Monocytes % (A) 14 %; Neutrophils # (A) 5.1 k/uL (1.3-7.7); Neutrophils % (A) 56 %; Platelet Count 155 k/uL (150-450); RBC 4.63 m/uL (3.80-5.40); RDW 13.1 % (11.5-15.5); WBC 9.1 k/uL (3.8-10.6)
[2019-10-13 07:08] LABS: Albumin 3.6 g/dL (3.5-5.0); Calcium 8.7 mg/dL (8.4-10.2); Magnesium 2.4 mg/dL (1.6-2.3); Potassium 3.7 mmol/L (3.5-5.1); Total Bilirubin 0.9 mg/dL (0.2-1.3); Total Protein 6.2 g/dL (6.3-8.2)
[2019-10-13] MEDS ORDERED: FUROSEMIDE 10 MG/ML 4 ML VIAL IV SCH (09:00)
[2019-10-13] MEDS: CYANOCOBALAMIN 500 MCG TAB PO SCH ×2 (09:22→21:30)
[2019-10-13] MEDS: MULTIVITAMINS, THERA 1 EACH TAB PO SCH (09:22)
[2019-10-13] MEDS: CHOLECALCIFEROL 1,000 UNIT TAB PO SCH (09:22)
[2019-10-13] MEDS: ESCITALOPRAM 10 MG TAB PO SCH (09:22)
[2019-10-13] MEDS: VITAMIN E (DL,TOCOPHERYL ACET) 400 UNIT CAP PO SCH (09:22)
[2019-10-13] MEDS: BISOPROLOL-HCTZ 5-6.25 MG 1 EACH TAB PO SCH ×3 (09:22→21:31)
[2019-10-13] MEDS: ZINC SULFATE 220 MG CAP PO SCH (09:23)
[2019-10-13] MEDS: APIXABAN 5 MG TAB PO SCH ×2 (09:24→21:30)
[2019-10-13] MEDS: prednisoLONE ACETATE 1% OPHTH DROPS 5 ML BTL BOTH EYES SCH ×4 (09:24→21:31)
[2019-10-13] MEDS: ASCORBIC ACID 500 MG TAB PO SCH (09:24)
[2019-10-13] MEDS: hydrALAZINE HCL 25 MG TAB PO SCH ×2 (09:24→21:30)
--- NOTE | 2019-10-13 11:31 | P.PN ---
Subjective Progress Note Date: 10/13/19 Principal diagnosis: Altered mental status, hypertensive emergency 79-year-old white female patient of Dr. Marielos Wynn, with past medical history of paroxysmal A. fib on Eliquis, recent history of TAVR at the [facility], hypertension, hyperlipidemia, coronary artery disease with previous stenting, anxiety, never smoker, who was preparing for a colonoscopy, and start ed having severe diarrhea, vomiting, felt very dehydrated. EMS was called, as the patient developed dyspnea, altered mentation. She was given some IV fluids as it was felt that she was very dehydrated. Patient stated that she has some mild cough, denies any chest pain. She was hypoxic, with pulse ox of 80% on room air, she's been afebrile, hemodynamically she is stable. Chest x-ray showed severe interstitial face pulmonary edema. Labs have been reviewed, showing limited cell count 19.7, hemoglobin of 15.1, serum sodium was 124, potassium is 3.4, chloride is 91, CO2 is 20, BUN of 16, creatinine 0.94, troponins were positive at 0.054, 0.186, and 0.268, proBNP was 923, urinalysis was negative. Patient was started on IV Lasix, she did require BiPAP support last week, she has diuresed overnight, currently on nasal cannula at 4 L, with a pulse ox of 98%. Echocardiogram was completed, showing EF of 50-55%, moderate concentric left ventricular hypertrophy, aortic valve was not well visualized, peak/mean gradient across the aortic valve was 15.9/11.1 mmHg. Is a normally functioning bioprosthetic valve, status post TAVR. A d-dimer was mildly elevated at 1.1, the patient is on chronic anticoagulation with Eliquis. Lower extremity Dopplers were negative. On presentation patient was extremely hypertensive the blood pressure of 200/111, patient was restarted on her medications, and hydralazine and Lasix were started, patient has diuresed, and feeling better this morning. The patient is seen today 10/13/2019 in follow-up on the selective care unit. She is doing much better today. Awake and alert in no acute distress. Feeling quite a bit better. She's maintain good O2 saturation the mid 90s on room air. She's afebrile. Hemodynamically stable. Sodium is improved to 126. White count 9.1. Hemoglobin 14.5. Creatinine 0.94. Objective - Vital Signs Vital signs: Vital Signs Temp 98.4 F 10/13/19 08:30 Pulse 64 10/13/19 08:30 Resp 17 10/13/19 08:30 BP 124/65 10/13/19 08:30 Pulse Ox 96 10/13/19 08:30 Intake & Output 10/12/19 10/13/19 10/13/19 18:59 06:59 18:59 Intake Total 280 250 Output Total 1500 950 Balance -1220 -950 250 Weight 69.4 kg 68 kg Intake: IV 10 .9 10 Oral 280 240 Output: Urine 1500 950 Uretheral (Santiago) 400 Other: Voiding Method Indwelling Catheter Indwelling Catheter Indwelling Catheter - Exam GENERAL EXAM: Alert, active, comfortable 79-year-old female patient, on room air, in no apparent distress. HEAD: Normocephalic. EYES: Normal reaction of pupils, equal size. NOSE: Clear with pink turbinates. THROAT: No erythema or exudates. NECK: No masses, no JVD. CHEST: No chest wall deformity. LUNGS: Equal air entry with no crackles, wheeze, rhonchi or dullness. CVS: S1 and S2 normal with no audible murmur, regular rhythm. ABDOMEN: No hepatosplenomegaly, normal bowel sounds, no guarding or rigidity. SPINE: No scoliosis or deformity SKIN: No rashes CENTRAL NERVOUS SYSTEM: No focal deficits, tone is normal in all 4 extremities. EXTREMITIES: There is no peripheral edema. No clubbing, no cyanosis. Peripheral pulses are intact. - Labs CBC & Chem 7: 10/13/19 06:13 10/13/19 06:13 Labs: Abnormal Lab Results - Last 24 Hours (Table) 10/12/19 10/13/19 10/13/19 Range/Units 11:20 06:13 06:13 Monocytes # 1.3 H (0-1.0) k/uL Sodium 123 L 126 L (137-145) mmol/L Potassium 3.4 L (3.5-5.1) mmol/L Chloride 87 L 88 L (98-107) mmol/L Glucose 104 H (74-99) mg/dL Magnesium 2.4 H (1.6-2.3) mg/dL AST 50 H 43 H (14-36) U/L Total Protein 6.2 L (6.3-8.2) g/dL Microbiology - Last 24 Hours (Table) 10/11/19 19:58 Blood Culture - Preliminary Blood No Growth after 24 hours Assessment and Plan Assessment: #1. Acute hypoxic respiratory failure related to acute exacerbation of CHF with diastolic dysfunction, pulmonary edema. Recovered on room air #2. Hypertensive emergency with symptoms of shortness of breath, pulmonary edema, altered mentation, recovered #3. Altered mental status, related to hypertensive emergency, brain CT showed no acute intracranial process, and patient is much improved on today's exam #4. Acute hyponatremia likely related to dehydration, patient was prepping for colonoscopy and having profuse diarrhea and vomiting #5. Elevated troponin, likely related to acute exacerbation of CHF #6. Recent history of TAVR at the [facility] #7. Paroxysmal atrial fibrillation, currently in sinus rhythm, on Eliquis #8. Mild elevation of d-dimer, patient is on chronic Eliquis, lower extremity Dopplers are negative #9. Hypertension #10. Anxiety Plan: The patient was seen and evaluated by Dr. Rutherford He is currently stable from the pulmonary standpoint, on room air Sodium improved to 126 Increase activity as tolerated Probable discharge in the a.m. I, the cosigning physician, performed a history & physical examination of the patient. Lungs sounds are clear. Maintaining good O2 saturations in the 90s on room air. I discussed the assessment and plan of care with my nurse practit Anuradha meyer. I attest to the above note as dictated by her.
--- NOTE | 2019-10-13 12:32 | P.PN ---
Subjective Progress Note Date: 10/13/19 Ernestina Sheffield, is an 79-year-old female who presented to [facility] emergency room with a chief complaint of shortness of breath. Patient states that she was at home taking preparation for colonoscopy, she started having severe diarrhea and nausea, she was feeling weak and fatigued, she called EMS, patient was found to be dehydrated, she received IV fluid bolus by EMS on route to the hospital, patient has a known history of congestive heart failure, on arrival to emergency room patient was having significant shortness of breath, her chest x-ray was compatible with acute pulmonary edema, she was started on IV Lasix and was admitted to telemetry floor. D-dimer was elevated, bilateral lower extremity Doppler was ordered and was negative, CT angiogram was not done in the emergency room due to elevated BUN and creatinine, patient was admitted to telemetry floor echocardiogram was ordered pulmonary consultation and cardiology consultation were ordered. Patient was seen and examined on the telemetry floor in the presence of her God Daughter Kallie, who provided most of the history. At this time patient is feeling well and denies any complaints, there is no fever or chills no headache or dizziness no chest pain no shortness of breath no cough no nausea or vomiting no abdominal pain no diarrhea no burning with urination no frequency or urgency no hematuria. On 10/13/2019 patient was seen and examined on the medical floor she is alert and oriented 3 in no apparent distress she is complaining of weakness and dizziness otherwise she denies any complaints there is no fever or chills no headache or dizziness no chest pain no shortness of breath no cough no nausea or vomiting no abdominal pain no diarrhea no burning with urination no frequency or urgency and no hematuria. Objective - Vital Signs Vital signs: Vital Signs Temp 98.4 F 10/13/19 08:30 Pulse 64 10/13/19 08:30 Resp 17 10/13/19 08:30 BP 124/65 10/13/19 08:30 Pulse Ox 96 10/13/19 08:30 Intake & Output 10/12/19 10/13/19 10/13/19 18:59 06:59 18:59 Intake Total 280 250 Output Total 9394 583 3851 Balance -1220 -950 -950 Weight 69.4 kg 68 kg Intake: IV 10 .9 10 Oral 280 240 Output: Urine 8520 172 7935 Uretheral (Santiago) 400 Other: Voiding Method Indwelling Catheter Indwelling Catheter Indwelling Catheter - Exam In general patient is alert and oriented 3 in no apparent distress HEENT head normocephalic and atraumatic Neck is supple no JVD no goiter no lymphadenopathy Chest exam reveals scattered crackles in both lung bases no wheezing Cardiac exam reveals regular heart sounds S1 and S2 no gallops no murmurs Abdomen is soft nontender no organomegaly with normal bowel sounds Extremity exam reveals no edema no cyanosis or clubbing Neurological examination reveals no gross focal deficit - Labs CBC & Chem 7: 10/13/19 06:13 10/13/19 06:13 Labs: Abnormal Lab Results - Last 24 Hours (Table) 10/12/19 10/13/19 10/13/19 Range/Units 11:20 06:13 06:13 Monocytes # 1.3 H (0-1.0) k/uL Sodium 123 L 126 L (137-145) mmol/L Potassium 3.4 L (3.5-5.1) mmol/L Chloride 87 L 88 L (98-107) mmol/L Glucose 104 H (74-99) mg/dL Magnesium 2.4 H (1.6-2.3) mg/dL AST 50 H 43 H (14-36) U/L Total Protein 6.2 L (6.3-8.2) g/dL Microbiology - Last 24 Hours (Table) 10/11/19 19:58 Blood Culture - Preliminary Blood No Growth after 24 hours Assessment and Plan Plan: 1. Acute exacerbation of congestive heart failure, most likely diastolic, likely secondary to fluid bolus patient received on her way to the hospital. 2. Dehydration with acute kidney injury, likely due to colonoscopy prep and severe diarrhea 3. Elevated d-dimer, no evidence of DVT 4. Elevated troponin level cardiology consult requested 5. Underlying history of paroxysmal atrial fibrillation maintained on long-term anticoagulation with Eliquis 6. Underlying history of coronary artery disease with history of stent placement 7. Underlying history of hypertension 8. Underlying history of aortic stenosis with history of TAVR 9. Hyponatremia, improving At this time patient is admitted to telemetry floor, she was receiving IV Lasix 40 mg every 12 hours, now dose decreased to once daily Pulmonary and cardiology consultation was requested awaiting
--- NOTE | 2019-10-13 13:14 | P.PN ---
Subjective Patient is seen and examined sitting up talking on the phone in no acute distress. She states her breathing has greatly improved since yesterday. She has no further symptoms of shortness of breath. She denies chest pain, dizziness or palpitations. Blood pressure 124/65 heart rate 64 afebrile maintaining oxygen saturation on room air. Laboratory data reviewed, CBC unremarkable, sodium 126, potassium 3.7, creatinine 0.94. Currently maintained on Eliquis 5 mg twice a day, atorvastatin 40 mg at bedtime, bisoprolol hydrochlorothiazide 5/6.25 mg at bedtime, Plavix 75 mg daily, Lasix 40 mg IV daily and hydralazine 25 mg twice a day. Echocardiogram obtained reveals preserved LV systolic function with ejection fraction 50-55%, grade 1 diastolic dysfunction, mean gradient across the aortic valve of 11 mmHg with normally functioning bioprosthetic valve, moderate mitral calcification noted, mild MR and mild TR. Maintaining a negative fluid balance with 1200 mL of urine output in the previous 24 hours for a total of over 4000 later since admission. GENERAL: Well-appearing, well-nourished and in no acute distress. NECK: Supple without JVD or thyromegaly. LUNGS: Breath sounds clear to auscultation bilaterally. Respiration equal and un labored. No wheezes, rales or rhonchi. HEART: Regular rate and rhythm without murmurs, rubs or gallops. S1 and S2 heard. EXTREMITIES: Normal range of motion, no edema. No clubbing or cyanosis. Perip heral pulses intact. ASSESSMENT Acute exacerbation of chronic diastolic heart failure with flash pulmonary edema noted on chest x-ray Paroxysmal atrial fibrillation on long-term anticoagulation currently maintaining sinus mechanism Coronary artery disease status post recent PCI to the circumflex Valvular heart disease status post TAVR Hypertension Dyslipidemia Abnormal troponins PLAN Transition to oral diuretics, Lasix 40 mg by mouth daily. Stable from a cardiac perspective. Nurse Practitioner note has been reviewed, I agree with a documented findings and plan of care. Patient was seen and examined. Objective - Vital Signs Vital signs: Vital Signs Temp 98.4 F 10/13/19 08:30 Pulse 64 10/13/19 08:30 Resp 17 10/13/19 08:30 BP 124/65 10/13/19 08:30 Pulse Ox 96 10/13/19 08:30 Intake & Output 10/12/19 10/13/19 10/13/19 18:59 06:59 18:59 Intake Total 280 250 Output Total 1885 538 0047 Balance -1220 -950 -950 Weight 69.4 kg 68 kg Intake: IV 10 .9 10 Oral 280 240 Output: Urine 1206 655 6323 Uretheral ([place]) 400 Other: Voiding Method Indwelling Catheter Indwelling Catheter Indwelling Catheter - Labs CBC & Chem 7: 10/13/19 06:13 10/13/19 06:13 Labs: Abnormal Lab Results - Last 24 Hours (Table) 10/12/19 10/13/19 10/13/19 Range/Units 11:20 06:13 06:13 Monocytes # 1.3 H (0-1.0) k/uL Sodium 126 L (137-145) mmol/L Potassium 3.4 L (3.5-5.1) mmol/L Chloride 88 L (98-107) mmol/L Magnesium 2.4 H (1.6-2.3) mg/dL AST 43 H (14-36) U/L Total Protein 6.2 L (6.3-8.2) g/dL Microbiology - Last 24 Hours (Table) 10/11/19 19:58 Blood Culture - Preliminary Blood No Growth after 24 hours
[2019-10-13] MEDS: ATORVASTATIN 40 MG TAB PO SCH (21:30)
[2019-10-13] MEDS: CLOPIDOGREL 75 MG TAB PO SCH (21:30)
[2019-10-13] MEDS: MONTELUKAST 10 MG TAB PO SCH (21:30)
[2019-10-13] MEDS: LORATADINE 10 MG TAB PO SCH (21:30)
[2019-10-13] MEDS: PYRIDOXINE 50 MG TAB PO SCH (21:31)
[2019-10-14] MEDS: ALPRAZolam 0.25 MG TAB PO PRN ×2 (00:09→08:28)
[2019-10-14] MEDS: PANTOPRAZOLE 40 MG TABLET PO SCH (06:42)
[2019-10-14 06:56] LABS: Basophils # (A) 0.1 k/uL (0-0.2); Basophils % (A) 1 %; Eosinophils # (A) 0.2 k/uL (0-0.7); Eosinophils % (A) 2 %; HCT 42.9 % (34.0-46.0); HGB 14.2 gm/dL (11.4-16.0); Lymphocytes # (A) 2.7 k/uL (1.0-4.8); Lymphocytes % (A) 31 %; MCH 30.8 pg (25.0-35.0); MCHC 33.1 g/dL (31.0-37.0); Mean Platelet Volume 7.9; Monocytes # (A) 1.4 k/uL (0-1.0); Monocytes % (A) 17 %; Neutrophils # (A) 3.8 k/uL (1.3-7.7); Neutrophils % (A) 45 %; Platelet Count 150 k/uL (150-450); RBC 4.61 m/uL (3.80-5.40); WBC 8.4 k/uL (3.8-10.6)
[2019-10-14 07:04] LABS: Albumin 3.9 g/dL (3.5-5.0); Calcium 8.8 mg/dL (8.4-10.2); Potassium 3.8 mmol/L (3.5-5.1); Total Bilirubin 0.6 mg/dL (0.2-1.3); Total Protein 6.5 g/dL (6.3-8.2)
[2019-10-14] MEDS: FUROSEMIDE 40 MG TAB PO SCH (08:28)
[2019-10-14] MEDS: ESCITALOPRAM 10 MG TAB PO SCH (08:29)
[2019-10-14] MEDS: hydrALAZINE HCL 25 MG TAB PO SCH ×2 (08:29→21:03)
[2019-10-14] MEDS: APIXABAN 5 MG TAB PO SCH ×2 (08:29→21:02)
[2019-10-14] MEDS: CYANOCOBALAMIN 500 MCG TAB PO SCH ×2 (08:29→21:03)
[2019-10-14] MEDS: ASCORBIC ACID 500 MG TAB PO SCH (08:29)
[2019-10-14] MEDS: VITAMIN E (DL,TOCOPHERYL ACET) 400 UNIT CAP PO SCH (08:29)
[2019-10-14] MEDS: CHOLECALCIFEROL 1,000 UNIT TAB PO SCH (08:30)
[2019-10-14] MEDS: MULTIVITAMINS, THERA 1 EACH TAB PO SCH (08:30)
[2019-10-14] MEDS: ZINC SULFATE 220 MG CAP PO SCH (08:31)
[2019-10-14] MEDS: prednisoLONE ACETATE 1% OPHTH DROPS 5 ML BTL BOTH EYES SCH ×4 (08:31→21:03)
--- NOTE | 2019-10-14 10:58 | P.PN ---
Subjective Progress Note Date: 10/14/19 Principal diagnosis: Altered mental status, hypertensive emergency 79-year-old white female patient of Dr. Marielos Wynn, with past medical history of paroxysmal A. fib on Eliquis, recent history of TAVR at the [facility], hypertension, hyperlipidemia, coronary artery disease with previous stenting, anxiety, never smoker, who was preparing for a colonoscopy, and start ed having severe diarrhea, vomiting, felt very dehydrated. EMS was called, as the patient developed dyspnea, altered mentation. She was given some IV fluids as it was felt that she was very dehydrated. Patient stated that she has some mild cough, denies any chest pain. She was hypoxic, with pulse ox of 80% on room air, she's been afebrile, hemodynamically she is stable. Chest x-ray showed severe interstitial face pulmonary edema. Labs have been reviewed, showing limited cell count 19.7, hemoglobin of 15.1, serum sodium was 124, potassium is 3.4, chloride is 91, CO2 is 20, BUN of 16, creatinine 0.94, troponins were positive at 0.054, 0.186, and 0.268, proBNP was 923, urinalysis was negative. Patient was started on IV Lasix, she did require BiPAP support last week, she has diuresed overnight, currently on nasal cannula at 4 L, with a pulse ox of 98%. Echocardiogram was completed, showing EF of 50-55%, moderate concentric left ventricular hypertrophy, aortic valve was not well visualized, peak/mean gradient across the aortic valve was 15.9/11.1 mmHg. Is a normally functioning bioprosthetic valve, status post TAVR. A d-dimer was mildly elevated at 1.1, the patient is on chronic anticoagulation with Eliquis. Lower extremity Dopplers were negative. On presentation patient was extremely hypertensive the blood pressure of 200/111, patient was restarted on her medications, and hydralazine and Lasix were started, patient has diuresed, and feeling better this morning. The patient is seen today 10/13/2019 in follow-up on the selective care unit. She is doing much better today. Awake and alert in no acute distress. Feeling quite a bit better. She's maintain good O2 saturation the mid 90s on room air. She's afebrile. Hemodynamically stable. Sodium is improved to 126. White count 9.1. Hemoglobin 14.5. Creatinine 0.94. The patient is seen today 10/14/2019 in follow-up on the selective care unit. She remains awake and alert in no acute distress. No worsening shortness of breath, cough or congestion. No chest pain. Blood culture reveals no growth. White count 8.4. Hemoglobin 14.2. Sodium 130. Potassium 3.8. Creatinine 1.02. Now having some complaints of constipation. Objective - Vital Signs Vital signs: Vital Signs Temp 97.7 F 10/14/19 08:10 Pulse 76 10/14/19 08:10 Resp 19 10/14/19 08:10 BP 117/67 10/14/19 08:10 Pulse Ox 95 10/14/19 08:10 Intake & Output 10/13/19 10/14/19 10/14/19 18:59 06:59 18:59 Intake Total 196 766 4784 Output Total 1500 200 Balance -770 250 820 Weight 68.7 kg Intake: IV 10 10 .9 10 10 Oral 758 980 1554 Output: Urine 1500 200 Other: Voiding Method Toilet Toilet # Voids 1 # Bowel Movements 1 1 - Exam GENERAL EXAM: Alert, active, comfortable 79-year-old female patient, on room air, in no apparent distress. HEAD: Normocephalic. EYES: Normal reaction of pupils, equal size. NOSE: Clear with pink turbinates. THROAT: No erythema or exudates. NECK: No masses, no JVD. CHEST: No chest wall deformity. LUNGS: Equal air entry with no crackles, wheeze, rhonchi or dullness. CVS: S1 and S2 normal with no audible murmur, regular rhythm. ABDOMEN: No hepatosplenomegaly, normal bowel sounds, no guarding or rigidity. SPINE: No scoliosis or deformity SKIN: No rashes CENTRAL NERVOUS SYSTEM: No focal deficits, tone is normal in all 4 extremities. EXTREMITIES: There is no peripheral edema. No clubbing, no cyanosis. Peripheral pulses are intact. - Labs CBC & Chem 7: 10/14/19 06:39 10/14/19 06:39 Labs: Abnormal Lab Results - Last 24 Hours (Table) 10/14/19 10/14/19 Range/Units 06:39 06:39 Monocytes # 1.4 H (0-1.0) k/uL Sodium 130 L (137-145) mmol/L Chloride 93 L (98-107) mmol/L BUN 28 H (7-17) mg/dL AST 44 H (14-36) U/L Microbiology - Last 24 Hours (Table) 10/11/19 19:58 Blood Culture - Preliminary Blood No Growth after 48 hours Assessment and Plan Assessment: #1. Acute hypoxic respiratory failure related to acute exacerbation of CHF with diastolic dysfunction, pulmonary edema. Recovered on room air #2. Hypertensive emergency with symptoms of shortness of breath, pulmonary edema, altered mentation, recovered #3. Altered mental status, related to hypertensive emergency, brain CT showed no acute intracranial process, and patient is much improved on today's exam #4. Acute hyponatremia likely related to dehydration, patient was prepping for colonoscopy and having profuse diarrhea and vomiting #5. Elevated troponin, likely related to acute exacerbation of CHF #6. Recent history of TAVR at the [facility] #7. Paroxysmal atrial fibrillation, currently in sinus rhythm, on Eliquis #8. Mild elevation of d-dimer, patient is on chronic Eliquis, lower extremity Dopplers are negative #9. Hypertension #10. Anxiety Plan: The patient was seen and evaluated by Dr. Rutherford Sodium improved to 130 Cleared for discharge from the pulmonary standpoint I, the cosigning physician, performed a history & physical examination of the patient. Lungs sounds are clear. Maintaining good O2 saturations in the 90s on room air. I discussed the assessment and plan of care with my nurse practiti valarie, Anuradha Aguirre. I attest to the above note as dictated by her.
[2019-10-14] MEDS ORDERED: polyethylene glycoL 3350 17 GM POWD.PACK PO STA (12:08)
--- NOTE | 2019-10-14 12:11 | P.PN ---
Seamus Sheffield, is an 79-year-old female who presented to [facility] emergency room with a chief complaint of shortness of breath. Patient states that she was at home taking preparation for colonoscopy, she started having severe diarrhea and nausea, she was feeling weak and fatigued, she called EMS, patient was found to be dehydrated, she received IV fluid bolus by EMS on route to the hospital, patient has a known history of congestive heart failure, on arrival to emergency room patient was having significant shortness of breath, her chest x-ray was compatible with acute pulmonary edema, she was started on IV Lasix and was admitted to telemetry floor. D-dimer was elevated, bilateral lower extremity Doppler was ordered and was negative, CT angiogram was not done in the emergency room due to elevated BUN and creatinine, patient was admitted to telemetry floor echocardiogram was ordered pulmonary consultation and car diology consultation were ordered. Patient was seen and examined on the telemetry floor in the presence of her God Daughter Kallie, who provided most of the history. At this time patient is feeling well and denies any complaints, there is no fever or chills no headache or dizziness no chest pain no shortness of breath no cough no nausea or vomiting no abdominal pain no diarrhea no burning with urination no frequency or urgency no hematuria. On 10/13/2019 patient was seen and examined on the medical floor she is alert and oriented 3 in no apparent distress she is complaining of weakness and d izziness otherwise she denies any complaints there is no fever or chills no headache or dizziness no chest pain no shortness of breath no cough no nausea or vomiting no abdominal pain no diarrhea no burning with urination no frequency or urgency and no hematuria. On 10/14/2019 patient was seen and examined on the medical floor she is alert and oriented 3 in no apparent distress she is complaining of constipation and abdominal discomfort otherwise she denies any complaints or shortness of breath has improved there is no fever or chills no headache or dizziness no chest pain no shortness of breath no cough no nausea or vomiting no abdominal pain no diarrhea no burning with urination no frequency or urgency and no hematuria, her temperature is 90.8 blood pressure 103/60 pulse ox 95% on room air heart rate is 69 and respiration 18 her white blood count is normal at 8.4 hemoglobin 14.2 platelet count 150 her sodium is improving up to 130 today from 126 yesterday, BUN is slightly elevated at 28 creatinine 1.02 AST is slightly elevated at 44 ALT is normal Objective - Vital Signs Vital signs: Vital Signs Temp 97.7 F 10/14/19 08:10 Pulse 76 10/14/19 08:10 Resp 19 10/14/19 08:10 BP 117/67 10/14/19 08:10 Pulse Ox 95 10/14/19 08:10 Intake & Output 10/13/19 10/14/19 10/14/19 18:59 06:59 18:59 Intake Total 716 588 7093 Output Total 1500 200 Balance -770 250 820 Weight 68.7 kg Intake: IV 10 10 .9 10 10 Oral 678 937 4850 Output: Urine 1500 200 Other: Voiding Method Toilet Toilet # Voids 1 # Bowel Movements 1 1 - Exam In general patient is alert and oriented 3 in no apparent distress HEENT head normocephalic and atraumatic Neck is supple no JVD no goiter no lymphadenopathy Chest exam reveals scattered crackles in both lung bases no wheezing Cardiac exam reveals regular heart sounds S1 and S2 no gallops no murmurs Abdomen is soft nontender no organomegaly with normal bowel sounds Extremity exam reveals no edema no cyanosis or clubbing Neurological examination reveals no gross focal deficit - Labs CBC & Chem 7: 10/14/19 06:39 10/14/19 06:39 Labs: Abnormal Lab Results - Last 24 Hours (Table) 10/14/19 10/14/19 Range/Units 06:39 06:39 Monocytes # 1.4 H (0-1.0) k/uL Sodium 130 L (137-145) mmol/L Chloride 93 L (98-107) mmol/L BUN 28 H (7-17) mg/dL AST 44 H (14-36) U/L Microbiology - Last 24 Hours (Table) 10/11/19 19:58 Blood Culture - Preliminary Blood No Growth after 48 hours Assessment and Plan Plan: 1. Acute exacerbation of congestive heart failure, most likely diastolic, likely secondary to fluid bolus patient received on her way to the hospital. 2. Dehydration with acute kidney injury, likely due to colonoscopy prep and severe diarrhea 3. Elevated d-dimer, no evidence of DVT 4. Elevated troponin level cardiology consult requested 5. Underlying history of paroxysmal atrial fibrillation maintained on long-term anticoagulation with Eliquis 6. Underlying history of coronary artery disease with history of stent placement 7. Underlying history of hypertension 8. Underlying history of aortic stenosis with history of TAVR 9. Hyponatremia, improving At this time patient is admitted to telemetry floor, she was receiving IV Lasix 40 mg every 12 hours, now dose decreased to once daily Pulmonary and cardiology consultation was requested awaiting
--- NOTE | 2019-10-14 13:48 | P.PN ---
Subjective Patient is seen and examined sitting up talking on the phone in no acute distress. She states she is constipated. No further chest pain, shortness of breath, dizziness or palpitations. Blood pressure 122/77 heart rate 67 afebrile and maintaining oxygen saturation on room air. GENERAL: Well-appearing, well-nourished and in no acute distress. NECK: Supple without JVD or thyromegaly. LUNGS: Breath sounds clear to auscultation bilaterally. Respiration equal and unlabored. No wheezes, rales or rhonchi. HEART: Regular rate and rhythm without murmurs, rubs or gallops. S1 and S2 heard. EXTREMITIES: Normal range of motion, no edema. No clubbing or cyanosis. Peripheral pulses intact. ASSESSMENT Acute exacerbation of chronic diastolic heart failure with flash pulmonary edema noted on chest x-ray Paroxysmal atrial fibrillation on long-term anticoagulation currently maintaining sinus mechanism Coronary artery disease status post recent PCI to the circumflex Valvular heart disease status post TAVR Hypertension Dyslipidemia Abnormal troponins PLAN Stable for discharge from a cardiac perspective. Nurse Practitioner note has been reviewed, I agree with a documented findings and plan of care. Patient was seen and examined. Objective - Vital Signs Vital signs: Vital Signs Temp 97.7 F 10/14/19 08:10 Pulse 67 10/14/19 12:15 Resp 18 10/14/19 12:15 BP 122/77 10/14/19 12:15 Pulse Ox 96 10/14/19 12:15 Intake & Output 10/13/19 10/14/19 10/14/19 18:59 06:59 18:59 Intake Total 978 329 7319 Output Total 1500 600 Balance -889 552 4536 Weight 68.7 kg Intake: IV 10 10 .9 10 10 Oral 422 220 5139 Output: Urine 1500 600 Other: Voiding Method Toilet Toilet # Voids 1 # Bowel Movements 1 1 - Labs CBC & Chem 7: 10/14/19 06:39 10/14/19 06:39 Labs: Abnormal Lab Results - Last 24 Hours (Table) 10/14/19 10/14/19 Range/Units 06:39 06:39 Monocytes # 1.4 H (0-1.0) k/uL Sodium 130 L (137-145) mmol/L Chloride 93 L (98-107) mmol/L BUN 28 H (7-17) mg/dL AST 44 H (14-36) U/L Microbiology - Last 24 Hours (Table) 10/11/19 19:58 Blood Culture - Preliminary Blood No Growth after 48 hours
[2019-10-14] MEDS: ATORVASTATIN 40 MG TAB PO SCH (21:02)
[2019-10-14] MEDS: BISOPROLOL-HCTZ 5-6.25 MG 1 EACH TAB PO SCH (21:02)
[2019-10-14] MEDS: CLOPIDOGREL 75 MG TAB PO SCH (21:02)
[2019-10-14] MEDS: PYRIDOXINE 50 MG TAB PO SCH (21:03)
[2019-10-14] MEDS: MONTELUKAST 10 MG TAB PO SCH (21:03)
[2019-10-14] MEDS: LORATADINE 10 MG TAB PO SCH (21:03)
[2019-10-15] MEDS: PANTOPRAZOLE 40 MG TABLET PO SCH (06:27)
[2019-10-15 07:49] LABS: Albumin 3.9 g/dL (3.5-5.0); Calcium 9.2 mg/dL (8.4-10.2); Potassium 4.2 mmol/L (3.5-5.1); Total Bilirubin 0.7 mg/dL (0.2-1.3); Total Protein 6.5 g/dL (6.3-8.2)
[2019-10-15 07:54] LABS: Basophils # (A) 0.1 k/uL (0-0.2); Basophils % (A) 1 %; Eosinophils # (A) 0.2 k/uL (0-0.7); Eosinophils % (A) 2 %; HCT 44.1 % (34.0-46.0); HGB 14.7 gm/dL (11.4-16.0); Lymphocytes # (A) 2.2 k/uL (1.0-4.8); Lymphocytes % (A) 25 %; MCH 31.4 pg (25.0-35.0); MCHC 33.2 g/dL (31.0-37.0); MCV 94.6 fL (80.0-100.0); Mean Platelet Volume 8.6; Monocytes # (A) 1.3 k/uL (0-1.0); Monocytes % (A) 15 %; Neutrophils # (A) 4.5 k/uL (1.3-7.7); Neutrophils % (A) 52 %; Platelet Count 170 k/uL (150-450); RBC 4.66 m/uL (3.80-5.40); RDW 13.2 % (11.5-15.5); WBC 8.5 k/uL (3.8-10.6)
[2019-10-15] MEDS: ASCORBIC ACID 500 MG TAB PO SCH (08:45)
[2019-10-15] MEDS: FUROSEMIDE 40 MG TAB PO SCH (08:45)
[2019-10-15] MEDS: ALPRAZolam 0.25 MG TAB PO PRN (08:45)
[2019-10-15] MEDS: MULTIVITAMINS, THERA 1 EACH TAB PO SCH (08:45)
[2019-10-15] MEDS: CHOLECALCIFEROL 1,000 UNIT TAB PO SCH (08:45)
[2019-10-15] MEDS: CYANOCOBALAMIN 500 MCG TAB PO SCH (08:45)
[2019-10-15] MEDS: hydrALAZINE HCL 25 MG TAB PO SCH (08:45)
[2019-10-15] MEDS: APIXABAN 5 MG TAB PO SCH (08:45)
[2019-10-15] MEDS: ESCITALOPRAM 10 MG TAB PO SCH (08:45)
[2019-10-15] MEDS: ZINC SULFATE 220 MG CAP PO SCH (08:46)
[2019-10-15] MEDS: VITAMIN E (DL,TOCOPHERYL ACET) 400 UNIT CAP PO SCH (08:46)
[2019-10-15 08:48] VITALS: BP 129/84; PULSE 69; RESP 18; TEMP 98.5
[2019-10-15] MEDS ORDERED: polyethylene glycoL 3350 17 GM POWD.PACK PO PRN (08:50)
[2019-10-15] MEDS: prednisoLONE ACETATE 1% OPHTH DROPS 5 ML BTL BOTH EYES SCH (08:57)
--- NOTE | 2019-10-15 10:44 | P.PN ---
Subjective Progress Note Date: 10/15/19 CHIEF COMPLAINT: CHF HISTORY OF PRESENT ILLNESS: Patient examined this morning bedside. Patient denies any chest pain. She denies shortness of breath. She reports improvement in lower extremity edema. Blood pressure stable 129/84. Heart rate in the 60s. PHYSICAL EXAM: VITAL SIGNS: Reviewed. GENERAL: Well-developed in no acute distress. HEENT: Head is normocephalic. Pupils are equal, round. Sclerae anicteric. Mucous membranes of the mouth are moist. Neck supple. No JVD or thyromegaly LUNGS: Respirations even and unlabored. Lungs essentially clear to auscultation bilaterally. HEART: Regular rate and rhythm. S1 and S2 heard. EXTREMITIES: Normal range of motion. No clubbing or cyanosis. Peripheral pulses intact. No lower extremity edema NEUROLOGIC: Awake and alert. Oriented x 3. ASSESSMENT: 1. Acute exacerbation of diastolic congestive heart failure with pulmonary edema per CXR, EF 50-55% 2. Paroxysmal atrial fibrillation, on long-term anticoagulation with Eliquis 3. Coronary artery disease with previous stent placement to the left circumflex 4. History of aortic stenosis, status post TAVR 5. Hypertension 6. Hyperlipidemia 7. Acute kidney injury 8. Abnormal troponins, no evidence of acute coronary syndrome PLAN: Continue Lasix 40 mg by mouth daily Continue additional cardiac medications Stable for discharge from a cardiac standpoint Patient to follow up outpatient with Dr. James in 2 weeks Nurse practitioner note has been reviewed by physician. Signing provider agrees with the documented findings, assessment, and plan of care. Objective - Vital Signs Vital signs: Vital Signs Temp 98.5 F 10/15/19 08:00 Pulse 69 10/15/19 08:00 Resp 18 10/15/19 08:00 BP 129/84 10/15/19 08:00 Pulse Ox 95 10/15/19 08:00 Intake & Output 10/14/19 10/15/19 10/15/19 18:59 06:59 18:59 Intake Total 2220 240 120 Output Total 900 1100 Balance 1320 -860 120 Weight 69 kg Intake: Oral 2220 240 120 Output: Urine 900 1100 Other: Voiding Method Toilet # Bowel Movements 1 - Labs CBC & Chem 7: 10/15/19 06:17 10/15/19 06:17 Labs: Abnormal Lab Results - Last 24 Hours (Table) 10/15/19 10/15/19 Range/Units 06:17 06:17 Monocytes # 1.3 H (0-1.0) k/uL Sodium 135 L (137-145) mmol/L Chloride 97 L (98-107) mmol/L BUN 28 H (7-17) mg/dL AST 40 H (14-36) U/L ALT 35 H (4-34) U/L Microbiology - Last 24 Hours (Table) 10/11/19 19:58 Blood Culture - Preliminary Blood No Growth after 72 hours
--- NOTE | 2019-10-15 11:05 | P.DS ---
Providers Date of admission: 10/11/19 21:23 Expected date of discharge: 10/15/19 Attending physician: Hailey Martínez Consults: 10/11/19 21:23 Consult Physician Routine Consulting Provider: Love Kenney Consult Reason/Comments: heart failure Do you want consulting provider notified?: Yes 10/12/19 08:17 Consult Physician Routine Consulting Provider: Mauricio Rutherford Consult Reason/Comments: shortness of breath Do you want consulting provider notified?: Yes Primary care physician: Cinthia Wynn Hospital Course: Diagnosis on discharge: 1. Acute exacerbation of congestive heart failure, most likely diastolic, likely secondary to fluid bolus patient received on her way to the hospital. 2. Dehydration with acute kidney injury, likely due to colonoscopy prep and severe diarrhea 3. Elevated d-dimer, no evidence of DVT 4. Elevated troponin level cardiology consult requested 5. Underlying history of paroxysmal atrial fibrillation maintained on long-term anticoagulation with Eliquis 6. Underlying history of coronary artery disease with history of stent placement 7. Underlying history of hypertension 8. Underlying history of aortic stenosis with history of TAVR 9. Hyponatremia, improved Hospital course: Ernestina Sheffield, is an 79-year-old female who presented to [facility] emergency room with a chief complaint of shortness of breath. Patient states that she was at home taking preparation for colonoscopy, she started having severe diarrhea and nausea, she was feeling weak and fatigued, she called EMS, patient was found to be dehydrated, she received IV fluid bolus by EMS on route to the hospital, patient has a known history of congestive heart failure, on arrival to emergency room patient was having significant shortness of breath, her chest x-ray was compatible with acute pulmonary edema, she was started on IV Lasix and was admitted to telemetry floor. D-dimer was elevated, bilateral lower extremity Doppler was ordered and was negative, CT angiogram was not done in the emergency room due to elevated BUN and creatinine, patient was admitted to telemetry floor echocardiogram was ordered pulmonary consultation and cardiology consultation were ordered. Patient was seen and examined on the telemetry floor in the presence of her God Daughter Kallie, who provided most of the history. At this time patient is feeling well and denies any complaints, there is no fever or chills no headache or dizziness no chest pain no shortness of breath no cough no nausea or vomiting no abdominal pain no diarrhea no burning with urination no frequency or urgency no hematuria. On 10/13/2019 patient was seen and examined on the medical floor she is alert an d oriented 3 in no apparent distress she is complaining of weakness and dizziness otherwise she denies any complaints there is no fever or chills no headache or dizziness no chest pain no shortness of breath no cough no nausea or vomiting no abdominal pain no diarrhea no burning with urination no frequency or urgency and no hematuria. On 10/14/2019 patient was seen and examined on the medical floor she is alert and oriented 3 in no apparent distress she is complaining of constipation and abdominal discomfort otherwise she denies any complaints or shortness of breath has improved there is no fever or chills no headache or dizziness no chest pain no shortness of breath no cough no nausea or vomiting no abdominal pain no diarrhea no burning with urination no frequency or urgency and no hematuria, her temperature is 90.8 blood pressure 103/60 pulse ox 95% on room air heart rate is 69 and respiration 18 her white blood count is normal at 8.4 hemoglobin 14.2 platelet count 150 her sodium is improving up to 130 today from 126 yesterday, BUN is slightly elevated at 28 creatinine 1.02 AST is slightly elevated at 44 ALT is normal On 10/15/2019 patient was seen and examined on the medical floor, she is alert and oriented 3 in no apparent distress, there is no fever or chills no headache or dizziness no chest pain no shortness of breath no cough no nausea or vomiting no abdominal pain no diarrhea no burning with urination no frequency or urgency no hematuria and is feeling well she is refusing any rehab and wants to go home. She was cleared for discharge by cardiology , She will be discharged home today, follow-up with primary care physician in 2-3 days, patient given a prescription for hydralazine Lasix and sublingual nitro at discharge. Patient Condition at Discharge: Fair Plan - Discharge Summary Discharge Rx Participant: No New Discharge Prescriptions: New hydrALAZINE HCL [Apresoline] 25 mg PO BID tab Furosemide [Lasix] 40 mg PO DAILY tab polyethylene glycoL 3350 [Miralax] 17 gm PO DAILY PRN powd.pack PRN Reason: Constipation Nitroglycerin Sl Tabs [Nitrostat] 0.4 mg SUBLINGUAL Q10M PRN tab PRN Reason: Chest Pain Continue Omeprazole [PriLOSEC] 20 mg PO QAM Montelukast [Singulair] 10 mg PO HS Ubidecarenone [Co Q-10] 100 mg PO QAM Pyridoxine HCl (Vitamin B6) [Vitamin B-6] 100 mg PO HS Biotin 5,000 mcg PO QAM Zinc 50 mg PO BID Vitamin E (Dl,Tocopheryl Acet) [Vitamin E] 400 unit PO DAILY Cholecalciferol (Vitamin D3) [Vitamin D3] 2,000 unit PO QAM Cyanocobalamin (Vitamin B-12) [Vitamin B-12] 1,000 mcg PO BID Atorvastatin [Lipitor] 40 mg PO HS #90 tab Clopidogrel [Plavix] 75 mg PO HS Cetirizine HCl [Zyrtec] 10 mg PO HS Multivitamins, Thera [Multivitamin (formulary)] 1 tab PO QAM Vitamin B Complex 1 cap PO BID prednisoLONE ACETATE 1% OPHTH [Pred Forte 1%] 1 drop BOTH EYES QID Apixaban [Eliquis] 5 mg PO BID #60 tab Escitalopram [Lexapro] 10 mg PO DAILY Bisoprolol-Hctz 5-6.25 mg [Ziac 5-6.25 MG] 1 tab PO DAILY ALPRAZolam [Xanax] 0.125 mg PO BID PRN PRN Reason: Anxiety Ascorbic Acid [Vitamin C] 1,000 mg PO DAILY Discontinued Alendronate Sodium [Fosamax] 5 mg PO DAILY Discharge Medication List Montelukast [Singulair] 10 mg PO HS 09/09/14 [History] Omeprazole [PriLOSEC] 20 mg PO QAM 09/09/14 [History] Ubidecarenone [Co Q-10] 100 mg PO QAM 09/03/15 [History] Biotin 5,000 mcg PO QAM 01/18/18 [History] Pyridoxine HCl (Vitamin B6) [Vitamin B-6] 100 mg PO HS 01/18/18 [History] Vitamin E (Dl,Tocopheryl Acet) [Vitamin E] 400 unit PO DAILY 01/18/18 [History] Zinc 50 mg PO BID 01/18/18 [History] Cholecalciferol (Vitamin D3) [Vitamin D3] 2,000 unit PO QAM 08/30/18 [History] Cyanocobalamin (Vitamin B-12) [Vitamin B-12] 1,000 mcg PO BID 08/30/18 [History] Atorvastatin [Lipitor] 40 mg PO HS #90 tab 10/13/18 [Rx] Cetirizine HCl [Zyrtec] 10 mg PO HS 12/16/18 [History] Clopidogrel [Plavix] 75 mg PO HS 12/16/18 [History] Multivitamins, Thera [Multivitamin (formulary)] 1 tab PO QAM 12/16/18 [History] Vitamin B Complex 1 cap PO BID 12/16/18 [History] prednisoLONE ACETATE 1% OPHTH [Pred Forte 1%] 1 drop BOTH EYES QID 12/16/18 [History] Apixaban [Eliquis] 5 mg PO BID #60 tab 12/17/18 [Rx] ALPRAZolam [Xanax] 0.125 mg PO BID PRN 10/11/19 [History] Ascorbic Acid [Vitamin C] 1,000 mg PO DAILY 10/11/19 [History] Bisoprolol-Hctz 5-6.25 mg [Ziac 5-6.25 MG] 1 tab PO DAILY 10/11/19 [History] Escitalopram [Lexapro] 10 mg PO DAILY 10/11/19 [History] Furosemide [Lasix] 40 mg PO DAILY tab 10/15/19 [Rx] Nitroglycerin Sl Tabs [Nitrostat] 0.4 mg SUBLINGUAL Q10M PRN tab 10/15/19 [Rx] hydrALAZINE HCL [Apresoline] 25 mg PO BID tab 10/15/19 [Rx] polyethylene glycoL 3350 [Miralax] 17 gm PO DAILY PRN powd.pack 10/15/19 [Rx] Follow up Appointment(s)/Referral(s): Cinthia Wynn MD [Primary Care Provider] - 1-2 days Errol James MD [STAFF PHYSICIAN] - 2 Weeks
--- NOTE | 2019-10-15 11:48 | CDI ---
Documentation Clarification Form Date: 10/15/2019 10:43:00 AM From: Slime Wilson RN, CCDS Admit Date: 10/11/2019 09:23:00 PM Patient Name: Ernestina Sheffield Visit Number: [id number] Discharge Date: ATTENTION: The Clinical Documentation Specialists (CDI) and [facility] Coding Staff appreciate your assistance in clarifying documentation. Please respond to the clarification below the line at the bottom and electronically sign. The CDI & [facility] Coding staff will review the response and follow-up if needed. Please note: Queries are made part of the Legal Health Record. If you have any questions, please contact the author of this message via ITS. Dr. Mauricio Rutherford Altered Mental Status secondary to hypertensive emergency was documented in the consult on 10/11 and subsequent progress notes. Please provide further specificity for the type of altered mental status. History/Risk Factors: Paroxysmal Atrial Fibrillation, Coronary artery disease Congestive heart failure, Hypertension Clinical Indicators: 79-year-old female who present on 10/10 with dyspnea, altered mentation. She was hypoxic, with pulse ox of 80 % on room air. On presentation patient blood pressure 200/111 heart rate 100, respiratory rate 28 80 %2/L NC. ED assessment on 10/10 Patient reevaluated after several minutes of BIPAP, Lasix and nitroglycerin. She does appear significantly improved. Patient is alert and orientated x4. Her mentation appears to be significantly improved. Blood pressure improved. 10/10Labs: WBC 19.7 Lactic acid 2.0, Blood gas pH 7.34, oxygen saturation 314 with 100% FIO2, PCO2 43, Bicarb of 23. Sodium 124, Potassium 3.4. Magnesiium 1.5, Troponin 0.054. BNP 923 10/10 Chest x-ray: severe pulmonary edema 10/10 EKG no changes Treatment: Nitroglycerin IV 50 mg at 3/mls hr 10/10-10/11 Apresoline 25 mg po bid Lasix 40 mg IV q 12 hrs 10/10-10/12 change to 40 mg po daily on 10/13 Monitor O2 Sat's (Titrate) BIPAP per pulmonary (titrate per Sat's) In your professional opinion, please clarify the etiology of the Altered Mental Status, if known. Hypertensive Encephalopathy Anoxic Encephalopathy and Hypertensive Encephalopathy Other condition (please specify) Unable to determine (Last Revision: May 2017) Anoxic Encephalopathy and Hypertensive Encephalopathy MTDD
[2019-10-15] MEDS ORDERED: prednisoLONE ACETATE 1% OPHTH DROPS 5 ML BTL BOTH EYES SCH (21:00)
--- NOTE | 2019-10-16 13:38 | CDI ---
Documentation Clarification Form Date: 10/16/19 From: Stefanie Mckeon Phone: If you have a question about this query, please contact Tracie Carlson, Vice President Safety at [phone] between 8am and 5pm. Admit Date: 10/11/19 Discharge Date:10/14/19 Patient Name: Ernestina Sheffield Visit Number: [id number] ATTENTION: The Clinical Documentation Specialists (CDI) and [facility] Coding Staff appreciate your assistance in clarifying documentation. Please respond to the clarification below the line at the bottom and electronically sign. The CDI & [facility] Coding staff will review the response and follow-up if needed. Please note: Queries are made part of the Legal Health Record. If you have any questions, please contact the author of this message via ITS. Dear Dr. Martínez Your patient has a documented diagnosis of acute kidney injury - which may lack sufficient clinical evidence/support. History/Risk Factors: CHF exacerbation, dehydration, diarrhea, hypertensive emergency, acute hypoxic respiratory failure. Patient's baseline BUN/CR/GFR: 14/0.90/51 Clinical Indicators: Weakness, fatigue, 2+ pitting edema bilateral lower extremities, confusion BUN - 16 on admit 28 on 10/13, CR - 0.94 on admit and 1.03 on 10/14, GFR - 57 on admit 51 on 10/14 Treatment: IV Lasix 40 mg daily Based on the clinical evidence and your professional judgment, do you feel acute kidney injury is a valid diagnosis? Yes, acute kidney injury present/active during this admission as evidence by (additional clinical support): No, acute kidney injury was ruled out. Other (please specify diagnosis) Unable to determine yes acute kidney injury secondary to diarrhea/colon prep with documented hyponatermia MTDD
== END 2019-10-15 15:05 | DRG 291 ==
LOC: EC 19:41 → 3SCARD 21:23
PROVIDERS: ADMIT Internal Medicine; ATTEND Internal Medicine
PROC: 5A09357 Assistance with Respiratory Ventilation, Less than 24 Consecutive Hours, Continuous Positive Airway Pressure (ICD-10-PCS; principal; 2019-10-11)
DX: I11.0 Hypertensive heart disease with heart failure (principal); J96.01 Acute respiratory failure with hypoxia; E87.1 Hypo-osmolality and hyponatremia; E87.2 Acidosis; I16.1 Hypertensive emergency; I67.4 Hypertensive encephalopathy; G93.1 Anoxic brain damage, not elsewhere classified; N17.9 Acute kidney failure, unspecified; I50.33 Acute on chronic diastolic (congestive) heart failure; G62.0 Drug-induced polyneuropathy; E86.0 Dehydration; I48.0 Paroxysmal atrial fibrillation; T45.1X5A Adverse effect of antineoplastic and immunosuppressive drugs, initial encounter; R40.2362 Coma scale, best motor response, obeys commands, at arrival to emergency department; R40.2142 Coma scale, eyes open, spontaneous, at arrival to emergency department; R40.2252 Coma scale, best verbal response, oriented, at arrival to emergency department; D72.829 Elevated white blood cell count, unspecified; E78.5 Hyperlipidemia, unspecified; F41.9 Anxiety disorder, unspecified; I25.10 Atherosclerotic heart disease of native coronary artery without angina pectoris; I44.7 Left bundle-branch block, unspecified; K59.00 Constipation, unspecified; K21.9 Gastro-esophageal reflux disease without esophagitis; M19.90 Unspecified osteoarthritis, unspecified site; T50.995A Adverse effect of other drugs, medicaments and biological substances, initial encounter; R19.7 Diarrhea, unspecified; R79.89 Other specified abnormal findings of blood chemistry; Z79.01 Long term (current) use of anticoagulants; Z79.02 Long term (current) use of antithrombotics/antiplatelets; Z79.83 Long term (current) use of bisphosphonates; Z79.899 Other long term (current) drug therapy; Z90.11 Acquired absence of right breast and nipple; Z95.2 Presence of prosthetic heart valve; Z95.5 Presence of coronary angioplasty implant and graft; Z88.8 Allergy status to other drugs, medicaments and biological substances; Z91.09 Other allergy status, other than to drugs and biological substances; Z85.3 Personal history of malignant neoplasm of breast; Z85.828 Personal history of other malignant neoplasm of skin; Z96.652 Presence of left artificial knee joint; Z98.49 Cataract extraction status, unspecified eye; Z94.7 Corneal transplant status; Z80.0 Family history of malignant neoplasm of digestive organs; Z80.7 Family history of other malignant neoplasms of lymphoid, hematopoietic and related tissues; Z83.518 Family history of other specified eye disorder
CPT/HCPCS: 36415; 36600; 70450; 71045; 80048; 80053; 81003; 82805; 83605; 83735; 83880; 84484; 85025; 85379; 85610; 85730; 87040; 93005; 93306; 93970; 94660; 96365; 96366; 96375; 99285

== ENCOUNTER 2019-12-09 15:48 | Emergency (ER) | payer MEDICARE ==
[2019-12-09 16:41] LABS: Basophils % (A) 1 %; Eosinophils # (A) 0.1 k/uL (0-0.7); Eosinophils % (A) 2 %; HCT 46.2 % (34.0-46.0); HGB 14.9 gm/dL (11.4-16.0); Lymphocytes # (A) 2.2 k/uL (1.0-4.8); Lymphocytes % (A) 28 %; MCHC 32.3 g/dL (31.0-37.0); MCV 99.1 fL (80.0-100.0); Monocytes % (A) 13 %; Neutrophils # (A) 4.1 k/uL (1.3-7.7); Neutrophils % (A) 53 %; Platelet Count 158 k/uL (150-450); RBC 4.67 m/uL (3.80-5.40); RDW 13.2 % (11.5-15.5); WBC 7.6 k/uL (3.8-10.6)
--- NOTE | 2019-12-09 16:53 | ED ---
Chest Pain HPI - General Chief Complaint: Chest Pain Stated Complaint: chest discomfort Time Seen by Provider: 12/09/19 15:58 Source: patient, RN notes reviewed Mode of arrival: wheelchair Limitations: no limitations - History of Present Illness Initial Comments: This 79-year-old female who presents with complaints of intermittent chest pain over last several days. States it feels like him he was hit something heavy. She did state she lifts some heavy groceries last day or so. No fevers chills sweats she states it's a discomfort more than the pain got very severe. She does point to the middle of her chest on the right lower sternal region as the pain she was having upon arrival. It does get better with supine positioning. She has no fevers chills nausea vomiting sweats cough or phlegm production no other modifying factors. She does state she was given a prescription for nitroglycerin which she did not use. Additional information did have an AV valve replacement in January of this past year. MD Complaint: chest pain - Related Data Home Medications Medication Instructions Recorded Confirmed Omeprazole [PriLOSEC] 20 mg PO DAILY 09/09/14 12/09/19 Ubidecarenone [Co Q-10] 100 mg PO DAILY 09/03/15 12/09/19 Pyridoxine HCl (Vitamin B6) 100 mg PO HS 01/18/18 12/09/19 [Vitamin B-6] Vitamin E (Dl,Tocopheryl Acet) 400 unit PO DAILY 01/18/18 12/09/19 [Vitamin E] Zinc 50 mg PO DAILY 01/18/18 12/09/19 Cyanocobalamin (Vitamin B-12) 1,000 mcg PO BID 08/30/18 12/09/19 [Vitamin B-12] Cetirizine HCl [Zyrtec] 10 mg PO HS 12/16/18 12/09/19 prednisoLONE ACETATE 1% OPHTH 1 drop BOTH EYES QID 12/16/18 12/09/19 [Pred Forte 1%] ALPRAZolam [Xanax] 0.125 mg PO BID 10/11/19 12/09/19 Ascorbic Acid [Vitamin C] 1,000 mg PO DAILY 10/11/19 12/09/19 Bisoprolol-Hctz 5-6.25 mg [Ziac 1 tab PO HS 10/11/19 12/09/19 5-6.25 MG] Escitalopram [Lexapro] 10 mg PO DAILY 10/11/19 12/09/19 Artificial Tears-Hypromellose 1 drops BOTH EYES TID 12/09/19 12/09/19 [Artificial Tear Drops] Biotin 300mg 300 mg PO DAILY 12/09/19 12/09/19 Calcium/Magnesium(Unknown Dose) 2 tab PO BID 12/09/19 12/09/19 Cholecalciferol [Vitamin D3 (25 2,000 unit PO HS 12/09/19 12/09/19 Mcg = 1000 Iu)] Ferrous Sulfate [Feosol] 325 mg PO DAILY 12/09/19 12/09/19 Ginkgo Biloba 10mg 10 mg PO DAILY 12/09/19 12/09/19 Kelp(Iodine) 550mg 550 mg PO BID 12/09/19 12/09/19 Lecithin(Unknown Dose) 2 tab PO DAILY 12/09/19 12/09/19 Lecithin(Unknown Dose) 3 tab PO HS 12/09/19 12/09/19 Lutein 20 mg PO DAILY 12/09/19 12/09/19 Methenamine/Sodium Salicylate [Azo 1 tab PO BID 12/09/19 12/09/19 Urinary Tract Defense Tab] Montelukast [Singulair] 10 mg PO HS 12/09/19 12/09/19 Nitroglycerin Sl Tabs [Nitrostat] 0.4 mg SUBLINGUAL Q5M PRN 12/09/19 12/09/19 Nutriferon Shaklee 1 cap PO BID 12/09/19 12/09/19 Potassium Gluconate 99 mg PO DAILY 12/09/19 12/09/19 Selenium 200 mcg PO HS 12/09/19 12/09/19 Vitamin B Plus 1 tab PO BID 12/09/19 12/09/19 cloNIDine HCL [Catapres] 0.1 mg PO DAILY PRN 12/09/19 12/09/19 Previous Rx's Medication Instructions Recorded Atorvastatin [Lipitor] 40 mg PO HS #90 tab 10/13/18 Apixaban [Eliquis] 5 mg PO BID #60 tab 12/17/18 Allergies Allergy/AdvReac Type Severity Reaction Status Date / Time grass pollen-perennial rye, Allergy Itching Verified 10/25/20 17:23 standar diazepam [From Valium] AdvReac Rapid Verified 12/09/19 17:23 Heart Rate Review of Systems ROS Statement: Those systems with pertinent positive or pertinent negative responses have been documented in the HPI. ROS Other: All systems not noted in ROS Statement are negative. EKG Findings - EKG Results: EKG: interpreted by NOAH (Sinus rhythm 62. 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, "bad joints", anemia, History of Any Multi-Drug Resistant Organisms: None Reported Past Surgical History: Breast Surgery, Heart Catheterization With Stent, Orthopedic Surgery Additional Past Surgical History / Comment(s): RT MASTECTOMY, Eye surgery - bilateral corneal transplant x5, AND cataract removal, left knee replaced, heart cath with stent- 4 weeks, Past Anesthesia/Blood Transfusion Reactions: No Reported Reaction Date of Last Stent Placement:: 10/13/18 Past Psychological History: Anxiety Smoking Status: Never smoker Past Alcohol Use History: None Reported Past Drug Use History: None Reported - Past Family History Father Family Medical History: Cancer Additional Family Medical History / Comment(s): corneal dystrophy, colon cancer Mother Family Medical History: Cancer Additional Family Medical History / Comment(s): multiple myeloma Brother(s) Family Medical History: Cancer Additional Family Medical History / Comment(s): colon cancer, since past. Aneruysm. General Exam - General Exam Comments Initial Comments: This a well-developed asthenic appearing female who is awake alert oriented 3 Limitations: no limitations General appearance: alert, in no apparent distress Head exam: Present: atraumatic, normocephalic, normal inspection Eye exam: Present: normal appearance, PERRL, EOMI. Absent: scleral icterus, conjunctival injection, periorbital swelling ENT exam: Present: normal exam, mucous membranes moist Neck exam: Present: normal inspection. Absent: tenderness, meningismus, lymphadenopathy Respiratory exam: Present: normal lung sounds bilaterally, chest wall tenderness (Reproducible tenderness palpation along the left costal sternal margin to palpation no step-off no crepitation.). Absent: respiratory distress, wheezes, rales, rhonchi, stridor Cardiovascular Exam: Present: regular rate, normal rhythm, normal heart sounds. Absent: systolic murmur, diastolic murmur, rubs, gallop, clicks GI/Abdominal exam: Present: soft, normal bowel sounds. Absent: distended, tenderness, guarding, rebound, rigid, bruit, pulsatile mass Extremities exam: Present: normal inspection, full ROM, normal capillary refill. Absent: tenderness, pedal edema, joint swelling, calf tenderness Back exam: Present: normal inspection Neurological exam: Present: alert, oriented X3, CN II-XII intact Psychiatric exam: Present: normal affect, normal mood Skin exam: Present: warm, dry, intact, normal color. Absent: rash Course Vital Signs 12/09/19 15:49 Temperature 97.9 F Pulse Rate 64 Respiratory 18 Rate Blood Pressure 160/62 O2 Sat by Pulse 98 Oximetry - Reevaluation(s) Reevaluation #1: 12/09/19 17:40 Evaluation patient she has no pain at this time Chest Pain MDM - MDM I did review the imaging and report no acute findings patient's have a minimally elevated d-dimer which is likely related. Presentation appears consistent with a musculoskeletal etiology of the discomfort she does admit to lifting grocery bags the pain occurred shortly thereafter. Patient will be discharged she is a follow-up with Dr. Thurston as planned. Return if any problems she currently is asymptomatic Disposition Clinical Impression: Chest wall syndrome, Costochondritis Disposition: HOME SELF-CARE Condition: Good Instructions (If sedation given, give patient instructions): Costochondritis (ED), Chest Wall Pain (ED) Additional Instructions: Tylenol for pain Is patient prescribed a controlled substance at d/c from ED?: No Referrals: Cinthia Wynn MD [Primary Care Provider] - 1-2 days
--- NOTE | 2019-12-09 16:56 | XR ---
EXAMINATION TYPE: XR chest 2V DATE OF EXAM: 12/09/2019 COMPARISON: 10/11/2019 HISTORY: Chest pain TECHNIQUE: FINDINGS: There is no heart failure nor confluent pneumonic infiltrate. There is aortic valve stent. There is large hiatal hernia. Costophrenic angles are clear. There are chest leads. Bones are osteope deepak. IMPRESSION: No active cardiopulmonary disease. There is clearing of the pulmonary edema and heart chika lure compared to old exam. Large hiatal hernia unchanged.
[2019-12-09 16:59] LABS: Albumin 4.4 g/dL (3.5-5.0); Calcium 9.4 mg/dL (8.4-10.2); Magnesium 2.1 mg/dL (1.6-2.3); Potassium 4.4 mmol/L (3.5-5.1); Total Bilirubin 0.5 mg/dL (0.2-1.3); Total Protein 7.6 g/dL (6.3-8.2)
[2019-12-09 17:09] LABS: Partial Thromboplastin Time 22.6 sec (22.0-30.0); Prothrombin Time 10.1 sec (9.0-12.0)
[2019-12-09 17:10] LABS: D-Dimer 0.66 mg/L FEU (<0.60)
[2019-12-09 18:19] VITALS: BP 180/82; PULSE 59; RESP 16; TEMP 98.6
== END 2019-12-09 18:19 | disposition home or self-care (01) ==
LOC: EC 15:48
DX: M94.0 Chondrocostal junction syndrome [Tietze] (principal); I48.91 Unspecified atrial fibrillation; I11.0 Hypertensive heart disease with heart failure; I50.9 Heart failure, unspecified; K21.9 Gastro-esophageal reflux disease without esophagitis; E78.5 Hyperlipidemia, unspecified; F41.9 Anxiety disorder, unspecified; M19.90 Unspecified osteoarthritis, unspecified site; Z79.01 Long term (current) use of anticoagulants; Z79.899 Other long term (current) drug therapy; Z79.51 Long term (current) use of inhaled steroids; Z88.8 Allergy status to other drugs, medicaments and biological substances; Z91.048 Other nonmedicinal substance allergy status; Z95.5 Presence of coronary angioplasty implant and graft; Z96.652 Presence of left artificial knee joint; Z90.11 Acquired absence of right breast and nipple; Z95.2 Presence of prosthetic heart valve; Z85.828 Personal history of other malignant neoplasm of skin; Z85.3 Personal history of malignant neoplasm of breast
CPT/HCPCS: 36415; 71046; 80053; 82550; 83735; 83880; 84484; 85025; 85379; 85610; 85730; 93005; 99285

== ENCOUNTER 2020-04-14 04:11 | Inpatient (IN) | payer MEDICARE ==
[2020-04-14] MEDS ORDERED: SODIUM CHLORIDE 0.9% 1,000 ML IV STA (04:20)
[2020-04-14] MEDS ORDERED: SODIUM CHLORIDE 0.9% 500 ML 500 ML IV STA (04:20)
[2020-04-14] MEDS ORDERED: ATROPINE SULFATE 0.1 MG/ML 10ML SYRINGE IV STA (04:21)
--- NOTE | 2020-04-14 04:21 | ED ---
Arrhythmia/Palpitations HPI - General Chief Complaint: Arrhythmia/Palpitations Stated Complaint: Bradycardia Time Seen by Provider: 04/14/20 04:19 Source: patient, EMS, RN notes reviewed, old records reviewed Mode of arrival: EMS Limitations: no limitations - History of Present Illness Initial Comments: This is a 78-year-old female she presents today for evaluation of not feeling well feel like she may pass out. Patient has history of atrial fibrillation, followed when she would stand up tonight she was given a pass on the ground. Patient presents to EMS for evaluation care. Patient states her symptoms are mildly improved here in the ER. No significant chest pain no current shortness of breath no diaphoresis associated with MD Complaint: rapid heart beat, "heart racing" -: hour(s) Context: change in medication Arrhythmia History: other (bradycardia) Associated Symptoms: denies other symptoms Treatments Prior to Arrival: other - Related Data Home Medications Medication Instructions Recorded Confirmed Omeprazole [PriLOSEC] 20 mg PO DAILY 09/09/14 04/14/20 Ubidecarenone [Co Q-10] 100 mg PO DAILY 09/03/15 04/14/20 Pyridoxine HCl (Vitamin B6) 100 mg PO HS 01/18/18 04/14/20 [Vitamin B-6] Vitamin E (Dl,Tocopheryl Acet) 400 unit PO DAILY 01/18/18 04/14/20 [Vitamin E] Zinc 50 mg PO DAILY 01/18/18 04/14/20 Cyanocobalamin (Vitamin B-12) 1,000 mcg PO BID 08/30/18 04/14/20 [Vitamin B-12] Cetirizine HCl [Zyrtec] 10 mg PO HS 12/16/18 04/14/20 prednisoLONE ACETATE 1% OPHTH 1 drop BOTH EYES QAM 12/16/18 04/14/20 [Pred Forte 1%] ALPRAZolam [Xanax] 0.125 mg PO BID 10/11/19 04/14/20 Ascorbic Acid [Vitamin C] 1,000 mg PO DAILY 10/11/19 04/14/20 Bisoprolol-Hctz 5-6.25 mg [Ziac 1 tab PO HS 10/11/19 04/14/20 5-6.25 MG] Escitalopram [Lexapro] 10 mg PO DAILY 10/11/19 04/14/20 Artificial Tears-Hypromellose 1 drops BOTH EYES TID 12/09/19 04/14/20 [Artificial Tear Drops] Biotin 300mg 300 mg PO DAILY 12/09/19 04/14/20 Calcium/Magnesium(Unknown Dose) 2 tab PO BID 12/09/19 04/14/20 Cholecalciferol [Vitamin D3 (25 2,000 unit PO HS 12/09/19 04/14/20 Mcg = 1000 Iu)] Ferrous Sulfate [Feosol] 325 mg PO DAILY 12/09/19 04/14/20 Ginkgo Biloba 10mg 10 mg PO DAILY 12/09/19 04/14/20 Kelp(Iodine) 550mg 550 mg PO BID 12/09/19 04/14/20 Lecithin(Unknown Dose) 2 tab PO DAILY 12/09/19 04/14/20 Lecithin(Unknown Dose) 3 tab PO HS 12/09/19 04/14/20 Lutein 20 mg PO DAILY 12/09/19 04/14/20 Methenamine/Sodium Salicylate [Azo 1 tab PO BID 12/09/19 04/14/20 Urinary Tract Defense Tab] Montelukast [Singulair] 10 mg PO HS 12/09/19 04/14/20 Nitroglycerin Sl Tabs [Nitrostat] 0.4 mg SUBLINGUAL Q5M PRN 12/09/19 04/14/20 Nutriferon Shaklee 1 cap PO BID 12/09/19 04/14/20 Potassium Gluconate 99 mg PO DAILY 12/09/19 04/14/20 Selenium 200 mcg PO HS 12/09/19 04/14/20 Vitamin B Plus 1 tab PO BID 12/09/19 04/14/20 Cliff Eye Drops 1 drop BOTH EYES QID 04/14/20 04/14/20 Previous Rx's Medication Instructions Recorded Atorvastatin [Lipitor] 40 mg PO HS #90 tab 10/13/18 Apixaban [Eliquis] 5 mg PO BID #60 tab 12/17/18 Allergies Allergy/AdvReac Type Severity Reaction Status Date / Time grass pollen-perennial rye, Allergy Itching Verified 04/14/20 06:33 standar diazepam [From Valium] AdvReac Rapid Verified 04/14/20 06:33 Heart Rate Review of Systems ROS Statement: Those systems with pertinent positive or pertinent negative responses have been documented in the HPI. ROS Other: All systems not noted in ROS Statement are negative. 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, "bad joints", anemia, History of Any Multi-Drug Resistant Organisms: None Reported Past Surgical History: Breast Surgery, Heart Catheterization With Stent, Orthopedic Surgery Additional Past Surgical History / Comment(s): RT MASTECTOMY, Eye surgery - bilateral corneal transplant x5, AND cataract removal, left knee replaced, heart cath with stent- 4 weeks, arotic valve replacement 2020 Past Anesthesia/Blood Transfusion Reactions: No Reported Reaction Date of Last Stent Placement:: 10/13/18 Past Psychological History: Anxiety Smoking Status: Never smoker Past Alcohol Use History: None Reported Past Drug Use History: None Reported - Past Family History Father Family Medical History: Cancer Additional Family Medical History / Comment(s): corneal dystrophy, colon cancer Mother Family Medical History: Cancer Additional Family Medical History / Comment(s): multiple myeloma Brother(s) Family Medical History: Cancer Additional Family Medical History / Comment(s): colon cancer, since past. Aneruysm. General Exam General appearance: alert, in no apparent distress, obtunded Head exam: Present: atraumatic, normocephalic, normal inspection Eye exam: Present: normal appearance, PERRL, EOMI. Absent: scleral icterus, conjunctival injection, periorbital swelling ENT exam: Present: normal exam, mucous membranes moist Neck exam: Present: normal inspection. Absent: tenderness, meningismus, lymphadenopathy Respiratory exam: Present: normal lung sounds bilaterally. Absent: respiratory distress, wheezes, rales, rhonchi, stridor Cardiovascular Exam: Present: bradycardia, normal heart sounds. Absent: systolic murmur, diastolic murmur, rubs, gallop, clicks GI/Abdominal exam: Present: soft, normal bowel sounds. Absent: distended, tenderness, guarding, rebound, rigid Extremities exam: Present: normal inspection, full ROM, normal capillary refill. Absent: tenderness, pedal edema, joint swelling, calf tenderness Back exam: Present: normal inspection Neurological exam: Present: alert, oriented X3, CN II-XII intact Psychiatric exam: Present: normal affect, normal mood Skin exam: Present: warm, dry, intact, normal color. Absent: rash Course Vital Signs 04/14/20 04/14/20 04/14/20 04:12 04:21 04:32 Temperature 98.3 F Pulse Rate 47 L 52 L Pulse Rate [ 45 L Pollution Control Engineer ] Respiratory 18 18 Rate Blood Pressure 130/55 153/93 O2 Sat by Pulse 97 96 Oximetry 04/14/20 04/14/20 04/14/20 04:58 05:55 06:51 Temperature Pulse Rate 84 84 76 Pulse Rate [ Pollution Control Engineer ] Respiratory 18 18 18 Rate Blood Pressure 152/71 161/85 113/88 O2 Sat by Pulse 97 98 98 Oximetry - Reevaluation(s) Reevaluation #1: 04/14/20 04:37 Attic record is reviewed Reevaluation #2: 04/14/20 04:37 Patient is able to maintain blood pressure here in the ER - Consultations Consultation #1: Spoke with cardiology regarding significant bradycardia, they are aware EKG Findings - EKG Comments: EKG Findings:: EKG is sinus bradycardia 47 AL 232 QRS 142 QTC 507 - EKG Results: EKG: interpreted by NOAH (7) Medical Decision Making - Medical Decision Making 80 female DF for evaluation patient has heart block with bradycardia normal blood pressure. Patient will be admitted for cardiology evaluation and treatment, patient did have successful improvement after atropine - Lab Data Result diagrams: 04/14/20 04:23 04/14/20 04:23 Lab Results 04/14/20 04/14/20 04/14/20 Range/Units 04:23 04:23 04:23 WBC 6.7 (3.8-10.6) k/uL RBC 4.31 (3.80-5.40) m/uL Hgb 14.0 (11.4-16.0) gm/dL Hct 41.2 (34.0-46.0) % MCV 95.5 (80.0-100.0) fL MCH 32.4 (25.0-35.0) pg MCHC 33.9 (31.0-37.0) g/dL RDW 12.7 (11.5-15.5) % Plt Count 157 (150-450) k/uL MPV 8.3 Neutrophils % 51 % Lymphocytes % 31 % Monocytes % 12 % Eosinophils % 3 % Basophils % 1 % Neutrophils # 3.4 (1.3-7.7) k/uL Lymphocytes # 2.1 (1.0-4.8) k/uL Monocytes # 0.8 (0-1.0) k/uL Eosinophils # 0.2 (0-0.7) k/uL Basophils # 0.1 (0-0.2) k/uL PT 10.6 (9.0-12.0) sec INR 1.0 (<1.2) APTT 25.1 (22.0-30.0) sec Sodium 139 (137-145) mmol/L Potassium 4.5 (3.5-5.1) mmol/L Chloride 102 (98-107) mmol/L Carbon Dioxide 27 (22-30) mmol/L Anion Gap 10 mmol/L BUN 29 H (7-17) mg/dL Creatinine 1.11 H (0.52-1.04) mg/dL Est GFR (CKD-EPI)AfAm 54 (>60 ml/min/1.73 sqM) Est GFR (CKD-EPI)NonAf 47 (>60 ml/min/1.73 sqM) Glucose 109 H (74-99) mg/dL POC Glucose (mg/dL) (75-99) mg/dL POC Glu Ambulatory Care Nurse ID Plasma Lactic Acid William (0.7-2.0) mmol/L Calcium 8.7 (8.4-10.2) mg/dL Phosphorus 4.5 (2.5-4.5) mg/dL Magnesium 2.1 (1.6-2.3) mg/dL Total Bilirubin 0.5 (0.2-1.3) mg/dL AST 43 H (14-36) U/L ALT 30 (4-34) U/L Alkaline Phosphatase 61 (38-126) U/L Creatine Kinase 76 (30-135) U/L Troponin I (0.000-0.034) ng/mL NT-Pro-B Natriuret Pep pg/mL Total Protein 6.7 (6.3-8.2) g/dL Albumin 4.0 (3.5-5.0) g/dL TSH 4.080 (0.465-4.680) mIU/L 04/14/20 04/14/20 04/14/20 Range/Units 04:23 04:23 04:23 WBC (3.8-10.6) k/uL RBC (3.80-5.40) m/uL Hgb (11.4-16.0) gm/dL Hct (34.0-46.0) % MCV (80.0-100.0) fL MCH (25.0-35.0) pg MCHC (31.0-37.0) g/dL RDW (11.5-15.5) % Plt Count (150-450) k/uL MPV Neutrophils % % Lymphocytes % % Monocytes % % Eosinophils % % Basophils % % Neutrophils # (1.3-7.7) k/uL Lymphocytes # (1.0-4.8) k/uL Monocytes # (0-1.0) k/uL Eosinophils # (0-0.7) k/uL Basophils # (0-0.2) k/uL PT (9.0-12.0) sec INR (<1.2) APTT (22.0-30.0) sec Sodium (137-145) mmol/L Potassium (3.5-5.1) mmol/L Chloride (98-107) mmol/L Carbon Dioxide (22-30) mmol/L Anion Gap mmol/L BUN (7-17) mg/dL Creatinine (0.52-1.04) mg/dL Est GFR (CKD-EPI)AfAm (>60 ml/min/1.73 sqM) Est GFR (CKD-EPI)NonAf (>60 ml/min/1.73 sqM) Glucose (74-99) mg/dL POC Glucose (mg/dL) (75-99) mg/dL POC Glu Ambulatory Care Nurse ID Plasma Lactic Acid William 1.6 (0.7-2.0) mmol/L Calcium (8.4-10.2) mg/dL Phosphorus (2.5-4.5) mg/dL Magnesium (1.6-2.3) mg/dL Total Bilirubin (0.2-1.3) mg/dL AST (14-36) U/L ALT (4-34) U/L Alkaline Phosphatase (38-126) U/L Creatine Kinase (30-135) U/L Troponin I <0.012 (0.000-0.034) ng/mL NT-Pro-B Natriuret Pep 742 pg/mL Total Protein (6.3-8.2) g/dL Albumin (3.5-5.0) g/dL TSH (0.465-4.680) mIU/L 04/14/20 Range/Units 04:23 WBC (3.8-10.6) k/uL RBC (3.80-5.40) m/uL Hgb (11.4-16.0) gm/dL Hct (34.0-46.0) % MCV (80.0-100.0) fL MCH (25.0-35.0) pg MCHC (31.0-37.0) g/dL RDW (11.5-15.5) % Plt Count (150-450) k/uL MPV Neutrophils % % Lymphocytes % % Monocytes % % Eosinophils % % Basophils % % Neutrophils # (1.3-7.7) k/uL Lymphocytes # (1.0-4.8) k/uL Monocytes # (0-1.0) k/uL Eosinophils # (0-0.7) k/uL Basophils # (0-0.2) k/uL PT (9.0-12.0) sec INR (<1.2) APTT (22.0-30.0) sec Sodium (137-145) mmol/L Potassium (3.5-5.1) mmol/L Chloride (98-107) mmol/L Carbon Dioxide (22-30) mmol/L Anion Gap mmol/L BUN (7-17) mg/dL Creatinine (0.52-1.04) mg/dL Est GFR (CKD-EPI)AfAm (>60 ml/min/1.73 sqM) Est GFR (CKD-EPI)NonAf (>60 ml/min/1.73 sqM) Glucose (74-99) mg/dL POC Glucose (mg/dL) 118 H (75-99) mg/dL POC Glu Ambulatory Care Nurse ID John Abrahamin Plasma Lactic Acid William (0.7-2.0) mmol/L Calcium (8.4-10.2) mg/dL Phosphorus (2.5-4.5) mg/dL Magnesium (1.6-2.3) mg/dL Total Bilirubin (0.2-1.3) mg/dL AST (14-36) U/L ALT (4-34) U/L Alkaline Phosphatase (38-126) U/L Creatine Kinase (30-135) U/L Troponin I (0.000-0.034) ng/mL NT-Pro-B Natriuret Pep pg/mL Total Protein (6.3-8.2) g/dL Albumin (3.5-5.0) g/dL TSH (0.465-4.680) mIU/L Critical Care Time Critical Care Time: Yes Total Critical Care Time: 31 Disposition Clinical Impression: Bradycardia, Near syncope, Mobitz type 2 second degree atrioventricular block Disposition: ADMITTED IP TO THIS [facility] Condition: Serious Is patient prescribed a controlled substance at d/c from ED?: No
[2020-04-14 04:25] LABS: Glucose,Whole Blood 118 mg/dL (75-99)
[2020-04-14 04:35] LABS: Basophils # (A) 0.1 k/uL (0-0.2); Basophils % (A) 1 %; Eosinophils # (A) 0.2 k/uL (0-0.7); Eosinophils % (A) 3 %; HCT 41.2 % (34.0-46.0); Lymphocytes # (A) 2.1 k/uL (1.0-4.8); Lymphocytes % (A) 31 %; MCH 32.4 pg (25.0-35.0); MCHC 33.9 g/dL (31.0-37.0); MCV 95.5 fL (80.0-100.0); Mean Platelet Volume 8.3; Monocytes # (A) 0.8 k/uL (0-1.0); Monocytes % (A) 12 %; Neutrophils # (A) 3.4 k/uL (1.3-7.7); Neutrophils % (A) 51 %; Platelet Count 157 k/uL (150-450); RBC 4.31 m/uL (3.80-5.40); RDW 12.7 % (11.5-15.5); WBC 6.7 k/uL (3.8-10.6)
[2020-04-14 04:46] LABS: Calcium 8.7 mg/dL (8.4-10.2); Phosphorus 4.5 mg/dL (2.5-4.5); Total Bilirubin 0.5 mg/dL (0.2-1.3); Total Protein 6.7 g/dL (6.3-8.2)
[2020-04-14 04:50] LABS: Potassium 4.5 mmol/L (3.5-5.1)
[2020-04-14 04:51] LABS: Magnesium 2.1 mg/dL (1.6-2.3)
[2020-04-14 04:53] LABS: Partial Thromboplastin Time 25.1 sec (22.0-30.0); Prothrombin Time 10.6 sec (9.0-12.0)
[2020-04-14 09:28] LABS: Amorphous Sediment,Urine Rare /hpf; Appearance,Urine Clear (Clear); Bacteria,Urine Few /hpf; Bilirubin,Urine Negative (Negative); Blood,Urine Negative (Negative); Color,Urine Light Yellow; Glucose,Urine (UA) Negative (Negative); Hyaline Casts,Urine 1 /lpf (0-2); Ketones,Urine Negative (Negative); Leukocyte Esterase,Urine Small (Negative); Mucus,Urine Rare /hpf; Nitrite,Urine Negative (Negative); PH, Urine 7.5 (5.0-8.0); Protein,Urine Negative (Negative); RBC,Urine 4 /hpf (0-5); Squamous Epithelial Cell,Urine <1 /hpf (0-4); Urobilinogen,Urine <2.0 mg/dL (<2.0); WBC,Urine 3 /hpf (0-5)
[2020-04-14] MEDS ORDERED: APIXABAN 5 MG TAB PO SCH ×2 (10:15→11:15)
[2020-04-14] MEDS ORDERED: ASPIRIN 81 MG PO SCH (10:15)
[2020-04-14] MEDS ORDERED: NITROGLYCERIN SL TABS 0.4 MG TAB SUBLINGUAL PRN (11:08)
--- NOTE | 2020-04-14 13:10 | P.CRDCN ---
History of Present Illness History of present illness: HISTORY OF PRESENTING ILLNESS This is a pleasant 80-year-old female past medical history significant for hypertension, hyperlipidemia, coronary artery disease status post cath with stent in the left circumflex in September 2018, aortic stenosis status post TAVR at [place] in 2018, paroxysmal atrial fibrillation (on eliquis). She follows in the office with Dr. James. We have been asked to see in consultation for bradycardia, second-degree AV block. Patient is seen and examined resting comfortably in bed. Patient endorses waking up at 3 AM to use the bathroom patient felt "funny" and lightheaded. Patient proceeded to go check her blood pressure and heart rate with her monitors at home she noted her heart rate to be 36 and called 911. Patient did experience some fatigue and lightheadedness. Denies chest pain, palpitations, shortness of breath, lower extremity edema, weakness, or syncope. Denies symptoms of orthopnea, PND, weight change, or diet change. Patient denies history of Diabetes or Stroke. Patient has never been a smoker and does not drink alcohol. Patient states she is compliant with her medication and takes multiple vitamins. Laboratory data reviewed, sodium 139, potassium 4.5, magnesium 2.1, creatinine 1.11, LFT stable, BNP 742, Troponin negative x 1. Vital signs blood pressure 127/71 heart rate 57 afebrile respirations 18 spO2 96% on room air DIAGNOSTICS First EKG revealed HR 40s, sinus bradycardia, 1st degree AV Block, LBBB , QTc 507 Preceding EKGs revealed sinus tachycardia, 2nd degree AV Block Mobitz type II, LBBB, QTc 583 Previous EKGs September 2019- sinus rhythm with LBBB Telemetry tracings indicate sinus rhythm with 2nd degree AV Block Current cardiac home medications include : Eliquis 5 mg twice a day, atorvastatin 40 mg nightly, Bisoprolol-Hctz 5-6.25 tab nightly, PRN clonidine if BP >160/90. Most recent cath: 09/2018- with stent in left circumflex Most recent TTE: 03/18/20- EF 55%, diastolic dysfunction is indeterminate, moderate mitral regurgitation, mild to moderate tricuspid regurgitation, and mild pulmonic regurgitation. REVIEW OF SYSTEMS At the time of my exam: CONSTITUTIONAL: Denies fever or chills. CARDIOVASCULAR: Denies chest pain, shortness of breath, orthopnea, PND or palpitations. RESPIRATORY: Denies cough. GASTROINTESTINAL: Denies abdominal pain, diarrhea, constipation, nausea or vomiting. MUSCULOSKELETAL: Denies myalgias. NEUROLOGIC: +Lightheadedness Denies numbness, tingling, headache or weakness. ENDOCRINE: Denies fatigue, weight change, polydipsia or polyurina. GENITOURINARY: Denies burning, hematuria or urgency with micturation. HEMATOLOGIC: Denies history of anemia or bleeding. PHYSICAL EXAMINATION CONSTITUTIONAL: No apparent distress. HEENT: Head is normocephalic. Pupils are equal, round. Sclerae anicteric. Mucous membranes of the mouth are moist. No JVD. No carotid bruit. CHEST EXAMINATION: Lungs are clear to auscultation. No chest wall tenderness is noted on palpation or with deep breathing. HEART EXAMINATION: Regular rate and rhythm. S1, S2 heard. Soft systolic ejection murmur heard over right sternal border, No gallops or rub. ABDOMEN: Soft, nontender. Positive bowel sounds. EXTREMITIES: 2+ peripheral pulses, no lower extremity edema and no calf tenderness. NEUROLOGIC EXAMINATION: Patient is awake, alert and oriented x3. ASSESSMENT 1. Bradycardia 2. 2nd degree AV block Mobitz type II 3. Paroxysmal atrial fibrillation 4. Coronary artery disease with previous stent placement to the left circumflex in 2019 5. History of non-rheumatic aortic stenosis s/p TAVR (2019) 6. Hypertension 7. Hyperlipidemia PLAN -Hold off on beta stefan secondary to bradycardia -Continue Eliquis and Statin -Stop PRN clonidine for now, will continue to monitor BP and add on anti- hypertensive when indicated -Will discuss with Dr. Amaral for possible pacemaker placement. -Will continue to follow patient Nurse Practitioner note has been reviewed, I agree with a documented findings and plan of care. Patient was seen and examined. 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, "bad joints", anemia, Last Myocardial Infarction Date:: 10/11/18 History of Any Multi-Drug Resistant Organisms: None Reported Past Surgical History: Breast Surgery, Heart Catheterization With Stent, Orthopedic Surgery Additional Past Surgical History / Comment(s): RT MASTECTOMY, Eye surgery - bilateral corneal transplant x5, AND cataract removal, left knee replaced, heart cath with stent- 4 weeks, arotic valve replacement 2019 Past Anesthesia/Blood Transfusion Reactions: No Reported Reaction Additional Past Anesthesia/Blood Transfusion Reaction / Comment(s): Pt has received blood in past without reaction. Date of Last Stent Placement:: 10/13/18 Past Psychological History: Anxiety Smoking Status: Never smoker Past Alcohol Use History: None Reported Past Drug Use History: None Reported - Past Family History Father Family Medical History: Cancer Additional Family Medical History / Comment(s): corneal dystrophy, colon cancer Mother Family Medical History: Cancer Additional Family Medical History / Comment(s): multiple myeloma Brother(s) Family Medical History: Cancer Additional Family Medical History / Comment(s): colon cancer, since past. Aneruysm. Medications and Allergies Home Medications Medication Instructions Recorded Confirmed Type Omeprazole [PriLOSEC] 20 mg PO DAILY 09/09/14 04/14/20 History Ubidecarenone [Co Q-10] 100 mg PO DAILY 09/03/15 04/14/20 History Pyridoxine HCl (Vitamin B6) 100 mg PO HS 01/18/18 04/14/20 History [Vitamin B-6] Vitamin E (Dl,Tocopheryl Acet) 400 unit PO DAILY 01/18/18 04/14/20 History [Vitamin E] Zinc 50 mg PO DAILY 01/18/18 04/14/20 History Cyanocobalamin (Vitamin B-12) 1,000 mcg PO BID 08/30/18 04/14/20 History [Vitamin B-12] Atorvastatin [Lipitor] 40 mg PO HS #90 tab 10/13/18 04/14/20 Rx Cetirizine HCl [Zyrtec] 10 mg PO HS 12/16/18 04/14/20 History prednisoLONE ACETATE 1% OPHTH 1 drop BOTH EYES QAM 12/16/18 04/14/20 History [Pred Forte 1%] Apixaban [Eliquis] 5 mg PO BID #60 tab 12/17/18 04/14/20 Rx ALPRAZolam [Xanax] 0.125 mg PO BID 10/11/19 04/14/20 History Ascorbic Acid [Vitamin C] 1,000 mg PO DAILY 10/11/19 04/14/20 History Bisoprolol-Hctz 5-6.25 mg [Ziac 1 tab PO HS 10/11/19 04/14/20 History 5-6.25 MG] Escitalopram [Lexapro] 10 mg PO DAILY 10/11/19 04/14/20 History Artificial Tears-Hypromellose 1 drops BOTH EYES TID 12/09/19 04/14/20 History [Artificial Tear Drops] Biotin 300mg 300 mg PO DAILY 12/09/19 04/14/20 History Calcium/Magnesium(Unknown Dose) 2 tab PO BID 12/09/19 04/14/20 History Cholecalciferol [Vitamin D3 (25 2,000 unit PO HS 12/09/19 04/14/20 History Mcg = 1000 Iu)] Ferrous Sulfate [Feosol] 325 mg PO DAILY 12/09/19 04/14/20 History Ginkgo Biloba 10mg 10 mg PO DAILY 12/09/19 04/14/20 History Kelp(Iodine) 550mg 550 mg PO BID 12/09/19 04/14/20 History Lecithin(Unknown Dose) 2 tab PO DAILY 12/09/19 04/14/20 History Lecithin(Unknown Dose) 3 tab PO HS 12/09/19 04/14/20 History Lutein 20 mg PO DAILY 12/09/19 04/14/20 History Methenamine/Sodium Salicylate [Azo 1 tab PO BID 12/09/19 04/14/20 History Urinary Tract Defense Tab] Montelukast [Singulair] 10 mg PO HS 12/09/19 04/14/20 History Nitroglycerin Sl Tabs [Nitrostat] 0.4 mg SUBLINGUAL Q5M PRN 12/09/19 04/14/20 History Nutriferon Shaklee 1 cap PO BID 12/09/19 04/14/20 History Potassium Gluconate 99 mg PO DAILY 12/09/19 04/14/20 History Selenium 200 mcg PO HS 12/09/19 04/14/20 History Vitamin B Plus 1 tab PO BID 12/09/19 04/14/20 History [place] Eye Drops 1 drop BOTH EYES QID 04/14/20 04/14/20 History Allergies Allergy/AdvReac Type Severity Reaction Status Date / Time grass pollen-perennial rye, Allergy Itching Verified 04/14/20 06:33 standar diazepam [From Valium] AdvReac Rapid Verified 04/14/20 06:33 Heart Rate Physical Exam Vitals: Vital Signs Temp Pulse Pulse Resp BP Pulse Ox 04/14/20 06:51 76 18 113/88 98 04/14/20 05:55 84 18 161/85 98 04/14/20 04:58 84 18 152/71 97 04/14/20 04:32 52 L 18 153/93 96 04/14/20 04:21 45 L 04/14/20 04:12 98.3 F 47 L 18 130/55 97 Intake and Output 04/13/20 04/14/20 04/14/20 22:59 06:59 14:59 Other: Weight 70.307 kg 70.307 kg Results 04/14/20 04:23 04/14/20 04:23 Cardiac Enzymes 04/14/20 04/14/20 04/14/20 Range/Units 04:23 04:23 07:44 AST 43 H (14-36) U/L Troponin I <0.012 0.016 (0.000-0.034) ng/mL Coagulation 04/14/20 Range/Units 04:23 PT 10.6 (9.0-12.0) sec APTT 25.1 (22.0-30.0) sec CBC 04/14/20 Range/Units 04:23 WBC 6.7 (3.8-10.6) k/uL RBC 4.31 (3.80-5.40) m/uL Hgb 14.0 (11.4-16.0) gm/dL Hct 41.2 (34.0-46.0) % Plt Count 157 (150-450) k/uL Comprehensive Metabolic Panel 04/14/20 Range/Units 04:23 Sodium 139 (137-145) mmol/L Potassium 4.5 (3.5-5.1) mmol/L Chloride 102 (98-107) mmol/L Carbon Dioxide 27 (22-30) mmol/L BUN 29 H (7-17) mg/dL Creatinine 1.11 H (0.52-1.04) mg/dL Glucose 109 H (74-99) mg/dL Calcium 8.7 (8.4-10.2) mg/dL AST 43 H (14-36) U/L ALT 30 (4-34) U/L Alkaline Phosphatase 61 (38-126) U/L Total Protein 6.7 (6.3-8.2) g/dL Albumin 4.0 (3.5-5.0) g/dL Current Medications Generic Name Dose Route Start Last Admin Trade Name Suleimanq PRN Reason Stop Dose Admin Aspirin 325 mg 04/15/20 09:00 Aspirin 325 Mg Tab PO DAILY CORI Sodium Chloride 1,000 mls @ 130 mls/hr 04/14/20 04:20 04/14/20 04:31 Saline 0.9% IV 04/14/20 12:01 130 mls/hr .Q7H42M STA Administration Intake and Output 04/13/20 04/14/20 04/14/20 22:59 06:59 14:59 Other: Weight 70.307 kg 70.307 kg Patient Weight 04/15/20 06:59 Weight 70.307 kg 04/14/20 04:23 04/14/20 04:23
[2020-04-14] MEDS: ARTIFICIAL TEARS-HYPROMELLOSE DROPS 15 ML BTL BOTH EYES SCH ×3 (13:16→22:57)
[2020-04-14] MEDS: prednisoLONE ACETATE 1% OPHTH DROPS 5 ML BTL BOTH EYES SCH (15:48)
[2020-04-14] MEDS ORDERED: SODIUM CHLORIDE 0.9% 1,000 ML IV SCH (17:30)
[2020-04-14] MEDS: ALPRAZolam 0.25 MG TAB PO SCH (18:13)
[2020-04-14] MEDS: CYANOCOBALAMIN 500 MCG TAB PO SCH (18:13)
[2020-04-14] MEDS: CHOLECALCIFEROL 25 MCG (1000 IU) TABLET PO SCH (18:13)
[2020-04-14] MEDS: PYRIDOXINE 50 MG TAB PO SCH (18:13)
[2020-04-14] MEDS: LORATADINE 10 MG TAB PO SCH (18:13)
[2020-04-14] MEDS: ATORVASTATIN 40 MG TAB PO SCH (18:13)
[2020-04-14] MEDS: MONTELUKAST 10 MG TAB PO SCH (18:13)
[2020-04-14] MEDS: SODIUM CHLORIDE 0.9% 1,000 ML IV SCH (18:22)
[2020-04-14] MEDS ORDERED: KELP PO SCH (21:00)
[2020-04-14] MEDS ORDERED: VITAMIN B PLUS PO SCH (21:00)
[2020-04-14] MEDS ORDERED: MAGNESIUM PO SCH (21:00)
[2020-04-14] MEDS ORDERED: ATORVASTATIN 40 MG TAB PO SCH (21:00)
[2020-04-14] MEDS ORDERED: NON FORMULARY DRUG (Selenium [Selenium] 100 MCG Tablet) PO SCH (21:00)
[2020-04-14] MEDS ORDERED: CALCIUM PO SCH (21:00)
[2020-04-15] MEDS: PANTOPRAZOLE 40 MG TABLET PO SCH (06:21)
[2020-04-15] MEDS ORDERED: ceFAZolin 1 GM in SODIUM CHLORIDE 0.9% 250 ML IRRIGATION PRN (07:00)
[2020-04-15 07:52] LABS: Potassium 4.2 mmol/L (3.5-5.1)
[2020-04-15] MEDS ORDERED: ASPIRIN 325 MG TAB PO SCH (09:00)
[2020-04-15] MEDS ORDERED: GINKGO BILOBA PO SCH (09:00)
[2020-04-15] MEDS ORDERED: prednisoLONE ACETATE 1% OPHTH DROPS 5 ML BTL BOTH EYES SCH (09:00)
[2020-04-15] MEDS ORDERED: NON FORMULARY DRUG (Ubidecarenone [Co Q-10] 100 MG Capsule) PO SCH (09:00)
[2020-04-15] MEDS ORDERED: BIOTIN PO SCH (09:00)
[2020-04-15] MEDS: ALPRAZolam 0.25 MG TAB PO SCH ×2 (09:05→20:08)
[2020-04-15] MEDS: ARTIFICIAL TEARS-HYPROMELLOSE DROPS 15 ML BTL BOTH EYES SCH ×3 (09:06→20:09)
[2020-04-15] MEDS: ESCITALOPRAM 10 MG TAB PO SCH (09:07)
[2020-04-15] MEDS: ASCORBIC ACID 500 MG TAB PO SCH (09:07)
[2020-04-15] MEDS: CYANOCOBALAMIN 500 MCG TAB PO SCH ×2 (09:07→20:08)
[2020-04-15] MEDS: FERROUS SULFATE 325 MG TAB PO SCH (09:07)
[2020-04-15] MEDS: ZINC SULFATE 220 MG CAP PO SCH (09:08)
[2020-04-15] MEDS: POTASSIUM CHLORIDE ER 10 MEQ TAB.ER.PRT PO SCH (09:08)
[2020-04-15] MEDS: prednisoLONE ACETATE 1% OPHTH DROPS 5 ML BTL BOTH EYES SCH (09:08)
[2020-04-15] MEDS: VITAMIN E (DL,TOCOPHERYL ACET) 400 UNIT (180 MG) CAP PO SCH (09:08)
--- NOTE | 2020-04-15 13:33 | P.HPIM ---
History of Present Illness H&P Date: 04/14/20 Ernestina Sheffield, is an 80-year-old female who presented to [facility] emergency room with a chief complaint of dizziness and near syncope she was evaluated in the emergency room EKG revealed sinus bradycardia with a heart rate of 47 with first-degree AV block and left bundle branch block patient was given atropine in the emergency room and her heart rate was up to 65 she was admitted to telemetry floor and cardiology consultation was requested. On evaluation in the emergency room vital exam on presentation revealed a temperature of 98.3 pulse 47 respiration 18 and blood pressure 130/55 pulse ox 97% on room air white blood count was 6.7 hemoglobin 14.0 platelet count 157 BUN 29 creatinine 1.1 troponin less than 0.012 TSH normal at 4.08 Stearns virus PCR was negative. Past medical history is significant for history of paroxysmal atrial fibrillation history of hypertension, history of hyperlipidemia, history of coronary artery disease with previous history of angioplasty and stent placement, history of TAVR at [facility], history of anxiety disorder, history of breast cancer with right mastectomy history of osteoarthritis. On review of systems patient is alert and oriented 3 in no apparent distress there is no fever or chills no headache no chest pain no shortness of breath no cough no nausea or vomiting no abdominal pain no diarrhea no blood in the stools no burning with urination no frequency or urgency and no hematuria, no weakness or numbness in any of the extremities no change in vision speech or gait. 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, "bad joints", anemia, History of Any Multi-Drug Resistant Organisms: None Reported Past Surgical History: Breast Surgery, Heart Catheterization With Stent, Orthopedic Surgery Additional Past Surgical History / Comment(s): RT MASTECTOMY, Eye surgery - bilateral corneal transplant x5, AND cataract removal, left knee replaced, heart cath with stent- 4 weeks, arotic valve replacement 2019 Past Anesthesia/Blood Transfusion Reactions: No Reported Reaction Date of Last Stent Placement:: 10/13/18 Past Psychological History: Anxiety Smoking Status: Never smoker Past Alcohol Use History: None Reported Past Drug Use History: None Reported - Past Family History Father Family Medical History: Cancer Additional Family Medical History / Comment(s): corneal dystrophy, colon cancer Mother Family Medical History: Cancer Additional Family Medical History / Comment(s): multiple myeloma Brother(s) Family Medical History: Cancer Additional Family Medical History / Comment(s): colon cancer, since past. Aneruysm. Medications and Allergies Home Medications Medication Instructions Recorded Confirmed Type Omeprazole [PriLOSEC] 20 mg PO DAILY 09/09/14 04/14/20 History Ubidecarenone [Co Q-10] 100 mg PO DAILY 09/03/15 04/14/20 History Pyridoxine HCl (Vitamin B6) 100 mg PO HS 01/18/18 04/14/20 History [Vitamin B-6] Vitamin E (Dl,Tocopheryl Acet) 400 unit PO DAILY 01/18/18 04/14/20 History [Vitamin E] Zinc 50 mg PO DAILY 01/18/18 04/14/20 History Cyanocobalamin (Vitamin B-12) 1,000 mcg PO BID 08/30/18 04/14/20 History [Vitamin B-12] Atorvastatin [Lipitor] 40 mg PO HS #90 tab 10/13/18 04/14/20 Rx Cetirizine HCl [Zyrtec] 10 mg PO HS 12/16/18 04/14/20 History prednisoLONE ACETATE 1% OPHTH 1 drop BOTH EYES QAM 12/16/18 04/14/20 History [Pred Forte 1%] Apixaban [Eliquis] 5 mg PO BID #60 tab 12/17/18 04/14/20 Rx ALPRAZolam [Xanax] 0.125 mg PO BID 10/11/19 04/14/20 History Ascorbic Acid [Vitamin C] 1,000 mg PO DAILY 10/11/19 04/14/20 History Bisoprolol-Hctz 5-6.25 mg [Ziac 1 tab PO HS 10/11/19 04/14/20 History 5-6.25 MG] Escitalopram [Lexapro] 10 mg PO DAILY 10/11/19 04/14/20 History Artificial Tears-Hypromellose 1 drops BOTH EYES TID 12/09/19 04/14/20 History [Artificial Tear Drops] Biotin 300mg 300 mg PO DAILY 12/09/19 04/14/20 History Calcium/Magnesium(Unknown Dose) 2 tab PO BID 12/09/19 04/14/20 History Cholecalciferol [Vitamin D3 (25 2,000 unit PO HS 12/09/19 04/14/20 History Mcg = 1000 Iu)] Ferrous Sulfate [Feosol] 325 mg PO DAILY 12/09/19 04/14/20 History Ginkgo Biloba 10mg 10 mg PO DAILY 12/09/19 04/14/20 History Kelp(Iodine) 550mg 550 mg PO BID 12/09/19 04/14/20 History Lecithin(Unknown Dose) 2 tab PO DAILY 12/09/19 04/14/20 History Lecithin(Unknown Dose) 3 tab PO HS 12/09/19 04/14/20 History Lutein 20 mg PO DAILY 12/09/19 04/14/20 History Methenamine/Sodium Salicylate [Azo 1 tab PO BID 12/09/19 04/14/20 History Urinary Tract Defense Tab] Montelukast [Singulair] 10 mg PO HS 12/09/19 04/14/20 History Nitroglycerin Sl Tabs [Nitrostat] 0.4 mg SUBLINGUAL Q5M PRN 12/09/19 04/14/20 History Nutriferon Shaklee 1 cap PO BID 12/09/19 04/14/20 History Potassium Gluconate 99 mg PO DAILY 12/09/19 04/14/20 History Selenium 200 mcg PO HS 12/09/19 04/14/20 History Vitamin B Plus 1 tab PO BID 12/09/19 04/14/20 History [place] Eye Drops 1 drop BOTH EYES QID 04/14/20 04/14/20 History Allergies Allergy/AdvReac Type Severity Reaction Status Date / Time grass pollen-perennial rye, Allergy Itching Verified 04/14/20 06:33 standar diazepam [From Valium] AdvReac Rapid Verified 04/14/20 06:33 Heart Rate Physical Exam Vitals: Vital Signs Temp Pulse Pulse Resp BP Pulse Ox 04/14/20 06:51 76 18 113/88 98 04/14/20 05:55 84 18 161/85 98 04/14/20 04:58 84 18 152/71 97 04/14/20 04:32 52 L 18 153/93 96 04/14/20 04:21 45 L 04/14/20 04:12 98.3 F 47 L 18 130/55 97 Intake and Output 04/13/20 04/14/20 04/14/20 22:59 06:59 14:59 Other: Weight 70.307 kg In general patient is alert and oriented 3 in no apparent distress HEENT head normocephalic and atraumatic Neck is supple no JVD no goiter no lymphadenopathy Chest exam reveals a few scattered crackles no wheezing Cardiac exam reveals regular heart sounds S1 and S2 no gallops no murmurs Abdomen is soft nontender no organomegaly with normal bowel sounds Extremity exam reveals no edema no cyanosis or clubbing Neurological examination reveals no gross focal deficit Results CBC & Chem 7: 04/14/20 04:23 04/15/20 06:55 Labs: Abnormal Lab Results - Last 24 Hours (Table) 04/14/20 04/14/20 Range/Units 04:23 04:23 BUN 29 H (7-17) mg/dL Creatinine 1.11 H (0.52-1.04) mg/dL Glucose 109 H (74-99) mg/dL POC Glucose (mg/dL) 118 H (75-99) mg/dL AST 43 H (14-36) U/L Assessment and Plan Plan: 1. Dizziness with near syncope 2. Evidence of bradycardia on presentation 3. Underlying history of hypertension 4. Underlying history of hyperlipidemia 5. Underlying history of paroxysmal atrial fibrillation 6. Underlying history of coronary artery disease At this time patient is admitted to telemetry floor Ziac was held on presentation Cardiology consultation requested will follow closely
[2020-04-15] MEDS: SODIUM CHLORIDE 0.9% 1,000 ML IV SCH (13:41)
--- NOTE | 2020-04-15 17:54 | P.PN ---
Subjective Progress Note Date: 04/15/20 Ernestina Sheffield, is an 80-year-old female who presented to [facility] emergency room with a chief complaint of dizziness and near syncope she was evaluated in the emergency room EKG revealed sinus bradycardia with a heart rate of 47 with first-degree AV block and left bundle branch block patient was given atropine in the emergency room and her heart rate was up to 65 she was admitted to telemetry floor and cardiology consultation was requested. On evaluation in the emergency room vital exam on presentation revealed a temperature of 98.3 pulse 47 respiration 18 and blood pressure 130/55 pulse ox 97% on room air white blood count was 6.7 hemoglobin 14.0 platelet count 157 BUN 29 creatinine 1.1 troponin less than 0.012 TSH normal at 4.08 Stearns virus PCR was negative. Past medical history is significant for history of paroxysmal atrial fibrillation history of hypertension, history of hyperlipidemia, history of coronary artery disease with previous history of angioplasty and stent placement, history of TAVR at [facility], history of anxiety disorder, history of breast cancer with right mastectomy history of osteoarthritis. On review of systems patient is alert and oriented 3 in no apparent distress there is no fever or chills no headache no chest pain no shortness of breath no cough no nausea or vomiting no abdominal pain no diarrhea no blood in the stools no burning with urination no frequency or urgency and no hematuria, no weakness or numbness in any of the extremities no change in vision speech or gait. On 04/15/2020 patient was seen and examined on the medical floor she is alert and oriented 3 in no apparent distress there is no fever or chills no headache or dizziness no chest pain no shortness of breath no cough no nausea or vomiting no abdominal pain no diarrhea no blood in the stools no burning with urination no frequency or urgency and no hematuria. plan per cardiology is to proceed with pacemaker placement in am tomorrow. Objective - Vital Signs Vital signs: Vital Signs Temp 98.0 F 04/15/20 12:00 Pulse 95 04/15/20 12:00 Resp 16 04/15/20 12:00 BP 154/71 04/15/20 12:00 Pulse Ox 98 04/15/20 12:00 Intake & Output 04/14/20 04/15/20 04/15/20 18:59 06:59 18:59 Intake Total 260 472 440 Balance 260 472 440 Weight 70.307 kg 72.4 kg Intake: IV 260 Sodium Chloride 0.9% 1, 260 000 ml @ 130 mls/hr IV . Q7H42M STA Rx#:[id number] Intake, IV Titration 200 Amount Sodium Chloride 0.9% 1, 200 000 ml @ 50 mls/hr IV . Q20H CORI Rx#:[id number] Oral 472 240 Other: Voiding Method Toilet Toilet # Voids 3 2 # Bowel Movements 1 - Exam In general patient is alert and oriented 3 in no apparent distress HEENT head normocephalic and atraumatic Neck is supple no JVD no goiter no lymphadenopathy Chest exam reveals a few scattered crackles no wheezing Cardiac exam reveals regular heart sounds S1 and S2 no gallops no murmurs Abdomen is soft nontender no organomegaly with normal bowel sounds Extremity exam reveals no edema no cyanosis or clubbing Neurological examination reveals no gross focal deficit - Labs CBC & Chem 7: 04/14/20 04:23 04/15/20 06:55 Labs: Abnormal Lab Results - Last 24 Hours (Table) 04/15/20 Range/Units 06:55 BUN 24 H (7-17) mg/dL Triglycerides 157 H (<150) mg/dL Assessment and Plan Plan: 1. Dizziness with near syncope 2. Evidence of bradycardia on presentation, plan per cardiology for pacemaker placement tomorrow. 3. Underlying history of hypertension 4. Underlying history of hyperlipidemia 5. Underlying history of paroxysmal atrial fibrillation 6. Underlying history of coronary artery disease At this time patient is admitted to telemetry floor Ziac was held on presentation Cardiology consultation requested will follow closely
[2020-04-15] MEDS: LORATADINE 10 MG TAB PO SCH (20:08)
[2020-04-15] MEDS: MONTELUKAST 10 MG TAB PO SCH (20:08)
[2020-04-15] MEDS: ATORVASTATIN 40 MG TAB PO SCH (20:08)
[2020-04-15] MEDS: CHOLECALCIFEROL 25 MCG (1000 IU) TABLET PO SCH (20:08)
--- NOTE | 2020-04-15 21:11 | P.PN ---
Subjective HISTORY OF PRESENTING ILLNESS This is a pleasant 80-year-old female past medical history significant for hypertension, hyperlipidemia, coronary artery disease status post cath with stent in the left circumflex in September 2018, aortic stenosis status post TAVR at [place] in 2018, paroxysmal atrial fibrillation (on eliquis). She follows in the office with Dr. James. We have been asked to see in consultation for bradycardia, second-degree AV block. Patient is seen and examined resting comfortably in bed. Patient endorses waking up at 3 AM to use the bathroom patient felt "funny" and lightheaded. Patient proceeded to go check her blood pressure and heart rate with her monitors at home she noted her heart rate to be 36 and called 911. Patient did experience some fatigue and lightheadedness. Denies chest pain, palpitations, shortness of breath, lower extremity edema, weakness, or syncope. Denies symptoms of orthopnea, PND, weight change, or diet change. Patient denies history of Diabetes or Stroke. Patient has never been a smoker and does not drink alcohol. Patient states she is compliant with her medication and takes multiple vitamins. Laboratory data reviewed, sodium 139, potassium 4.5, magnesium 2.1, creatinine 1.11, LFT stable, BNP 742, Troponin negative x 1. Vital signs blood pressure 127/71 heart rate 57 afebrile respirations 18 spO2 96% on room air 04/15: Patient seen and examined. No further pauses noted on telemetry. Discussed with Dr. Kerr today and given recent anticoagulation we will hold off on pacemaker until tomorrow. DIAGNOSTICS First EKG revealed HR 40s, sinus bradycardia, 1st degree AV Block, LBBB , QTc 507 Preceding EKGs revealed sinus tachycardia, 2nd degree AV Block Mobitz type II, LBBB, QTc 583 Previous EKGs September 2019- sinus rhythm with LBBB Telemetry tracings indicate sinus rhythm with 2nd degree AV Block Current cardiac home medications include : Eliquis 5 mg twice a day, atorvastatin 40 mg nightly, Bisoprolol-Hctz 5-6.25 tab nightly, PRN clonidine if BP >160/90. Most recent cath: 09/2018- with stent in left circumflex Most recent TTE: 03/18/20- EF 55%, diastolic dysfunction is indeterminate, moderate mitral regurgitation, mild to moderate tricuspid regurgitation, and mild pulmonic regurgitation. REVIEW OF SYSTEMS At the time of my exam: CONSTITUTIONAL: Denies fever or chills. CARDIOVASCULAR: Denies chest pain, shortness of breath, orthopnea, PND or palpitations. RESPIRATORY: Denies cough. GASTROINTESTINAL: Denies abdominal pain, diarrhea, constipation, nausea or vomiting. MUSCULOSKELETAL: Denies myalgias. NEUROLOGIC: +Lightheadedness Denies numbness, tingling, headache or weakness. ENDOCRINE: Denies fatigue, weight change, polydipsia or polyurina. GENITOURINARY: Denies burning, hematuria or urgency with micturation. HEMATOLOGIC: Denies history of anemia or bleeding. PHYSICAL EXAMINATION CONSTITUTIONAL: No apparent distress. HEENT: Head is normocephalic. Pupils are equal, round. Sclerae anicteric. Mucous membranes of the mouth are moist. No JVD. No carotid bruit. CHEST EXAMINATION: Lungs are clear to auscultation. No chest wall tenderness is noted on palpation or with deep breathing. HEART EXAMINATION: Regular rate and rhythm. S1, S2 heard. Soft systolic ejection murmur heard over right sternal border, No gallops or rub. ABDOMEN: Soft, nontender. Positive bowel sounds. EXTREMITIES: 2+ peripheral pulses, no lower extremity edema and no calf tenderness. NEUROLOGIC EXAMINATION: Patient is awake, alert and oriented x3. ASSESSMENT 1. Bradycardia 2. 2nd degree AV block Mobitz type II 3. Paroxysmal atrial fibrillation 4. Coronary artery disease with previous stent placement to the left circumflex in 2019 5. History of non-rheumatic aortic stenosis s/p TAVR (2019) 6. Hypertension 7. Hyperlipidemia 8. LBBB PLAN Lightheadedness and new-onset of second-degree type II block in addition to left bundle-branch block and recent TAVR procedure. Patient additionally with a lightheaded episode in September unclear if true syncope. Discussed risks and benefits of permanent pacemaker placement and patient is understanding. Patient will undergo permanent pacemaker placement tomorrow morning with Dr. Kerr. Objective - Vital Signs Vital signs: Vital Signs Temp 97.8 F 04/15/20 16:00 Pulse 66 04/15/20 16:00 Resp 16 04/15/20 16:00 BP 182/77 04/15/20 16:00 Pulse Ox 95 04/15/20 16:00 Intake & Output 04/15/20 04/15/20 04/16/20 06:59 18:59 06:59 Intake Total 472 680 Output Total 300 Balance 472 380 Weight 72.4 kg Intake: Intake, IV Titration 200 Amount Sodium Chloride 0.9% 1, 200 000 ml @ 50 mls/hr IV . Q20H [facility] Rx#:[id number] Oral 472 480 Output: Urine 300 Other: Voiding Method Toilet Toilet # Voids 2 2 - Labs CBC & Chem 7: 04/14/20 04:23 04/15/20 06:55 Labs: Abnormal Lab Results - Last 24 Hours (Table) 04/15/20 Range/Units 06:55 BUN 24 H (7-17) mg/dL Triglycerides 157 H (<150) mg/dL
[2020-04-15] MEDS: PYRIDOXINE 50 MG TAB PO SCH (22:47)
[2020-04-16] MEDS: ALPRAZolam 0.25 MG TAB PO SCH ×2 (06:11→20:10)
[2020-04-16] MEDS: PANTOPRAZOLE 40 MG TABLET PO SCH (06:12)
[2020-04-16] MEDS: ESCITALOPRAM 10 MG TAB PO SCH (06:12)
[2020-04-16] MEDS: ARTIFICIAL TEARS-HYPROMELLOSE DROPS 15 ML BTL BOTH EYES SCH ×3 (06:13→20:11)
[2020-04-16] MEDS: prednisoLONE ACETATE 1% OPHTH DROPS 5 ML BTL BOTH EYES SCH (06:15)
[2020-04-16] MEDS ORDERED: ceFAZolin 1 GM in SODIUM CHLORIDE 0.9% 250 ML IRRIGATION PRN (07:00)
[2020-04-16 07:47] LABS: Basophils % (A) 1 %; Eosinophils # (A) 0.2 k/uL (0-0.7); Eosinophils % (A) 2 %; HCT 39.9 % (34.0-46.0); HGB 13.3 gm/dL (11.4-16.0); Lymphocytes # (A) 2.3 k/uL (1.0-4.8); Lymphocytes % (A) 30 %; MCHC 33.3 g/dL (31.0-37.0); MCV 96.2 fL (80.0-100.0); Mean Platelet Volume 8.1; Monocytes % (A) 13 %; Neutrophils # (A) 3.9 k/uL (1.3-7.7); Neutrophils % (A) 51 %; Platelet Count 131 k/uL (150-450); RBC 4.15 m/uL (3.80-5.40); RDW 12.6 % (11.5-15.5); WBC 7.6 k/uL (3.8-10.6)
[2020-04-16 08:00] LABS: Albumin 3.6 g/dL (3.5-5.0); Calcium 9.2 mg/dL (8.4-10.2); Potassium 4.3 mmol/L (3.5-5.1); Total Bilirubin 0.6 mg/dL (0.2-1.3); Total Protein 6.3 g/dL (6.3-8.2)
[2020-04-16] MEDS ORDERED: LIDOCAINE 1% INJ 10MG/ML (20 ML MDV) ONE ×2 (08:14)
[2020-04-16] MEDS ORDERED: fentaNYL (PF) 50 MCG/ML 2 ML AMP ONE (08:24)
[2020-04-16] MEDS ORDERED: fentaNYL (PF) 50 MCG/ML 2 ML AMP IVP ONE (08:25)
[2020-04-16] MEDS ORDERED: MIDAZOLAM 2 MG/2 ML VIAL IVP ONE (08:25)
[2020-04-16] MEDS ORDERED: IV FLUID CONTINUATION 1,000 ML IV ONE (08:40)
--- NOTE | 2020-04-16 09:29 | P.PCN ---
Date of Procedure: 04/16/20 Preoperative Diagnosis: Trifascicular block with intermittent AV block and bradycardia. Postoperative Diagnosis: The same Procedure(s) Performed: Temporary pacemaker insertion and permanent pacemaker insertion. Patient also had axillary venography Description of Procedure: HISTORY: This is a 80-year-old female with history of aortic valve replacement and also known ischemic heart disease who was admitted to the hospital with episodes of bradycardia and evidence of high degree AV block with underlying trifascicular block. Patient is advised to have permanent pacemaker implantation. CONSENT:I have discussed the risks, benefits and alternative therapies for the above-mentioned procedure and for both sedation/analgesia as well as necessary blood product administration, if indicated, as they pertain to this patient. Th e patient has indicated understanding and acceptance of the risks and procedures discussed. PROCEDURE: Patient was brought to the lab in a fasting state. Patient was prepped and draped in the usual fashion. Patient was given IV sedation with fentanyl and Versed. The skin below the left clavicle was infiltrated with lidocaine. An incision was made parallel to deltopectoral groove was deepened until the pectoral fascia was exposed. A pocket was created by blunt dissection and cautery. Axillary venography was performed to delineate the course of the axillary vein. 2 sticks were performed into extrathoracic portion of the axillary vein and 2 sheaths were advanced over the guidewires and left in subclavian vein. Temporary pacemaker insertion: Through one of the insertion sheaths, a [place] temporary pacemaker lead was advanced and was placed in the right ventricular outflow tract and septal area. This is a balloon-tip temporary pacemaker. Satisfactory position was obtained with the minimal patient threshold of 0.5. The temperature pacemaker was set at rate of 40 and output of 3. After the insertion of the ventricular pacemaker, the temporary pacemaker was pulled out. Conscious Sedation: Versed 1mg Fentanyl 50 g Duration 48minutes LEADS: ATRIAL: This is manufactured by [employer] model number is 5076-45 and the serial number is [id number] VENTRICULAR: This is manufactured by [employer] model number is 5076-52 and the serial number is [id number]. THE DEVICE: This is manufactured by [employer]. Model number is [id number] And the serial number is [id number] The ventricular lead is maneuvered l with help of a straight and curved stylets into the left ventricle apical region. Satisfactory position was obtained and threshold measurements were made. The atrial lead was then maneuvered into the right atrial appendage. And thresholds were obtained. THRESHOLDS: ATRIUM:The minimum pacing threshold is 1.6 at pulse width of 0.5 and impedance of 755, P Wave: 4.3. VENTRICLE: The minimum patient threshold is 1.1 at pulse width of 0.5. The impedance is 1203 R-wave: 17.2 The leads and pulse generator remained in the pocket after it was washed with antibiotics. Pocket was closed in the usual fashion. The fascia was closed with 2-0 Prolene ,the subcutaneous tissue was closed with 3-0 Prolene and the skin was closed with 4-0 Prolene. PROGRAMMING: MODE: AAIR to DDDR RATE:60-120 OUTPUT: Atrium: 3.5 Ventricle: 3.5 FINAL IMPRESSION:: #1. Axillary venography #2. Temporary pacemaker insertion. #3. Dual-chamber permanent pacemaker insertion COMPLICATIONS: None. PLAN: Patient will monitored on the telemetry unit. Prophylactic antibacterial be continued. Chest x-ray in the morning. If stable patient be discharged home tomorrow.
[2020-04-16 11:14] LABS: Basophils % (A) 1 %; Eosinophils # (A) 0.2 k/uL (0-0.7); Eosinophils % (A) 2 %; HCT 39.9 % (34.0-46.0); HGB 13.3 gm/dL (11.4-16.0); Lymphocytes # (A) 1.3 k/uL (1.0-4.8); Lymphocytes % (A) 20 %; MCH 32.2 pg (25.0-35.0); MCHC 33.4 g/dL (31.0-37.0); MCV 96.5 fL (80.0-100.0); Mean Platelet Volume 8.1; Monocytes # (A) 0.6 k/uL (0-1.0); Monocytes % (A) 10 %; Neutrophils # (A) 4.3 k/uL (1.3-7.7); Neutrophils % (A) 65 %; Platelet Count 130 k/uL (150-450); RBC 4.14 m/uL (3.80-5.40); RDW 13.1 % (11.5-15.5); WBC 6.6 k/uL (3.8-10.6)
[2020-04-16] MEDS: ASCORBIC ACID 500 MG TAB PO SCH (11:20)
[2020-04-16] MEDS: SODIUM CHLORIDE 0.9% 1,000 ML IV SCH (11:20)
[2020-04-16] MEDS: POTASSIUM CHLORIDE ER 10 MEQ TAB.ER.PRT PO SCH (11:21)
[2020-04-16] MEDS: ZINC SULFATE 220 MG CAP PO SCH (11:21)
[2020-04-16] MEDS: FERROUS SULFATE 325 MG TAB PO SCH (11:21)
[2020-04-16] MEDS: VITAMIN E (DL,TOCOPHERYL ACET) 400 UNIT (180 MG) CAP PO SCH (11:21)
[2020-04-16] MEDS: CYANOCOBALAMIN 500 MCG TAB PO SCH ×2 (11:21→20:10)
[2020-04-16 11:37] LABS: Albumin 3.4 g/dL (3.5-5.0); Calcium 8.7 mg/dL (8.4-10.2); Potassium 4.3 mmol/L (3.5-5.1); Total Bilirubin 0.6 mg/dL (0.2-1.3)
[2020-04-16] MEDS: ACETAMINOPHEN TAB 325 MG TAB PO PRN ×2 (12:36→21:26)
--- NOTE | 2020-04-16 13:20 | P.PN ---
Subjective Progress Note Date: 04/16/20 Ernestina Sheffield, is an 80-year-old female who presented to [facility] emergency room with a chief complaint of dizziness and near syncope she was evaluated in the emergency room EKG revealed sinus bradycardia with a heart rate of 47 with first-degree AV block and left bundle branch block patient was given atropine in the emergency room and her heart rate was up to 65 she was admitted to telemetry floor and cardiology consultation was requested. On evaluation in the emergency room vital exam on presentation revealed a temperature of 98.3 pulse 47 respiration 18 and blood pressure 130/55 pulse ox 97% on room air white blood count was 6.7 hemoglobin 14.0 platelet count 157 BUN 29 creatinine 1.1 troponin less than 0.012 TSH normal at 4.08 Stearns virus PCR was negative. Past medical history is significant for history of paroxysmal atrial fibrillation history of hypertension, history of hyperlipidemia, history of coronary artery disease with previous history of angioplasty and stent placement, history of TAVR at [facility], history of anxiety disorder, history of breast cancer with right mastectomy history of osteoarthritis. On review of systems patient is alert and oriented 3 in no apparent distress there is no fever or chills no headache no chest pain no shortness of breath no cough no nausea or vomiting no abdominal pain no diarrhea no blood in the stools no burning with urination no frequency or urgency and no hematuria, no weakness or numbness in any of the extremities no change in vision speech or gait. On 04/15/2020 patient was seen and examined on the medical floor she is alert and oriented 3 in no apparent distress there is no fever or chills no headache or dizziness no chest pain no shortness of breath no cough no nausea or vomiting no abdominal pain no diarrhea no blood in the stools no burning with urination no frequency or urgency and no hematuria. plan per cardiology is to proceed with pacemaker placement in am tomorrow. On 04/16/2020. Patient's alert and oriented 3. Patient is status post pacemaker placement. Patient is complaining of mild left shoulder discomfort but denies any other complaints at this time. Patient denies chest pain or shortness breath. Patient is vomiting or diarrhea. Patient denies any urinary burning or frequency Objective - Vital Signs Vital signs: Vital Signs Temp 98.1 F 04/16/20 08:00 Pulse 74 04/16/20 04:00 Resp 16 03/03/21 08:00 BP 138/72 04/16/20 08:00 Pulse Ox 97 04/16/20 08:00 Intake & Output 04/15/20 04/16/20 04/16/20 18:59 06:59 18:59 Intake Total 680 270 Output Total 300 Balance 380 270 Weight 71.5 kg Intake: IV 50 Intake, IV Titration 200 100 Amount Sodium Chloride 0.9% 1, 200 100 000 ml @ 50 mls/hr IV . Q20H [facility] Rx#:[id number] Oral 480 120 Output: Urine 300 Other: Voiding Method Toilet Toilet Toilet # Voids 2 - Exam In general patient is alert and oriented 3 in no apparent distress HEENT head normocephalic and atraumatic Neck is supple no JVD no goiter no lymphadenopathy Chest exam reveals a few scattered crackles no wheezing Cardiac exam reveals regular heart sounds S1 and S2 no gallops no murmurs Abdomen is soft nontender no organomegaly with normal bowel sounds Extremity exam reveals no edema no cyanosis or clubbing Neurological examination reveals no gross focal deficit - Labs CBC & Chem 7: 04/16/20 10:55 04/16/20 10:55 Labs: Abnormal Lab Results - Last 24 Hours (Table) 04/16/20 04/16/20 04/16/20 Range/Units 06:37 06:37 10:55 Plt Count 131 L 130 L (150-450) k/uL BUN 25 H (7-17) mg/dL Creatinine 1.07 H (0.52-1.04) mg/dL Total Protein (6.3-8.2) g/dL Albumin (3.5-5.0) g/dL 04/16/20 Range/Units 10:55 Plt Count (150-450) k/uL BUN 23 H (7-17) mg/dL Creatinine (0.52-1.04) mg/dL Total Protein 6.0 L (6.3-8.2) g/dL Albumin 3.4 L (3.5-5.0) g/dL Assessment and Plan Plan: 1. Dizziness with near syncope 2. Evidence of bradycardia on presentation. Status post pacemaker placement on 04/16/2020 3. Underlying history of hypertension 4. Underlying history of hyperlipidemia 5. Underlying history of paroxysmal atrial fibrillation 6. Underlying history of coronary artery disease At this time patient is admitted to telemetry floor Ziac was held on presentation Cardiology consultation requested will follow closely
[2020-04-16] MEDS: LORATADINE 10 MG TAB PO SCH (20:10)
[2020-04-16] MEDS: MONTELUKAST 10 MG TAB PO SCH (20:10)
[2020-04-16] MEDS: ATORVASTATIN 40 MG TAB PO SCH (20:10)
[2020-04-16] MEDS: CHOLECALCIFEROL 25 MCG (1000 IU) TABLET PO SCH (20:10)
[2020-04-16] MEDS: PYRIDOXINE 50 MG TAB PO SCH (20:11)
[2020-04-17 03:32] VITALS: RESP 16
[2020-04-17] MEDS: SODIUM CHLORIDE 0.9% 1,000 ML IV SCH (06:12)
[2020-04-17] MEDS: PANTOPRAZOLE 40 MG TABLET PO SCH (06:14)
--- NOTE | 2020-04-17 06:47 | XR ---
EXAMINATION TYPE: XR chest 2V DATE OF EXAM: 04/17/2020 COMPARISON: Chest x-ray December 09, 2019 HISTORY: Status post pacemaker insertion. TECHNIQUE: Frontal and lateral views of the chest are obtained. FINDINGS: There is chronic parenchymal and emphysematous change bilaterally without suspicious new f ocal air space opacity, pleural effusion, or pneumothorax seen. The cardiac silhouette size is stabl e and within normal limits. Metallic stent graft in the aortic root redemonstrated. Retrocardiac op acity consistent with moderate to large sized hiatal hernia again seen. The osseous structures remain demineralized. Underlying scoliosis. There is new dual-lead pacemaker with leads terminating in righ t atrium and right ventricle. IMPRESSION: No radiographic complication related to pacemaker placement. Lead position satisfactory radiographically.
[2020-04-17 08:32] LABS: Basophils % (A) 0 %; Eosinophils # (A) 0.2 k/uL (0-0.7); Eosinophils % (A) 3 %; HCT 39.8 % (34.0-46.0); HGB 13.3 gm/dL (11.4-16.0); Lymphocytes # (A) 1.6 k/uL (1.0-4.8); Lymphocytes % (A) 18 %; MCHC 33.5 g/dL (31.0-37.0); MCV 95.8 fL (80.0-100.0); Mean Platelet Volume 7.9; Monocytes # (A) 1.2 k/uL (0-1.0); Monocytes % (A) 13 %; Neutrophils # (A) 5.7 k/uL (1.3-7.7); Neutrophils % (A) 64 %; Platelet Count 115 k/uL (150-450); RBC 4.15 m/uL (3.80-5.40); RDW 12.6 % (11.5-15.5); WBC 8.8 k/uL (3.8-10.6)
[2020-04-17] MEDS: ARTIFICIAL TEARS-HYPROMELLOSE DROPS 15 ML BTL BOTH EYES SCH ×2 (08:40→14:59)
[2020-04-17] MEDS: prednisoLONE ACETATE 1% OPHTH DROPS 5 ML BTL BOTH EYES SCH (08:41)
[2020-04-17 08:42] LABS: Albumin 3.5 g/dL (3.5-5.0); Potassium 4.8 mmol/L (3.5-5.1); Total Bilirubin 0.7 mg/dL (0.2-1.3); Total Protein 6.3 g/dL (6.3-8.2)
[2020-04-17] MEDS: FERROUS SULFATE 325 MG TAB PO SCH (08:46)
[2020-04-17] MEDS: ESCITALOPRAM 10 MG TAB PO SCH (08:46)
[2020-04-17] MEDS: ZINC SULFATE 220 MG CAP PO SCH (08:46)
[2020-04-17] MEDS: POTASSIUM CHLORIDE ER 10 MEQ TAB.ER.PRT PO SCH (08:46)
[2020-04-17] MEDS: ALPRAZolam 0.25 MG TAB PO SCH (08:47)
[2020-04-17] MEDS: CYANOCOBALAMIN 500 MCG TAB PO SCH (08:47)
[2020-04-17] MEDS: ASCORBIC ACID 500 MG TAB PO SCH (08:47)
[2020-04-17] MEDS: VITAMIN E (DL,TOCOPHERYL ACET) 400 UNIT (180 MG) CAP PO SCH (08:47)
[2020-04-17] MEDS ORDERED: APIXABAN 5 MG TAB PO SCH (09:00)
[2020-04-17] MEDS ORDERED: BISOPROLOL-HCTZ 5-6.25 MG 1 EACH TAB PO SCH (09:00)
[2020-04-17] MEDS: ACETAMINOPHEN TAB 325 MG TAB PO PRN (11:38)
[2020-04-17 14:59] VITALS: BP 129/59; PULSE 74; TEMP 98.3
--- NOTE | 2020-04-17 15:03 | P.PN ---
Subjective HISTORY OF PRESENTING ILLNESS This is a pleasant 80-year-old female past medical history significant for hypertension, hyperlipidemia, coronary artery disease status post cath with stent in the left circumflex in September 2018, aortic stenosis status post TAVR at [place] in 2019, paroxysmal atrial fibrillation (on eliquis). She follows in the office with Dr. James. We have been asked to see in consultation for bradycardia, second-degree AV block. Patient is seen and examined resting comfortably in bed. Patient endorses waking up at 3 AM to use the bathroom patient felt "funny" and lightheaded. Patient proceeded to go check her blood pressure and heart rate with her monitors at home she noted her heart rate to be 36 and called 911. Patient did experience some fatigue and lightheadedness. Denies chest pain, palpitations, shortness of breath, lower extremity edema, weakness, or syncope. Denies symptoms of orthopnea, PND, weight change, or diet change. Patient denies history of Diabetes or Stroke. Patient has never been a smoker and does not drink alcohol. Patient states she is compliant with her medication and takes multiple vitamins. Laboratory data reviewed, sodium 139, potassium 4.5, magnesium 2.1, creatinine 1.11, LFT stable, BNP 742, Troponin negative x 1. Vital signs blood pressure 127/71 heart rate 57 afebrile respirations 18 spO2 96% on room air 3/4: Patient underwent dual-chamber further pacemaker placement yesterday with Dr. Michael. Patient was she has been doing well. Denies any chest pain or pr essure. All questions answered regarding her pacemaker. X-ray shows adequate positioning of pacemaker and no pneumothorax or other abnormalities. Interrogation showed no significant abnormalities. REVIEW OF SYSTEMS At the time of my exam: CONSTITUTIONAL: Denies fever or chills. CARDIOVASCULAR: Denies chest pain, shortness of breath, orthopnea, PND or palpitations. RESPIRATORY: Denies cough. GASTROINTESTINAL: Denies abdominal pain, diarrhea, constipation, nausea or vomiting. MUSCULOSKELETAL: Denies myalgias. NEUROLOGIC: +Lightheadedness Denies numbness, tingling, headache or weakness. ENDOCRINE: Denies fatigue, weight change, polydipsia or polyurina. GENITOURINARY: Denies burning, hematuria or urgency with micturation. HEMATOLOGIC: Denies history of anemia or bleeding. PHYSICAL EXAMINATION CONSTITUTIONAL: No apparent distress. HEENT: Head is normocephalic. Pupils are equal, round. Sclerae anicteric. Mucous membranes of the mouth are moist. No JVD. No carotid bruit. CHEST EXAMINATION: Lungs are clear to auscultation. No chest wall tenderness is noted on palpation or with deep breathing. HEART EXAMINATION: Regular rate and rhythm. S1, S2 heard. Soft systolic ejection murmur heard over right sternal border, No gallops or rub. ABDOMEN: Soft, nontender. Positive bowel sounds. EXTREMITIES: 2+ peripheral pulses, no lower extremity edema and no calf tenderness. NEUROLOGIC EXAMINATION: Patient is awake, alert and oriented x3. ASSESSMENT 1. Bradycardia 2. 2nd degree AV block Mobitz type II status post permanent pacemaker 3. Paroxysmal atrial fibrillation 4. Coronary artery disease with previous stent placement to the left circumflex in 2019 5. History of non-rheumatic aortic stenosis s/p TAVR (2019) 6. Hypertension 7. Hyperlipidemia 8. LBBB PLAN Patient is status post dual-chamber permanent pacemaker on 04/16/2020. Pacemaker appears to be functioning appropriately and chest x-ray and interrogation without issues. Patient stable for discharge home with outpatient follow-up with Dr. James in 1 week. All questions answered. Objective - Vital Signs Vital signs: Vital Signs Temp 98.3 F 04/17/20 14:57 Pulse 74 04/17/20 14:57 Resp 16 04/17/20 14:57 BP 129/59 04/17/20 14:57 Pulse Ox 95 04/17/20 14:57 Intake & Output 04/16/20 04/17/20 04/17/20 18:59 06:59 18:59 Intake Total 510 640 Balance 510 640 Weight 72.7 kg Intake: IV 50 Intake, IV Titration 100 400 Amount IV Fluid Continuation 1, 400 000 ml @ 0 mls/hr IV .[facility] Rx#:[id number] Sodium Chloride 0.9% 1, 100 000 ml @ 50 mls/hr IV . Q20H [facility] Rx#:[id number] Oral 360 240 Other: Voiding Method Toilet Toilet Toilet # Voids 1 - Labs CBC & Chem 7: 04/17/20 08:17 04/17/20 08:17 Labs: Abnormal Lab Results - Last 24 Hours (Table) 04/17/20 04/17/20 Range/Units 08:17 08:17 Plt Count 115 L (150-450) k/uL Monocytes # 1.2 H (0-1.0) k/uL Carbon Dioxide 31 H (22-30) mmol/L BUN 22 H (7-17) mg/dL
--- NOTE | 2020-04-18 10:41 | P.DS ---
Providers Date of admission: 04/14/20 04:44 Expected date of discharge: 04/18/20 Attending physician: Hailey Martínez Consults: 04/14/20 04:44 Consult Physician Urgent Consulting Provider: Love Kenney Consult Reason/Comments: jose Do you want consulting provider notified?: Yes Primary care physician: Cinthia Wynn [facility] Course: Discharge diagnosis 1. Dizziness with near syncope 2. Evidence of bradycardia on presentation. Status post pacemaker placement on 04/16/2020 3. Underlying history of hypertension 4. Underlying history of hyperlipidemia 5. Underlying history of paroxysmal atrial fibrillation 6. Underlying history of coronary artery disease Hospital course Ernestina Sheffield, is an 80-year-old female who presented to [facility] emergency room with a chief complaint of dizziness and near syncope she was evaluated in the emergency room EKG revealed sinus bradycardia with a heart rate of 47 with first-degree AV block and left bundle branch block patient was given atropine in the emergency room and her heart rate was up to 65 she was admitted to telemetry floor and cardiology consultation was requested. On evaluation in the emergency room vital exam on presentation revealed a temperature of 98.3 pulse 47 respiration 18 and blood pressure 130/55 pulse ox 97% on room air white blood count was 6.7 hemoglobin 14.0 platelet count 157 BUN 29 creatinine 1.1 troponin less than 0.012 TSH normal at 4.08 Stearns virus PCR was negative. Past medical history is significant for history of paroxysmal atrial fibrillation history of hypertension, history of hyperlipidemia, history of coronary artery disease with previous history of angioplasty and stent placement, history of TAVR at [facility], history of anxiety disorder, history of breast cancer with right mastectomy history of osteoarthritis. On review of systems patient is alert and oriented 3 in no apparent distress th ere is no fever or chills no headache no chest pain no shortness of breath no cough no nausea or vomiting no abdominal pain no diarrhea no blood in the stools no burning with urination no frequency or urgency and no hematuria, no weakness or numbness in any of the extremities no change in vision speech or gait. On 04/15/2020 patient was seen and examined on the medical floor she is alert and oriented 3 in no apparent distress there is no fever or chills no headache or dizziness no chest pain no shortness of breath no cough no nausea or vomiting no abdominal pain no diarrhea no blood in the stools no burning with urination no frequency or urgency and no hematuria. plan per cardiology is to proceed with pacemaker placement in am tomorrow. On 04/16/2020. Patient's alert and oriented 3. Patient is status post pacemaker placement. Patient is complaining of mild left shoulder discomfort but denies any other complaints at this time. Patient denies chest pain or shortness breath. Patient is vomiting or diarrhea. Patient denies any urinary burning or frequency On 04/17/2020 patient is alert and oriented 3 status post pacemaker placement postop day 1. Patient cleared for discharge from cardiology standpoint to follow outpatient with Dr. Thurston in 1 week. Patient to follow-up with PCP for further management Patient Condition at Discharge: Stable Plan - Discharge Summary Discharge Rx Participant: No New Discharge Prescriptions: New Cephalexin [Keflex] 500 mg PO Q6HR 3 Days #12 cap Continue Omeprazole [PriLOSEC] 20 mg PO DAILY Ubidecarenone [Co Q-10] 100 mg PO DAILY Pyridoxine HCl (Vitamin B6) [Vitamin B-6] 100 mg PO HS Zinc 50 mg PO DAILY Vitamin E (Dl,Tocopheryl Acet) [Vitamin E] 400 unit PO DAILY Cyanocobalamin (Vitamin B-12) [Vitamin B-12] 1,000 mcg PO BID Atorvastatin [Lipitor] 40 mg PO HS #90 tab Cetirizine HCl [Zyrtec] 10 mg PO HS prednisoLONE ACETATE 1% OPHTH [Pred Forte 1%] 1 drop BOTH EYES QAM Apixaban [Eliquis] 5 mg PO BID #60 tab Escitalopram [Lexapro] 10 mg PO DAILY Bisoprolol-Hctz 5-6.25 mg [Ziac 5-6.25 MG] 1 tab PO HS ALPRAZolam [Xanax] 0.125 mg PO BID Ascorbic Acid [Vitamin C] 1,000 mg PO DAILY Biotin 300mg 300 mg PO DAILY Calcium/Magnesium(Unknown Dose) 2 tab PO BID Ginkgo Biloba 10mg 10 mg PO DAILY Kelp(Iodine) 550mg 550 mg PO BID Lecithin(Unknown Dose) 3 tab PO HS Lecithin(Unknown Dose) 2 tab PO DAILY Nutriferon Shaklee 1 cap PO BID Vitamin B Plus 1 tab PO BID Artificial Tears-Hypromellose [Artificial Tear Drops] 1 drops BOTH EYES TID Cholecalciferol [Vitamin D3 (25 Mcg = 1000 Iu)] 2,000 unit PO HS Ferrous Sulfate [Iron (65 MG Elemental)] 325 mg PO DAILY Lutein 20 mg PO DAILY Methenamine/Sodium Salicylate [Azo Urinary Tract Defense Tab] 1 tab PO BID Montelukast [Singulair] 10 mg PO HS Potassium Gluconate 99 mg PO DAILY Selenium 200 mcg PO HS Nitroglycerin Sl Tabs [Nitrostat] 0.4 mg SUBLINGUAL Q5M PRN PRN Reason: Chest Pain [place] Eye Drops 1 drop BOTH EYES QID Discontinued cloNIDine HCL [Catapres] 0.1 mg PO DAILY PRN PRN Reason: bp>160/90 Discharge Medication List Omeprazole [PriLOSEC] 20 mg PO DAILY 09/09/14 [History] Ubidecarenone [Co Q-10] 100 mg PO DAILY 09/03/15 [History] Pyridoxine HCl (Vitamin B6) [Vitamin B-6] 100 mg PO HS 01/18/18 [History] Vitamin E (Dl,Tocopheryl Acet) [Vitamin E] 400 unit PO DAILY 01/18/18 [History] Zinc 50 mg PO DAILY 01/18/18 [History] Cyanocobalamin (Vitamin B-12) [Vitamin B-12] 1,000 mcg PO BID 08/30/18 [History] Atorvastatin [Lipitor] 40 mg PO HS #90 tab 10/13/18 [Rx] Cetirizine HCl [Zyrtec] 10 mg PO HS 12/16/18 [History] prednisoLONE ACETATE 1% OPHTH [Pred Forte 1%] 1 drop BOTH EYES QAM 12/16/18 [History] Apixaban [Eliquis] 5 mg PO BID #60 tab 12/17/18 [Rx] ALPRAZolam [Xanax] 0.125 mg PO BID 10/11/19 [History] Ascorbic Acid [Vitamin C] 1,000 mg PO DAILY 10/11/19 [History] Bisoprolol-Hctz 5-6.25 mg [Ziac 5-6.25 MG] 1 tab PO HS 10/11/19 [History] Escitalopram [Lexapro] 10 mg PO DAILY 10/11/19 [History] Artificial Tears-Hypromellose [Artificial Tear Drops] 1 drops BOTH EYES TID 12/09/19 [History] Biotin 300mg 300 mg PO DAILY 12/09/19 [History] Calcium/Magnesium(Unknown Dose) 2 tab PO BID 12/09/19 [History] Cholecalciferol [Vitamin D3 (25 Mcg = 1000 Iu)] 2,000 unit PO HS 12/09/19 [History] Ferrous Sulfate [Iron (65 MG Elemental)] 325 mg PO DAILY 12/09/19 [History] Ginkgo Biloba 10mg 10 mg PO DAILY 12/09/19 [History] Kelp(Iodine) 550mg 550 mg PO BID 12/09/19 [History] Lecithin(Unknown Dose) 2 tab PO DAILY 12/09/19 [History] Lecithin(Unknown Dose) 3 tab PO HS 12/09/19 [History] Lutein 20 mg PO DAILY 12/09/19 [History] Methenamine/Sodium Salicylate [Azo Urinary Tract Defense Tab] 1 tab PO BID 12/09/19 [History] Montelukast [Singulair] 10 mg PO HS 12/09/19 [History] Nitroglycerin Sl Tabs [Nitrostat] 0.4 mg SUBLINGUAL Q5M PRN 12/09/19 [History] Nutriferon [place]aklee 1 cap PO BID 12/09/19 [History] Potassium Gluconate 99 mg PO DAILY 12/09/19 [History] Selenium 200 mcg PO HS 12/09/19 [History] Vitamin B Plus 1 tab PO BID 12/09/19 [History] [place] Eye Drops 1 drop BOTH EYES QID 04/14/20 [History] Cephalexin [Keflex] 500 mg PO Q6HR 3 Days #12 cap 04/17/20 [Rx] Follow up Appointment(s)/Referral(s): Cinthia Wynn MD [Primary Care Provider] - 04/21/20 11:15 am Errol James MD [STAFF PHYSICIAN] - 04/25/20 1:45 pm Patient Instructions/Handouts: Pacemaker (DC) Activity/Diet/Wound Care/Special Instructions: PACEMAKER 1. Keep dressing dry and intact for 5 days. You may cover the area with saran or cling wrap, prior to a shower. 2. The dressing will be removed in the [facility] at [facility]. Absorbable sutures were used to close the wound. 3. Avoid raising the left arm above the shoulder level. (4-week restriction). 4. Avoid arm movements, like backscratching, rubbing your head, or pulling on a cord with your left arm. (4-week restriction). 5. Gentle range of motion movements of the left shoulder should be performed to avoid a frozen shoulder. (Pendulum exercises). 6. The opposite arm may be used freely. 7. Avoid driving for 7 days. 8. Avoid activities such as golfing, swimming, week whacking, lifting more than 10 pounds of weight, bowling, gymnastics and weight training/lifting. (6-week restriction). 9. Activities such as chopping wood, pull-ups, power lifting, welding, and being around an induction cooktop will always be a problem and can interfere with your pacemaker. 10. Your arm sling is only a reminder to not lift your arm above your head. You do not need to keep the arm completely immobilized. You are free to move your arm and use it for normal activities. In case of any problems, please call [facility] [place] @ [phone]. Discharge Disposition: HOME SELF-CARE
== END 2020-04-17 15:57 | disposition home or self-care (01) | DRG 244 ==
LOC: EC 04:11 → 3SCARD 04:44
PROVIDERS: ADMIT Internal Medicine; ATTEND Internal Medicine
PROC: 02H63JZ Insertion of Pacemaker Lead into Right Atrium, Percutaneous Approach (ICD-10-PCS; 2020-04-16)
PROC: 02HK3JZ Insertion of Pacemaker Lead into Right Ventricle, Percutaneous Approach (ICD-10-PCS; 2020-04-16)
PROC: 5A1223Z Performance of Cardiac Pacing, Continuous (ICD-10-PCS; 2020-04-16)
PROC: 0JH606Z Insertion of Pacemaker, Dual Chamber into Chest Subcutaneous Tissue and Fascia, Open Approach (ICD-10-PCS; principal; 2020-04-16 08:00)
DX: I45.3 Trifascicular block (principal); I44.1 Atrioventricular block, second degree; G62.0 Drug-induced polyneuropathy; I48.0 Paroxysmal atrial fibrillation; R00.1 Bradycardia, unspecified; Z20.822 Contact with and (suspected) exposure to COVID-19; K21.9 Gastro-esophageal reflux disease without esophagitis; E78.5 Hyperlipidemia, unspecified; I10 Essential (primary) hypertension; M19.90 Unspecified osteoarthritis, unspecified site; F41.9 Anxiety disorder, unspecified; I25.10 Atherosclerotic heart disease of native coronary artery without angina pectoris; I08.8 Other rheumatic multiple valve diseases; T45.1X5S Adverse effect of antineoplastic and immunosuppressive drugs, sequela; I25.2 Old myocardial infarction; Z79.01 Long term (current) use of anticoagulants; Z79.899 Other long term (current) drug therapy; Z91.048 Other nonmedicinal substance allergy status; Z95.5 Presence of coronary angioplasty implant and graft; Z85.3 Personal history of malignant neoplasm of breast; Z90.11 Acquired absence of right breast and nipple; Z98.42 Cataract extraction status, left eye; Z98.41 Cataract extraction status, right eye; Z94.7 Corneal transplant status; Z96.652 Presence of left artificial knee joint; Z95.2 Presence of prosthetic heart valve; Z88.8 Allergy status to other drugs, medicaments and biological substances; Z80.7 Family history of other malignant neoplasms of lymphoid, hematopoietic and related tissues; Z80.0 Family history of malignant neoplasm of digestive organs; Z83.518 Family history of other specified eye disorder
CPT/HCPCS: 33208; 36415; 71046; 80048; 80053; 80061; 81001; 82550; 83605; 83735; 83880; 84100; 84443; 84484; 85025; 85610; 85730; 87635; 93005; 94760; 96361; 96374; 99291

== ENCOUNTER 2020-09-27 22:23 | Emergency (ER) | payer MEDICARE ==
[2020-09-27] MEDS ORDERED: ONDANSETRON 4 MG/2 ML VIAL IVP STA (22:29)
[2020-09-27] MEDS ORDERED: SODIUM CHLORIDE 0.9% 1,000 ML IV STA (22:29)
[2020-09-27 22:30] VITALS: RESP 18; TEMP 98
--- NOTE | 2020-09-27 22:30 | ED ---
Weakness HPI - General Stated complaint: Nausea Time Seen by Provider: 09/27/20 22:28 Source: RN notes reviewed, old records reviewed Limitations: no limitations - History of Present Illness Initial comments: This is a 80-year-old female who presents today for evaluation in regards to weakness not feeling well watching the titers came tonight. Patient presents by EMS states patient been feeling well throughout transport. Patient himself is unable to give accurate history of why she has complaints she has no headache chest pain nausea vomiting or diarrhea no change in medications or symptoms. MD Complaint: generalized weakness -: hour(s) Location: generalized Severity: mild Severity scale (1-10): 3 Quality: tingling Consistency: intermittent Improves with: none Context: history of similar Associated Symptoms: denies other symptoms - Related Data Home Medications Medication Instructions Recorded Confirmed Omeprazole [PriLOSEC] 20 mg PO DAILY 09/09/14 04/14/20 Ubidecarenone [Co Q-10] 100 mg PO DAILY 09/03/15 04/14/20 Pyridoxine HCl (Vitamin B6) 100 mg PO HS 01/18/18 04/14/20 [Vitamin B-6] Vitamin E (Dl,Tocopheryl Acet) 400 unit PO DAILY 01/18/18 04/14/20 [Vitamin E (400 Iu = 180 mg)] Zinc 50 mg PO DAILY 01/18/18 04/14/20 Cyanocobalamin (Vitamin B-12) 1,000 mcg PO BID 08/30/18 04/14/20 [Vitamin B-12] Cetirizine HCl [Zyrtec] 10 mg PO HS 12/16/18 04/14/20 prednisoLONE ACETATE 1% OPHTH 1 drop BOTH EYES QAM 12/16/18 04/14/20 [Pred Forte 1%] ALPRAZolam [Xanax] 0.125 mg PO BID 10/11/19 04/14/20 Ascorbic Acid [Vitamin C] 1,000 mg PO DAILY 10/11/19 04/14/20 Bisoprolol-Hctz 5-6.25 mg [Ziac 1 tab PO HS 10/11/19 04/14/20 5-6.25 MG] Escitalopram [Lexapro] 10 mg PO DAILY 10/11/19 04/14/20 Artificial Tears-Hypromellose 1 drops BOTH EYES TID 12/09/19 04/14/20 [Artificial Tear Drops] Biotin 300mg 300 mg PO DAILY 12/09/19 04/14/20 Calcium/Magnesium(Unknown Dose) 2 tab PO BID 12/09/19 04/14/20 Cholecalciferol [Vitamin D3 (25 2,000 unit PO HS 12/09/19 04/14/20 Mcg = 1000 Iu)] Ferrous Sulfate [Iron (65 MG 325 mg PO DAILY 12/09/19 04/14/20 Elemental)] Ginkgo Biloba 10mg 10 mg PO DAILY 12/09/19 04/14/20 Kelp(Iodine) 550mg 550 mg PO BID 12/09/19 04/14/20 Lecithin(Unknown Dose) 2 tab PO DAILY 12/09/19 04/14/20 Lecithin(Unknown Dose) 3 tab PO HS 12/09/19 04/14/20 Lutein 20 mg PO DAILY 12/09/19 04/14/20 Methenamine/Sodium Salicylate [Azo 1 tab PO BID 12/09/19 04/14/20 Urinary Tract Defense Tab] Montelukast [Singulair] 10 mg PO HS 12/09/19 04/14/20 Nitroglycerin Sl Tabs [Nitrostat] 0.4 mg SUBLINGUAL Q5M PRN 12/09/19 04/14/20 Nutriferon Shaklee 1 cap PO BID 12/09/19 04/14/20 Potassium Gluconate 99 mg PO DAILY 12/09/19 04/14/20 Selenium 200 mcg PO HS 12/09/19 04/14/20 Vitamin B Plus 1 tab PO BID 12/09/19 04/14/20 [place] Eye Drops 1 drop BOTH EYES QID 04/14/20 04/14/20 Previous Rx's Medication Instructions Recorded Atorvastatin [Lipitor] 40 mg PO HS #90 tab 10/13/18 Apixaban [Eliquis] 5 mg PO BID #60 tab 12/17/18 Cephalexin [Keflex] 500 mg PO Q6HR 3 Days #12 cap 04/17/20 Allergies Allergy/AdvReac Type Severity Reaction Status Date / Time grass pollen-perennial rye, Allergy Itching Verified 04/14/20 06:33 standar diazepam [From Valium] AdvReac Rapid Verified 04/14/20 06:33 Heart Rate Review of Systems ROS Statement: Those systems with pertinent positive or pertinent negative responses have been documented in the HPI. ROS Other: All systems not noted in ROS Statement are negative. 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, "bad joints", anemia, Last Myocardial Infarction Date:: 10/11/18 History of Any Multi-Drug Resistant Organisms: None Reported Past Surgical History: Breast Surgery, Heart Catheterization With Stent, Orthopedic Surgery Additional Past Surgical History / Comment(s): RT MASTECTOMY, Eye surgery - bilateral corneal transplant x5, AND cataract removal, left knee replaced, heart cath with stent- 4 weeks, arotic valve replacement 2020 Past Anesthesia/Blood Transfusion Reactions: No Reported Reaction Additional Past Anesthesia/Blood Transfusion Reaction / Comment(s): Pt has received blood in past without reaction. Date of Last Stent Placement:: 10/13/18 Past Psychological History: Anxiety Smoking Status: Never smoker Past Alcohol Use History: None Reported Past Drug Use History: None Reported - Past Family History Father Family Medical History: Cancer Additional Family Medical History / Comment(s): corneal dystrophy, colon cancer Mother Family Medical History: Cancer Additional Family Medical History / Comment(s): multiple myeloma Brother(s) Family Medical History: Cancer Additional Family Medical History / Comment(s): colon cancer, since past. Aneruysm. General Exam General appearance: alert, in no apparent distress Head exam: Present: atraumatic, normocephalic, normal inspection Eye exam: Present: normal appearance, PERRL, EOMI. Absent: scleral icterus, conjunctival injection, periorbital swelling ENT exam: Present: normal exam, mucous membranes moist Neck exam: Present: normal inspection. Absent: tenderness, meningismus, lymphadenopathy Respiratory exam: Present: normal lung sounds bilaterally. Absent: respiratory distress, wheezes, rales, rhonchi, stridor Cardiovascular Exam: Present: regular rate, normal rhythm, normal heart sounds. Absent: systolic murmur, diastolic murmur, rubs, gallop, clicks GI/Abdominal exam: Present: soft, normal bowel sounds. Absent: distended, tenderness, guarding, rebound, rigid Extremities exam: Present: normal inspection, full ROM, normal capillary refill. Absent: tenderness, pedal edema, joint swelling, calf tenderness Back exam: Present: normal inspection Neurological exam: Present: alert, oriented X3, CN II-XII intact Psychiatric exam: Present: normal affect, normal mood Skin exam: Present: warm, dry, intact, normal color. Absent: rash Course Vital Signs 09/27/20 09/28/20 22:24 00:39 Temperature 98 F Pulse Rate 79 76 Respiratory 18 18 Rate Blood Pressure 168/80 157/77 O2 Sat by Pulse 97 100 Oximetry - Reevaluation(s) Reevaluation #1: 09/28/20 01:34 Medical record is reviewed Reevaluation #2: 09/28/20 01:34 Patient is informed of results and questions answered Reevaluation #3: 09/28/20 01:35 Patient feels good for discharge home EKG Findings - EKG Comments: EKG Findings:: EKG is sinus rhythm 81 OR 192 QRS 144 QTC 527 Medical Decision Making - Medical Decision Making 80 female to the ER today for weakness and not feeling well. All evaluations are within normal limits here in the emergency department and patient can be discharged home - Lab Data Result diagrams: 09/27/20 22:45 09/27/20 22:45 Lab Results 09/27/20 09/27/20 09/27/20 Range/Units 22:45 22:45 22:45 WBC 9.2 (3.8-10.6) k/uL RBC 4.34 (3.80-5.40) m/uL Hgb 14.2 (11.4-16.0) gm/dL Hct 42.2 (34.0-46.0) % MCV 97.1 (80.0-100.0) fL MCH 32.6 (25.0-35.0) pg MCHC 33.6 (31.0-37.0) g/dL RDW 13.0 (11.5-15.5) % Plt Count 140 L (150-450) k/uL MPV 9.0 Neutrophils % 64 % Lymphocytes % 20 % Monocytes % 12 % Eosinophils % 1 % Basophils % 0 % Neutrophils # 5.9 (1.3-7.7) k/uL Lymphocytes # 1.8 (1.0-4.8) k/uL Monocytes # 1.1 H (0-1.0) k/uL Eosinophils # 0.1 (0-0.7) k/uL Basophils # 0.0 (0-0.2) k/uL PT 10.4 (9.0-12.0) sec INR 1.0 (<1.2) APTT 22.5 (22.0-30.0) sec Sodium (137-145) mmol/L Potassium (3.5-5.1) mmol/L Chloride (98-107) mmol/L Carbon Dioxide (22-30) mmol/L Anion Gap mmol/L BUN (7-17) mg/dL Creatinine (0.52-1.04) mg/dL Est GFR (CKD-EPI)AfAm (>60 ml/min/1.73 sqM) Est GFR (CKD-EPI)NonAf (>60 ml/min/1.73 sqM) Glucose (74-99) mg/dL Plasma Lactic Acid William (0.7-2.0) mmol/L Calcium (8.4-10.2) mg/dL Phosphorus (2.5-4.5) mg/dL Magnesium (1.6-2.3) mg/dL Total Bilirubin (0.2-1.3) mg/dL AST (14-36) U/L ALT (4-34) U/L Alkaline Phosphatase (38-126) U/L Creatine Kinase (30-135) U/L Troponin I (0.000-0.034) ng/mL NT-Pro-B Natriuret Pep pg/mL Total Protein (6.3-8.2) g/dL Albumin (3.5-5.0) g/dL Urine Color Yellow Urine Appearance Clear (Clear) Urine pH 5.0 (5.0-8.0) Ur Specific Mobile 1.018 (1.001-1.035) Urine Protein Negative (Negative) Urine Glucose (UA) Negative (Negative) Urine Ketones Negative (Negative) Urine Blood Negative (Negative) Urine Nitrite Negative (Negative) Urine Bilirubin Negative (Negative) Urine Urobilinogen <2.0 (<2.0) mg/dL Ur Leukocyte Esterase Small H (Negative) Urine WBC 5 (0-5) /hpf Ur Squamous Epith Cells <1 (0-4) /hpf Urine Mucus Rare H (None) /hpf 09/27/20 09/27/20 09/27/20 Range/Units 22:45 22:45 22:45 WBC (3.8-10.6) k/uL RBC (3.80-5.40) m/uL Hgb (11.4-16.0) gm/dL Hct (34.0-46.0) % MCV (80.0-100.0) fL MCH (25.0-35.0) pg MCHC (31.0-37.0) g/dL RDW (11.5-15.5) % Plt Count (150-450) k/uL MPV Neutrophils % % Lymphocytes % % Monocytes % % Eosinophils % % Basophils % % Neutrophils # (1.3-7.7) k/uL Lymphocytes # (1.0-4.8) k/uL Monocytes # (0-1.0) k/uL Eosinophils # (0-0.7) k/uL Basophils # (0-0.2) k/uL PT (9.0-12.0) sec INR (<1.2) APTT (22.0-30.0) sec Sodium 137 (137-145) mmol/L Potassium 4.5 (3.5-5.1) mmol/L Chloride 104 (98-107) mmol/L Carbon Dioxide 24 (22-30) mmol/L Anion Gap 9 mmol/L BUN 29 H (7-17) mg/dL Creatinine 0.99 (0.52-1.04) mg/dL Est GFR (CKD-EPI)AfAm 62 (>60 ml/min/1.73 sqM) Est GFR (CKD-EPI)NonAf 53 (>60 ml/min/1.73 sqM) Glucose 98 (74-99) mg/dL Plasma Lactic Acid William 1.2 (0.7-2.0) mmol/L Calcium 9.1 (8.4-10.2) mg/dL Phosphorus 4.0 (2.5-4.5) mg/dL Magnesium 2.1 (1.6-2.3) mg/dL Total Bilirubin 0.4 (0.2-1.3) mg/dL AST 32 (14-36) U/L ALT 22 (4-34) U/L Alkaline Phosphatase 77 (38-126) U/L Creatine Kinase 127 (30-135) U/L Troponin I <0.012 (0.000-0.034) ng/mL NT-Pro-B Natriuret Pep pg/mL Total Protein 6.7 (6.3-8.2) g/dL Albumin 4.0 (3.5-5.0) g/dL Urine Color Urine Appearance (Clear) Urine pH (5.0-8.0) Ur Specific [place] (1.001-1.035) Urine Protein (Negative) Urine Glucose (UA) (Negative) Urine Ketones (Negative) Urine Blood (Negative) Urine Nitrite (Negative) Urine Bilirubin (Negative) Urine Urobilinogen (<2.0) mg/dL Ur Leukocyte Esterase (Negative) Urine WBC (0-5) /hpf Ur Squamous Epith Cells (0-4) /hpf Urine Mucus (None) /hpf 09/27/20 Range/Units 22:45 WBC (3.8-10.6) k/uL RBC (3.80-5.40) m/uL Hgb (11.4-16.0) gm/dL Hct (34.0-46.0) % MCV (80.0-100.0) fL MCH (25.0-35.0) pg MCHC (31.0-37.0) g/dL RDW (11.5-15.5) % Plt Count (150-450) k/uL MPV Neutrophils % % Lymphocytes % % Monocytes % % Eosinophils % % Basophils % % Neutrophils # (1.3-7.7) k/uL Lymphocytes # (1.0-4.8) k/uL Monocytes # (0-1.0) k/uL Eosinophils # (0-0.7) k/uL Basophils # (0-0.2) k/uL PT (9.0-12.0) sec INR (<1.2) APTT (22.0-30.0) sec Sodium (137-145) mmol/L Potassium (3.5-5.1) mmol/L Chloride (98-107) mmol/L Carbon Dioxide (22-30) mmol/L Anion Gap mmol/L BUN (7-17) mg/dL Creatinine (0.52-1.04) mg/dL Est GFR (CKD-EPI)AfAm (>60 ml/min/1.73 sqM) Est GFR (CKD-EPI)NonAf (>60 ml/min/1.73 sqM) Glucose (74-99) mg/dL Plasma Lactic Acid William (0.7-2.0) mmol/L Calcium (8.4-10.2) mg/dL Phosphorus (2.5-4.5) mg/dL Magnesium (1.6-2.3) mg/dL Total Bilirubin (0.2-1.3) mg/dL AST (14-36) U/L ALT (4-34) U/L Alkaline Phosphatase (38-126) U/L Creatine Kinase (30-135) U/L Troponin I (0.000-0.034) ng/mL NT-Pro-B Natriuret Pep 1380 pg/mL Total Protein (6.3-8.2) g/dL Albumin (3.5-5.0) g/dL Urine Color Urine Appearance (Clear) Urine pH (5.0-8.0) Ur Specific [place] (1.001-1.035) Urine Protein (Negative) Urine Glucose (UA) (Negative) Urine Ketones (Negative) Urine Blood (Negative) Urine Nitrite (Negative) Urine Bilirubin (Negative) Urine Urobilinogen (<2.0) mg/dL Ur Leukocyte Esterase (Negative) Urine WBC (0-5) /hpf Ur Squamous Epith Cells (0-4) /hpf Urine Mucus (None) /hpf - Radiology Data Radiology results: report reviewed (CT brain and chest x-ray are negative for acute disease), image reviewed Disposition Clinical Impression: Weakness Disposition: HOME SELF-CARE Condition: Good Instructions (If sedation given, give patient instructions): Weakness (ED) Is patient prescribed a controlled substance at d/c from ED?: No Referrals: Cinthia Wynn MD [Primary Care Provider] - 1-2 days
[2020-09-27 23:23] LABS: Basophils % (A) 0 %; Eosinophils # (A) 0.1 k/uL (0-0.7); Eosinophils % (A) 1 %; HCT 42.2 % (34.0-46.0); HGB 14.2 gm/dL (11.4-16.0); Lymphocytes # (A) 1.8 k/uL (1.0-4.8); Lymphocytes % (A) 20 %; MCH 32.6 pg (25.0-35.0); MCHC 33.6 g/dL (31.0-37.0); MCV 97.1 fL (80.0-100.0); Monocytes # (A) 1.1 k/uL (0-1.0); Monocytes % (A) 12 %; Neutrophils # (A) 5.9 k/uL (1.3-7.7); Neutrophils % (A) 64 %; Platelet Count 140 k/uL (150-450); RBC 4.34 m/uL (3.80-5.40); WBC 9.2 k/uL (3.8-10.6)
[2020-09-27 23:26] LABS: Appearance,Urine Clear (Clear); Bilirubin,Urine Negative (Negative); Blood,Urine Negative (Negative); Color,Urine Yellow; Glucose,Urine (UA) Negative (Negative); Ketones,Urine Negative (Negative); Leukocyte Esterase,Urine Small (Negative); Mucus,Urine Rare /hpf; Nitrite,Urine Negative (Negative); Protein,Urine Negative (Negative); Specific Gravity,Urine 1.018 (1.001-1.035); Squamous Epithelial Cell,Urine <1 /hpf (0-4); Urobilinogen,Urine <2.0 mg/dL (<2.0); WBC,Urine 5 /hpf (0-5)
--- NOTE | 2020-09-27 23:32 | XR ---
EXAMINATION TYPE: XR chest 2V DATE OF EXAM: 09/27/2020 COMPARISON: 04/17/2020 HISTORY: Check placement. TECHNIQUE: FINDINGS: There is left axillary pacemaker. There are lead tips in the right ventricle. There is aort ic valve surgery. There is large hiatal hernia. There is no heart failure. Costophrenic angles are cl ear. IMPRESSION: Pacemaker wires are not changed compared to old exam. No heart failure. Large hiatal ric ia.
[2020-09-27 23:39] LABS: Partial Thromboplastin Time 22.5 sec (22.0-30.0); Prothrombin Time 10.4 sec (9.0-12.0)
[2020-09-27 23:40] LABS: Calcium 9.1 mg/dL (8.4-10.2); Magnesium 2.1 mg/dL (1.6-2.3); Potassium 4.5 mmol/L (3.5-5.1); Total Bilirubin 0.4 mg/dL (0.2-1.3); Total Protein 6.7 g/dL (6.3-8.2)
--- NOTE | 2020-09-28 00:26 | CT ---
EXAMINATION TYPE: CT brain wo con DATE OF EXAM: 09/28/2020 COMPARISON: 10/11/2019 HISTORY: nausea/pain CT DLP: 1070.4 mGycm Automated exposure control for dose reduction was used. There is cerebral cortical atrophy. There is no mass effect nor midline shift. There is hypodensity i n the right posterior parietal lobe consistent with an old cortical infarct. The calvarium is intact. Skull base is intact. There is normal aeration of the mastoid sinuses. There is some white matter hypodensity in the periventricular regions bilaterally. 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 No acute intracranial abnor mality. Chronic small vessel ischemia.
[2020-09-28 00:39] VITALS: BP 157/77; PULSE 76
== END 2020-09-28 01:49 | disposition home or self-care (01) ==
LOC: EC 22:23
DX: R53.1 Weakness (principal); R11.0 Nausea; I10 Essential (primary) hypertension; M19.90 Unspecified osteoarthritis, unspecified site; I48.91 Unspecified atrial fibrillation; Z79.899 Other long term (current) drug therapy; Z95.2 Presence of prosthetic heart valve; Z88.8 Allergy status to other drugs, medicaments and biological substances; Z91.048 Other nonmedicinal substance allergy status
CPT/HCPCS: 36415; 70450; 71046; 80053; 81001; 82550; 83605; 83735; 83880; 84100; 84484; 85025; 85610; 85730; 93005; 96360; 96361; 99285